=== PATIENT | female | born 1950 | race Caucasian/White ===

== ENCOUNTER → 2020-06-07 15:01 | Outpatient (BNVA) | payer MEDICARE, OTHER, SELFPAY | PROVIDERS: Visit Provider Obstetrics & Gynecology | DX: R10.32 Left lower quadrant pain (principal); R93.89 Abnormal findings on diagnostic imaging of other specified body structures | CPT/HCPCS: 99212 ==

== ENCOUNTER → 2020-08-16 11:04 | Outpatient (BNVA) | payer MEDICARE, OTHER, SELFPAY | PROVIDERS: PCP Internal Medicine; Visit Provider Internal Medicine Cardiovascular Disease | DX: I25.10 Atherosclerotic heart disease of native coronary artery without angina pectoris (principal); R00.2 Palpitations; I10 Essential (primary) hypertension | CPT/HCPCS: 99212 ==

== ENCOUNTER → 2020-09-13 08:28 | Outpatient (REF) | payer MEDICARE, OTHER, SELFPAY ==
--- NOTE | 2020-09-13 08:45 | CA_ITS ---
Transthoracic Echocardiogram Patient (Last, First, Middle): Milana Fonseca, Gender: Female Date of : 1950 Age: 70 Procedure Date: 09/13/2020 Procedure Type: Transthoracic Echocardiogram Location: OP Height: 157.48 cm Weight: 86.18 kg BSA: 1.87 m2 Heart Rate: bpm BP: 140 / 80 mmHg Industrial Editor: RAYRAY Referring MD: Daniel Che MD Symptoms: R00.2 - Palpitations Study Quality: Good ECG Rhythm: Sinus Conclusions: - The left ventricular systolic function is normal. The visually estimated ejection fraction is between 60-65%. - There is mild calcification of the aortic valve. - There is mild mitral annular calcification. - No obvious valvular pathology seen on this study. Findings Left Ventricle Normal left ventricular cavity size. There is normal left ventricular wall thickness. The left ventricular systolic function is normal. The visually estimated ejection fraction is between 60-65%. There is no evidence of regional wall motion abnormalities. Diastolic function is normal for age. Right Ventricle Normal right ventricular cavity size and systolic function. Atria The left atrium is normal in size. The right atrium is normal in size. Aortic Valve There is a normal trileaflet aortic valve. There is mild calcification of the aortic valve. There is no aortic valve stenosis. There is no aortic valve regurgitation. Mitral Valve There is mild mitral annular calcification. There is no mitral valve regurgitation. There is no mitral valve stenosis. Pulmonic Valve The pulmonic valve was not well visualized. Tricuspid Valve Normal tricuspid valve structure. There is no tricuspid valve regurgitation. Tricuspid regurgitation envelope is inadequate for calculation of right ventricular systolic pressure. Great Vessels The aortic annulus, sinuses of valsalva, asc aorta, and aortic arch are normal in size. Venous The inferior vena cava is normal in size and collapses greater than 50% with inspiration. Pericardium/Pleural There is no evidence of pericardial effusion. Prior Study Comparison No significant change compared to prior study dated: 06/03/2017. Recommendations, Care & Conclusions No obvious valvular pathology seen on this study. Measurements M-Mode Liner Measurements Normals - Women/Men AOV Cusps: 1.70 1.5-2.6 cm/m2 2D Linear Measurements IVSd: 0.74 0.6-0.9/0.6-1.0 cm LVIDd: 4.44 3.9-5.3/4.2-5.9 cm LVIDd Index: 2.37 2.4-3.2/2.2-3.1 cm/m2 LVIDs: 2.72 2.0-3.6 cm LVPWd: 0.84 0.7-1.1 cm Ao Root: 2.70 2.1-3.5 cm LA Diam: 3.60 2.7-3.8/3.0-4.0 cm LAIDs Index: 1.93 1.5-2.3 cm/m2 LV Mass: 136.32 67-162/88-224 g LV Mass Index: 72.90 43-95/49-115 g/m2 LVOT Diam: 1.80 3.0+(-)1.3 cm Mitral Valve MV Pk E: 0.61 MV PK A: 0.56 MV Decel Time: 303.00 E/A: 1.10 E'Lateral: 7.40 E'Medial: 5.44 E/E' Med: 11.10 E/E' Lat: 8.20 PHT: 89.00 MVA PHT: 2.47 Decel [place]: 2.00 Aortic Valve AoV Pk Mars: 1.28 AoV Pk Grad: 7.00 LVOT LVOT Pk Mars: 1.11 LVOT Mn Mars: 0.70 LVOT VTI: 0.25 LVOT Pk Grad: 5.00 LVOT Mn Grad: 2.00 LVOT Diam: 1.80 LVOT Area: 2.54 Diastolic Function MV Pk E: 0.61 MV Pk A: 0.56 E/A: 1.10 E'Medial: 5.44 E/E' Med: 11.10 E' Laterial: 7.40 E/E' Lat: 8.20 Tricuspid Valve RA Press: 3.00 Great Vessels Aorta Ao Root-2D: 2.70 2.0-3.7 cm Ao Asc: 3.20 2.1-3.4 cm Ao Arch: 2.70 Pulmonary Valve PV Pk Mars: 0.88 Peak PV Grad: 3.00 Updated in Other Vendor System with Status of Final Jay Kim MD electronically signed on 09/15/2020 2:13:17 PM with status of Final
== END ==
LOC: HO.CARD 08:28
PROVIDERS: Visit Provider Internal Medicine Cardiovascular Disease
DX: I25.119 Atherosclerotic heart disease of native coronary artery with unspecified angina pectoris (principal); R00.2 Palpitations
CPT/HCPCS: 93306

== ENCOUNTER → 2020-09-14 10:15 | Outpatient (REF) | payer MEDICARE, OTHER, SELFPAY ==
--- NOTE | 2020-09-14 | HM_ITS ---
TEST PERFORMED: Cardiac event monitoring. INDICATION: Palpitations. REQUESTING PHYSICIAN: Dr. Che. ENROLLMENT PERIOD: 09/14/2020 to 10/14/2020 - 30 days. FINDINGS: In the above monitoring period, the underlying rhythm was sinus. There were several episodes of atrial fibrillation with rapid rate and that were noted. During these times, the rates went up to as much as 185 beats per minute. There were no specific symptoms notified by patient at any point. CONCLUSION: Study positive for several episodes of atrial fibrillation with rapid rate. Jay Kim MD HS/JELANI / [id number] MTDD
== END ==
LOC: HO.CARD 10:15
PROVIDERS: Visit Provider Internal Medicine Cardiovascular Disease
DX: I25.10 Atherosclerotic heart disease of native coronary artery without angina pectoris (principal); R00.2 Palpitations
CPT/HCPCS: 93270; 93272

== ENCOUNTER → 2020-09-25 13:49 | Outpatient (BNVA) | payer MEDICARE, OTHER, SELFPAY | PROVIDERS: PCP Internal Medicine; Visit Provider Nurse Practitioner Family | DX: I48.0 Paroxysmal atrial fibrillation (principal); R00.2 Palpitations; I25.10 Atherosclerotic heart disease of native coronary artery without angina pectoris; I10 Essential (primary) hypertension; E66.9 Obesity, unspecified | CPT/HCPCS: 93005; 99212 ==

== ENCOUNTER 2020-10-05 09:33 | Outpatient (REF) | payer MEDICARE, OTHER, SELFPAY ==
[2020-10-05 09:55] LABS: MANUAL DIFF FLAG NO
[2020-10-05 10:03] LABS: Eosinophils Absolute Auto 0.4 X10*3/uL (0.0-0.4); Eosinophils Percent Auto 4.7 % (0-4); Hematocrit 43.5 % (37-47); Hemoglobin 14.2 g/dl (12.0-16.0); Imm Gran Abs Auto 0.02 X10*3/uL (0.00-0.03); Imm Gran Pct Auto 0.3 % (0.0-0.4); Lymphocytes Absolute Auto 1.7 X10*3/uL (1.2-4.9); Lymphocytes Percent Auto 22.4 % (20-40); Mean Corpuscular HGB Conc 32.6 g/dl (31.0-35.0); Mean Corpuscular Hemoglobin 27.5 pg (27.0-33.0); Mean Corpuscular Volume 84.3 fL (80-98); Mean Platelet Volume 10.4 fL (9.4-12.3); Monocytes Absolute Auto 0.7 X10*3/uL (0.1-1.2); Monocytes Percent Auto 8.8 % (2-11); Neutrophils Absolute Auto 4.7 X10*3/uL (2.0-8.3); Neutrophils Percent Auto 63.8 % (45-73); Platelet Count 193 X10*3/uL (160-400); Red Blood Count 5.16 X10*6/uL (4.20-5.50); Red Cell Distribution Width 12.9 % (11.0-16.0); White Blood Count 7.4 X10*3/uL (4.8-10.8)
[2020-10-05 10:15] LABS: Estimated Average Glucose 197 mg/dL; Hemoglobin A1c % 8.5 %
[2020-10-05 10:52] LABS: Anion Gap 12 (12-20); Blood Urea Nitrogen 20 mg/dL (9-16); Calcium 9.3 mg/dL (8.4-10.2); Carbon Dioxide 27 mmol/L (22-29); Chloride 106 mmol/L (96-108); Cholesterol 145 mg/dL; Estimated Glomerular Filt Rate > 60; Glucose Fasting 160 mg/dL (60-99); HDL Cholesterol 46 mg/dL; LDL Cholesterol Calculated 81 mg/dl; Magnesium 2.1 mg/dL (1.6-2.6); Potassium 4.3 mmol/L (3.3-5.1); Sodium 141 mmol/L (135-145); Triglycerides 92 mg/dL
== END 2020-10-05 09:34 | disposition home or self-care (01) ==
LOC: HO.LAB 09:33
PROVIDERS: Absent Provider Nurse Practitioner Family; PCP Internal Medicine; Visit Provider Nurse Practitioner Family
DX: E11.65 Type 2 diabetes mellitus with hyperglycemia (principal); E78.00 Pure hypercholesterolemia, unspecified; I48.0 Paroxysmal atrial fibrillation
CPT/HCPCS: 36415; 80048; 80061; 83036; 83735; 85025

== ENCOUNTER → 2020-10-15 10:20 | Outpatient (BNVA) | payer MEDICARE, OTHER, SELFPAY | PROVIDERS: PCP Internal Medicine; Visit Provider Nurse Practitioner Family | DX: I48.0 Paroxysmal atrial fibrillation (principal); R00.2 Palpitations; I25.10 Atherosclerotic heart disease of native coronary artery without angina pectoris; E66.9 Obesity, unspecified; Z68.34 Body mass index [BMI] 34.0-34.9, adult; Z87.891 Personal history of nicotine dependence; Z79.899 Other long term (current) drug therapy | CPT/HCPCS: 99212 ==

== ENCOUNTER → 2020-10-18 09:30 | Outpatient (BNVA) | payer MEDICARE, OTHER, SELFPAY | PROVIDERS: PCP Internal Medicine; Visit Provider Nurse Practitioner Family | DX: R00.1 Bradycardia, unspecified (principal) | CPT/HCPCS: 93005 ==

== ENCOUNTER → 2020-11-19 10:05 | Outpatient (BNVA) | payer MEDICARE, OTHER, SELFPAY | PROVIDERS: PCP Internal Medicine; Visit Provider Nurse Practitioner Family | DX: I48.0 Paroxysmal atrial fibrillation (principal); R00.2 Palpitations; I25.10 Atherosclerotic heart disease of native coronary artery without angina pectoris; I10 Essential (primary) hypertension; E66.9 Obesity, unspecified | CPT/HCPCS: 93005; 99212; Q3014 ==

== ENCOUNTER 2021-02-21 10:05 | Outpatient (REF) | payer MEDICARE, OTHER, SELFPAY ==
--- NOTE | ~2021-02-21 | XR_ITS ---
EXAMINATION: XR CHEST CLINICAL INFORMATION: Atrial fibrillation. COMPARISON: Most recent chest radiograph dated 08/26/2019 TECHNIQUE: Two views of the chest were obtained. FINDINGS: No airspace consolidation. No pleural effusion or pneumothorax. Stable cardiomediastinal silhouette. No acute osseous abnormality. Right upper quadrant surgical clips. XR/XR chest 2V IMPRESSION: No acute cardiopulmonary findings.
[2021-02-21 11:25] LABS: MANUAL DIFF FLAG NO
[2021-02-21 11:29] LABS: Eosinophils Absolute Auto 0.2 X10*3/uL (0.0-0.4); Eosinophils Percent Auto 3.5 % (0-4); Hematocrit 42.6 % (37-47); Hemoglobin 13.7 g/dl (12.0-16.0); Imm Gran Abs Auto 0.02 X10*3/uL (0.00-0.03); Imm Gran Pct Auto 0.3 % (0.0-0.4); Lymphocytes Absolute Auto 1.4 X10*3/uL (1.2-4.9); Lymphocytes Percent Auto 19.8 % (20-40); Mean Corpuscular HGB Conc 32.2 g/dl (31.0-35.0); Mean Corpuscular Volume 83.9 fL (80-98); Mean Platelet Volume 10.5 fL (9.4-12.3); Monocytes Absolute Auto 0.6 X10*3/uL (0.1-1.2); Neutrophils Absolute Auto 4.7 X10*3/uL (2.0-8.3); Neutrophils Percent Auto 67.4 % (45-73); Platelet Count 194 X10*3/uL (160-400); Red Blood Count 5.08 X10*6/uL (4.20-5.50); Red Cell Distribution Width 13.3 % (11.0-16.0); White Blood Count 6.9 X10*3/uL (4.8-10.8)
[2021-02-21 11:36] LABS: Estimated Average Glucose 180 mg/dL; Hemoglobin A1c % 7.9 %
[2021-02-21 12:18] LABS: Alanine Aminotransferase 38 U/L (0-31); Albumin Level 4.4 g/dL (3.5-5.0); Alkaline Phosphatase 76 U/L (39-117); Anion Gap 12 (12-20); Aspartate Amino Transferase 40 U/L (5-31); Bilirubin Direct 0.3 mg/dL (0.0-0.5); Bilirubin Total 0.9 mg/dL (0.0-1.0); Blood Urea Nitrogen 15 mg/dL (9-16); Calcium 9.5 mg/dL (8.4-10.2); Carbon Dioxide 29 mmol/L (22-29); Chloride 105 mmol/L (96-108); Cholesterol 137 mg/dL; Estimated Glomerular Filt Rate 48; Glucose Random 223 mg/dL (60-115); HDL Cholesterol 42 mg/dL; LDL Cholesterol Calculated 72 mg/dl; Potassium 3.8 mmol/L (3.3-5.1); Sodium 142 mmol/L (135-145); Total Protein 7.4 g/dL (6.5-8.0); Triglycerides 118 mg/dL
[2021-02-21 12:21] LABS: Free T4 (Free Thyroxine) 0.93 ng/dL (0.71-1.85); Thyroid Stimulating Hormone 0.68 uIU/mL (0.32-4.0)
== END 2021-02-21 10:06 | disposition home or self-care (01) ==
LOC: HO.LAB 10:05
PROVIDERS: PCP Internal Medicine; Referring Provider Internal Medicine; Visit Provider Internal Medicine Cardiovascular Disease
DX: I48.19 Other persistent atrial fibrillation (principal); I25.10 Atherosclerotic heart disease of native coronary artery without angina pectoris; I10 Essential (primary) hypertension; E11.65 Type 2 diabetes mellitus with hyperglycemia; E11.21 Type 2 diabetes mellitus with diabetic nephropathy; E78.00 Pure hypercholesterolemia, unspecified; E55.9 Vitamin D deficiency, unspecified; E66.9 Obesity, unspecified; Z68.34 Body mass index [BMI] 34.0-34.9, adult; Z91.010 Allergy to peanuts; Z88.8 Allergy status to other drugs, medicaments and biological substances; Z91.018 Allergy to other foods; Z79.4 Long term (current) use of insulin
CPT/HCPCS: 36415; 71046; 80053; 80061; 80076; 83036; 84439; 84443; 85025; 93005; 99212

== ENCOUNTER 2021-02-27 10:33 | Outpatient (REF) | payer MEDICARE, OTHER, SELFPAY ==
--- NOTE | ~2021-02-27 | MM_ITS ---
EXAMINATION: MM SCREENING DIGITAL BREAST TOMOSYNTHESIS, BILATERAL CLINICAL INFORMATION: Screening. Asymptomatic. The lifetime risk of breast cancer based on the Tyrer-Cuzick Model is 18%. COMPARISON: Mammography: 02/28/2019, 01/06/2018, 12/10/2016, 11/27/2016 TECHNIQUE: Digital breast tomosynthesis is performed in both the craniocaudal and mediolateral oblique views along with computer-aided detection (CAD). Synthesized 2D images are generated from the tomosynthesis. FINDINGS: The breasts are heterogeneously dense, which may obscure small masses (ACR BI-RADS breast composition Category c). Parenchymal pattern is similar to prior exams. No developing density or interval mass or architectural abnormality. There is biopsy clip marker again noted mid 9:00 left breast. There are grouped benign coarse calcifications anterior 1:00 left breast. Other scattered bilateral punctate round and vascular calcifications again seen. Intramammary node present right breast mid 9:30 o'clock position. The axilla and skin contours are unremarkable. MM/MM tomosynthesis screening BI IMPRESSION: No significant changes from prior exams. ASSESSMENT: BI-RADS 2: Benign RECOMMENDATION: Routine annual mammography screening. This patient's information was entered into a reminder system with a target due date for their next mammogram.
== END 2021-02-27 10:34 | disposition home or self-care (01) ==
LOC: HO.MAMMO 10:33
PROVIDERS: PCP Internal Medicine; Visit Provider Internal Medicine
DX: Z12.31 Encounter for screening mammogram for malignant neoplasm of breast (principal)
CPT/HCPCS: 77063; 77067

== ENCOUNTER → 2021-03-20 07:04 | Day surgery (SDC) | payer MEDICARE, OTHER, SELFPAY ==
--- NOTE | 2021-03-18 13:41 | HO.ANESPROP2 ---
HPI - Anesthesia Eval Consult details Narrative: 03/20/21 Pt in SR, cardioversion cx'd 71yo F for Cardioversion Xarelto for afib PMFSH Active Problems Active Problems: All Active Problems (Updated 03/06/21 @ 14:12 by KYLE Rdz) Adult general medical exam (Acute) Screening for colon cancer (Acute) Post-menopausal (Acute) Persistent atrial fibrillation (Acute) Hordeolum (Acute) Paroxysmal atrial fibrillation (Acute) Numbness of lip (Acute) Intermittent palpitations (Acute) CAD (coronary artery disease) (Acute) Hypertension (Acute) Type 2 diabetes mellitus with hyperglycemia (Acute) Hypercholesterolemia (Acute) Obesity (BMI 30-39.9) (Acute) Past Medical History Medical History (Updated 03/06/21 @ 14:12 by KYLE Rdz) CAD (coronary artery disease) Diabetic nephropathy Hypercholesterolemia Hypertension Numbness of lip Obesity (BMI 30-39.9) Osteoarthritis Post-menopausal Psoriasis Screening for colon cancer Thrombocytopenia Type 2 diabetes mellitus with hyperglycemia Urge incontinence Vitamin D deficiency Family History Family History Brother Liver cancer Surgical History Surgical History (Updated 03/06/21 @ 14:10 by KYLE Rdz) H/O breast biopsy History of colonoscopy History of oophorectomy Hx of cholecystectomy Hx of tonsillectomy Hx of total knee replacement Hx of tubal ligation Stented coronary artery Social History Social History (Updated 03/06/21 @ 11:46 by KYLE Rdz) Alcohol intake: never Patient Tobacco Use Status: Former Tobacco user Meds Allergies Allergy/AdvReac Type Severity Reaction Status Date / Time atorvastatin [From LIPITOR] Allergy Unknown AFFECTED Verified 03/06/21 11:44 LIVER ENZYMES liraglutide [Victoza] Allergy Unknown nausea Verified 03/06/21 11:44 lisinopril Allergy Unknown cough Verified 03/06/21 11:44 losartan [LOSARTAN] Allergy Unknown HIVES Verified 03/06/21 11:44 PEANUT BUTTER Allergy Unknown LIPS Uncoded 03/06/21 11:44 SWELLING MOST FRUITS AdvReac Unknown HIVES,ITCHI Uncoded 03/06/21 11:44 NG Home Medications Medication Instructions Recorded Confirmed Last Taken Type ezetimibe 10 mg tablet (Zetia) 10 mg PO DAILY 06/07/20 03/06/21 Unknown History metoprolol succinate 100 mg 50 mg PO DAILY tab 10/18/20 03/06/21 Unknown History tablet,extended release 24 hr Exam Exam Date and Time: March 18, 2021 1341 Pertinent Lab Results Pertinent Lab Results: Laboratory Tests 02/21/21 02/21/21 10:53 10:53 WBC 6.9 Hgb 13.7 Hct 42.6 Plt Count 194 Sodium 142 Potassium 3.8 Chloride 105 Carbon Dioxide 29 BUN 15 Creatinine 1.12 Narrative Narrative: EKG 02/2021 atrial fibrillation at 89 beats per minute with nonspecific ST changes Assessment and Plan Assessment Anesthesia Assessment: Chart Reviewed
[2021-03-20 07:13] VITALS: BP 144/66; PULSE 49; RESP 18; TEMP 37; O2SAT 98; BMI 34.9
[2021-03-20 07:21] LABS: Glucose, Whole Blood 142 mg/dL (60-115)
[2021-03-20] MEDS: Lactated Ringers 1,000 ML 100 ML IVCONT (07:49)
--- NOTE | 2021-03-20 07:59 | ECG_ITS ---
Test Reason : RHYTHM CHECK Blood Pressure : / mmHG Vent. Rate : 049 BPM Atrial Rate : 049 BPM P-R Int : 198 ms QRS Dur : 094 ms QT Int : 478 ms P-R-T Axes : 060 056 044 degrees QTc Int : 431 ms Sinus bradycardia Otherwise normal ECG When compared with ECG of 17-FEB-2018 15:51, No significant change was found Referred By: Daniel Che Electronically Signed By:DANIEL CHE MD
--- NOTE | 2021-03-20 08:02 | PC.NURSE ---
PT IS CURRENLTY IN A SB RHYTHM, HR [address] RANGEL NOTIFIED AND AN EKG ORDERED TO VERIFY THE RHYTHM.
--- NOTE | 2021-03-20 08:19 | PC.NURSE ---
DR. TOVAR STATES PATIENT CAN GO HOME A RESULT OF THE EKG AND THAT HE WILL SET UP THE FOLLOW UP.
== END ==
PROVIDERS: PCP Internal Medicine; Visit Provider Internal Medicine Cardiovascular Disease
DX: I48.19 Other persistent atrial fibrillation (principal); Z53.8 Procedure and treatment not carried out for other reasons; E11.21 Type 2 diabetes mellitus with diabetic nephropathy; Z79.899 Other long term (current) drug therapy
CPT/HCPCS: 82947; 93005

== ENCOUNTER 2021-03-25 08:20 | Outpatient (REF) | payer MEDICARE, OTHER, SELFPAY ==
[2021-03-25 09:22] LABS: Alanine Aminotransferase 42 U/L (0-31); Albumin Level 4.2 g/dL (3.5-5.0); Alkaline Phosphatase 78 U/L (39-117); Aspartate Amino Transferase 36 U/L (5-31); Bilirubin Direct 0.3 mg/dL (0.0-0.5); Bilirubin Total 0.5 mg/dL (0.0-1.0); Total Protein 6.9 g/dL (6.5-8.0)
== END 2021-03-25 08:21 | disposition home or self-care (01) ==
LOC: HO.LAB 08:20
PROVIDERS: PCP Internal Medicine; Visit Provider Internal Medicine Cardiovascular Disease
DX: I25.10 Atherosclerotic heart disease of native coronary artery without angina pectoris (principal)
CPT/HCPCS: 36415; 80076

== ENCOUNTER → 2021-04-08 11:03 | Outpatient (REF) | payer MEDICARE, OTHER, SELFPAY ==
--- NOTE | 2021-04-08 11:06 | HM_ITS ---
Baseline rhythm is normal sinus rhythm with average heart rate of 55 beats per minute. Frequent sinus bradycardia noted. There were no significant pauses No episodes of atrial fibrillation Rare isolated PACs noted. No patient reported events MTDD
== END ==
LOC: HO.CARD 11:03
PROVIDERS: PCP Internal Medicine; Visit Provider Internal Medicine Cardiovascular Disease
DX: I48.0 Paroxysmal atrial fibrillation (principal)
CPT/HCPCS: 93242

== ENCOUNTER 2021-04-09 09:23 | Outpatient (REF) | payer MEDICARE, OTHER, SELFPAY ==
--- NOTE | ~2021-04-09 | MM_ITS ---
EXAMINATION: BONE DENSITOMETRY CLINICAL INDICATION: Asymptomatic menopausal state. COMPARISON: Baseline BD dated 11/28/2015. TECHNIQUE: Using a [employer] DXA System (software version: 13.1) manufactured by [employer], dual-energy x-ray absorptiometry was performed of the lumbar spine and left hip. The images are of good technical quality. Summary results are attached. FINDINGS: AP SPINE L1-L4: Current: BMD 1.291 g/cm2, Z-score 1.9, T-score 0.9, normal, 0.2% increase from baseline (<5% change is not significant). Baseline: BMD 1.289 g/cm2. LEFT FEMUR, NECK: Current: BMD 0.994 g/cm2, Z-score 1.0, T-score -0.3, normal. Baseline: BMD 1.075 g/cm2. LEFT FEMUR, TOTAL: Current: BMD 1.111 g/cm2, Z-score 1.9, T-score 0.8, normal, 9.3% decrease from baseline (<5% change is not significant). Baseline: BMD 1.225 g/cm2. IDENTIFIED RISK FACTORS: Menopause, right oophorectomy. HISTORY OF FRACTURE: None listed. MEDICATIONS: Vitamin D. MM/XR DEXA axial skeleton IMPRESSION: 1. DIAGNOSIS: Normal bone density based on the lowest T-score value of -0.3 in the femoral neck applying World Health Organization criteria. 2. 10-YEAR FRACTURE RISK PREDICTION, FRAX: Major osteoporotic fracture (clinical spine, forearm, hip or shoulder) 4.0%. Hip fracture 0.3%. 3. Treatment Recommendations: NOF guidelines recommend consideration for treatment in postmenopausal women and men age 50 and older presenting with the following: -A hip or vertebral (clinical or morphometric) fracture. -T-score less than or equal to -2.5 at the femoral neck or spine after appropriate evaluation to exclude secondary causes. -Low bone mass at the hip or spine and a 10-year fracture probability by FRAX of greater than or equal to 3% for hip fracture or greater than or equal to 20% for major osteoporotic fracture based on the [place] adapted WHO algorithm. 4. Other Recommendations: All treatment decisions require clinical judgment and consideration of individual patient factors, including patient preferences, comorbidities, previous drug use, risk factors not captured in the FRAX model (e.g. frailty, falls, vitamin D deficiency, increased bone turnover, interval significant decline in bone density) and possible under or overestimation of fracture risk by FRAX. FUTURE SCAN RECOMMENDATION: People with diagnosed cases of osteoporosis or at high risk for fracture should have regular bone mineral density tests. For patients eligible for Medicare, routine testing is allowed once every 2 years. The testing frequency can be increased to one year for patients who have rapidly progressing disease, those who are receiving or discontinuing medical therapy to restore bone mass, or have additional risk factors.
== END 2021-04-09 09:24 | disposition home or self-care (01) ==
LOC: HO.MAMMO 09:23
PROVIDERS: PCP Internal Medicine; Visit Provider Nurse Practitioner Family
DX: Z13.820 Encounter for screening for osteoporosis (principal); Z78.0 Asymptomatic menopausal state; Z79.899 Other long term (current) drug therapy; Z90.722 Acquired absence of ovaries, bilateral
CPT/HCPCS: 77080

== ENCOUNTER → 2021-04-16 13:13 | Outpatient (BNVA) | payer MEDICARE, OTHER, SELFPAY | PROVIDERS: PCP Internal Medicine; Referring Provider Internal Medicine; Visit Provider Internal Medicine Cardiovascular Disease | DX: I48.0 Paroxysmal atrial fibrillation (principal); I25.10 Atherosclerotic heart disease of native coronary artery without angina pectoris | CPT/HCPCS: 93005; 99212 ==

== ENCOUNTER 2021-05-07 14:11 | Outpatient (REF) | payer MEDICARE, OTHER, SELFPAY ==
[2021-05-07 17:55] LABS: IDNOW Serial# 9DD0AD1C; Strep A Nucleic Acid Negative (Negative)
== END 2021-05-07 14:12 | disposition home or self-care (01) ==
LOC: HO.LNP 14:11
PROVIDERS: Visit Provider Internal Medicine
DX: J06.9 Acute upper respiratory infection, unspecified (principal); Z20.822 Contact with and (suspected) exposure to COVID-19
CPT/HCPCS: 87651; U0003; U0005

== ENCOUNTER 2021-07-30 09:21 | Outpatient (REF) | payer MEDICARE, OTHER, SELFPAY ==
[2021-07-30 09:41] LABS: MANUAL DIFF FLAG NO
[2021-07-30 09:48] LABS: Eosinophils Absolute Auto 0.3 X10*3/uL (0.0-0.4); Eosinophils Percent Auto 3.8 % (0-4); Hematocrit 43.5 % (37.0-47.0); Hemoglobin 13.8 g/dl (12.0-16.0); Imm Gran Abs Auto 0.03 X10*3/uL (0.00-0.03); Imm Gran Pct Auto 0.4 % (0.0-0.4); Lymphocytes Absolute Auto 1.4 X10*3/uL (1.2-4.9); Lymphocytes Percent Auto 20.6 % (20-40); Mean Corpuscular HGB Conc 31.7 g/dl (31.0-35.0); Mean Corpuscular Hemoglobin 27.3 pg (27.0-33.0); Mean Platelet Volume 9.8 fL (9.4-12.3); Monocytes Absolute Auto 0.6 X10*3/uL (0.1-1.2); Monocytes Percent Auto 8.4 % (2-11); Neutrophils Absolute Auto 4.5 x10*3/uL (2.0-8.3); Neutrophils Percent Auto 66.8 % (45-73); Platelet Count 189 X10*3/uL (160-400); Red Blood Count 5.06 X10*6/uL (4.20-5.50); Red Cell Distribution Width 14.3 % (11.0-16.0); White Blood Count 6.8 X10*3/uL (4.8-10.8)
[2021-07-30 10:11] LABS: INTERNATIONAL NORM RATIO 1.9 (0.9-1.1); Prothrombin Time 21.7 SEC (9.9-13.0)
[2021-07-30 10:18] LABS: B Type Natriuretic Peptide 77 pg/mL (<100)
[2021-07-30 10:23] LABS: Alanine Aminotransferase 38 U/L (0-31); Albumin Level 4.1 g/dL (3.5-5.0); Alkaline Phosphatase 82 U/L (39-117); Anion Gap 10 (12-20); Aspartate Amino Transferase 35 U/L (5-31); Bilirubin Total 0.7 mg/dL (0.0-1.0); Blood Urea Nitrogen 15 mg/dL (9-16); Calcium 9.1 mg/dL (8.4-10.2); Carbon Dioxide 28 mmol/L (22-29); Chloride 107 mmol/L (96-108); Cholesterol 164 mg/dL; Estimated Glomerular Filt Rate 54; Glucose Random 157 mg/dL (60-115); HDL Cholesterol 57 mg/dL; LDL Cholesterol Calculated 88 mg/dl; Potassium 4.3 mmol/L (3.3-5.1); Sodium 141 mmol/L (135-145); Total Protein 7.2 g/dL (6.5-8.0); Triglycerides 98 mg/dL
[2021-07-30 10:32] LABS: Anion Gap 11 (12-20); Blood Urea Nitrogen 15 mg/dL (9-16); Calcium 9.2 mg/dL (8.4-10.2); Carbon Dioxide 28 mmol/L (22-29); Chloride 107 mmol/L (96-108); Estimated Glomerular Filt Rate 55; Glucose Random 156 mg/dL (60-115); Potassium 4.4 mmol/L (3.3-5.1); Sodium 142 mmol/L (135-145)
[2021-07-30 10:45] LABS: Folate 12.6 ng/mL (> or = 4.0); Vitamin B12 536 pg/mL (200-900)
[2021-07-30 11:17] LABS: Free T4 (Free Thyroxine) 1.65 ng/dL (0.71-1.85)
[2021-07-30 11:51] LABS: Thyroid Stimulating Hormone 1.11 uIU/mL (0.32-4.0)
== END 2021-07-30 09:22 | disposition home or self-care (01) ==
LOC: HO.LAB 09:21
PROVIDERS: PCP Internal Medicine; Visit Provider Internal Medicine Cardiovascular Disease
DX: I48.0 Paroxysmal atrial fibrillation (principal); E78.00 Pure hypercholesterolemia, unspecified
CPT/HCPCS: 36415; 80048; 80053; 80061; 82607; 82746; 83880; 84439; 84443; 85025; 85610

== ENCOUNTER 2021-08-12 09:50 | Day surgery (SDC) | payer MEDICARE, OTHER, SELFPAY ==
--- NOTE | 2021-08-08 10:03 | HO.ANESPROP2 ---
Documented by User: Negin Schwarz NP 08/08/21 10:27 HPI - Anesthesia Eval Consult details Narrative: 71yo F for Upper Endoscopy with Balloon Dilitation, Colonoscopy Xarelto for afib PMFSH Active Problems Active Problems: All Active Problems (Updated 08/05/21 @ 13:51 by Karissa Gutierrez, RN) Intermittent palpitations (Acute) Paroxysmal atrial fibrillation (Acute) Hordeolum (Acute) Adult general medical exam (Acute) Upper respiratory tract infection (Acute) Screening for colon cancer (Acute) Post-menopausal (Acute) Numbness of lip (Acute) CAD (coronary artery disease) (Acute) Hypertension (Acute) Type 2 diabetes mellitus with hyperglycemia (Acute) Hypercholesterolemia (Acute) Obesity (BMI 30-39.9) (Acute) Past Medical History Medical History (Updated 08/05/21 @ 13:51 by Karissa Gutierrez, RN) CAD (coronary artery disease) Diabetic nephropathy Hypercholesterolemia Hypertension Numbness of lip Obesity (BMI 30-39.9) On anticoagulant therapy On beta ever at home Osteoarthritis Persistent atrial fibrillation Post-menopausal Psoriasis Screening for colon cancer Thrombocytopenia Type 2 diabetes mellitus with hyperglycemia Urge incontinence Vitamin D deficiency Family History Family History Brother Liver cancer Surgical History Surgical History H/O breast biopsy History of colonoscopy History of oophorectomy Hx of cholecystectomy Hx of tonsillectomy Hx of total knee replacement Hx of tubal ligation Stented coronary artery Social History Social History Housing: House Alcohol intake: never Patient Tobacco Use Status: Former Tobacco user Second Hand Smoke Exposure: Yes Use of substances other than those prescribed or required for medical reasons: No Have you been hit, kicked, punched, or otherwise hurt by someone within the past year? If so, by whom?: No Are you DNR?: No Advance Directives: No Advance Directives Information Provided: Yes Recently lost weight without trying: No Nutrition Risks: No Nutritional Risk Patient : No service: No Current occupational status: retired Meds Allergies Allergy/AdvReac Type Severity Reaction Status Date / Time atorvastatin [From LIPITOR] Allergy Unknown AFFECTED Verified 08/05/21 13:49 LIVER ENZYMES liraglutide [Victoza] Allergy Unknown nausea Verified 08/05/21 13:49 lisinopril Allergy Unknown cough Verified 08/05/21 13:49 losartan [LOSARTAN] Allergy Unknown HIVES Verified 08/05/21 13:49 PEANUT BUTTER Allergy Unknown LIPS Uncoded 08/05/21 13:49 SWELLING MOST FRUITS AdvReac Unknown HIVES,ITCHI Uncoded 08/05/21 13:49 NG Home Medications Medication Instructions Recorded Confirmed Last Taken Type dronedarone 400 mg tablet (Multaq) 400 mg PO Q12H 08/05/21 08/05/21 08/12/21 History metformin 500 mg tablet 1,000 mg PO BID 08/05/21 08/05/21 Unknown History omeprazole 20 mg capsule,delayed 1 cap PO DAILY 08/05/21 08/05/21 Unknown History release Exam Exam Date and Time: August 08, 2021 1003 Pertinent Lab Results Pertinent Lab Results: Laboratory Tests 07/30/21 07/30/21 09:40 09:40 WBC 6.8 Hgb 13.8 Hct 43.5 Plt Count 189 Sodium 142 Potassium 4.4 Chloride 107 Carbon Dioxide 28 BUN 15 Creatinine 1.00 Narrative Narrative: EKG 04/2021 sinus bradycardia at 52 beats per minute with normal EKG Echo 09/2020 EF 60-65%, No signif abn Holter 03/2021 avg HR 55, no pauses, no afib Assessment and Plan Assessment Anesthesia Assessment: Chart Reviewed Documented by User: Katalina Narayanan MD 08/12/21 10:43 [facility] Past Medical History Medical History (Updated 08/05/21 @ 13:51 by Karissa Gutierrez, LOAN) CAD (coronary artery disease) Diabetic nephropathy Hypercholesterolemia Hypertension Numbness of lip Obesity (BMI 30-39.9) On anticoagulant therapy On beta ever at home Osteoarthritis Persistent atrial fibrillation Post-menopausal Psoriasis Screening for colon cancer Thrombocytopenia Type 2 diabetes mellitus with hyperglycemia Urge incontinence Vitamin D deficiency Functional capacity: independent ambulation Patient : No Family History Family History Brother Liver cancer Family history of problems with anesthesia: No Surgical History Surgical History H/O breast biopsy History of colonoscopy History of oophorectomy Hx of cholecystectomy Hx of tonsillectomy Hx of total knee replacement Hx of tubal ligation Stented coronary artery History of Problems with Anesthesia: No Social History Social History Housing: House Alcohol intake: never Patient Tobacco Use Status: Former Tobacco user Second Hand Smoke Exposure: Yes Use of substances other than those prescribed or required for medical reasons: No Have you been hit, kicked, punched, or otherwise hurt by someone within the past year? If so, by whom?: No Are you DNR?: No Advance Directives: No Advance Directives Information Provided: Yes Recently lost weight without trying: No Nutrition Risks: No Nutritional Risk Patient : No service: No Current occupational status: retired [employer] Allergies Allergy/AdvReac Type Severity Reaction Status Date / Time atorvastatin [From LIPITOR] Allergy Unknown AFFECTED Verified 08/05/21 13:49 LIVER ENZYMES liraglutide [Victoza] Allergy Unknown nausea Verified 08/05/21 13:49 lisinopril Allergy Unknown cough Verified 08/05/21 13:49 losartan [LOSARTAN] Allergy Unknown HIVES Verified 08/05/21 13:49 PEANUT BUTTER Allergy Unknown LIPS Uncoded 08/05/21 13:49 SWELLING MOST FRUITS AdvReac Unknown HIVES,ITCHI Uncoded 08/05/21 13:49 NG Home Medications Medication Instructions Recorded Confirmed Last Taken Type dronedarone 400 mg tablet (Multaq) 400 mg PO Q12H 08/05/21 08/05/21 08/12/21 History metformin 500 mg tablet 1,000 mg PO BID 08/05/21 08/05/21 Unknown History omeprazole 20 mg capsule,delayed 1 cap PO DAILY 08/05/21 08/05/21 Unknown History release Exam Airway TM Dist: >3cm Neck ROM: Full Loose/Missing/Broken Teeth: Yes, Upper and Lower Heart: RRR Lungs: CTA Assessment and Plan Final Anesthetic Review Family History of Problems with Anesthesia: No History of Problems with Anesthesia: No NPO: Yes ASA Class: III Final Preanesthetic Review: No Changes in Pt Med Stat, Meds/Allgs Chart Reviewed, Consent Obtained/Reviewed and Anes Risks/Benef Reviewed Patient Risk: Low Procedure Risk: Low Anesthetic Plan Anesthetic Plan: MAC: Disposition: Standard PACU
[2021-08-12 08:59] VITALS: BMI 35.6
[2021-08-12 10:01] VITALS: BP 151/66; PULSE 54; RESP 17; TEMP 36.6; O2SAT 98
[2021-08-12 10:03] LABS: Glucose, Whole Blood 145 mg/dL (60-115)
[2021-08-12] MEDS: Lactated Ringers 1,000 ML 100 ML IVCONT (10:19)
[2021-08-12 11:54] VITALS: BP 101/63; PULSE 60; RESP 16; TEMP 36.1; O2SAT 94
--- NOTE | 2021-08-12 11:58 | PM.OP ---
Brief Operative Note Date of Service: 08/12/21 Pre-op diagnosis: Dysphagia, Rectal bleeding Post-op diagnosis: other (Hiatal hernia, Gastritis/Duodenitis, Colon polyp) Procedure: EGD with biopsies and Balloon dilation, Colonoscopy to the cecum with hot snare polypectomy and placement of 1 Resolution clip Surgeon: Marquise Osman Anesthesia: MAC Was an Botanical Technical Officer used for this Procedure?: No Estimated blood loss (mL): 2.0 Pathology: other (A. Gastric antrum B. EG Junction at 30cm C. Transverse colon polyp) Condition: stable Disposition: PACU
[2021-08-12 12:11] VITALS: BP 110/71; PULSE 54; RESP 16; TEMP 36.1; O2SAT 96
[2021-08-12 12:25] VITALS: BP 142/76; PULSE 51; RESP 16; TEMP 36.1; O2SAT 98
--- NOTE | 2021-08-12 12:28 | HO.POSTANES ---
Post Anesthesia Evaluation Post Anesthesia Evaluation Vital Signs: Vital Signs Temp Pulse Resp BP Pulse Ox 08/12/21 12:11 97 F 54 16 110/71 96 08/12/21 11:54 97 F 60 16 101/63 94 08/12/21 10:01 98 F 54 17 151/66 H 98 Anesthesia: Monitored Mental Status: Awake Pain Control: Satisfactory Nausea/Vomiting: None Hydration: Adequate Anesthesia-Related Issues: No Anes. Related Issues
--- NOTE | 2021-08-12 13:11 | OP_ITS ---
SURGEON: Marquise Osman MD INDICATIONS: The patient presents for evaluation of intermittent abdominal discomfort, dysphagia, and rectal bleeding. PREOPERATIVE DIAGNOSIS: POSTOPERATIVE DIAGNOSIS: PROCEDURE PERFORMED: Esophagogastroscopy with biopsies and balloon dilation of gastroesophageal junction, and colonoscopy to the cecum with hot snare polypectomy and placement of 1 resolution clip. Full consent obtained from her for both procedures, including risks of bleeding and perforation. ESTIMATED BLOOD LOSS: COMPLICATIONS: ANESTHESIA: Monitored anesthesia care. ASSISTANTS: SPECIMENS: PREOPERATIVE DIAGNOSES: Abdominal pain, dysphagia, and rectal bleeding. POSTOPERATIVE DIAGNOSES: Abdominal pain, dysphagia, and rectal bleeding, hiatal hernia, gastritis and duodenitis, colon polyp, diverticulosis, and internal hemorrhoids. DESCRIPTION OF PROCEDURE: The patient was placed in the left lateral decubitus position. The Olympus video gastroscope was passed in the posterior oropharynx and upper esophagus under direct vision. The scope was passed slowly into the distal esophagus. The gastroesophageal junction appeared at 30 cm. There was no evidence of any esophagitis, stricture, nor ring. There was some slight irregularity at the EG junction at 30 cm. The scope easily entered the stomach. There was a small to moderate-sized hiatal hernia. The scope was advanced to pylorus and the duodenum was cannulated to the descending portion. The duodenum including the bulb was carefully inspected. There was some moderate duodenitis in the duodenal bulb as well as what appeared to be perhaps a healing 6-8 mm area of ulceration in the duodenal bulb. There was no bleeding. The scope was withdrawn back to the stomach. The gastric antrum and body had areas of erythema, edema, and some mild friability. There were no erosions or ulceration. There was good peristalsis. The scope was retroflexed visualizing the proximal stomach carefully, which appeared normal, without any sign of mass or ulceration. Scope was straightened. Biopsies were obtained of the gastric antrum. Scope was withdrawn back to the esophagus. Given her symptomatology, I did use a [employer] incremental balloon to dilate the esophagogastric junction from an 18 mm to a 19 mm to a 20 mm balloon at the recommended pressure for between 30 and 60 seconds each. Post dilation, there was no appreciable heme nor change in the appearance of the gastroesophageal junction. I did obtain biopsies of the EG junction as well. The esophageal mucosa appeared normal. The scope was withdrawn from the patient. She was turned around for the colonoscopy. The digital rectal exam revealed no abnormalities. The Projjix video pediatric colonoscope was entered into the rectum and advanced easily to the cecum. Once in the cecum, I did identify normal-appearing cecal pouch with the ileocecal valve, a normal-appearing appendiceal orifice. There was transillumination of light deep in the right lower quadrant. The entire cecum appeared normal. The scope was slowly withdrawn assessing all mucosal surfaces carefully. Preparation was excellent. In the region of the transverse colon, there was an approximately 8 mm grossly adenomatous polyp, which was snared with the hot snare and removed. The piece was recovered by suction. The polypectomy site appeared clean, without any sign of residual polyp nor bleeding. A single clip was applied given that she has to go back on her Xarelto. I did not visualize any other polyps, colitis, or angiodysplasia. There was a mild amount of sigmoid diverticulosis. In the rectum, scope was retroflexed visualizing some small internal hemorrhoids, but no other pathology. The rectal mucosa appeared normal. The scope was straightened and withdrawn from the patient. She tolerated the procedure well and was returned to recovery area in stable condition. IMPRESSION: 1. Colon polyp, status post hot snare polypectomy with placement of one resolution clip. 2. Diverticulosis. 3. Internal hemorrhoids. 4. Hiatal hernia. 5. Gastritis and duodenitis. PLAN: The results of biopsies will be checked. If the colon polyp is a tubular adenoma, I would recommend a followup colonoscopy in 5 years. She was given a prescription to use omeprazole when I saw her at the end of June, but she has not yet started that. I did advise her to begin that given the upper endoscopy findings. She was advised to resume her Xarelto by tomorrow. At this point, I am advised that she is no longer using aspirin and I would have her hold that and avoid NSAIDs as well. She was advised to call me if her swallowing issues persist. MD LINDA Brooke/JELANI / [phone]
== END 2021-08-12 13:38 | disposition home or self-care (01) ==
PROVIDERS: PCP Internal Medicine; Visit Provider Internal Medicine
PROC: (CPT 45385; principal; 2021-08-12 10:20)
PROC: 0DJD8ZZ Inspection of Lower Intestinal Tract, Via Natural or Artificial Opening Endoscopic (ICD-10-PCS; CPT 45378; 2021-08-12 10:20)
DX: K62.5 Hemorrhage of anus and rectum (principal); D12.3 Benign neoplasm of transverse colon; K57.30 Diverticulosis of large intestine without perforation or abscess without bleeding; K64.8 Other hemorrhoids; K21.9 Gastro-esophageal reflux disease without esophagitis; R13.19 Other dysphagia; K29.50 Unspecified chronic gastritis without bleeding; B96.81 Helicobacter pylori [H. pylori] as the cause of diseases classified elsewhere; K29.80 Duodenitis without bleeding; K44.9 Diaphragmatic hernia without obstruction or gangrene; I48.19 Other persistent atrial fibrillation; I25.10 Atherosclerotic heart disease of native coronary artery without angina pectoris; Z98.61 Coronary angioplasty status; I10 Essential (primary) hypertension; J45.909 Unspecified asthma, uncomplicated; E11.9 Type 2 diabetes mellitus without complications; Z79.84 Long term (current) use of oral hypoglycemic drugs; Z79.01 Long term (current) use of anticoagulants; Z79.82 Long term (current) use of aspirin; Z79.899 Other long term (current) drug therapy; Z90.49 Acquired absence of other specified parts of digestive tract; Z87.891 Personal history of nicotine dependence
CPT/HCPCS: 45385; 43249; 43239; 82947; 88305; 88342; C1726

== ENCOUNTER 2021-10-24 12:57 | Outpatient (REF) | payer MEDICARE, OTHER, SELFPAY ==
[2021-10-24 13:14] LABS: MANUAL DIFF FLAG NO
[2021-10-24 13:41] LABS: Eosinophils Absolute Auto 0.5 X10*3/uL (0.0-0.4); Eosinophils Percent Auto 5.9 % (0-4); Hematocrit 43.9 % (37.0-47.0); Hemoglobin 14.2 g/dl (12.0-16.0); INTERNATIONAL NORM RATIO 1.2 (0.9-1.1); Imm Gran Abs Auto 0.02 X10*3/uL (0.00-0.03); Imm Gran Pct Auto 0.3 % (0.0-0.4); Lymphocytes Absolute Auto 1.7 X10*3/uL (1.2-4.9); Lymphocytes Percent Auto 20.8 % (20-40); Mean Corpuscular HGB Conc 32.3 g/dl (31.0-35.0); Mean Corpuscular Hemoglobin 27.6 pg (27.0-33.0); Mean Corpuscular Volume 85.4 fL (80.0-98.0); Mean Platelet Volume 10.4 fL (9.4-12.3); Monocytes Absolute Auto 0.6 X10*3/uL (0.1-1.2); Neutrophils Absolute Auto 5.2 x10*3/uL (2.0-8.3); Platelet Count 174 X10*3/uL (160-400); Prothrombin Time 13.9 SEC (9.9-13.0); Red Blood Count 5.14 X10*6/uL (4.20-5.50); Red Cell Distribution Width 13.2 % (11.0-16.0)
[2021-10-24 14:14] LABS: Anion Gap 13 (12-20); Blood Urea Nitrogen 17 mg/dL (9-16); Calcium 9.8 mg/dL (8.4-10.2); Carbon Dioxide 28 mmol/L (22-29); Chloride 104 mmol/L (96-108); Estimated Glomerular Filt Rate 55; Glucose Random 142 mg/dL (60-115); Potassium 4.7 mmol/L (3.3-5.1); Sodium 140 mmol/L (135-145)
== END 2021-10-24 12:58 | disposition home or self-care (01) ==
LOC: HO.LAB 12:57
PROVIDERS: PCP Internal Medicine; Visit Provider Internal Medicine Cardiovascular Disease
DX: I48.91 Unspecified atrial fibrillation (principal)
CPT/HCPCS: 36415; 80048; 85025; 85610

== ENCOUNTER → 2021-12-10 13:05 | Outpatient (BNVA) | payer MEDICARE, OTHER, SELFPAY | PROVIDERS: PCP Internal Medicine; Referring Provider Internal Medicine; Visit Provider Internal Medicine Cardiovascular Disease | DX: I48.0 Paroxysmal atrial fibrillation (principal); I25.10 Atherosclerotic heart disease of native coronary artery without angina pectoris; Z79.01 Long term (current) use of anticoagulants; Z79.899 Other long term (current) drug therapy | CPT/HCPCS: 93005; 99212 ==

== ENCOUNTER → 2022-03-25 10:13 | Outpatient (BNVA) | payer MEDICARE, OTHER, SELFPAY | PROVIDERS: PCP Internal Medicine; Referring Provider Internal Medicine; Visit Provider Internal Medicine Cardiovascular Disease | DX: Z79.899 Other long term (current) drug therapy (principal) | CPT/HCPCS: 93005 ==

== ENCOUNTER 2022-03-27 09:16 | Outpatient (REF) | payer MEDICARE, OTHER, SELFPAY ==
[2022-03-27 09:36] LABS: MANUAL DIFF FLAG NO
[2022-03-27 10:17] LABS: Eosinophils Absolute Auto 0.3 X10*3/uL (0.0-0.4); Eosinophils Percent Auto 3.6 % (0-4); Hemoglobin 13.6 g/dl (12.0-16.0); Imm Gran Abs Auto 0.02 X10*3/uL (0.00-0.03); Imm Gran Pct Auto 0.3 % (0.0-0.4); Lymphocytes Absolute Auto 1.3 X10*3/uL (1.2-4.9); Lymphocytes Percent Auto 18.2 % (20-40); Mean Corpuscular HGB Conc 32.4 g/dl (31.0-35.0); Mean Corpuscular Hemoglobin 27.3 pg (27.0-33.0); Mean Corpuscular Volume 84.2 fL (80.0-98.0); Mean Platelet Volume 10.5 fL (9.4-12.3); Monocytes Absolute Auto 0.6 X10*3/uL (0.1-1.2); Monocytes Percent Auto 8.7 % (2-11); Neutrophils Absolute Auto 4.8 x10*3/uL (2.0-8.3); Neutrophils Percent Auto 69.2 % (45-73); Platelet Count 194 X10*3/uL (160-400); Red Blood Count 4.99 X10*6/uL (4.20-5.50); Red Cell Distribution Width 13.3 % (11.0-16.0)
[2022-03-27 10:38] LABS: Alanine Aminotransferase 19 U/L (0-31); Albumin Level 4.4 g/dL (3.5-5.0); Alkaline Phosphatase 71 U/L (39-117); Anion Gap 14 (12-20); Aspartate Amino Transferase 26 U/L (5-31); Bilirubin Total 0.6 mg/dL (0.0-1.0); Blood Urea Nitrogen 17 mg/dL (9-16); Calcium 9.4 mg/dL (8.4-10.2); Carbon Dioxide 29 mmol/L (22-29); Chloride 104 mmol/L (96-108); Cholesterol 157 mg/dL; Estimated Glomerular Filt Rate 54; Glucose Random 131 mg/dL (60-115); HDL Cholesterol 53 mg/dL; LDL Cholesterol Calculated 90 mg/dl; Potassium 4.5 mmol/L (3.3-5.1); Sodium 142 mmol/L (135-145); Total Protein 7.3 g/dL (6.5-8.0); Triglycerides 72 mg/dL
[2022-03-27 11:03] LABS: Free T4 (Free Thyroxine) 0.99 ng/dL (0.71-1.85); Thyroid Stimulating Hormone 0.92 uIU/mL (0.32-4.0); Vitamin D 25-OH Total 32.8 ng/mL (>30)
[2022-03-27 11:35] LABS: Folate 8.7 ng/mL (> or = 4.0); Vitamin B12 379 pg/mL (200-900)
[2022-03-27 11:52] LABS: Creatinine Urine 123.87 mg/dL; Microalbum/Creatinine Ratio Ur 98.4 ug/mg cr
== END 2022-03-27 09:17 | disposition home or self-care (01) ==
LOC: HO.LAB 09:16
PROVIDERS: PCP Internal Medicine; Visit Provider Internal Medicine
DX: E11.65 Type 2 diabetes mellitus with hyperglycemia (principal); E78.00 Pure hypercholesterolemia, unspecified; Z79.4 Long term (current) use of insulin
CPT/HCPCS: 36415; 80053; 80061; 82043; 82306; 82607; 82746; 84439; 84443; 85025

== ENCOUNTER 2022-05-05 09:43 | Outpatient (REF) | payer MEDICARE, OTHER, SELFPAY ==
--- NOTE | ~2022-05-05 | MM_ITS ---
EXAMINATION: MM SCREENING DIGITAL BREAST TOMOSYNTHESIS, BILATERAL CLINICAL INFORMATION: Screening. Asymptomatic. The lifetime risk of breast cancer based on the Tyrer-Cuzick Model is 4%. COMPARISON: Mammography: 02/27/2021, 02/26/2019, 01/06/2018 TECHNIQUE: Digital breast tomosynthesis is performed in both the craniocaudal and mediolateral oblique views along with computer-aided detection (CAD). Synthesized 2D images are generated from the tomosynthesis. FINDINGS: The breasts are heterogeneously dense, which may obscure small masses (ACR BI-RADS breast composition Category c). There are no significant masses, abnormal calcifications, or other abnormalities. Parenchymal pattern is similar to prior studies. Again, there are coarse grouped calcifications 12:30 left breast suggesting a degenerating fibroadenoma. Scattered bilateral punctate round and vascular calcifications again noted. No developing density or architectural abnormality. Intramammary node again noted mid outer right breast. No significant changes. MM/MM tomosynthesis screening BI IMPRESSION: No mammographic evidence of malignancy. ASSESSMENT: BI-RADS 2: Benign RECOMMENDATION: Routine annual mammography screening. This patient's information was entered into a reminder system with a target due date for their next mammogram.
== END 2022-05-05 09:44 | disposition home or self-care (01) ==
LOC: HO.MAMMO 09:43
PROVIDERS: PCP Internal Medicine; Visit Provider Internal Medicine
DX: Z12.31 Encounter for screening mammogram for malignant neoplasm of breast (principal)
CPT/HCPCS: 77063; 77067

== ENCOUNTER → 2022-06-23 14:13 | Outpatient (BNVA) | payer MEDICARE, OTHER, SELFPAY | PROVIDERS: PCP Internal Medicine; Referring Provider Internal Medicine; Visit Provider Internal Medicine Cardiovascular Disease | DX: I48.0 Paroxysmal atrial fibrillation (principal); I25.10 Atherosclerotic heart disease of native coronary artery without angina pectoris | CPT/HCPCS: 93005; 99212 ==

== ENCOUNTER 2022-09-23 09:04 | Outpatient (REF) | payer MEDICARE, OTHER, SELFPAY ==
[2022-09-23 10:28] LABS: Cholesterol 119 mg/dL; HDL Cholesterol 39 mg/dL; LDL Cholesterol Calculated 67 mg/dl; Triglycerides 65 mg/dL
== END 2022-09-23 09:05 | disposition home or self-care (01) ==
LOC: HO.LAB 09:04
PROVIDERS: PCP Internal Medicine; Visit Provider Internal Medicine Cardiovascular Disease
DX: I25.10 Atherosclerotic heart disease of native coronary artery without angina pectoris (principal)
CPT/HCPCS: 36415; 80061

== ENCOUNTER → 2022-09-24 08:56 | Outpatient (BNVA) | payer MEDICARE, OTHER, SELFPAY | PROVIDERS: PCP Internal Medicine; Referring Provider Internal Medicine; Visit Provider Internal Medicine Cardiovascular Disease | DX: Z13.89 Encounter for screening for other disorder (principal) | CPT/HCPCS: 93005 ==

== ENCOUNTER → 2022-12-25 12:43 | Outpatient (BNVA) | payer MEDICARE, OTHER, SELFPAY | PROVIDERS: PCP Internal Medicine; Referring Provider Internal Medicine; Visit Provider Internal Medicine Cardiovascular Disease | DX: Z79.899 Other long term (current) drug therapy (principal); Z79.01 Long term (current) use of anticoagulants | CPT/HCPCS: 93005 ==

== ENCOUNTER 2023-01-27 09:54 | Outpatient (REF) | payer MEDICARE, OTHER, SELFPAY ==
[2023-01-27 10:57] LABS: Estimated Average Glucose 117 mg/dL; Hemoglobin A1c % 5.7 %
[2023-01-27 11:12] LABS: Alanine Aminotransferase 21 U/L (0-31); Albumin Level 4.2 g/dL (3.5-5.0); Alkaline Phosphatase 85 U/L (39-117); Anion Gap 10 (12-20); Aspartate Amino Transferase 36 U/L (5-31); Bilirubin Total 0.7 mg/dL (0.0-1.0); Blood Urea Nitrogen 23 mg/dL (9-16); Calcium 9.3 mg/dL (8.4-10.2); Carbon Dioxide 26 mmol/L (22-29); Chloride 109 mmol/L (96-108); Cholesterol 100 mg/dL; Estimated Glomerular Filt Rate 47; Glucose Random 101 mg/dL (60-115); HDL Cholesterol 35 mg/dL; LDL Cholesterol Calculated 56 mg/dl; Potassium 4.3 mmol/L (3.3-5.1); Sodium 141 mmol/L (135-145); Total Protein 7.6 g/dL (6.5-8.0); Triglycerides 49 mg/dL
[2023-01-27 15:25] LABS: Creatinine Urine 193.07 mg/dL
== END 2023-01-27 09:55 | disposition home or self-care (01) ==
LOC: HO.LAB 09:54
PROVIDERS: PCP Internal Medicine; Visit Provider Internal Medicine
DX: E11.65 Type 2 diabetes mellitus with hyperglycemia (principal); E78.00 Pure hypercholesterolemia, unspecified; Z79.4 Long term (current) use of insulin
CPT/HCPCS: 36415; 80053; 80061; 83036

== ENCOUNTER 2023-03-26 12:12 | Outpatient (AMB) | payer MEDICARE, OTHER, SELFPAY ==
[2023-03-26 12:29] VITALS: BP 114/70; PULSE 69; BMI 33.7
--- NOTE | 2023-03-26 12:29 | MHC.OFFVIS ---
Intake Vital Signs 03/26/23 12:29 Height 5 ft 1 in Weight 178 lb 9.191 oz BMI 33.7 BP 114/70 Blood Pressure Location Lt brachial Position Sitting Pulse 69 Pulse Source Pulse Oximeter Intake Visit Reasons: 6 MON FUP Intake Note: 6 month f/u Bingo Checker Required: No Allergies atorvastatin [From LIPITOR] Allergy (Unknown, Verified 03/26/23 12:34) AFFECTED LIVER ENZYMES liraglutide [Victoza] Allergy (Unknown, Verified 03/26/23 12:34) nausea lisinopril Allergy (Unknown, Verified 03/26/23 12:34) cough losartan [LOSARTAN] Allergy (Unknown, Verified 03/26/23 12:34) HIVES PEANUT BUTTER Allergy (Unknown, Uncoded 02/02/23 09:29) LIPS SWELLING MOST FRUITS Adverse Reaction (Unknown, Uncoded 02/02/23 09:29) HIVES,ITCHING Medication List - Last Reconciled 03/26/23 by Daniel Che MD albuterol sulfate 90 mcg/actuation (Ventolin HFA) 2 puffs inhalation Q4-6H PRN bempedoic acid 180 mg PO DAILY 30 days blood sugar diagnostic (Holisol logisticsuch Ultra Blue Test Strip) As directed check the BS QD blood-glucose meter (OneTouch Ultra2 Meter) As directed check BS QD clobetasol 0.05% 1 appl topical BID dronedarone (Multaq) 400 mg PO Q12H dulaglutide (Trulicity) 0.75 mg (0.5 mL) subcut QWEEK ezetimibe 10 mg PO DAILY metoprolol succinate ER 50 mg (1/2 x 100 mg) PO DAILY 90 days nystatin 1 appl topical BID PRN omeprazole 20 mg PO DAILY 14 days rivaroxaban (Xarelto) 20 mg PO QPM 90 days rosuvastatin 40 mg PO DAILY 90 days tizanidine 4 mg PO BID PRN tramadol 50 mg PO BID PRN trazodone 50 mg PO BEDTIME PRN HPI HPI Comments History of Present Illness Details Milana comes for follow-up. She has been doing very well. She says she usually feels palpitations when she forgets to take Multaq. Otherwise she has been doing well. She denies any significant prolonged irregular heartbeat or hospitalizations related to atrial fibrillation. No bleeding issues or neurologic events. No exertional chest pain. No shortness of breath, orthopnea, PND. Takes all her medications. Last LDL at 57 mg per dl. [facility] Medical History CAD (coronary artery disease) Diabetic nephropathy Hypercholesterolemia Hypertension Numbness of lip Obesity (BMI 30-39.9) On anticoagulant therapy On beta ever at home Osteoarthritis Persistent atrial fibrillation Post-menopausal Psoriasis Thrombocytopenia Type 2 diabetes mellitus with hyperglycemia Urge incontinence Vitamin D deficiency Surgical History H/O breast biopsy History of colonoscopy History of oophorectomy Hx of cholecystectomy Hx of tonsillectomy Hx of total knee replacement Hx of tubal ligation Stented coronary artery Family History Brother Liver cancer Social History Housing: House Alcohol intake: never Patient Tobacco Use Status: Former Tobacco user Tobacco use type: Cigarette e-Cigarette/Vaping Use: Never Used Second Hand Smoke Exposure: Yes service: No Current occupational status: retired Cognitive needs: No Hearing needs: Yes Vision needs: Yes Review of Systems ENT Reports dizziness Card Denies chest pain, Denies chest pain at rest, Denies chest pain with activity, Denies rapid heart rate, Denies pedal edema, Denies edema, Denies leg edema, Denies lightheadedness, Denies palpitations, Denies dyspnea, Denies dyspnea on exertion and Denies orthopnea Resp Denies cough, Denies dyspnea and Denies dyspnea on exertion GI Denies hematochezia and Denies change in stool character Musc Denies abnormal gait, Reports limited range of motion, Reports muscle cramps, Denies muscle weakness, Denies numbness, Denies radiating pain into limb, Denies stiffness and Denies tingling Neuro Denies abnormal gait, Reports dizziness, Denies numbness and Denies tingling Endo Denies palpitations Physical Exam Vital Signs: Last Vital Signs Pulse 69 03/26/23 12:29 BP 114/70 03/26/23 12:29 BMI result Body Mass Index 33.7 Const General: cooperative, comfortable, no acute distress, alert and awake Nutritional Appearance: obese Orientation/consciousness: patient oriented x3 Limitations: no limitations Neck Neck: Yes trachea midline, Yes supple and Yes no JVD Resp Effort & Inspection: normal respiratory effort Auscultation: clear to auscultation bilaterally Cardio Jugular venous distension: no JVD Palpation: normal PMI Rate: regular rate Rhythm: regular rhythm and abnormal rhythm Heart sounds: S1 normal heart sound present, S2 normal heart sound present, no click, no gallops, no murmurs and no rubs GI Auscultation: normal bowel sounds Skin General skin exam: no rashes or lesions noted Neuro General: patient oriented x3 and no focal motor deficits Extrem General: Yes no clubbing, cyanosis or edema Psych Appearance: grossly normal Office Procedures EKG Details: EKG shows normal sinus rhythm with normal EKG [id number], Complete Assessment & Plan Assessment & Plan (1) Paroxysmal atrial fibrillation: Comment: September 2020, ablation December 2021 Code(s): I48.0 - Paroxysmal atrial fibrillation Plan: Highly symptomatic paroxysmal atrial fibrillation which has remained suppressed on Multaq therapy. She has done well. Status post ablation in the past as well. Continue with rhythm control approach. Continue full oral anticoagulation, currently on Xarelto 20 mg daily. Semi annual renal function test should be pursued. Continue risk factor modification with good control blood pressure which is currently well optimized advised to monitor blood pressure at home maintain a log. Also participate in weight loss program. Avoidance of stimulants was discussed. (2) CAD (coronary artery disease): Comment: Angioplasty October 2009 with ERROL Code(s): I25.10 - Atherosclerotic heart disease of yuhaaviatam coronary artery without angina pectoris Qualifiers: Coronary Disease-Associated Artery/Lesion type: [place]am artery [place] vs. transplanted heart: yuhaaviatam heart Associated angina: without angina Qualified Code(s): I25.10 - Atherosclerotic heart disease of yuhaaviatam coronary artery without angina pectoris Plan: CAD stable without any symptoms of angina at this point time. Advised to call me with any new symptoms. Continue aggressive vascular risk factor modification. Currently on full oral anticoagulation Xarelto and with therefore avoid aspirin therapy. Continue aggressive risk factor modification. LDL is extremely well optimized on current therapy. Blood pressure is well optimized diabetes under your care with goal hemoglobin A1c less than 7%. Follow up in the clinic in 3 months for EKG in 6 months with me. Thank you for allowing me to partake in her care Orders: Referrals Vascular Surgery Referral I83.90 - Asymptomatic varicose veins of unspecified lower extremity Coding Level of Care Code Est Pt Level 4 (55016) Diagnoses Paroxysmal atrial fibrillation I48.0 CAD (coronary artery disease) I25.10 Coronary Disease-Associated Artery/Lesion type: [place]haav[place]am artery [place] vs. transplanted heart: yuhaaviatam heart Associated angina: without angina CPT Codes EKG - CPT: [id number], Complete ([id number])
== END 2023-03-26 12:47 | disposition home or self-care (01) ==
PROVIDERS: PCP Internal Medicine; Referring Provider Internal Medicine; Visit Provider Internal Medicine Cardiovascular Disease
DX: I48.0 Paroxysmal atrial fibrillation (principal); I25.10 Atherosclerotic heart disease of native coronary artery without angina pectoris
CPT/HCPCS: 93010; 99214

== ENCOUNTER → 2023-03-26 12:12 | Outpatient (BNVA) | payer MEDICARE, OTHER, SELFPAY | PROVIDERS: PCP Internal Medicine; Referring Provider Internal Medicine; Visit Provider Internal Medicine Cardiovascular Disease | DX: I48.0 Paroxysmal atrial fibrillation (principal); I25.10 Atherosclerotic heart disease of native coronary artery without angina pectoris | CPT/HCPCS: 93005; 99212 ==

== ENCOUNTER 2023-05-12 09:16 | Outpatient (REF) | payer MEDICARE, OTHER, SELFPAY ==
--- NOTE | ~2023-05-12 | MM_ITS ---
EXAMINATION: MM SCREENING DIGITAL BREAST TOMOSYNTHESIS, BILATERAL CLINICAL INFORMATION: Screening. Asymptomatic. COMPARISON: Mammography: This study is compared with prior exams dating back to 2016. TECHNIQUE: Digital breast tomosynthesis is performed in both the craniocaudal and mediolateral oblique views along with computer-aided detection (CAD). Synthesized 2D images are generated from the tomosynthesis. FINDINGS: There are scattered areas of fibroglandular density (ACR BI-RADS breast composition Category b). There are no significant masses, abnormal calcifications, or other abnormalities. There is a tissue marker in the medial aspect of the left breast from prior benign percutaneous biopsy. There are coarse calcifications in the upper outer quadrant of the left breast. These are benign. Few, benign, coarse calcifications are present in the right breast. MM/MM tomosynthesis screening BI IMPRESSION: No mammographic evidence of malignancy. ASSESSMENT: BI-RADS BI-RADS 2 - Benign Findings RECOMMENDATION: Routine annual mammography screening. 1 year F/U This examination should not preclude the clinical evaluation of a suspicious palpable abnormality. This patient's information was entered into a reminder system with a target due date for their next mammogram.
== END 2023-05-12 09:17 | disposition home or self-care (01) ==
LOC: HO.MAMMO 09:16
PROVIDERS: PCP Internal Medicine; Visit Provider Internal Medicine
DX: Z12.31 Encounter for screening mammogram for malignant neoplasm of breast (principal)
CPT/HCPCS: 77063; 77067

== ENCOUNTER → 2023-05-12 10:00 | Outpatient (BNV) | payer MEDICARE, OTHER, SELFPAY | PROVIDERS: PCP Internal Medicine; Visit Provider Radiology Diagnostic Radiology | DX: Z12.31 Encounter for screening mammogram for malignant neoplasm of breast (principal) | CPT/HCPCS: 77063; 77067 ==

== ENCOUNTER 2023-05-14 09:01 | Outpatient (AMB) | payer MEDICARE, OTHER, SELFPAY ==
--- NOTE | 2023-05-14 09:31 | MHC.OFFVIS ---
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 by cardio for varicose veins.Pt states that the VV are both legs but the ones on her left leg more concerning because they buldge out.She also states the she has bilateral le swelling itching and burning.She states VV started about a year ago left side worsening Allergies atorvastatin [From LIPITOR] Allergy (Unknown, Verified 05/14/23 09:39) AFFECTED LIVER ENZYMES liraglutide [Victoza] Allergy (Unknown, Verified 05/14/23 09:39) nausea lisinopril Allergy (Unknown, Verified 05/14/23 09:39) cough losartan [LOSARTAN] Allergy (Unknown, Verified 05/14/23:39) HIVES PEANUT BUTTER Allergy (Unknown, Uncoded 05/14/23 09:39) LIPS SWELLING MOST FRUITS Adverse Reaction (Unknown, Uncoded 05/14/23 09:39) HIVES,ITCHING HPI 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 Complaints include pain over varicosities, swelling of lower extremities, cramping, fatigue, and heaviness of the lower extremities. It has been affecting there daily activities including walking. It is noted more so in left leg. Patient denies any previous venous surgery or injections. Patient denies any history of DVT/ PE. Patient denies any history of phlebitis. Trial of compression includes - [id number] They now present for vascular evaluation regarding their varicose veins. [facility] Medical History On anticoagulant therapy On beta ever at home Post-menopausal Persistent atrial fibrillation Numbness of lip Urge incontinence Diabetic nephropathy Thrombocytopenia Vitamin D deficiency Type 2 diabetes mellitus with hyperglycemia Hypercholesterolemia Psoriasis Obesity (BMI 30-39.9) Osteoarthritis Hypertension CAD (coronary artery disease) Surgical History History of colonoscopy Stented coronary artery History of oophorectomy H/O breast biopsy Hx of tonsillectomy Hx of total knee replacement Hx of cholecystectomy Hx of tubal ligation Family History Brother Liver cancer Social History Housing: House Alcohol intake: never Patient Tobacco Use Status: Former Tobacco user Tobacco use type: Cigarette e-Cigarette/Vaping Use: Never Used Second Hand Smoke Exposure: Yes service: No Current occupational status: retired Cognitive needs: No Hearing needs: Yes Vision needs: Yes Review of Systems Const Reports as per HPI ENT Reports no additional complaints Card Denies chest pain, Denies chest pain at rest and Denies chest pain with activity Resp Denies chest congestion and Denies cough GI Reports no additional complaints Musc Details: pain over varicosities, aching of lower extremities, swelling, cramping, heaviness and tiredness, itching Denies abnormal gait Skin/Breast Reports pruritus and Denies wounds Neuro Reports no additional complaints and Denies abnormal gait Psych Denies no additional complaints Physical Exam Vital Signs: BMI result Body Mass Index 33.4 Const General: cooperative, healthy appearing and comfortable Orientation/consciousness: oriented to person, oriented to place and oriented to time Neck Carotids: no bruits Chest Chest palpation & inspection: normal inspection of the chest and normal palpation of entire chest wall Resp Effort & Inspection: normal respiratory effort and able to speak in complete sentences Cardio Rate: regular rate Heart sounds: S1 normal heart sound present and S2 normal heart sound present Peripheral pulses: Peripheral pulses 2+ throughout GI Inspection: Yes normal to inspection Skin Other: +2 edema, large rope-like varicosities greater than 4 mm left thigh and calf CEAP Classification C4 - skin color changes Ep - Etiology Primary As - superficial veins P - reflux General skin exam: dry skin Neuro General: oriented to person, oriented to place and oriented to time Extrem Right lower extremity: full ROM, normal capillary refill and edema Left lower extremity: full ROM, normal capillary refill and edema Psych Mental Status: mental status grossly normal Assessment & Plan Assessment & Plan (1) Varicose veins of left lower extremity with inflammation: Code(s): I83.12 - Varicose veins of left lower extremity with inflammation Plan: In short, the patient has evidence of venous insufficiency. I have discussed the pathophysiology with the patient. In addition I have provided informational material regarding venous disease to the patient. We have discussed conservative measures including compression, elevation, and exercise. I have also provided a handout regarding appropriate use of compression stockings and where to purchase good compression stockings as well. I have taken the liberty of ordering venous insufficiency testing with the patient. They will follow up with me after testing. The patient had an opportunity to ask questions regarding the treatment plan. All questions were answered. Imaging studies, laboratory studies and physical exam results were discussed and reviewed in detail. No major barriers to understanding were identified. The patient expressed understanding and agreement with the above treatment plan. The patient is aware they should contact our office by phone for worsening of the current condition or the appearance of new symptoms. Thank you for allowing me to participate in the vascular care of this patient. If you have any questions or concerns regarding the treatment for the above condition please do not hesitate to contact me. The office telephone contact is [phone]. This note is constructed using voice recognition software. While every effort has been made to ensure accuracy, sales floor manager errors may have been included. Thank you for allowing me to participate in the care of your patient. Yours sincerely, Alcon oMntoya MD, FACS, R.P.V.I. Orders: Orders US venous duplex LE BI 1 Week I83.12 - Varicose veins of left lower extremity with inflammation Coding Level of Care Code New Pt Level 4 (45518) Diagnoses Varicose veins of left lower extremity with inflammation I83.12
[2023-05-14 09:33] VITALS: BMI 33.4
== END 2023-05-14 09:55 | disposition home or self-care (01) ==
PROVIDERS: PCP Internal Medicine; Visit Provider Surgery Vascular Surgery
DX: I83.12 Varicose veins of left lower extremity with inflammation (principal)
CPT/HCPCS: 99203

== ENCOUNTER → 2023-05-14 09:01 | Outpatient (BNVA) | payer MEDICARE, OTHER, SELFPAY | PROVIDERS: PCP Internal Medicine; Visit Provider Surgery Vascular Surgery ==

== ENCOUNTER 2023-06-02 10:28 | Outpatient (REF) | payer MEDICARE, OTHER, SELFPAY ==
--- NOTE | ~2023-06-02 | US_ITS ---
EXAMINATION: US LOWER EXTREMITY VENOUS (REFLUX EXAM), BILATERAL CLINICAL INDICATION: Chronic venous insufficiency with lower extremity varicose veins with inflammation COMPARISON: None. TECHNIQUE: Color flow triplex imaging and compression Doppler was performed to evaluate both the deep and the superficial systems bilaterally. To evaluate the superficial system, the examination was performed in the upright position. Color-flow Doppler ultrasound and compression ultrasound were utilized. In addition, maneuvers were utilized to demonstrate reflux. FINDINGS: 1. DEEP VENOUS ULTRASOUND OF THE RIGHT LOWER EXTREMITY: Common Femoral Vein: Compressible, normal respiratory variation and augmented flow. Femoral Vein: Compressible, normal color flow and augmentation. Popliteal Vein: Compressible, normal augmentation. Deep Reflux: There is no evidence of reflux in the deep system in either the common femoral vein or the popliteal vein. There is no evidence of a Dawson's cyst. 2. SUPERFICIAL ULTRASOUND WITH DOPPLER OF RIGHT LOWER EXTREMITY: GREAT SAPHENOUS VEIN: Saphenofemoral Junction: 1.0 cm; Reflux: 0 ms Proximal Thigh: 0.5 cm; Reflux: 0 ms Mid Thigh: 0.3 cm; Reflux: 0 ms Above Knee: 0.3 cm; Reflux: 0 ms At Knee: 0.4 cm; Reflux: 0 ms Below Knee: 0.2 cm; Reflux: 2664 ms, Mid Calf: 0.2 cm; Reflux: 2384 ms Ankle: 0.2 cm; Reflux: 2880 ms, chronic wall calcifications DUPLICATED MEDIAL GREAT SAPHENOUS VEIN: Diameter: None imaged Reflux: NA DUPLICATED LATERAL GREAT SAPHENOUS VEIN: Diameter: 0.3 cm Reflux: None SMALL SAPHENOUS VEIN: Proximal: 0.3 cm; Reflux: 0 ms Distal: 0.1 cm; Reflux: 0 ms VEIN OF GIACOMINI: Size: NA Reflux: NA PERFORATORS: Location: None significant Size: NA Reflux: NA VARICOSITIES: Location: Proximal calf off the great saphenous vein Size: 0.3 cm Reflux: None 3. DEEP VENOUS ULTRASOUND OF THE LEFT LOWER EXTREMITY: Common Femoral Vein: Compressible, normal respiratory variation and augmented flow. Femoral Vein: Compressible, normal color flow and augmentation. Popliteal Vein: Compressible, normal augmentation. Deep Reflux: There is no evidence of reflux in the deep system in either the common femoral vein or the popliteal vein. There is no evidence of a Dawson's cyst. 4. SUPERFICIAL ULTRASOUND WITH DOPPLER OF LEFT LOWER EXTREMITY: GREAT SAPHENOUS VEIN: Saphenofemoral Junction: 0.6 cm; Reflux: 0 ms Proximal Thigh: 0.5 cm; Reflux: 0 ms Mid Thigh: 0.4 cm; Reflux: 0 ms Above Knee: 0.2 cm; Reflux: 0 ms At Knee: 0.3 cm; Reflux: 0 ms Below Knee: 0.2 cm; Reflux: 0 ms Mid Calf: 0.2 cm; Reflux: 0 ms Ankle: 0.2 cm; Reflux: 0 ms DUPLICATED MEDIAL GREAT SAPHENOUS VEIN: Diameter: None imaged Reflux: NA DUPLICATED LATERAL GREAT SAPHENOUS VEIN: Diameter: 0.4 cm Reflux: None SMALL SAPHENOUS VEIN: Proximal: 0.7 cm; Reflux: 0 ms, chronic wall calcifications Distal: Chronic calcifications with occlusion VEIN OF GIACOMINI: Size: NA Reflux: NA PERFORATORS: Location: None significant Size: NA Reflux: NA VARICOSITIES: Location: Distal thigh off the great saphenous vein Size: 0.3 cm Reflux: None US/US venous duplex LE BI IMPRESSION: Right: Severe reflux in the great saphenous vein within the calf. Chronic wall calcifications consistent with old thrombophlebitis with recanalization of the vein Left: Chronic wall calcifications within the left small saphenous vein consistent with old thrombophlebitis. There is recanalization in the proximal small saphenous vein with occlusive changes in the distal calf.
== END 2023-06-02 10:29 | disposition home or self-care (01) ==
LOC: HO.US 10:28
PROVIDERS: PCP Internal Medicine; Visit Provider Surgery Vascular Surgery
DX: I83.12 Varicose veins of left lower extremity with inflammation (principal)
CPT/HCPCS: 93970

== ENCOUNTER 2023-06-08 08:05 | Outpatient (AMB) | payer MEDICARE, OTHER, SELFPAY ==
--- NOTE | 2023-06-08 08:07 | A.OFFPC_ITS ---
Vital Signs 06/08/23 08:08 Height 5 ft 1 in Weight 184 lb BMI 34.8 BP 112/70 Blood Pressure Location Lt brachial Position Sitting Pulse 74 Pulse Source Pulse Oximeter Pulse Oximetry (%) 98 Oxygen Delivery Method Room Air Intake Visit Reasons: Dr. Soliman, Jun 15 Intake Note: Patient here for pre-op clearance Dr Lombardo 06/15/23 Rn Placement Required: No Accompanied by: Self / Same As Patient Allergies atorvastatin [From LIPITOR] Allergy (Unknown, Verified 06/08/23 08:13) AFFECTED LIVER ENZYMES liraglutide [Victoza] Allergy (Unknown, Verified 06/08/23 08:13) nausea lisinopril Allergy (Unknown, Verified 06/08/23 08:13) cough losartan [LOSARTAN] Allergy (Unknown, Verified 06/08/23 08:13) HIVES PEANUT BUTTER Allergy (Unknown, Uncoded 05/14/23 09:39) LIPS SWELLING MOST FRUITS Adverse Reaction (Unknown, Uncoded 05/14/23 09:39) HIVES,ITCHING Tobacco use date assessed: 10/27/22 Fall risk assessment: No Falls in past year Last assessed Fall Risk: 06/08/23 Dental Screening Dental Screen Date: 06/08/23 Did you have a dental visit in the last 12 months?: Yes Did you have a dental problem in the last 6 months where you did not have access to dental care?: No Was dental information given to patient?: Patient has dentist HPI HPI Comments History of Present Illness Details 73-year-old female past medical history significant for hypercholesteremia, hypertension, CAD, type 2 diabetes mellitus, paroxysmal AFib patient on anticoagulation with Xarelto. Patient presents today for preop appointment for ptosis surgery with Dr. Soliman on Jun.15 under local anethesia. Denies previous complications to being under anesthesia. Mor CP,sob, palpitations and snycope. EKG completed at commercial counsel's office on 03/26/2023 normal sinus rhythm, normal ECG. Preop labs ordered. [facility] Medical History On anticoagulant therapy On beta ever at home Post-menopausal Persistent atrial fibrillation Numbness of lip Urge incontinence Diabetic nephropathy Thrombocytopenia Vitamin D deficiency Type 2 diabetes mellitus with hyperglycemia Hypercholesterolemia Psoriasis Obesity (BMI 30-39.9) Osteoarthritis Hypertension CAD (coronary artery disease) Surgical History History of colonoscopy Stented coronary artery History of oophorectomy H/O breast biopsy Hx of tonsillectomy Hx of total knee replacement Hx of cholecystectomy Hx of tubal ligation Family History Brother Liver cancer Social History Housing: House Alcohol intake: never Patient Tobacco Use Status: Former Tobacco user Tobacco use type: Cigarette e-Cigarette/Vaping Use: Never Used Second Hand Smoke Exposure: Yes service: No Current occupational status: retired Cognitive needs: No Hearing needs: Yes Vision needs: Yes Questionnaire Thrive Questionnaire Date Thrive assessed: 10/27/22 SERGIO-7 AMB Questionnaire SERGIO-7 Date SERGIO - 7 assessed: 10/27/22 Source: Developed by Drs. Marquise Hines, Jolene Quinn, Issac Prince and colleagues, with an educational caden from [employer]. Review of Systems Const Denies chills, Denies fatigue, Denies fever(s) and Denies poor appetite Eyes Denies no additional complaints ENT Reports Normal hearing present Card Denies chest pain, Denies syncope, Denies rapid heart rate and Denies dyspnea Resp Denies cough and Denies dyspnea GI Denies change in stool character, Denies constipation, Denies diarrhea, Denies nausea and Denies vomiting Denies urinary frequency, Denies dysuria and Denies urinary urgency Neuro Reports Normal hearing present, Denies confusion and Denies syncope Psych Denies confusion Endo Denies fatigue Physical exam (Primary Care) Vital Signs: Last Vital Signs Pulse 74 06/08/23 08:08 BP 112/70 06/08/23 08:08 Pulse Ox 98 06/08/23 08:08 Oxygen Delivery Method Room Air 06/08/23 08:08 BMI result Body Mass Index 34.8 Tobacco/Smoking Status: Tobacco use Status Tobacco use date assessed 10/27/22 06/08/23 08:07 Patient Tobacco Use Status Former Tobacco user 06/08/23 08:07 Tobacco use type Cigarette 06/08/23 08:07 e-Cigarette/Vaping Use Never Used 06/08/23 08:07 Thrive Assessment: Date of Thrive Assessment Date Thrive assessed 10/27/22 06/08/23 08:07 Const General: No confusion Orientation/consciousness: No confusion HENMT Head: Yes normocephalic and Yes atraumatic Eyes Conjunctivae: conjunctivae normal Chest Chest palpation & inspection: normal inspection of the chest Resp Effort & Inspection: normal respiratory effort Auscultation: clear to auscultation bilaterally, no crackles, no rhonchi and no wheezes Cardio Rate: regular rate Rhythm: regular rhythm Heart sounds: S1 normal heart sound present and S2 normal heart sound present GI Inspection: Yes normal to inspection Neuro General: No confusion Cranial nerves: Yes Normal hearing present Extrem General: No edema Office Procedures Flu Questionnaire Does the patient have a severe egg allergy?: No Results AMB Hemoglobin A1c AMB Hemoglobin A1c 6.4 % Last Edit by JOEL Gray on 06/08/23 08:1 9 Immunizations flu vacc [id number] 6mos up(PF) 60 mcg(15 mcgx4)/0.5 mL IM syringe Performing Provider: KYLE Felder [facility] Documented (not given) by: JOEL Gray on 06/08/23 08:21 Reason Not Given: Patient Refused Results Reviewed Results Reviewed: Laboratory Last Values Hgb A1c (Clinic) 6.4 % (4.0-6.0) H 06/08/23 08:17 Assessment and Plan Assessment & Plan (1) Preop examination: Code(s): Z01.818 - Encounter for other preprocedural examination Plan: Preop labs ordered. EKG completed in March normal sinus rhythm. Patient advise to hold Xarelto day before and day of surgery unless otherwise specified by surgeon. Once preop labs reviewed addendum will be made to this note with patient able to proceed with scheduled surgery. (2) Paroxysmal atrial fibrillation: Comment: September 2020, ablation December 2021 Code(s): I48.0 - Paroxysmal atrial fibrillation Plan: Continue on Multaq and metoprolol. Continue on Xarelto for anticoagulation. (3) Hypertension: Code(s): I10 - Essential (primary) hypertension Qualifiers: Hypertension type: essential hypertension Qualified Code(s): I10 - Essential (primary) hypertension Plan: Continue on metoprolol 50 mg daily. Follow low-salt diet exercise. (4) Type 2 diabetes mellitus with hyperglycemia: Comment: Dr. Lombardo Code(s): E11.65 - Type 2 diabetes mellitus with hyperglycemia Qualifiers: Diabetes mellitus group home insulin use: with assistant front end manager use Qualified Code(s): E11.65 - Type 2 diabetes mellitus with hyperglycemia; Z79.4 - detention (current) use of insulin Plan: Continue on Trulicity. Hemoglobin A1c ordered. Follow low-carbohydrate diet. (5) Hypercholesterolemia: Code(s): E78.00 - Pure hypercholesterolemia, unspecified Plan: Continue on ezetimibe. Folloe low cholesterol diet. Orders: Orders Complete Blood Count Auto Diff Today Z01.812 - Encounter for preprocedural laboratory examination Influenza [id number] Immunization Today Z23 - Encounter for immunization Comprehensive Met. Panel Today Z01.812 - Encounter for preprocedural laboratory examination TSH reflex Free T4 Today Z01.812 - Encounter for preprocedural laboratory examination AMB Hemoglobin A1c Today E11.65 - Type 2 diabetes mellitus with hyperglycemia Hemoglobin A1c Today E11.65 - Type 2 diabetes mellitus with hyperglycemia Coding Level of Care Code Est Pt Level 3 (07974) Diagnoses Preop examination Z01.818 Paroxysmal atrial fibrillation I48.0 Essential hypertension I10 Hypertension type: essential hypertension Type 2 diabetes mellitus with hyperglycemia, with long-term current use of insulin E11.65; Z79.4 Diabetes mellitus group home insulin use: with assistant front end manager use Hypercholesterolemia E78.00
[2023-06-08 08:08] VITALS: BP 112/70; PULSE 74; O2SAT 98; BMI 34.8
== END 2023-06-08 09:11 | disposition home or self-care (01) ==
PROVIDERS: PCP Internal Medicine; Visit Provider Nurse Practitioner Family
DX: I48.0 Paroxysmal atrial fibrillation (principal); E11.65 Type 2 diabetes mellitus with hyperglycemia; Z79.4 Long term (current) use of insulin; Z01.818 Encounter for other preprocedural examination; Z23 Encounter for immunization; E78.00 Pure hypercholesterolemia, unspecified; I10 Essential (primary) hypertension
CPT/HCPCS: 83036; 99213

== ENCOUNTER 2023-06-08 08:44 | Outpatient (REF) | payer MEDICARE, OTHER, SELFPAY ==
[2023-06-08 08:57] LABS: MANUAL DIFF FLAG NO
[2023-06-08 09:25] LABS: Basophils Percent Auto 0.2 % (0-2); Eosinophils Absolute Auto 0.3 X10*3/uL (0.0-0.4); Hematocrit 39.8 % (37.0-47.0); Imm Gran Abs Auto 0.02 X10*3/uL (0.00-0.03); Imm Gran Pct Auto 0.2 % (0.0-0.4); Lymphocytes Absolute Auto 1.7 X10*3/uL (1.2-4.9); Lymphocytes Percent Auto 20.4 % (20-40); Mean Corpuscular HGB Conc 32.7 g/dl (31.0-35.0); Mean Corpuscular Hemoglobin 27.3 pg (27.0-33.0); Mean Corpuscular Volume 83.4 fL (80.0-98.0); Mean Platelet Volume 9.8 fL (9.4-12.3); Monocytes Absolute Auto 0.7 X10*3/uL (0.1-1.2); Monocytes Percent Auto 8.9 % (2-11); Neutrophils Absolute Auto 5.4 x10*3/uL (2.0-8.3); Neutrophils Percent Auto 66.3 % (45-73); Platelet Count 225 X10*3/uL (160-400); Red Blood Count 4.77 X10*6/uL (4.20-5.50); Red Cell Distribution Width 13.2 % (11.0-16.0); White Blood Count 8.2 X10*3/uL (4.8-10.8)
[2023-06-08 09:40] LABS: Estimated Average Glucose 126 mg/dL
[2023-06-08 10:08] LABS: Alanine Aminotransferase 20 U/L (0-31); Albumin Level 4.2 g/dL (3.5-5.0); Alkaline Phosphatase 83 U/L (39-117); Anion Gap 14 (12-20); Aspartate Amino Transferase 31 U/L (5-31); Bilirubin Total 0.5 mg/dL (0.0-1.0); Blood Urea Nitrogen 13 mg/dL (9-16); Calcium 9.6 mg/dL (8.4-10.2); Carbon Dioxide 25 mmol/L (22-29); Chloride 106 mmol/L (96-108); Estimated Glomerular Filt Rate 54; Glucose Random 110 mg/dL (60-115); Potassium 4.3 mmol/L (3.3-5.1); Sodium 141 mmol/L (135-145); Total Protein 7.6 g/dL (6.5-8.0)
[2023-06-08 10:15] LABS: TSH reflex Free T4 0.76 uIU/mL (0.32-4.0)
== END 2023-06-08 08:45 | disposition home or self-care (01) ==
LOC: HO.LAB 08:44
PROVIDERS: PCP Internal Medicine; Visit Provider Nurse Practitioner Family
DX: Z01.812 Encounter for preprocedural laboratory examination (principal); E11.65 Type 2 diabetes mellitus with hyperglycemia
CPT/HCPCS: 36415; 80053; 83036; 84443; 85025

== ENCOUNTER 2023-06-15 09:25 | Day surgery (SDC) | payer MEDICARE, OTHER, SELFPAY ==
[2023-06-11 15:41] VITALS: BMI 34.8
--- NOTE | 2023-06-12 07:57 | MHC.SHP ---
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 Allergies: Allergies Allergy/AdvReac Type Severity Reaction Status Date / Time atorvastatin [From LIPITOR] Allergy Unknown AFFECTED Verified 06/08/23 08:13 LIVER ENZYMES liraglutide [Victoza] Allergy Unknown nausea Verified 06/08/23 08:13 lisinopril Allergy Unknown cough Verified 06/08/23 08:13 losartan [LOSARTAN] Allergy Unknown HIVES Verified 06/08/23 08:13 PEANUT BUTTER Allergy Unknown LIPS Uncoded 05/14/23 09:39 SWELLING MOST FRUITS AdvReac Unknown HIVES,ITCHI Uncoded 05/14/23 09:39 NG Plan Diagnosis/Plan: Unchanged I have reviewed the history and physical and performed a pertinent physical examination on my patient. No changes have occurred unless specified. Time Spent With Patient Time: Total time managing care of this patient today ____ minutes.
--- NOTE | 2023-06-12 09:51 | P.CONAN_ITS ---
Documented by User: Negin Schwarz NP 06/12/23 09:52 HPI - Anesthesia Eval Consult details Narrative: 73yo F for Bilateral Blepharoplasty upper lids Medically optimized Xarelto for afib Anesthesia Pre-Procedure Meds Is the patient on any of the following meds?: Dulaglutide (Trulicity) PMFSH Active Problems Active Problems: All Active Problems (Updated 05/15/23 @ 10:31 by Alcon Montoya MD) Varicose veins of left lower extremity with inflammation (Acute) Psoriasis (Acute) Acute bronchitis (Acute) Insomnia (Acute) H. pylori infection (Acute) Paroxysmal atrial fibrillation (Acute) Hordeolum (Acute) Adult general medical exam (Acute) Upper respiratory tract infection (Acute) Post-menopausal (Acute) Numbness of lip (Acute) CAD (coronary artery disease) (Acute) Hypertension (Acute) Type 2 diabetes mellitus with hyperglycemia (Acute) Hypercholesterolemia (Acute) Obesity (BMI 30-39.9) (Acute) Past Medical History Medical History On anticoagulant therapy On beta ever at home Post-menopausal Persistent atrial fibrillation Numbness of lip Urge incontinence Diabetic nephropathy Thrombocytopenia Vitamin D deficiency Type 2 diabetes mellitus with hyperglycemia Hypercholesterolemia Psoriasis Obesity (BMI 30-39.9) Osteoarthritis Hypertension CAD (coronary artery disease) Family History Family History Brother Liver cancer Family history of problems with anesthesia: No Surgical History Surgical History H/O cardiac radiofrequency ablation History of colonoscopy Stented coronary artery History of oophorectomy H/O breast biopsy Hx of tonsillectomy Hx of total knee replacement Hx of cholecystectomy Hx of tubal ligation History of Problems with Anesthesia: No Social History Social History Household Members Other:: grand-daughter Housing: House Are you a primary child caregiver private home to a significant other at home: No Do you presently have visiting nurse or other home services: No Alcohol intake: never Patient Tobacco Use Status: Never used Tobacco e-Cigarette/Vaping Use: Never Used Second Hand Smoke Exposure: Yes Use of substances other than those prescribed or required for medical reasons: No Have you been hit, kicked, punched, or otherwise hurt by someone within the past year? If so, by whom?: No Are you DNR?: No Advance Directives: No Advance Directives Information Provided: Yes Advance Directives on File: No service: No Current occupational status: retired Cognitive needs: No Hearing needs: Yes Vision needs: Yes Meds Allergies Allergy/AdvReac Type Severity Reaction Status Date / Time atorvastatin [From LIPITOR] Allergy Unknown AFFECTED Verified 06/15/23 11:09 LIVER ENZYMES liraglutide [Victoza] Allergy Unknown nausea Verified 06/15/23 11:09 lisinopril Allergy Unknown cough Verified 06/15/23 11:09 losartan [LOSARTAN] Allergy Unknown HIVES Verified 06/15/23 11:09 PEANUT BUTTER Allergy Unknown LIPS Uncoded 05/14/23 09:39 SWELLING MOST FRUITS AdvReac Unknown HIVES,ITCHI Uncoded 05/14/23 09:39 NG Active Medications: Current Medications Povidone Iodine (Povidone Iodine 5 % Ophth Soln 30 Ml Bottle) 1 appl EYE-BOTH PREOP PRN PRN Reason: Pre-Op Surgical Implant Prophy Exam Exam Date and Time: June 12, 2023 0951 Height,Weight and Vital Signs: Height 5 ft 1 in Weight 83.461 kg Assessment and Plan Assessment Anesthesia Assessment: Chart Reviewed Final Anesthetic Review Family History of Problems with Anesthesia: No History of Problems with Anesthesia: No Documented by User: Kiera Tian MD 06/15/23 11:14 HPI - Anesthesia Eval Anesthesia Pre-Procedure Meds If Yes to any meds - educate patient: Pt education - increased risk of aspir ation and Pt education - possibility of cancelled proc at provider's discretion PMFSH Past Medical History Medical History On anticoagulant therapy On beta ever at home Post-menopausal Persistent atrial fibrillation Numbness of lip Urge incontinence Diabetic nephropathy Thrombocytopenia Vitamin D deficiency Type 2 diabetes mellitus with hyperglycemia Hypercholesterolemia Psoriasis Obesity (BMI 30-39.9) Osteoarthritis Hypertension CAD (coronary artery disease) Family History Family History Brother Liver cancer Surgical History Surgical History H/O cardiac radiofrequency ablation History of colonoscopy Stented coronary artery History of oophorectomy H/O breast biopsy Hx of tonsillectomy Hx of total knee replacement Hx of cholecystectomy Hx of tubal ligation Social History Social History Household Members Other:: grand-daughter Housing: House Are you a primary child caregiver private home to a significant other at home: No Do you presently have visiting nurse or other home services: No Alcohol intake: never Patient Tobacco Use Status: Never used Tobacco e-Cigarette/Vaping Use: Never Used Second Hand Smoke Exposure: Yes Use of substances other than those prescribed or required for medical reasons: No Have you been hit, kicked, punched, or otherwise hurt by someone within the past year? If so, by whom?: No Are you DNR?: No Advance Directives: No Advance Directives Information Provided: Yes Advance Directives on File: No service: No Current occupational status: retired Cognitive needs: No Hearing needs: Yes Vision needs: Yes Meds Allergies Allergy/AdvReac Type Severity Reaction Status Date / Time atorvastatin [From LIPITOR] Allergy Unknown AFFECTED Verified 06/15/23 11:09 LIVER ENZYMES liraglutide [Victoza] Allergy Unknown nausea Verified 06/15/23 11:09 lisinopril Allergy Unknown cough Verified 06/15/23 11:09 losartan [LOSARTAN] Allergy Unknown HIVES Verified 06/15/23 11:09 PEANUT BUTTER Allergy Unknown LIPS Uncoded 05/14/23 09:39 SWELLING MOST FRUITS AdvReac Unknown HIVES,ITCHI Uncoded 05/14/23 09:39 NG Exam Airway Mallampati Class: III TM Dist: >3cm Neck ROM: Full Partial: Upper and Lower Loose/Missing/Broken Teeth: Yes, Upper and Lower Heart: RRR Lungs: CTA Assessment and Plan Assessment Anesthesia Assessment: Anesthesia Plan Discussed Final Anesthetic Review NPO: Yes ASA Class: III Final Preanesthetic Review: Meds/Allgs Chart Reviewed, Consent Obtained/Reviewed and Anes Risks/Benef Reviewed Patient Risk: Intermediate Procedure Risk: Low Anesthetic Plan Anesthetic Plan: MAC: Disposition: Standard PACU
[2023-06-15 11:24] VITALS: BP 144/77; PULSE 68; RESP 16; TEMP 36.9; O2SAT 98
[2023-06-15 11:26] LABS: Glucose, Whole Blood 98 mg/dL (60-115)
[2023-06-15] MEDS: Lactated Ringers 500 ML 50 ML IV (11:28)
--- NOTE | 2023-06-15 12:04 | HO.PNOPHT ---
Ophthalmology Procedure Procedure Date of Service: 06/15/23 Ophthalmology Viscoelastic: Not Applicable Ophthalmology Lenses: Not Applicable Procedure Notes: PREOPERATIVE DIAGNOSIS: Decreased visual field secondary to dermatochalasia POSTOPERATIVE DIAGNOSIS: Same PROCEDURE: Bilateral Blepharoplasty, upper eyelids SURGEON: Rony Soliman M.D. ANESTHESIA: Local with sedation ESTIMATED BLOOD LOSS: None COMPLICATIONS: None After obtaining informed consent, the patient was brought to the operating room and placed in supine position. After adequate sedation per Anesthesia, the eyes were prepped and draped in the usual sterile fashion. Attention was directed to the right eye where a double pinch test was completed to assure excess tissue was not removed from the upper lid. The margin was marked at the proposed incision sites. The left eye was done in a similar fashion. 2% Lidocaine with epinephrine was then instilled subcutaneously along the margin of the pre-marked skin incisions. #15 scalpel blade was then utilized to create the incisions. Using a combination of sharp and blunt dissection with Cira scissors, the epidermis was removed. Hemostasis was achieved with cautery. 6-0 plain suture was then utilized to close the incision site. Attention was directed to the left upper lid where subcutaneous 2% with Epinephrine Lidocaine was instilled along the pre-marked areas. A #15 scalpel blade was then utilized to create the incisions followed by sharp and blunt dissection with Cira scissors to remove the overlying epidermis. Hemostasis was achieved with cautery, followed by closure with 6-0 plain suture. The patient tolerated the procedure well. The patient will be followed up in the a.m. Topical antibiotic ointment was instilled over the incision sites and ice as tolerated for 48 hours.
[2023-06-15 13:10] VITALS: BP 156/95; PULSE 85; RESP 16; TEMP 37; O2SAT 98
[2023-06-15 13:27] VITALS: BP 178/96; PULSE 83; RESP 14; O2SAT 100
[2023-06-15] MEDS: Acetaminophen 325 MG TABLET 650 MG PO (13:32)
[2023-06-15 13:42] VITALS: BP 168/86; PULSE 84; RESP 16; TEMP 37; O2SAT 97
== END 2023-06-15 15:02 | disposition home or self-care (01) ==
PROVIDERS: PCP Internal Medicine; Visit Provider Ophthalmology
PROC: (CPT 15823; principal; 2023-06-15 12:10)
DX: H02.831 Dermatochalasis of right upper eyelid (principal); H02.834 Dermatochalasis of left upper eyelid; H52.4 Presbyopia; H18.413 Arcus senilis, bilateral; H35.363 Drusen (degenerative) of macula, bilateral; I25.10 Atherosclerotic heart disease of native coronary artery without angina pectoris; Z95.5 Presence of coronary angioplasty implant and graft; I10 Essential (primary) hypertension; I48.0 Paroxysmal atrial fibrillation; E78.00 Pure hypercholesterolemia, unspecified; E11.65 Type 2 diabetes mellitus with hyperglycemia; Z79.4 Long term (current) use of insulin; Z79.01 Long term (current) use of anticoagulants; Z79.899 Other long term (current) drug therapy; Z88.8 Allergy status to other drugs, medicaments and biological substances; Z91.010 Allergy to peanuts
CPT/HCPCS: 15823; 82947; J2250; J2405; J3010

== ENCOUNTER 2023-06-25 10:29 | Outpatient (AMB) | payer MEDICARE, OTHER, SELFPAY ==
--- NOTE | 2023-06-25 10:56 | MHC.OFFVIS ---
Intake Intake Visit Reasons: EKG/Multaq/Chinedu Allergies atorvastatin [From LIPITOR] Allergy (Unknown, Verified 06/15/23 11:09) AFFECTED LIVER ENZYMES liraglutide [Victoza] Allergy (Unknown, Verified 06/15/23 11:09) nausea lisinopril Allergy (Unknown, Verified 06/15/23 11:09) cough losartan [LOSARTAN] Allergy (Unknown, Verified 06/15/23 11:09) HIVES PEANUT BUTTER Allergy (Unknown, Uncoded 05/14/23 09:39) LIPS SWELLING MOST FRUITS Adverse Reaction (Unknown, Uncoded 05/14/23 09:39) HIVES,ITCHING PFSH Medical History (Updated 06/15/23 @ 11:29 by Grace Stinson, LOAN) Asthma On anticoagulant therapy On beta ever at home Post-menopausal Persistent atrial fibrillation Numbness of lip Urge incontinence Diabetic nephropathy Thrombocytopenia Vitamin D deficiency Type 2 diabetes mellitus with hyperglycemia Hypercholesterolemia Psoriasis Obesity (BMI 30-39.9) Osteoarthritis Hypertension CAD (coronary artery disease) Surgical History H/O cardiac radiofrequency ablation History of colonoscopy Stented coronary artery History of oophorectomy H/O breast biopsy Hx of tonsillectomy Hx of total knee replacement Hx of cholecystectomy Hx of tubal ligation Family History Brother Liver cancer Social History Household Members Other:: grand-daughter Housing: House Are you a primary hospice patient care secretary to a significant other at home: No Do you presently have visiting nurse or other home services: No Alcohol intake: never Patient Tobacco Use Status: Never used Tobacco e-Cigarette/Vaping Use: Never Used Second Hand Smoke Exposure: Yes service: No Current occupational status: retired Cognitive needs: No Hearing needs: Yes Vision needs: Yes Coding
--- NOTE | 2023-06-25 11:03 | AM.OFFVISNUR ---
Intake Intake Visit Reasons: EKG/Multaq/Chiendu Accompanied by: Self / Same As Patient Allergies atorvastatin [From LIPITOR] Allergy (Unknown, Verified 06/25/23 11:03) AFFECTED LIVER ENZYMES liraglutide [Victoza] Allergy (Unknown, Verified 06/25/23 11:03) nausea lisinopril Allergy (Unknown, Verified 06/25/23 11:03) cough losartan [LOSARTAN] Allergy (Unknown, Verified 06/25/23 11:03) HIVES PEANUT BUTTER Allergy (Unknown, Uncoded 06/25/23 11:03) LIPS SWELLING MOST FRUITS Adverse Reaction (Unknown, Uncoded 06/25/23 11:03) HIVES,ITCHING Nursing Note EKG patient on Multaq 400 MG daily. EKG shows NSR w/ heart rate of 73 bpm. Patient reports feeling good. EKG left on Dr. Che desk for review Office Procedures EKG [id number], Complete Coding CPT Codes EKG - CPT: 86371-[id number], Complete ([id number])
== END 2023-06-25 11:08 | disposition home or self-care (01) ==
PROVIDERS: PCP Internal Medicine; Visit Provider Internal Medicine Cardiovascular Disease
DX: I48.0 Paroxysmal atrial fibrillation (principal)
CPT/HCPCS: 93010

== ENCOUNTER → 2023-06-25 10:29 | Outpatient (BNVA) | payer MEDICARE, OTHER, SELFPAY | PROVIDERS: PCP Internal Medicine; Visit Provider Internal Medicine Cardiovascular Disease | DX: Z79.899 Other long term (current) drug therapy (principal) | CPT/HCPCS: 93005 ==

== ENCOUNTER 2023-07-09 09:15 | Outpatient (AMB) | payer MEDICARE, OTHER, SELFPAY ==
--- NOTE | 2023-07-09 10:46 | MHC.OFFWIV ---
Intake Vital Signs 07/09/23 10:48 Height 5 ft 2 in Weight 180 lb BMI 32.9 BP 126/72 Blood Pressure Location Rt brachial Position Sitting Pulse 80 Pulse Source Pulse Oximeter Temp 96.6 F L Temp Source Temporal Artery Scan Pulse Oximetry (%) 98 Oxygen Delivery Method Room Air Intake Visit Reasons: EST/stiff neck for 3 days [id number] Intake Note: Pt is here c/o stiff neck for three days. Patient Tobacco Use Status: Never used Tobacco Allergies atorvastatin [From LIPITOR] Allergy (Unknown, Verified 07/09/23 10:47) AFFECTED LIVER ENZYMES liraglutide [Victoza] Allergy (Unknown, Verified 07/09/23 10:47) nausea lisinopril Allergy (Unknown, Verified 07/09/23 10:47) cough losartan [LOSARTAN] Allergy (Unknown, Verified 07/09/23 10:47) HIVES PEANUT BUTTER Allergy (Unknown, Uncoded 07/09/23 10:47) LIPS SWELLING MOST FRUITS Adverse Reaction (Unknown, Uncoded 07/09/23 10:47) HIVES,ITCHING Do you need a note to return to daycare/school/sports/work: No HPI HPI Comments History of Present Illness Details This is a 73-year-old female with a past medical history of asthma, coronary artery disease, hypertension, atrial fibrillation currently anticoagulated on Xarelto presenting for evaluation of neck pain that she has had for the past 4 days. Patient states she initially had similar symptoms 2 weeks ago, however she used warm compresses and the neck pain resolved. The patient denies having any injury or trauma to her head or neck and denies having any fevers or chills. She has not taken any [id number] medication for treatment of her discomfort. COUNTS INCLUDE 234 BEDS AT THE [facility] Medical History (Updated 07/09/23 @ 11:36 by Missy Colon PA-C) Asthma On anticoagulant therapy On beta ever at home Post-menopausal Persistent atrial fibrillation Numbness of lip Urge incontinence Diabetic nephropathy Thrombocytopenia Vitamin D deficiency Type 2 diabetes mellitus with hyperglycemia Hypercholesterolemia Psoriasis Obesity (BMI 30-39.9) Osteoarthritis Hypertension CAD (coronary artery disease) Surgical History H/O cardiac radiofrequency ablation History of colonoscopy Stented coronary artery History of oophorectomy H/O breast biopsy Hx of tonsillectomy Hx of total knee replacement Hx of cholecystectomy Hx of tubal ligation Family History Brother Liver cancer Social History Household Members Other:: grand-daughter Housing: House Are you a primary healthcare applications analyst to a significant other at home: No Do you presently have visiting nurse or other home services: No Alcohol intake: never Comment: aware of trip hazard Patient Tobacco Use Status: Never used Tobacco e-Cigarette/Vaping Use: Never Used Second Hand Smoke Exposure: Yes service: No Current occupational status: retired Cognitive needs: No Hearing needs: Yes Vision needs: Yes Review of Systems Const All systems reviewed & are unremarkable except as noted in HPI and below Reports as per HPI ENT Reports neck pain (right > left) Musc Reports neck pain (right > left) Skin/Breast Reports system reviewed and no additional complaints, except as documented Neuro Reports no additional complaints Physical Exam Vital Signs: Last Vital Signs Temp 96.6 F L 07/09/23 10:48 Pulse 80 07/09/23 10:48 BP 126/72 07/09/23 10:48 Pulse Ox 98 07/09/23 10:48 Oxygen Delivery Method Room Air 07/09/23 10:48 BMI result Body Mass Index 32.9 Const General: cooperative, healthy appearing, comfortable and no acute distress; No ill appearing Nutritional Appearance: average body habitus Orientation/consciousness: patient oriented x3 Limitations: no limitations Neck Neck: Yes normal visual inspection, No full ROM, No no meningeal signs, No anterior neck swelling, No midline deformity, Yes tender (cervical paraspinous musculature and right SCM tender to examination) and Yes other (no midline tenderness to examination of cervical spine) Skin General skin exam: no rashes or lesions noted Neuro General: patient oriented x3 and No no meningeal signs Psych Appearance: grossly normal Mental Status: mental status grossly normal Insight: Good insight present (Psych) Judgement: Good judgement present (Psych) Assessment & Plan Assessment & Plan (1) Cervical strain, acute: Code(s): S16.1XXA - Strain of muscle, fascia and tendon at neck level, initial encounter Plan: Prednisone and robaxin will be prescribed for initial management; patient will follow-up with her primary care provider in 5 days if her symptoms have not improved to obtain a referral for physical therapy evaluation. Medications: New methocarbamol 750 mg PO Q8H 15 tabs 0RF prednisone 40 mg (2 x 20 mg) PO DAILY 10 tabs 0RF Coding Level of Care Code Est Pt Level 3 (78973) Diagnoses Cervical strain, acute S16.1XXA Time Spent (min) 25
[2023-07-09 10:48] VITALS: BP 126/72; PULSE 80; TEMP 35.9; O2SAT 98; BMI 32.9
== END 2023-07-09 11:38 | disposition home or self-care (01) ==
PROVIDERS: PCP Internal Medicine; Visit Provider Physician Assistant
DX: S16.1XXA Strain of muscle, fascia and tendon at neck level, initial encounter (principal)
CPT/HCPCS: 99213

== ENCOUNTER 2023-08-05 09:46 | Outpatient (AMB) | payer MEDICARE, OTHER, SELFPAY ==
--- NOTE | 2023-08-05 09:48 | A.OFFVIS_ITS ---
Intake Vital Signs 08/05/23 09:49 Height 5 ft 2 in Weight 177 lb 4 oz BMI 32.4 BP 120/70 Blood Pressure Location Lt brachial Position Sitting Pulse 83 Pulse Source Pulse Oximeter Pulse Oximetry (%) 97 Oxygen Delivery Method Room Air Intake Visit Reasons: [facility] G0439 Ed Educational Aide Required: No Accompanied by: Self / Same As Patient Allergies atorvastatin [From LIPITOR] Allergy (Unknown, Verified 08/05/23 09:49) AFFECTED LIVER ENZYMES liraglutide [Victoza] Allergy (Unknown, Verified 08/05/23 09:49) nausea lisinopril Allergy (Unknown, Verified 08/05/23 09:49) cough losartan [LOSARTAN] Allergy (Unknown, Verified 08/05/23 09:49) HIVES PEANUT BUTTER Allergy (Unknown, Uncoded 07/09/23 10:47) LIPS SWELLING MOST FRUITS Adverse Reaction (Unknown, Uncoded 07/09/23 10:47) HIVES,ITCHING Medication List - Last Reconciled 08/05/23 by Aracely Darling Po, albuterol sulfate 90 mcg/actuation (Ventolin HFA) 2 puffs inhalation Q4-6H PRN bempedoic acid 180 mg PO DAILY blood sugar diagnostic (OneTouch Ultra Blue Test Strip) As directed check the BS QD blood-glucose meter (OneTouch Ultra2 Meter) As directed check BS QD clobetasol 0.05% 1 appl topical BID dronedarone (Multaq) 400 mg PO Q12H dulaglutide (Trulicity) 0.75 mg (0.5 mL) subcut QWEEK ezetimibe 10 mg PO DAILY metoprolol succinate ER 50 mg (1/2 x 100 mg) PO DAILY 90 days nystatin 1 appl topical BID PRN omeprazole 20 mg PO DAILY 14 days rivaroxaban (Xarelto) 20 mg PO QPM 90 days rosuvastatin 40 mg PO DAILY 90 days tizanidine 4 mg PO BID PRN trazodone 50 mg PO BEDTIME PRN HPI [facility] G0439 HPI Details 73-year-old obese female with atrial fib rillation diabetes mellitus hypertension hypercholesterolemia last seen for preoperative evaluation May 2023. Patient is here for a [place]. Colonoscopy is up-to-date mammograms up-to-date. Noted urgent care for cervical strain/stiffness. Patient did have and I surgery in June 2023 [facility] Medical History (Updated 12/27/23 @ 11:01 by Aracely Thompson MD) Asthma On anticoagulant therapy On beta ever at home Post-menopausal Persistent atrial fibrillation Numbness of lip Urge incontinence Diabetic nephropathy Thrombocytopenia Vitamin D deficiency Type 2 diabetes mellitus with hyperglycemia Hypercholesterolemia Psoriasis Obesity (BMI 30-39.9) Osteoarthritis Hypertension CAD (coronary artery disease) Surgical History H/O cardiac radiofrequency ablation History of colonoscopy Stented coronary artery History of oophorectomy H/O breast biopsy Hx of tonsillectomy Hx of total knee replacement Hx of cholecystectomy Hx of tubal ligation Family History Brother Liver cancer Social History Household Members Other:: grand-daughter Housing: House Are you a primary health and social care teacher to a significant other at home: No Do you presently have visiting nurse or other home services: No Alcohol intake: never Comment: aware of trip hazard Patient Tobacco Use Status: Never used Tobacco e-Cigarette/Vaping Use: Never Used Second Hand Smoke Exposure: Yes service: No Current occupational status: retired Cognitive needs: No Hearing needs: Yes Vision needs: Yes Questionnaire Medicare Wellness Checkup [age] What gender do you identify with?: female During the past 4 weeks, how much have you been bothered by emotional problems such as feeling anxious, depressed, irritable, sad or downhearted, and blue?: slightly During the past 4 weeks, has your physical & emotional health limited your social activities with family, friends, neighbors, or groups?: not at all During the past 4 weeks, how much bodily pain have you generally had?: mild pain During the past 4 weeks, was someone available to help you if you needed & wanted help?: no, not at all During the past 4 weeks, what was the hardest physical activity you could do for at least 2 minutes?: light Can you get to places out of walking distance without help? (For eg., can you travel alone on buses, taxis or drive your car?): Yes Can you go shopping for groceries or clothes without someone's help?: Yes Can you prepare your own meals?: Yes Can you do your housework without help?: Yes Because of any health problems, do you need the help of another person with your personal care needs such as eating, bathing, dressing or getting around the house?: No Can you handle your own money without help?: Yes During the past 4 weeks, how would you rate your health in general?: good During the past 4 weeks how have things been going for you?: good & bad parts about equal Are you having difficulties driving your car?: no Do you always fasten your seat belt when you are in a car?: yes, usually During past 4 weeks, have you been bothered by the following: never: Sexual problems?, Teeth or denture problems? and Problems using the telephone? and seldom: Falling or dizzy when standing up, Trouble eating well? and Tiredness or fatigue? Have you fallen 2 or more times in the past year?: No Are you afraid of falling?: No Are you a smoker?: no During the past 4 weeks, how many drinks of wine, beer, or other alcoholic beverages did you have?: no alcohol at all Do you exercise for about 20 minutes 3 or more times a week?: yes, some of the time Have you been given information to help with the following?: yes: Keeping track of your medications? and no: Hazards in your house that might hurt you? How often do you have trouble taking medicines the way you have been told to take them?: I always take medicine as prescribed How confident are you that you can control & manage most of your health problems?: very confident What is your race?: or origin or descent PHQ-9 Over the last 2 weeks, how often have you been bothered by any of the following problems? 1. Little interest or pleasure in doing things: not at all 2. Feeling down, depressed, or hopeless: several days 3. Trouble falling or staying asleep, or sleeping too much: not at all 4. Feeling tired or having little energy: several days 5. Poor appetite or overeating: several days 6. Feeling bad about yourself - or that you are a failure or have let yourself o r your family down: several days 7. Trouble concentrating on things, such as reading the newspaper or watching television: not at all 8. Moving or speaking so slowly that other people could have noticed. Or the opposite - being so fidgety or restless that you have been moving around a lot more than usual: not at all 9. Thoughts that you would be better off or of hurting yourself in some way: several days Total score: 5 86940 - PHQ-9 Billing: Yes Source: Developed by Drs. Marquise Hines, Jolene Quinn, Issac Prince and colleagues, with an educational caden from [employer]. Review of Systems Const Denies poor appetite and Denies weakness Eyes Denies no additional complaints ENT Reports Normal hearing present, Denies dizziness, Denies nasal congestion, Denies tinnitus and Denies sore throat Card Denies chest pain, Denies syncope, Denies rapid heart rate and Denies dyspnea Resp Denies cough and Denies dyspnea GI Denies change in stool character, Reports constipation, Denies diarrhea, Denies nausea and Denies vomiting Denies urinary frequency, Denies difficulty voiding and Denies dysuria Neuro Reports Normal hearing present, Denies confusion, Denies dizziness, Denies syncope and Denies weakness Psych Denies confusion Physical Exam Vital Signs: Last Vital Signs Pulse 83 08/05/23 09:49 BP 120/70 08/05/23 09:49 Pulse Ox 97 08/05/23 09:49 Oxygen Delivery Method Room Air 08/05/23 09:49 BMI result Body Mass Index 32.4 Const General: No confusion Orientation/consciousness: No confusion HEENT Head: Yes normocephalic Ears: external ears normal and TM's normal bilaterally Face and sinus: Yes normal facial exam Mouth: moist mucous membranes Throat: Yes tonsils normal Eyes Conjunctivae: conjunctivae normal Pupils: Equal, round and reactive pupils present and Pupil accommodation reflex normal Direct Ophthalmoscopy: normal light reflex Neck Neck: No lymphadenopathy Thyroid: Thyroid normal Chest Chest palpation & inspection: normal inspection of the chest Resp Effort & Inspection: normal respiratory effort and no audible wheezes Auscultation: clear to auscultation bilaterally, no crackles, no wheezes and lung sounds not diminished Cardio Rate: regular rate Rhythm: regular rhythm Peripheral pulses: radial pulses present and dorsalis pedis present GI Other: decline Palpation (GI): no masses Auscultation: normal bowel sounds and normoactive bowel sounds Rectal Exam - Female: deferred Skin General skin exam: no rashes or lesions noted Rashes: no rashes Neuro General: No confusion Cranial nerves: Yes Equal, round and reactive pupils present and Yes Normal hearing present Cognition (Neuro): normal cognition Gait exam (Neuro): Normal gait present Motor exam (neuro): 5/5 motor strength present throughout Deep tendon reflexes (DTR's): Right brachioradialis reflex intensity grade: 2+, Left brachioradialis reflex intensity grade: 2+, Right patellar reflex intensity grade: 2+ and Left patellar reflex intensity grade: 2+ Extrem Other: pedal pulses and pin prick good General: No edema Assessment & Plan Assessment & Plan (1) Medicare annual wellness visit, initial: Code(s): Z00.00 - Encounter for general adult medical examination without abnormal findings Plan: Continue with present medication, keep active, eat healthy and keep well hydrated (2) Type 2 diabetes mellitus with hyperglycemia: Comment: Dr. Lombardo Code(s): E11.65 - Type 2 diabetes mellitus with hyperglycemia Qualifiers: Diabetes mellitus senior living insulin use: with senior living use Qualified Code(s): E11.65 - Type 2 diabetes mellitus with hyperglycemia; Z79.4 - senior living (current) use of insulin Plan: Decrease the amount of carbohydrate intake, pasta, bread, rice and potatoes are all sugar and that is aside from all the sweet stuff, remember that fruits are good but they are Sweet also. Hemoglobin A1c goal of less than 7.0 patient takes Trulicity only (3) Obesity (BMI 30-39.9): Code(s): E66.9 - Obesity, unspecified Plan: Diet and exercise (4) Hypercholesterolemia: Code(s): E78.00 - Pure hypercholesterolemia, unspecified Plan: Avoid fried foods, chicken skin, eggs, butter margarine, pastries and meat. Be it pork or beef they have a lot of cholesterol LDL goal of less than 70 and triglyceride of less than 150 January 2023 last blood work patient on Zetia and rosuvastatin (5) CAD (coronary artery disease): Comment: Angioplasty October 2009 with ERROL Code(s): I25.10 - Atherosclerotic heart disease of [place] coronary artery without angina pectoris Qualifiers: Associated angina: without angina Coronary Disease-Associated Artery/Lesion type: [place] artery [place] vs. transplanted heart: [place] heart Qualified Code(s): I25.10 - Atherosclerotic heart disease of [place] coronary artery without angina pectoris Plan: Control the cholesterol, weight, blood pressure, diabetes continue with the anticoagulation (6) Paroxysmal atrial fibrillation: Comment: September 2020, ablation December 2021 Code(s): I48.0 - Paroxysmal atrial fibrillation Plan: Continue with anticoagulation (7) Psoriasis: Code(s): L40.9 - Psoriasis, unspecified Plan: Follow-up with Dermatology (8) Sore in nose: Code(s): J34.89 - Other specified disorders of nose and nasal sinuses Plan: Will refer to Ear Nose and Throat Orders: Referrals Ear/Nose/Throat Referral J34.89 - Other specified disorders of nose and nasal sinuses Quality Reporting (2019) Depression/Bipolar (159/160/161/177) PHQ-9: Total score: 5 Coding Level of Care Code Medicare Subsequent (G0439) Diagnoses Medicare annual wellness visit, initial Z00.00 Type 2 diabetes mellitus with hyperglycemia, with long-term current use of insulin E11.65; Z79.4 Diabetes mellitus long term care social worker insulin use: with senior living use Obesity (BMI 30-39.9) E66.9 Hypercholesterolemia E78.00 Coronary artery disease involving [place] coronary artery of [place] heart without angina pectoris I25.10 Associated angina: without angina Coronary Disease-Associated Artery/Lesion type: [place] artery [place] vs. transplanted heart: [place] heart Paroxysmal atrial fibrillation I48.0 Psoriasis L40.9 Sore in nose J34.89
[2023-08-05 09:49] VITALS: BP 120/70; PULSE 83; O2SAT 97; BMI 32.4
== END 2023-08-05 11:20 | disposition home or self-care (01) ==
PROVIDERS: PCP Internal Medicine; Visit Provider Internal Medicine
DX: Z00.00 Encounter for general adult medical examination without abnormal findings (principal); E11.65 Type 2 diabetes mellitus with hyperglycemia; Z79.4 Long term (current) use of insulin; I48.0 Paroxysmal atrial fibrillation; E66.9 Obesity, unspecified; E78.00 Pure hypercholesterolemia, unspecified; I25.10 Atherosclerotic heart disease of native coronary artery without angina pectoris; L40.9 Psoriasis, unspecified; J34.89 Other specified disorders of nose and nasal sinuses
CPT/HCPCS: G0439

== ENCOUNTER 2023-09-24 10:45 | Outpatient (AMB) | payer MEDICARE, OTHER, SELFPAY ==
--- NOTE | 2023-09-24 10:47 | A.OFFVIS_ITS ---
Intake Vital Signs 09/24/23 10:49 Height 5 ft 2 in Weight 171 lb 15.369 oz BMI 31.4 BP 120/70 Blood Pressure Location Lt brachial Position Sitting Pulse 67 Intake Visit Reasons: 6 month follow w/ EKG Intake Note: 6 month follow-up with ekg hearts doing ok Head Rigger Required: No Allergies atorvastatin [From LIPITOR] Allergy (Unknown, Verified 08/05/23 09:49) AFFECTED LIVER ENZYMES liraglutide [Victoza] Allergy (Unknown, Verified 08/05/23 09:49) nausea lisinopril Allergy (Unknown, Verified 08/05/23 09:49) cough losartan [LOSARTAN] Allergy (Unknown, Verified 08/05/23 09:49) HIVES PEANUT BUTTER Allergy (Unknown, Uncoded 07/09/23 10:47) LIPS SWELLING MOST FRUITS Adverse Reaction (Unknown, Uncoded 07/09/23 10:47) HIVES,ITCHING Medication List - Last Reconciled 09/24/23 by Daniel Che MD albuterol sulfate 90 mcg/actuation (Ventolin HFA) 2 puffs inhalation Q4-6H PRN bempedoic acid (Nexletol) 180 mg PO DAILY blood sugar diagnostic (NVEL[employer]ouch Ultra Blue Test Strip) As directed check the BS QD blood-glucose meter (OneTouch Ultra2 Meter) As directed check BS QD clobetasol 0.05% 1 appl topical BID dronedarone (Multaq) 400 mg PO Q12H dulaglutide (Trulicity) 0.75 mg (0.5 mL) subcut QWEEK ezetimibe 10 mg PO DAILY metoprolol succinate ER 50 mg (1/2 x 100 mg) PO DAILY 90 days nystatin 1 appl topical BID PRN omeprazole 20 mg PO DAILY 14 days rivaroxaban (Xarelto) 20 mg PO QPM 90 days rosuvastatin 40 mg PO DAILY 90 days tizanidine 4 mg PO BID PRN trazodone 50 mg PO BEDTIME PRN HPI HPI Comments History of Present Illness Details Milana comes for follow-up. She is grieving the passing away of her grandson last week. Because of that she is having some skipped heartbeats. No prolonged palpitation irregular heartbeat. She also had some skipped heartbeats when she had some viral illness. This has also improved. No prolonged irregular heartbeat. No anginal sounding chest discomfort. She does go to gym regularly. No bleeding issues or neurologic events. No heart failure symptoms. No lightheadedness, syncope. [facility] Medical History Asthma On anticoagulant therapy On beta ever at home Post-menopausal Persistent atrial fibrillation Numbness of lip Urge incontinence Diabetic nephropathy Thrombocytopenia Vitamin D deficiency Type 2 diabetes mellitus with hyperglycemia Hypercholesterolemia Psoriasis Obesity (BMI 30-39.9) Osteoarthritis Hypertension CAD (coronary artery disease) Surgical History H/O cardiac radiofrequency ablation History of colonoscopy Stented coronary artery History of oophorectomy H/O breast biopsy Hx of tonsillectomy Hx of total knee replacement Hx of cholecystectomy Hx of tubal ligation Family History Brother Liver cancer Social History Household Members Other:: grand-daughter Housing: House Are you a primary laboratory animal care veterinarian to a significant other at home: No Do you presently have visiting nurse or other home services: No Alcohol intake: never Comment: aware of trip hazard Patient Tobacco Use Status: Never used Tobacco e-Cigarette/Vaping Use: Never Used Second Hand Smoke Exposure: Yes service: No Current occupational status: retired Cognitive needs: No Hearing needs: Yes Vision needs: Yes Review of Systems Const Denies chills, Denies fatigue, Denies fever(s), Denies frequent falls, Denies weakness, Denies weight gain and Denies weight loss ENT Denies dizziness Card Denies chest pain, Denies leg edema, Denies lightheadedness, Denies palpitations, Denies dyspnea, Denies dyspnea on exertion, Denies orthopnea and Denies other (loss of consciousness) Resp Denies cough, Denies dyspnea and Denies dyspnea on exertion GI Denies hematochezia and Denies change in stool character Musc Denies abnormal gait, Denies muscle weakness, Denies numbness, Denies radiating pain into limb and Denies tingling Neuro Denies abnormal gait, Denies dizziness, Denies frequent falls, Denies numbness, Denies tingling and Denies weakness Endo Denies fatigue and Denies palpitations Physical Exam Vital Signs: Last Vital Signs Pulse 67 09/24/23 10:49 BP 120/70 09/24/23 10:49 BMI result Body Mass Index 31.4 Const General: cooperative, comfortable, no acute distress, alert and awake Nutritional Appearance: obese Orientation/consciousness: patient oriented x3 Limitations: no limitations Neck Neck: Yes trachea midline, Yes supple and Yes no JVD Resp Effort & Inspection: normal respiratory effort Auscultation: clear to auscultation bilaterally Cardio Jugular venous distension: no JVD Palpation: normal PMI Rate: regular rate Rhythm: regular rhythm and abnormal rhythm Heart sounds: S1 normal heart sound present, S2 normal heart sound present, no click, no gallops, no murmurs and no rubs GI Auscultation: normal bowel sounds Skin General skin exam: no rashes or lesions noted Neuro General: patient oriented x3 and no focal motor deficits Extrem General: Yes no clubbing, cyanosis or edema Psych Appearance: grossly normal Office Procedures EKG Details: EKG shows normal sinus rhythm with normal EKG [id number], Complete Assessment & Plan Assessment & Plan (1) Paroxysmal atrial fibrillation: Comment: September 2020, ablation December 2021 Code(s): I48.0 - Paroxysmal atrial fibrillation Plan: Paroxysmal atrial fibrillation which is highly symptomatic. She has intermittent episodes of skipped heartbeats most likely PACs under stressful situations. No recurrent episodes of atrial fibrillation at this point time. Continue Multaq therapy which has helped her significantly to reduce events and reduce hospitalization. Continue full oral anticoagulation, currently on Xarelto 20 mg daily. Semi annual renal function test should be pursued. Avoidance of stimulants was discussed. Continue risk factor modification with aggressive control blood pressure which is well optimized. Continue participate in regular physical activity and weight loss program. (2) CAD (coronary artery disease): Comment: Angioplasty October 2009 with ERROL Code(s): I25.10 - Atherosclerotic heart disease of [place] coronary artery without angina pectoris Qualifiers: Coronary Disease-Associated Artery/Lesion type: [place] artery [place] vs. transplanted heart: [place] heart Associated angina: without angina Qualified Code(s): I25.10 - Atherosclerotic heart disease of [place] coronary artery without angina pectoris Plan: CAD with prior intervention with no recurrent symptoms. Stable coronary artery disease, continue aggressive medical therapy. Currently on full oral anticoagulation Xarelto and will therefore avoid antiplatelet therapy. Blood pressure is well optimized. Target goal blood pressure less than 130/84. Aggressive diabetes management goal hemoglobin A1c less than 7%. Target goal LDL less than 70 mg/dL. Continue high-intensity statin therapy and ezetimibe therapy. Will follow up in the clinic in 3 months for EKG in 6 months with me. Thank you for allowing me to partake in her care Coding Level of Care Code Est Pt Level 4 (94315) Diagnoses Paroxysmal atrial fibrillation I48.0 Coronary artery disease involving [place] coronary artery of [place] heart without angina pectoris I25.10 Coronary Disease-Associated Artery/Lesion type: [place] artery [place] vs. transplanted heart: [place] heart Associated angina: without angina CPT Codes EKG - CPT: [id number], Complete ([id number])
[2023-09-24 10:49] VITALS: BP 120/70; PULSE 67; BMI 31.4
== END 2023-09-24 11:15 | disposition home or self-care (01) ==
PROVIDERS: PCP Internal Medicine; Visit Provider Internal Medicine Cardiovascular Disease
DX: I48.0 Paroxysmal atrial fibrillation (principal); I25.10 Atherosclerotic heart disease of native coronary artery without angina pectoris
CPT/HCPCS: 93010; 99214

== ENCOUNTER → 2023-09-24 10:45 | Outpatient (BNVA) | payer MEDICARE, OTHER, SELFPAY | PROVIDERS: PCP Internal Medicine; Visit Provider Internal Medicine Cardiovascular Disease | DX: I48.0 Paroxysmal atrial fibrillation (principal); I25.10 Atherosclerotic heart disease of native coronary artery without angina pectoris | CPT/HCPCS: 93005; 99212 ==

== ENCOUNTER 2023-10-06 15:06 | Outpatient (AMB) | payer MEDICARE, OTHER, SELFPAY ==
--- NOTE | 2023-10-06 15:08 | MHC.PC.OV ---
Intake Visit Reasons: Cough, Cold Symptoms for a month Allergies atorvastatin [From LIPITOR] Allergy (Unknown, Verified 10/06/23 15:08) AFFECTED LIVER ENZYMES liraglutide [Victoza] Allergy (Unknown, Verified 10/06/23 15:08) nausea lisinopril Allergy (Unknown, Verified 10/06/23 15:08) cough losartan [LOSARTAN] Allergy (Unknown, Verified 10/06/23 15:08) HIVES PEANUT BUTTER Allergy (Unknown, Uncoded 10/06/23 15:08) LIPS SWELLING MOST FRUITS Adverse Reaction (Unknown, Uncoded 10/06/23 15:08) HIVES,ITCHING Medication List - Last Reconciled 10/06/23 by Aracely Thompson MD albuterol sulfate 90 mcg/actuation (Ventolin HFA) 2 puffs inhalation Q4-6H PRN bempedoic acid (Nexletol) 180 mg PO DAILY blood sugar diagnostic ([employer]om[employer]uch Ultra Blue Test Strip) As directed check the BS QD blood-glucose meter ([employer] SolutionsTouch Ultra2 Meter) As directed check BS QD clobetasol 0.05% 1 appl topical BID dronedarone (Multaq) 400 mg PO Q12H dulaglutide (Trulicity) 0.75 mg (0.5 mL) subcut QWEEK ezetimibe 10 mg PO DAILY fexofenadine (Michelle Allergy) 180 mg PO DAILY metoprolol succinate ER 50 mg (1/2 x 100 mg) PO DAILY 90 days nystatin 1 appl topical BID PRN omeprazole 20 mg PO DAILY 14 days rivaroxaban (Xarelto) 20 mg PO QPM 90 days rosuvastatin 40 mg PO DAILY 90 days tizanidine 4 mg PO BID PRN trazodone 50 mg PO BEDTIME PRN Tobacco use date assessed: 10/06/23 Fall risk assessment: No Falls in past year Last assessed Fall Risk: 10/06/23 Dental Screening Dental Screen Date: 10/06/23 Did you have a dental visit in the last 12 months?: Yes Did you have a dental problem in the last 6 months where you did not have access to dental care?: No Was dental information given to patient?: Patient has dentist HPI Cough, Cold Symptoms for a month HPI Details 73-year-old obese female with diabetes mellitus hypercholesterolemia coronary artery disease atrial fibrillation psoriasis comes in for follow-up through Telehealth last seen in July 2023. 1 month sick cold, congested, coughing, tongue hurting, fever, but today patient feels better and does not feel congested . [facility] Medical History Asthma On anticoagulant therapy On beta ever at home Post-menopausal Persistent atrial fibrillation Numbness of lip Urge incontinence Diabetic nephropathy Thrombocytopenia Vitamin D deficiency Type 2 diabetes mellitus with hyperglycemia Hypercholesterolemia Psoriasis Obesity (BMI 30-39.9) Osteoarthritis Hypertension CAD (coronary artery disease) Surgical History H/O cardiac radiofrequency ablation History of colonoscopy Stented coronary artery History of oophorectomy H/O breast biopsy Hx of tonsillectomy Hx of total knee replacement Hx of cholecystectomy Hx of tubal ligation Family History Brother Liver cancer Social History Household Members Other:: grand-daughter Housing: House Are you a primary career based intervention coordinator to a significant other at home: No Do you presently have visiting nurse or other home services: No Alcohol intake: never Comment: aware of trip hazard Patient Tobacco Use Status: Former Tobacco user Tobacco use type: Cigarette e-Cigarette/Vaping Use: Never Used Second Hand Smoke Exposure: No service: No Current occupational status: retired Cognitive needs: No Hearing needs: Yes Vision needs: Yes Questionnaire PHQ-9 Over the last 2 weeks, how often have you been bothered by any of the following problems? 1. Little interest or pleasure in doing things: not at all 2. Feeling down, depressed, or hopeless: several days 3. Trouble falling or staying asleep, or sleeping too much: not at all 4. Feeling tired or having little energy: several days 5. Poor appetite or overeating: several days 6. Feeling bad about yourself - or that you are a failure or have let yourself or your family down: several days 7. Trouble concentrating on things, such as reading the newspaper or watching television: not at all 8. Moving or speaking so slowly that other people could have noticed. Or the opposite - being so fidgety or restless that you have been moving around a lot more than usual: not at all 9. Thoughts that you would be better off or of hurting yourself in some way: several days Total score: 5 Depression Screening Interpretation: Positive Depression Screening Done: Yes 55589 - PHQ-9 Billing: Yes Source: Developed by Drs. Marquise Hines, Jolene Quinn, Issac Prince and colleagues, with an educational caden from [employer]. Thrive Questionnaire Date Thrive assessed: 10/06/23 I am a: Patient What is your living situation today?: I have a steady place to live Within the past 12 months, did the food you bought not last and you didn't have the money to get more?: Never true Within the past 12 months, did you worry whether your food would run out before you got money to buy more?: Never true Do you have trouble paying for medicines?: No Do you have trouble getting transportation to medical appointments?: No Do you have trouble paying your heating and electricity bill?: No Do you have trouble taking care of your child, family member or friend?: No Do you have trouble with day-to-day activities such as bathing, preparing meals, shopping, managing finances, etc.?: No Are you currently unemployed and looking for a job?: No Are you interested in more education?: No Currently or been in a relationship where the following occur: no concerns reported THRIVE Score: 0 AUDIT C Alcohol Use Questionnaire (AUDIT-C) 1. How often do you have a drink containing alcohol?: Never 2. How many drinks containing alcohol do you have on a typical day when you are drinking?: 1 or 2 (0) 3. How often do you have six or more drinks on one occasion?: Never Total Score: 0 Score Reviewed/Action Taken: No SERGIO-7 AMB Questionnaire SERGIO-7 Date SREGIO - 7 assessed: 10/06/23 Feeling nervous, anxious, or on edge: 1 = Several days Not being able to stop or control worryin = Several days Worrying too much about different things: 1 = Several days Trouble relaxin = Not at all Being so restless that it is hard to sit still: 0 = Not at all Becoming easily annoyed or irritable: 0 = Not at all Feeling afraid as if something awful might happen: 0 = Not at all Total SERGIO-7 score (0-4 normal; 5-9 mild; 10-14 moderate; 15-21 severe): 3 Source: Developed by Drs. Marquise Hines, Jolene Quinn, Issac Prince and colleagues, with an educational caden from [employer]. Physical exam (Primary Care) Tobacco/Smoking Status: Tobacco use Status Tobacco use date assessed 10/06/23 10/06/23 15:09 Patient Tobacco Use Status Former Tobacco user 10/06/23 15:09 Tobacco use type Cigarette 10/06/23 15:09 e-Cigarette/Vaping Use Never Used 10/06/23 15:09 PHQ-9: PHQ-9 Score PHQ-9: Total score 5 10/06/23 15:09 Depression Screening Interpretation: Positive Thrive Assessment: Date of Thrive Assessment Date Thrive assessed 10/06/23 10/06/23 15:09 Currently or been in a relationship where the following occur: no concerns reported Telehealth Telehealth Location of provider rendering services: practice address Location of patient: address on file Patient Identification confirmed using: Name, : Yes Telehealth method: video (Android ) Patient verbally consented to treatment: Yes Patient verbally consented to billing insurance company: Yes Patient informed of any privacy concerns related to visit: Yes Minutes spent on Phone/Video with Pt.: 15 Assessment and Plan Assessment & Plan (1) Nasal congestion: Code(s): R09.81 - Nasal congestion Plan: Discussed with the patient that most likely this is more of an allergy problem and sent in for Michelle. Advised to take it every day once a day. Advised to call if not any better. Medications: New fexofenadine (Michelle Allergy) 180 mg PO DAILY 30 tabs 4RF Patient Instructions: Discussed with the patient that this may be more Coding Level of Care Code Tele Est Pt Level 3 (06585) Diagnoses Nasal congestion R09.81
== END 2023-10-06 18:06 | disposition home or self-care (01) ==
PROVIDERS: PCP Internal Medicine; Visit Provider Internal Medicine
DX: R09.81 Nasal congestion (principal)
CPT/HCPCS: 99213

== ENCOUNTER 2023-12-03 10:45 | Outpatient (REF) | payer MEDICARE, OTHER, SELFPAY ==
--- NOTE | ~2023-12-03 | MM_ITS ---
EXAMINATION: BONE DENSITOMETRY CLINICAL INDICATION: Menopause. Osteoporosis. COMPARISON: Previous BD dated 04/09/2021 and baseline BD dated 11/28/2015. TECHNIQUE: Using a esolidar DXA System (software version: 13.1) manufactured by [employer], dual-energy x-ray absorptiometry was performed of the lumbar spine and left hip. The images are of good technical quality. Summary results are attached. FINDINGS: LEFT FEMUR, NECK: Current: BMD 0.989 g/cm2, Z-score 1.2, T-score -0.3, normal. Prior: BMD 0.994 g/cm2. Baseline: BMD 1.075 g/cm2. LEFT FEMUR, TOTAL: Current: BMD 1.054 g/cm2, Z-score 1.7, T-score 0.4, normal, 5.1% decrease from previous, 14.0% decrease from baseline (<5% change is not significant). Prior: BMD 1.111 g/cm2. Baseline: BMD 1.225 g/cm2. AP SPINE L1-L4: Current: BMD 1.270 g/cm2, Z-score 2.0, T-score 0.8, normal, 1.6% decrease from previous, 1.5% decrease from baseline (<5% change is not significant). Prior: BMD 1.291 g/cm2. Baseline: BMD 1.289 g/cm2. IDENTIFIED RISK FACTORS: Menopause, osteoporosis, right oophorectomy. HISTORY OF FRACTURE: None listed. MEDICATIONS: Vitamin D. MM/XR DEXA axial skeleton IMPRESSION: 1. DIAGNOSIS: Normal bone density based on the lowest T-score value of -0.3 in the femoral neck applying World Health Organization criteria. 2. 10-YEAR FRACTURE RISK PREDICTION, FRAX: According to the guidelines, FRAX calculation should only be performed on patients in the osteopenia bone density category. Therefore, FRAX was not performed on this patient. 3. Treatment Recommendations: NOF guidelines recommend consideration for treatment in postmenopausal women and men age 50 and older presenting with the following: -A hip or vertebral (clinical or morphometric) fracture. -T-score less than or equal to -2.5 at the femoral neck or spine after appropriate evaluation to exclude secondary causes. -Low bone mass at the hip or spine and a 10-year fracture probability by FRAX of greater than or equal to 3% for hip fracture or greater than or equal to 20% for major osteoporotic fracture based on the [place] adapted WHO algorithm. 4. Other Recommendations: All treatment decisions require clinical judgment and consideration of individual patient factors, including patient preferences, comorbidities, previous drug use, risk factors not captured in the FRAX model (e.g. frailty, falls, vitamin D deficiency, increased bone turnover, interval significant decline in bone density) and possible under or overestimation of fracture risk by FRAX. FUTURE SCAN RECOMMENDATION: People with diagnosed cases of osteoporosis or at high risk for fracture should have regular bone mineral density tests. For patients eligible for Medicare, routine testing is allowed once every 2 years. The testing frequency can be increased to one year for patients who have rapidly progressing disease, those who are receiving or discontinuing medical therapy to restore bone mass, or have additional risk factors.
== END 2023-12-03 10:46 | disposition home or self-care (01) ==
LOC: HO.MAMMO 10:45
PROVIDERS: Visit Provider Obstetrics & Gynecology Gynecology
DX: Z13.820 Encounter for screening for osteoporosis (principal); Z78.0 Asymptomatic menopausal state
CPT/HCPCS: 77080

== ENCOUNTER 2023-12-17 09:51 | Outpatient (AMB) | payer MEDICARE, OTHER, SELFPAY ==
--- NOTE | 2023-12-17 10:26 | AM.OFFVISNUR ---
Intake Vital Signs 12/17/23 10:26 Weight 175 lb 0.752 oz Intake Visit Reasons: 3 mth ekg Allergies atorvastatin [From LIPITOR] Allergy (Unknown, Verified 10/06/23 15:08) AFFECTED LIVER ENZYMES liraglutide [Victoza] Allergy (Unknown, Verified 10/06/23 15:08) nausea lisinopril Allergy (Unknown, Verified 10/06/23 15:08) cough losartan [LOSARTAN] Allergy (Unknown, Verified 10/06/23 15:08) HIVES PEANUT BUTTER Allergy (Unknown, Uncoded 10/06/23 15:08) LIPS SWELLING MOST FRUITS Adverse Reaction (Unknown, Uncoded 10/06/23 15:08) HIVES,ITCHING Nursing Note PT is here for EKG PT is on Dronedarone (Multaq) 400 mg PO Q12H EKG will be reviewed by Provider Office Procedures EKG [id number], Complete Coding CPT Codes EKG - CPT: 00657-[id number], Complete ([id number])
== END 2023-12-17 10:52 | disposition home or self-care (01) ==
PROVIDERS: PCP Internal Medicine; Visit Provider Internal Medicine Cardiovascular Disease
DX: I48.0 Paroxysmal atrial fibrillation (principal)
CPT/HCPCS: 93010

== ENCOUNTER → 2023-12-17 09:51 | Outpatient (BNVA) | payer MEDICARE, OTHER, SELFPAY | PROVIDERS: PCP Internal Medicine; Visit Provider Internal Medicine Cardiovascular Disease | DX: Z79.899 Other long term (current) drug therapy (principal) | CPT/HCPCS: 93005 ==

== ENCOUNTER 2024-02-04 11:04 | Outpatient (AMB) | payer MEDICARE, OTHER, SELFPAY ==
--- NOTE | 2024-02-04 11:08 | MHC.PC.OV ---
Vital Signs 02/04/24 11:09 Height 5 ft 2 in Weight 178 lb BMI 32.6 BP 142/68 H Blood Pressure Location Lt brachial Position Sitting Pulse 66 Pulse Source Pulse Oximeter Pulse Oximetry (%) 98 Oxygen Delivery Method Room Air Intake Visit Reasons: DM Professor Of Social Work Required: No Allergies atorvastatin [From LIPITOR] Allergy (Unknown, Verified 02/04/24 11:09) AFFECTED LIVER ENZYMES liraglutide [Victoza] Allergy (Unknown, Verified 02/04/24 11:09) nausea lisinopril Allergy (Unknown, Verified 02/04/24 11:09) cough losartan [LOSARTAN] Allergy (Unknown, Verified 02/04/24 11:09) HIVES PEANUT BUTTER Allergy (Unknown, Uncoded 02/04/24 11:09) LIPS SWELLING MOST FRUITS Adverse Reaction (Unknown, Uncoded 02/04/24 11:09) HIVES,ITCHING Medication List - Last Reconciled 02/04/24 by Aracely Thompson MD albuterol sulfate 90 mcg/actuation (Ventolin HFA) 2 puffs inhalation Q4-6H PRN bempedoic acid (Nexletol) 180 mg PO DAILY blood sugar diagnostic ([employer] Ultra Blue Test Strip) As directed check the BS QD blood-glucose meter (OneTouch Ultra2 Meter) As directed check BS QD clobetasol 0.05% 1 appl topical BID dronedarone (Multaq) 400 mg PO Q12H dulaglutide 1.5 mg (0.5 mL) subcut QWEEK ezetimibe 10 mg PO DAILY fexofenadine (Michelle Allergy) 180 mg PO DAILY metoprolol succinate ER 50 mg (1/2 x 100 mg) PO DAILY 90 days nystatin 1 appl topical BID PRN omeprazole 20 mg PO DAILY 14 days rivaroxaban (Xarelto) 20 mg PO QPM rosuvastatin 40 mg PO DAILY 90 days tizanidine 4 mg PO BID PRN trazodone 50 mg PO BEDTIME PRN Tobacco use date assessed: 10/06/23 Fall risk assessment: No Falls in past year Last assessed Fall Risk: 02/04/24 Dental Screening Dental Screen Date: 10/06/23 HPI DM HPI Details 73-year-old obese female with multiple medical problems diabetes mellitus coronary artery disease hypertension hypercholesterolemia atrial fibrillation peripheral vascular disease last seen in 09/29/2023. Patient's colonoscopy is up-to-date had tubular adenoma 08/29/2021 bone density is up-to-date mammogram is up-to-date. [facility] Medical History Asthma On anticoagulant therapy On beta ever at home Post-menopausal Persistent atrial fibrillation Numbness of lip Urge incontinence Diabetic nephropathy Thrombocytopenia Vitamin D deficiency Type 2 diabetes mellitus with hyperglycemia Hypercholesterolemia Psoriasis Obesity (BMI 30-39.9) Osteoarthritis Hypertension CAD (coronary artery disease) Surgical History H/O cardiac radiofrequency ablation History of colonoscopy Stented coronary artery History of oophorectomy H/O breast biopsy Hx of tonsillectomy Hx of total knee replacement Hx of cholecystectomy Hx of tubal ligation Family History Brother Liver cancer Social History Household Members Other:: grand-daughter Housing: House Are you a primary medicare nurse to a significant other at home: No Do you presently have visiting nurse or other home services: No Alcohol intake: never Comment: aware of trip hazard Patient Tobacco Use Status: Former Tobacco user Tobacco use type: Cigarette e-Cigarette/Vaping Use: Never Used Second Hand Smoke Exposure: No service: No Current occupational status: retired Cognitive needs: No Hearing needs: Yes Vision needs: Yes Questionnaire Thrive Questionnaire Date Thrive assessed: 10/06/23 AUDIT C Alcohol Use Questionnaire (AUDIT-C) 1. How often do you have a drink containing alcohol?: Never 2. How many drinks containing alcohol do you have on a typical day when you are drinking?: 1 or 2 (0) 3. How often do you have six or more drinks on one occasion?: Never Total Score: 0 Score Reviewed/Action Taken: No SERGIO-7 AMB Questionnaire SERGIO-7 Date SERGIO - 7 assessed: 10/06/23 Source: Developed by Drs. Marquise Hines, Jolene Quinn, Issac Prince and colleagues, with an educational caden from [employer]. Physical exam (Primary Care) Vital Signs: Last Vital Signs Pulse 66 02/04/24 11:09 BP 142/68 H 02/04/24 11:09 Pulse Ox 98 02/04/24 11:09 Oxygen Delivery Method Room Air 02/04/24 11:09 BMI result Body Mass Index 32.6 Tobacco/Smoking Status: Tobacco use Status Tobacco use date assessed 10/06/23 02/04/24 11:09 Patient Tobacco Use Status Former Tobacco user 02/04/24 11:09 Tobacco use type Cigarette 02/04/24 11:09 e-Cigarette/Vaping Use Never Used 02/04/24 11:09 Thrive Assessment: Date of Thrive Assessment Date Thrive assessed 10/06/23 02/04/24 11:09 Const General: alert; No acute distress Eyes Conjunctivae: conjunctivae normal Resp Auscultation: clear to auscultation bilaterally Cardio Rate: regular rate Rhythm: regular rhythm GI Inspection: Yes normal to inspection Extrem General: Yes normal to inspection and No edema Results AMB Hemoglobin A1c AMB Hemoglobin A1c 5.9 % Last Edit by JOEL Eason on 02/04/24 11:44 Results Reviewed Results Reviewed: Laboratory Last Values Hgb A1c (Clinic) 5.9 % (4.0-6.0) 02/04/24 11:17 Assessment and Plan Assessment & Plan (1) Type 2 diabetes mellitus with hyperglycemia: Comment: Dr. Lombardo Code(s): E11.65 - Type 2 diabetes mellitus with hyperglycemia Qualifiers: Diabetes mellitus terminal gauger supervisor insulin use: with terminal gauger supervisor use Qualified Code(s): E11.65 - Type 2 diabetes mellitus with hyperglycemia; Z79.4 - custodial (current) use of insulin Plan: Decrease the amount of carbohydrate intake, pasta, bread, rice and potatoes are all sugar and that is aside from all the sweet stuff, remember that fruits are good but they are Sweet also. Hemoglobin A1c goal of less than 7.0. Patient is on Trulicity 0.75 mg once a week (2) Obesity (BMI 30-39.9): Code(s): E66.9 - Obesity, unspecified Plan: Diet and exercise (3) Hypercholesterolemia: Code(s): E78.00 - Pure hypercholesterolemia, unspecified Plan: Avoid fried foods, chicken skin, eggs, butter margarine, pastries and meat. Be it pork or beef they have a lot of cholesterol on rosuvastatin 40 mg once a day Nexletol and Zetia LDL goal of less than 70 and triglyceride of less than 150. Patient needs blood work (4) Hypertension: Code(s): I10 - Essential (primary) hypertension Qualifiers: Hypertension type: essential hypertension Qualified Code(s): I10 - Essential (primary) hypertension Plan: Continue with blood pressure medication. Decrease salt intake and exercise patient takes metoprolol 50 mg once a day. BP today is high, will continue to monitor for now (5) CAD (coronary artery disease): Comment: Angioplasty October 2009 with ERROL Code(s): I25.10 - Atherosclerotic heart disease of [place] coronary artery without angina pectoris Qualifiers: Coronary Disease-Associated Artery/Lesion type: [place] artery [place] vs. transplanted heart: [place] heart Associated angina: without angina Qualified Code(s): I25.10 - Atherosclerotic heart disease of [place] coronary artery without angina pectoris Plan: Control the cholesterol, weight, blood pressure, diabetes continue with anticoagulation Xarelto (6) Paroxysmal atrial fibrillation: Comment: September 2020, ablation December 2021 Code(s): I48.0 - Paroxysmal atrial fibrillation Plan: Continuing with anticoagulation and on Multaq Orders: Orders AMB Hemoglobin A1c Today E11.65 - Type 2 diabetes mellitus with hyperglycemia, Z79.4 - custodial (current) use of insulin Medications: Changed From dulaglutide (Trulicity) 0.75 mg (0.5 mL) subcut QWEEK 2 mL 3RF E11.65 - Type 2 diabetes mellitus with hyperglycemia, Z79.4 - custodial (current) use of insulin To dulaglutide 1.5 mg (0.5 mL) subcut QWEEK 2 mL 3RF E11.65 - Type 2 diabetes mellitus with hyperglycemia, Z79.4 - manager terminal (current) use of insulin Coding Level of Care Code Est Pt Level 4 (41735) Complex EM visit Add On G2211 Diagnoses Type 2 diabetes mellitus with hyperglycemia, with long-term current use of insulin E11.65; Z79.4 Diabetes mellitus group home insulin use: with terminal gauger supervisor use Obesity (BMI 30-39.9) E66.9 Hypercholesterolemia E78.00 Essential hypertension I10 Hypertension type: essential hypertension Coronary artery disease involving [place] coronary artery of [place] heart without angina pectoris I25.10 Coronary Disease-Associated Artery/Lesion type: [place] artery [place] vs. transplanted heart: [place] heart Associated angina: without angina Paroxysmal atrial fibrillation I48.0
[2024-02-04 11:09] VITALS: BP 142/68; PULSE 66; O2SAT 98; BMI 32.6
== END 2024-02-04 12:03 | disposition home or self-care (01) ==
PROVIDERS: PCP Internal Medicine; Visit Provider Internal Medicine
DX: E11.65 Type 2 diabetes mellitus with hyperglycemia (principal); Z79.4 Long term (current) use of insulin; E66.9 Obesity, unspecified; Z68.32 Body mass index [BMI] 32.0-32.9, adult; I48.0 Paroxysmal atrial fibrillation; I10 Essential (primary) hypertension; E78.00 Pure hypercholesterolemia, unspecified; I25.10 Atherosclerotic heart disease of native coronary artery without angina pectoris
CPT/HCPCS: 83036; 99214; G2211

== ENCOUNTER 2024-02-05 09:08 | Outpatient (REF) | payer MEDICARE, OTHER, SELFPAY ==
[2024-02-05 09:24] LABS: MANUAL DIFF FLAG NO
[2024-02-05 09:59] LABS: Basophils Percent Auto 0.6 % (0-2); Eosinophils Absolute Auto 0.2 X10*3/uL (0.0-0.4); Eosinophils Percent Auto 4.7 % (0-4); Hematocrit 40.4 % (37.0-47.0); Hemoglobin 13.1 g/dl (12.0-16.0); Imm Gran Abs Auto 0.01 X10*3/uL (0.00-0.03); Imm Gran Pct Auto 0.2 % (0.0-0.4); Lymphocytes Absolute Auto 1.2 X10*3/uL (1.2-4.9); Lymphocytes Percent Auto 23.6 % (20-40); Mean Corpuscular HGB Conc 32.4 g/dl (31.0-35.0); Mean Corpuscular Hemoglobin 27.9 pg (27.0-33.0); Mean Platelet Volume 9.9 fL (9.4-12.3); Monocytes Absolute Auto 0.5 X10*3/uL (0.1-1.2); Monocytes Percent Auto 9.3 % (2-11); Neutrophils Percent Auto 61.6 % (45-73); Platelet Count 233 X10*3/uL (160-400); Red Cell Distribution Width 13.5 % (11.0-16.0); White Blood Count 4.9 X10*3/uL (4.8-10.8)
[2024-02-05 10:12] LABS: Estimated Average Glucose 126 mg/dL
[2024-02-05 11:10] LABS: Alanine Aminotransferase 17 U/L (0-31); Albumin Level 4.4 g/dL (3.5-5.0); Alkaline Phosphatase 69 U/L (39-117); Anion Gap 11 (12-20); Aspartate Amino Transferase 28 U/L (5-31); Bilirubin Total 0.7 mg/dL (0.0-1.0); Blood Urea Nitrogen 27 mg/dL (9-16); Calcium 10.2 mg/dL (8.4-10.2); Carbon Dioxide 30 mmol/L (22-29); Chloride 107 mmol/L (96-108); Cholesterol 176 mg/dL (<200); Estimated Glomerular Filt Rate 53; Glucose Random 98 mg/dL (60-115); HDL Cholesterol 49 mg/dL (>40); LDL Cholesterol Calculated 111 mg/dL (<100); Sodium 144 mmol/L (135-145); Total Protein 7.8 g/dL (6.5-8.0); Triglycerides 83 mg/dL (<150)
[2024-02-05 11:12] LABS: Microalbum/Creatinine Ratio Ur 62.9 ug/mg cr (<30)
[2024-02-05 11:32] LABS: Free T4 (Free Thyroxine) 0.81 ng/dL (0.71-1.85); Thyroid Stimulating Hormone 0.67 uIU/mL (0.32-4.0); Vitamin D 25-OH Total 31.6 ng/mL (>30)
[2024-02-05 11:36] LABS: Folate 8.7 ng/mL (> or = 4.0); Vitamin B12 455 pg/mL (200-900)
== END 2024-02-05 09:09 | disposition home or self-care (01) ==
LOC: HO.LAB 09:08
PROVIDERS: PCP Internal Medicine; Visit Provider Internal Medicine
DX: E11.65 Type 2 diabetes mellitus with hyperglycemia (principal); Z79.4 Long term (current) use of insulin; E78.00 Pure hypercholesterolemia, unspecified
CPT/HCPCS: 36415; 80053; 80061; 82043; 82306; 82570; 82607; 82746; 83036; 84439; 84443; 85025

== ENCOUNTER 2024-03-29 11:10 | Outpatient (AMB) | payer MEDICARE, OTHER, SELFPAY ==
[2024-03-29 11:15] VITALS: BP 132/68; PULSE 80; BMI 32.7
--- NOTE | 2024-03-29 11:15 | MHC.OFFVIS ---
Vital Signs 03/29/24 11:15 Height 5 ft 2 in Weight 178 lb 9.191 oz BMI 32.7 BP 132/68 Blood Pressure Location Lt brachial Position Sitting Pulse 80 Pulse Source Monitor Intake Visit Reasons: 6 mth fu wi ekg Allergies atorvastatin [From LIPITOR] Allergy (Unknown, Verified 02/04/24 11:09) AFFECTED LIVER ENZYMES liraglutide [Victoza] Allergy (Unknown, Verified 02/04/24 11:09) nausea lisinopril Allergy (Unknown, Verified 02/04/24 11:09) cough losartan [LOSARTAN] Allergy (Unknown, Verified 02/04/24 11:09) HIVES PEANUT BUTTER Allergy (Unknown, Uncoded 02/04/24 11:09) LIPS SWELLING MOST FRUITS Adverse Reaction (Unknown, Uncoded 02/04/24 11:09) HIVES,ITCHING Medication List - Last Reconciled 03/29/24 by Daniel Che MD albuterol sulfate 90 mcg/actuation (Ventolin HFA) 2 puffs inhalation Q4-6H PRN bempedoic acid (Nexletol) 180 mg PO DAILY blood sugar diagnostic ([employer] SoftwareTouch Ultra Blue Test Strip) As directed check the BS QD blood-glucose meter ([employer] SoftwareTouch Ultra2 Meter) As directed check BS QD clobetasol 0.05% 1 appl topical BID dronedarone (Multaq) 400 mg PO Q12H dulaglutide 1.5 mg (0.5 mL) subcut QWEEK ezetimibe 10 mg PO DAILY fexofenadine (Michelle Allergy) 180 mg PO DAILY metoprolol succinate ER 50 mg (1/2 x 100 mg) PO DAILY 90 days nystatin 1 appl topical BID PRN omeprazole 20 mg PO DAILY 14 days rivaroxaban (Xarelto) 20 mg PO QPM rosuvastatin 40 mg PO DAILY 90 days tizanidine 4 mg PO BID PRN trazodone 50 mg PO BEDTIME PRN HPI Comments Details: Milana comes for follow-up. She has been doing well from cardiac perspective. Recent LDL was elevated about 110 for unclear reasons. She says she takes all her medications. She says she has been a little lax in her diet. She has been exercising regularly. Denies any exertional chest pain or shortness of breath. Denies any heart failure symptoms with no orthopnea, PND, leg edema, abdominal distension. Denies any lightheadedness, syncope. No bleeding issues or neurologic events. Denies any prolonged palpitations irregular heartbeats. [facility] Medical History Asthma On anticoagulant therapy On beta ever at home Post-menopausal Persistent atrial fibrillation Numbness of lip Urge incontinence Diabetic nephropathy Thrombocytopenia Vitamin D deficiency Type 2 diabetes mellitus with hyperglycemia Hypercholesterolemia Psoriasis Obesity (BMI 30-39.9) Osteoarthritis Hypertension CAD (coronary artery disease) Surgical History H/O cardiac radiofrequency ablation History of colonoscopy Stented coronary artery History of oophorectomy H/O breast biopsy Hx of tonsillectomy Hx of total knee replacement Hx of cholecystectomy Hx of tubal ligation Family History Brother Liver cancer Social History Household Members Other:: grand-daughter Housing: House Are you a primary career center director to a significant other at home: No Do you presently have visiting nurse or other home services: No Alcohol intake: never Comment: aware of trip hazard Patient Tobacco Use Status: Former Tobacco user Tobacco use type: Cigarette e-Cigarette/Vaping Use: Never Used Second Hand Smoke Exposure: No service: No Current occupational status: retired Cognitive needs: No Hearing needs: Yes Vision needs: Yes Review of Systems Const Denies weakness ENT Denies dizziness Card Denies chest pain, Denies chest pain with activity, Denies syncope, Denies rapid heart rate, Denies pedal edema, Denies edema, Denies leg edema, Denies lightheadedness, Denies palpitations, Denies dyspnea, Denies dyspnea on exertion and Denies orthopnea Resp Denies cough, Denies dyspnea and Denies dyspnea on exertion GI Denies hematochezia and Denies change in stool character Musc Denies abnormal gait, Denies muscle cramps, Denies muscle weakness, Denies numbness, Denies radiating pain into limb and Denies tingling Neuro Denies abnormal gait, Denies dizziness, Denies syncope, Denies numbness, Denies tingling and Denies weakness Endo Denies palpitations Physical Exam Vital Signs: Last Vital Signs Pulse 80 03/29/24 11:15 BP 132/68 03/29/24 11:15 BMI result Body Mass Index 32.7 Const General: cooperative, comfortable, no acute distress, alert and awake Nutritional Appearance: obese Orientation/consciousness: patient oriented x3 Limitations: no limitations Neck Neck: Yes trachea midline, Yes supple and Yes no JVD Resp Effort & Inspection: normal respiratory effort Auscultation: clear to auscultation bilaterally Cardio Jugular venous distension: no JVD Palpation: normal PMI Rate: regular rate Rhythm: regular rhythm and abnormal rhythm Heart sounds: S1 normal heart sound present, S2 normal heart sound present, no click, no gallops, no murmurs and no rubs GI Auscultation: normal bowel sounds Skin General skin exam: no rashes or lesions noted Neuro General: patient oriented x3 and no focal motor deficits Extrem General: Yes no clubbing, cyanosis or edema Psych Appearance: grossly normal Office Procedures EKG Details: EKG shows normal sinus rhythm normal EKG with normal QTC interval [id number], Complete Assessment & Plan Assessment & Plan (1) Paroxysmal atrial fibrillation: Comment: September 2020, ablation December 2021 Code(s): I48.0 - Paroxysmal atrial fibrillation Category: Medical Plan: Highly symptomatic paroxysmal atrial fibrillation which has remained suppressed on current therapy with Multaq. She has done very well with Multaq therapy. Continue the same. Avoidance of stimulants was discussed. Needs EKGs every 3 months. Continue full oral anticoagulation, currently on Xarelto 20 mg daily. Semi annual renal function test should be pursued. Annual CBC should be pursued. Advised to call me with any new symptoms. She says when she is delayed or forgets taking Multaq she does get palpitations. Importance of compliance with medication was discussed advised to continue risk factor modification good blood pressure control as well as advise weight loss. (2) CAD (coronary artery disease): Comment: Angioplasty October 2009 with ERROL Code(s): I25.10 - Atherosclerotic heart disease of [place] coronary artery without angina pectoris Category: Medical Qualifiers: Coronary Disease-Associated Artery/Lesion type: [place] artery [place] vs. transplanted heart: [place] heart Associated angina: without angina Qualified Code(s): I25.10 - Atherosclerotic heart disease of [place] coronary artery without angina pectoris Plan: CAD with prior PCI with no recurrent symptoms of angina current point time. Continue aggressive medical therapy. Currently on triple therapy for LDL lowering. Not sure if she is getting all medications. Advised her to check her prescriptions. Follow-up lipid panel in 3 months time while she is back on her therapy. Advised dietary modification. Advised to participate in weight loss program. Continue Xarelto and would avoid antiplatelet therapy to reduce bleeding risk. Continue aggressive management diabetes. Goal hemoglobin A1c less than 7%. Blood pressure is currently well optimized. Will follow up in the clinic in 3 months for EKG in 6 months with me. Thank you for allowing me to partake in his care Orders: Orders Lipid Panel 3 Months I25.10 - Atherosclerotic heart disease of [place] coronary artery without angina pectoris Coding Level of Care Code Est Pt Level 4 (78583) Diagnoses Paroxysmal atrial fibrillation I48.0 Coronary artery disease involving [place] coronary artery of [place] heart without angina pectoris I25.10 Coronary Disease-Associated Artery/Lesion type: [place] artery [place] vs. transplanted heart: [place] heart Associated angina: without angina CPT Codes EKG - CPT: 67409-[id number], Complete ([id number])
== END 2024-03-29 11:38 | disposition home or self-care (01) ==
PROVIDERS: PCP Internal Medicine; Visit Provider Internal Medicine Cardiovascular Disease
DX: I48.0 Paroxysmal atrial fibrillation (principal); I25.10 Atherosclerotic heart disease of native coronary artery without angina pectoris
CPT/HCPCS: 93010; 99214

== ENCOUNTER → 2024-03-29 11:10 | Outpatient (BNVA) | payer MEDICARE, OTHER, SELFPAY | PROVIDERS: PCP Internal Medicine; Visit Provider Internal Medicine Cardiovascular Disease | DX: I48.0 Paroxysmal atrial fibrillation (principal); I25.10 Atherosclerotic heart disease of native coronary artery without angina pectoris; I10 Essential (primary) hypertension; Z79.01 Long term (current) use of anticoagulants | CPT/HCPCS: 93005; 99212 ==

== ENCOUNTER 2024-05-17 09:38 | Outpatient (REF) | payer MEDICARE, OTHER, SELFPAY ==
--- NOTE | ~2024-05-17 | MM_ITS ---
EXAMINATION: MM SCREENING DIGITAL BREAST TOMOSYNTHESIS, BILATERAL CLINICAL INFORMATION: Screening. Asymptomatic. COMPARISON: Mammography: Comparison is made with available priors TECHNIQUE: Digital breast mammography with tomosynthesis is performed in both the craniocaudal and mediolateral oblique views along with computer-aided detection (CAD). FINDINGS: The breasts are heterogeneously dense, which may obscure small masses (ACR BI-RADS breast composition Category c). Left marker clip. Left: There are no significant masses, abnormal calcifications, or other abnormalities. Right: Asymmetry lateral breast middle depth on CC view question oval mass versus asymmetry. No suspicious calcifications or other abnormal findings. MM/MM tomosynthesis screening BI IMPRESSION: Additional imaging is recommended ASSESSMENT: BI-RADS BI-RADS 0 - Incomplete: Needs additional Imaging. RECOMMENDATION: 1. Additional views of the right breast 2. Targeted ultrasound if warranted after review of the additional views. 3. Radiology department staff will contact the patient for additional imaging. Additional Imaging required This examination should not preclude the clinical evaluation of a suspicious palpable abnormality. This patient's information was entered into a reminder system with a target due date for their next mammogram. Electronically signed by: Stefanie Cain DO 05/27/2024 04:53 PM EDT
== END 2024-05-17 09:39 | disposition home or self-care (01) ==
LOC: HO.MAMMO 09:38
PROVIDERS: Visit Provider Internal Medicine
DX: Z12.31 Encounter for screening mammogram for malignant neoplasm of breast (principal)
CPT/HCPCS: 77063; 77067

== ENCOUNTER → 2024-05-17 09:45 | Outpatient (BNV) | payer MEDICARE, OTHER, SELFPAY | PROVIDERS: Visit Provider Internal Medicine | DX: Z12.31 Encounter for screening mammogram for malignant neoplasm of breast (principal) | CPT/HCPCS: 77063; 77067 ==

== ENCOUNTER 2024-06-08 09:31 | Outpatient (REF) | payer MEDICARE, OTHER, SELFPAY ==
[2024-06-08 09:48] LABS: MANUAL DIFF FLAG NO
[2024-06-08 10:38] LABS: Basophils Percent Auto 0.4 % (0-2); Eosinophils Absolute Auto 0.3 X10*3/uL (0.0-0.4); Eosinophils Percent Auto 4.6 % (0-4); Hematocrit 39.9 % (37.0-47.0); Hemoglobin 12.9 g/dl (12.0-16.0); Imm Gran Abs Auto 0.02 X10*3/uL (0.00-0.03); Imm Gran Pct Auto 0.3 % (0.0-0.4); Lymphocytes Absolute Auto 1.3 X10*3/uL (1.2-4.9); Lymphocytes Percent Auto 17.5 % (20-40); Mean Corpuscular HGB Conc 32.3 g/dl (31.0-35.0); Mean Corpuscular Hemoglobin 27.4 pg (27.0-33.0); Mean Corpuscular Volume 84.9 fL (80.0-98.0); Monocytes Absolute Auto 0.7 X10*3/uL (0.1-1.2); Monocytes Percent Auto 9.7 % (2-11); Neutrophils Absolute Auto 4.9 x10*3/uL (2.0-8.3); Neutrophils Percent Auto 67.5 % (45-73); Platelet Count 233 X10*3/uL (160-400); Red Cell Distribution Width 13.2 % (11.0-16.0); White Blood Count 7.3 X10*3/uL (4.8-10.8)
[2024-06-08 10:45] LABS: Estimated Average Glucose 131 mg/dL; Hemoglobin A1C 143.9556 umol/L; Hemoglobin A1c % 6.2 % (<6.0); Total Hemoglobin (HGBA1C) 3291.2324 umol/L
[2024-06-08 11:28] LABS: Alanine Aminotransferase 23 U/L (0-31); Albumin Level 4.2 g/dL (3.5-5.0); Alkaline Phosphatase 70 U/L (39-117); Anion Gap 11 (12-20); Aspartate Amino Transferase 35 U/L (5-31); Bilirubin Total 0.5 mg/dL (0.0-1.0); Blood Urea Nitrogen 21 mg/dL (9-16); Calcium 9.7 mg/dL (8.4-10.2); Carbon Dioxide 29 mmol/L (22-29); Chloride 108 mmol/L (96-108); Cholesterol 130 mg/dL (<200); Estimated Glomerular Filt Rate 49; Glucose Random 117 mg/dL (60-115); HDL Cholesterol 52 mg/dL (>40); LDL Cholesterol Calculated 67 mg/dL (<100); Potassium 4.2 mmol/L (3.3-5.1); Sodium 144 mmol/L (135-145); Total Protein 7.3 g/dL (6.5-8.0); Triglycerides 59 mg/dL (<150)
== END 2024-06-08 09:32 | disposition home or self-care (01) ==
LOC: HO.LAB 09:31
PROVIDERS: PCP Internal Medicine; Visit Provider Internal Medicine
DX: E11.65 Type 2 diabetes mellitus with hyperglycemia (principal); E78.00 Pure hypercholesterolemia, unspecified; Z79.4 Long term (current) use of insulin
CPT/HCPCS: 36415; 80053; 80061; 83036; 85025

== ENCOUNTER 2024-06-13 10:23 | Outpatient (AMB) | payer MEDICARE, OTHER, SELFPAY ==
--- NOTE | 2024-06-13 10:24 | MHC.PC.OV ---
Intake Visit Reasons: 4 Month Follow Up POSITIVE FOR COVID Intake Note: pt states she tested positive for COVID 06/10/2024 Allergies atorvastatin [From LIPITOR] Allergy (Unknown, Verified 02/04/24 11:09) AFFECTED LIVER ENZYMES liraglutide [Victoza] Allergy (Unknown, Verified 02/04/24 11:09) nausea lisinopril Allergy (Unknown, Verified 02/04/24 11:09) cough losartan [LOSARTAN] Allergy (Unknown, Verified 02/04/24 11:09) HIVES PEANUT BUTTER Allergy (Unknown, Uncoded 02/04/24 11:09) LIPS SWELLING MOST FRUITS Adverse Reaction (Unknown, Uncoded 02/04/24 11:09) HIVES,ITCHING Tobacco use date assessed: 10/06/23 Fall risk assessment: No Falls in past year Last assessed Fall Risk: 06/13/24 Dental Screening Dental Screen Date: 10/06/23 HPI 4 Month Follow Up POSITIVE FOR COVID HPI Details 74-year-old obese female with diabetes mellitus hypercholesterolemia hypertension coronary artery disease and atrial fibrillation calling in for Telehealth. Patient has COVID-19 infection. but mild only positive 06/10/2024, and doing fine , cough only as the problem , due to multiple interactions with paxlovid, will hold off and symptomatic treatment wants to know blood work and bone density= (normal) [facility] Medical History Asthma On anticoagulant therapy On beta ever at home Post-menopausal Persistent atrial fibrillation Numbness of lip Urge incontinence Diabetic nephropathy Thrombocytopenia Vitamin D deficiency Type 2 diabetes mellitus with hyperglycemia Hypercholesterolemia Psoriasis Obesity (BMI 30-39.9) Osteoarthritis Hypertension CAD (coronary artery disease) Surgical History H/O cardiac radiofrequency ablation History of colonoscopy Stented coronary artery History of oophorectomy H/O breast biopsy Hx of tonsillectomy Hx of total knee replacement Hx of cholecystectomy Hx of tubal ligation Family History Brother Liver cancer Social History Household Members Other:: grand-daughter Housing: House Are you a primary career technical supervisor to a significant other at home: No Do you presently have visiting nurse or other home services: No Alcohol intake: never Comment: aware of trip hazard Patient Tobacco Use Status: Former Tobacco user Tobacco use type: Cigarette e-Cigarette/Vaping Use: Never Used Second Hand Smoke Exposure: No service: No Current occupational status: retired Cognitive needs: No Hearing needs: Yes Vision needs: Yes Questionnaire Thrive Questionnaire Date Thrive assessed: 10/06/23 AUDIT C Alcohol Use Questionnaire (AUDIT-C) 1. How often do you have a drink containing alcohol?: Never 2. How many drinks containing alcohol do you have on a typical day when you are drinking?: 1 or 2 (0) 3. How often do you have six or more drinks on one occasion?: Never Total Score: 0 Score Reviewed/Action Taken: No SERGIO-7 AMB Questionnaire SERGIO-7 Date SERGIO - 7 assessed: 10/06/23 Source: Developed by Drs. Marquise Hines, Jolene Quinn, Issac Prince and colleagues, with an educational caden from [employer]. Physical exam (Primary Care) Tobacco/Smoking Status: Tobacco use Status Tobacco use date assessed 10/06/23 06/13/24 10:26 Patient Tobacco Use Status Former Tobacco user 06/13/24 10:26 Tobacco use type Cigarette 06/13/24 10:26 e-Cigarette/Vaping Use Never Used 06/13/24 10:26 Thrive Assessment: Date of Thrive Assessment Date Thrive assessed 10/06/23 06/13/24 10:26 Telehealth Telehealth Telehealth Platform: Telephone Location of provider rendering services: practice address Location of patient: address on file Patient Identification confirmed using: Name, : Yes Telehealth method: voice only Patient verbally consented to treatment: Yes Patient verbally consented to billing insurance company: Yes Patient informed of any privacy concerns related to visit: Yes Minutes spent on Phone/Video with Pt.: 25 Coding Level of Care Code Tele Est Pt Level 4 (32571) Diagnoses COVID-19 virus infection U07.1 Coronary artery disease involving [place] coronary artery of [place] heart without angina pectoris I25.10 Coronary Disease-Associated Artery/Lesion type: [place] artery [place] vs. transplanted heart: [place] heart Associated angina: without angina Hypercholesterolemia E78.00 Type 2 diabetes mellitus with hyperglycemia, with long-term current use of insulin E11.65; Z79.4 Diabetes mellitus residential insulin use: with salvage determiner use Paroxysmal atrial fibrillation I48.0 Hand pain, left M79.642 Assessment & Plan Assessment & Plan (1) COVID-19 virus infection: Comment: June 10/2024 Code(s): U07.1 - COVID-19 Category: Medical Plan: due to the high CHADSVASC and the symptoms are mild. advised increase enough fluids too many iteractions- advised tylenol, cough med , mild presently (2) CAD (coronary artery disease): Comment: Angioplasty October 2009 with ERROL Code(s): I25.10 - Atherosclerotic heart disease of [place] coronary artery without angina pectoris Category: Medical Qualifiers: Coronary Disease-Associated Artery/Lesion type: [place] artery [place] vs. transplanted heart: [place] heart Associated angina: without angina Qualified Code(s): I25.10 - Atherosclerotic heart disease of [place] coronary artery without angina pectoris Plan: Control the cholesterol, weight, blood pressure, diabetes. Continue with anticoagulation (3) Hypercholesterolemia: Code(s): E78.00 - Pure hypercholesterolemia, unspecified Category: Medical Plan: Avoid fried foods, chicken skin, eggs, butter margarine, pastries and meat. Be it pork or beef they have a lot of cholesterol LDL goal of less than 70 and triglyceride of less than 150 patient on Zetia and rosuvastatin. 06/08/2024 blood work at goal (4) Type 2 diabetes mellitus with hyperglycemia: Comment: Dr. Lombardo Code(s): E11.65 - Type 2 diabetes mellitus with hyperglycemia Category: Medical Qualifiers: Diabetes mellitus salvage determiner insulin use: with salvage determiner use Qualified Code(s): E11.65 - Type 2 diabetes mellitus with hyperglycemia; Z79.4 - [facility] (current) use of insulin Plan: Decrease the amount of carbohydrate intake, pasta, bread, rice and potatoes are all sugar and that is aside from all the sweet stuff, remember that fruits are good but they are Sweet also. Hemoglobin A1c goal of less than 7.0 on Trulicity 1.5 mg once a week only (5) Paroxysmal atrial fibrillation: Comment: September 2020, ablation December 2021 Code(s): I48.0 - Paroxysmal atrial fibrillation Category: Medical Plan: Continue with Multaq and beta blockers (6) Hand pain, left: Code(s): M79.642 - Pain in left hand Category: Medical Plan: Will do request for an x-ray. Orders: Orders XR hand LT min 3V Today M79.642 - Pain in left hand
== END 2024-06-13 11:29 | disposition home or self-care (01) ==
LOC: HO.HMCH 10:23
PROVIDERS: PCP Internal Medicine; Visit Provider Internal Medicine
DX: U07.1 COVID-19 (principal); E11.65 Type 2 diabetes mellitus with hyperglycemia; Z79.4 Long term (current) use of insulin; I48.0 Paroxysmal atrial fibrillation; I25.10 Atherosclerotic heart disease of native coronary artery without angina pectoris; E78.00 Pure hypercholesterolemia, unspecified; M79.642 Pain in left hand

== ENCOUNTER → 2024-06-13 10:23 | Outpatient (BNVA) | payer MEDICARE, OTHER, SELFPAY | PROVIDERS: PCP Internal Medicine; Visit Provider Internal Medicine ==

== ENCOUNTER 2024-06-30 10:38 | Outpatient (AMB) | payer MEDICARE, OTHER, SELFPAY ==
--- NOTE | 2024-06-30 11:12 | AM.OFFVISNUR ---
Intake Visit Reasons: ekg Allergies atorvastatin [From LIPITOR] Allergy (Unknown, Verified 02/04/24 11:09) AFFECTED LIVER ENZYMES liraglutide [Victoza] Allergy (Unknown, Verified 02/04/24 11:09) nausea lisinopril Allergy (Unknown, Verified 02/04/24 11:09) cough losartan [LOSARTAN] Allergy (Unknown, Verified 02/04/24 11:09) HIVES PEANUT BUTTER Allergy (Unknown, Uncoded 02/04/24 11:09) LIPS SWELLING MOST FRUITS Adverse Reaction (Unknown, Uncoded 02/04/24 11:09) HIVES,ITCHING Nursing Note pt is for nurse visit with ekg pt is doing good, no sympthoms pt is on dronedarone 400 mg PO Q12H ekg left on providers desk for review Office Procedures EKG [id number], Complete
== END 2024-06-30 11:27 | disposition home or self-care (01) ==
PROVIDERS: PCP Internal Medicine; Visit Provider Internal Medicine Cardiovascular Disease
DX: I48.0 Paroxysmal atrial fibrillation (principal)
CPT/HCPCS: 93010

== ENCOUNTER → 2024-06-30 10:38 | Outpatient (BNVA) | payer MEDICARE, OTHER, SELFPAY | PROVIDERS: PCP Internal Medicine; Visit Provider Internal Medicine Cardiovascular Disease | DX: R94.31 Abnormal electrocardiogram [ECG] [EKG] (principal); I48.0 Paroxysmal atrial fibrillation | CPT/HCPCS: 93005 ==

== ENCOUNTER 2024-07-04 10:59 | Outpatient (REF) | payer MEDICARE, OTHER, SELFPAY ==
--- NOTE | ~2024-07-04 | MM_ITS ---
EXAMINATION: MM DIAGNOSTIC DIGITAL BREAST TOMOSYNTHESIS, RIGHT CLINICAL INFORMATION: Diagnostic exam; evaluate one view asymmetry seen mid lateral right breast CC view only. No correlate on MLO. COMPARISON: Mammography: 02/27/2021. TECHNIQUE: Digital breast tomosynthesis is performed in the following views: Full field 3-D right MLO view, as well as a 3-D spot compression right CC view. Computer-aided diagnosis was used for this study. FINDINGS: The breasts are heterogeneously dense, which may obscure small masses (ACR BI-RADS breast composition Category c). Diagnostic views demonstrate no persistence of the CC view asymmetry mid depth, lateral aspect right breast. Findings are consistent with superimposition artifact of overlapping fibroglandular tissues. There is no persistent suspicious mass, asymmetry, or areas of architectural distortion. Redemonstration of a few scattered benign calcifications and vascular calcifications. MM/MM tomosynthesis added views R IMPRESSION: 1. There are no persistent findings suspicious for malignancy right breast. 2. Recommend the patient resume routine annual screening mammography. ASSESSMENT: BI-RADS BI-RADS 1 - Negative RECOMMENDATION: 1 year F/U Results were provided to the patient at time of visit by the technologist. This patient's information was entered into a reminder system with a target due date for their next mammogram. Electronically signed by: José Miguel Loo MD 07/04/2024 12:20 PM [facility]
== END 2024-07-04 11:00 | disposition home or self-care (01) ==
LOC: HO.MAMMO 10:59
PROVIDERS: PCP Internal Medicine; Visit Provider Internal Medicine
DX: N64.89 Other specified disorders of breast (principal)
CPT/HCPCS: 77061; 77065

== ENCOUNTER → 2024-07-04 11:00 | Outpatient (BNV) | payer MEDICARE, OTHER, SELFPAY | PROVIDERS: PCP Internal Medicine; Visit Provider Radiology Diagnostic Radiology | DX: R92.1 Mammographic calcification found on diagnostic imaging of breast (principal); R92.331 Mammographic heterogeneous density, right breast | CPT/HCPCS: 77065; G0279 ==

== ENCOUNTER 2024-08-12 11:03 | Outpatient (AMB) | payer MEDICARE, OTHER, SELFPAY ==
--- NOTE | 2024-08-12 11:10 | A.OFFVIS_ITS ---
Intake Vital Signs 08/12/24 11:11 Height 5 ft 2 in Weight 179 lb 4 oz BMI 32.8 BP 112/70 Blood Pressure Location Lt brachial Position Sitting Pulse 78 Pulse Source Pulse Oximeter Pulse Oximetry (%) 97 Oxygen Delivery Method Room Air Intake Visit Reasons: V G0439 Allergies atorvastatin [From LIPITOR] Allergy (Unknown, Verified 08/12/24 11:14) AFFECTED LIVER ENZYMES liraglutide [Victoza] Allergy (Unknown, Verified 08/12/24 11:14) nausea lisinopril Allergy (Unknown, Verified 08/12/24 11:14) cough losartan [LOSARTAN] Allergy (Unknown, Verified 08/12/24 11:14) HIVES PEANUT BUTTER Allergy (Unknown, Uncoded 08/12/24 11:14) LIPS SWELLING MOST FRUITS Adverse Reaction (Unknown, Uncoded 08/12/24 11:14) HIVES,ITCHING Medication List - Last Reconciled 08/12/24 by Aracely Thompson, albuterol sulfate 90 mcg/actuation (Ventolin HFA) 2 puffs inhalation Q4-6H PRN apremilast (Otezla) 30 mg PO BID bempedoic acid (Nexletol) 180 mg PO DAILY blood sugar diagnostic (OneTouch Ultra Blue Test Strip) As directed check the BS QD blood-glucose meter (OneTouch Ultra2 Meter) As directed check BS QD clobetasol 0.05% 1 appl topical BID dronedarone (Multaq) 400 mg PO Q12H dulaglutide 1.5 mg (0.5 mL) subcut QWEEK ezetimibe 10 mg PO DAILY fexofenadine (Michelle Allergy) 180 mg PO DAILY metoprolol succinate ER 50 mg PO DAILY nystatin 1 appl topical BID PRN omeprazole 20 mg PO DAILY 14 days rivaroxaban (Xarelto) 20 mg PO QPM rosuvastatin 40 mg PO DAILY 90 days trazodone 50 mg PO BEDTIME PRN HPI SWV G0439 HPI Details hearing will see ENT 2024 The patient is a 74-year-old female presenting with a primary concern of arthritis pain. The pain is persistent and seems to have developed recently. She reports no specific interventions or medications used for pain management up to this point. She was advised in the past about using Voltaren Gel, a topical non-steroidal anti-inflammatory drug, to alleviate symptoms. Additional aspects of her medical history include her diagnosis with psoriasis, managed with Apremilast (Otezla), which she reports was beneficial for both psoriasis and arthritis. However, there are concerns regarding insurance coverage for Apremilast, necessitating discussions with her seasoning mixer. Past medical history includes allergic rhinitis, treated with Michelle (Fexofenadine), gastroesophageal reflux disease managed with Omeprazole, type 2 diabetes mellitus managed with Trulicity, and peripheral neuropathy secondary to diabetes impacting sensation in her lower extremities most notably causing difficulty determining pressure sensations. Her diabetes is further complicated by chronic kidney disease with proteinuria, hypertension, and hyperlipidemia. Her lipid management includes Nexletol, while hypertension is controlled through an undisclosed medication regimen. Gastroesophageal reflux was last treated with interventions by Dr. Osman in 2021. She denies recent surgeries or significant changes in her condition but expresses concerns about occasional dizziness, difficulty swallowing (managed with periodic dilation of her esophagus), and age-related hearing loss for which she has scheduled an audiology appointment. There is no reported tobacco use, and alcohol consumption was not mentioned. She denies new diagnoses since her last visit but acknowledges ongoing issues related to blood sugar control due to the inability to check levels at home after the device was damaged by grandchildren. - Annual wellness visit conducted - Blood pressure monitoring with observe d stability - Blood sugar control with A1c monitorin g; previous tests identified diabetes- related complications - Kidney function assessment reveals ghassan oing proteinuria secondary to diabetes - LDL management addressed with Nexletol for hyperlipidemia - Hearing to be evaluated with an appoin tment on August 24 - Colon cancer screening performed in with findings of adenomas, follow-up scheduled every five years - Regular eye exams; no emergent concern s reported - No tobacco use - Minimal alcohol consumption - Attends the gym and uses equipment; no t participating in regular walking or outdoor physical activities - Reports not drinking adequate water - Resides independently; family details not mentioned - Financial concerns regarding medicatio n coverage due to insurance issues - General: Denies fever, chills, or weig ht loss - Respiratory: Denies shortness of breat h or chronic cough - Cardiovascular: Denies chest pain; occ asionally experiences dizziness - Gastrointestinal: Reports episodic dys phagia - Musculoskeletal: Reports chronic arthr itis pain and intermittent foot pain - Neurological: Reports occasional dizzi ness; denies history of syncope or seizures - Dermatological: Reports psoriasis sonia ged with Apremilast - Allergic/Immunologic: Reports seasonal allergies managed with Michelle - EENT: Reports hearing loss; scheduled ENT follow-up for evaluation - Labs: Normal blood count; normal elect rolytes - Kidney function: Stable but noted prot einuria - A1c testing reviewed; diabetes managem ent confirmed [facility] Medical History Asthma On anticoagulant therapy On beta ever at home Post-menopausal Persistent atrial fibrillation Numbness of lip Urge incontinence Diabetic nephropathy Thrombocytopenia Vitamin D deficiency Type 2 diabetes mellitus with hyperglycemia Hypercholesterolemia Psoriasis Obesity (BMI 30-39.9) Osteoarthritis Hypertension CAD (coronary artery disease) Surgical History H/O cardiac radiofrequency ablation History of colonoscopy Stented coronary artery History of oophorectomy H/O breast biopsy Hx of tonsillectomy Hx of total knee replacement Hx of cholecystectomy Hx of tubal ligation Family History Brother Liver cancer Social History Household Members Other:: grand-daughter Housing: House Are you a primary healthcare financial analyst to a significant other at home: No Do you presently have visiting nurse or other home services: No Alcohol intake: never Comment: aware of trip hazard Patient Tobacco Use Status: Former Tobacco user Tobacco use type: Cigarette e-Cigarette/Vaping Use: Never Used Second Hand Smoke Exposure: No service: No Current occupational status: retired Cognitive needs: No Hearing needs: Yes Vision needs: Yes Questionnaire Medicare Wellness Checkup [age] What gender do you identify with?: female During the past 4 weeks, how much have you been bothered by emotional problems such as feeling anxious, depressed, irritable, sad or downhearted, and blue?: not at all During the past 4 weeks, has your physical & emotional health limited your social activities with family, friends, neighbors, or groups?: not at all During the past 4 weeks, how much bodily pain have you generally had?: no pain During the past 4 weeks, was someone available to help you if you needed & wanted help?: no, not at all During the past 4 weeks, what was the hardest physical activity you could do for at least 2 minutes?: very light Can you get to places out of walking distance without help? (For eg., can you travel alone on buses, taxis or drive your car?): Yes Can you go shopping for groceries or clothes without someone's help?: Yes Can you prepare your own meals?: Yes Can you do your housework without help?: Yes Because of any health problems, do you need the help of another person with your personal care needs such as eating, bathing, dressing or getting around the house?: No Can you handle your own money without help?: Yes During the past 4 weeks, how would you rate your health in general?: good During the past 4 weeks how have things been going for you?: pretty well Are you having difficulties driving your car?: no Do you always fasten your seat belt when you are in a car?: yes, sometimes During past 4 weeks, have you been bothered by the following: never: Falling or dizzy when standing up, Sexual problems?, Trouble eating well?, Teeth or denture problems?, Problems using the telephone? and Tiredness or fatigue? Have you fallen 2 or more times in the past year?: No Are you afraid of falling?: No Are you a smoker?: no During the past 4 weeks, how many drinks of wine, beer, or other alcoholic beverages did you have?: no alcohol at all Do you exercise for about 20 minutes 3 or more times a week?: yes, all the time Have you been given information to help with the following?: yes: Hazards in your house that might hurt you? and yes: Keeping track of your medications? How often do you have trouble taking medicines the way you have been told to take them?: I always take medicine as prescribed How confident are you that you can control & manage most of your health problems?: very confident What is your race?: or origin or descent PHQ-9 Over the last 2 weeks, how often have you been bothered by any of the following problems? 1. Little interest or pleasure in doing things: not at all 2. Feeling down, depressed, or hopeless: not at all 3. Trouble falling or staying asleep, or sleeping too much: not at all 4. Feeling tired or having little energy: not at all 5. Poor appetite or overeating: not at all 6. Feeling bad about yourself - or that you are a failure or have let yourself or your family down: nearly every day 7. Trouble concentrating on things, such as reading the newspaper or watching television: not at all 8. Moving or speaking so slowly that other people could have noticed. Or the opposite - being so fidgety or restless that you have been moving around a lot more than usual: not at all 9. Thoughts that you would be better off or of hurting yourself in some way: not at all Total score: 3 Depression Screening Interpretation: Negative Depression Screening Done: Yes 13711 - PHQ-9 Billing: Yes Source: Developed by Drs. Marquise Hines, Jolene Quinn, Issac Prince and colleagues, with an educational caden from [employer]. Review of Systems Const Denies poor appetite and Denies weakness Eyes Denies no additional complaints ENT Reports Normal hearing present, Denies dizziness, Denies nasal congestion, Denies tinnitus and Denies sore throat Card Denies chest pain, Denies syncope, Denies rapid heart rate and Denies dyspnea Resp Denies cough and Denies dyspnea GI Denies change in stool character, Reports constipation, Denies diarrhea, Denies nausea and Denies vomiting Denies urinary frequency, Denies difficulty voiding and Denies dysuria Neuro Reports Normal hearing present, Denies confusion, Denies dizziness, Denies syncope and Denies weakness Psych Denies confusion Physical Exam Vital Signs: Last Vital Signs Pulse 78 08/12/24 11:11 BP 112/70 08/12/24 11:11 Pulse Ox 97 08/12/24 11:11 Oxygen Delivery Method Room Air 08/12/24 11:11 BMI result Body Mass Index 32.8 Const General: No confusion Orientation/consciousness: No confusion HEENT Head: Yes normocephalic Ears: external ears normal and TM's normal bilaterally Face and sinus: Yes normal facial exam Mouth: moist mucous membranes Throat: Yes tonsils normal Eyes Conjunctivae: conjunctivae normal Pupils: Equal, round and reactive pupils present and Pupil accommodation reflex normal Direct Ophthalmoscopy: normal light reflex Neck Neck: No lymphadenopathy Thyroid: Thyroid normal Chest Chest palpation & inspection: normal inspection of the chest Resp Effort & Inspection: normal respiratory effort and no audible wheezes Auscultation: clear to auscultation bilaterally, no crackles, no wheezes and lung sounds not diminished Cardio Rate: regular rate Rhythm: regular rhythm Peripheral pulses: radial pulses present and dorsalis pedis present GI Palpation (GI): no masses Auscultation: normal bowel sounds and normoactive bowel sounds Rectal Exam - Female: deferred Skin General skin exam: no rashes or lesions noted Rashes: no rashes Neuro General: No confusion Cranial nerves: Yes Equal, round and reactive pupils present and Yes Normal hearing present Cognition (Neuro): normal cognition Gait exam (Neuro): Normal gait present Motor exam (neuro): 5/5 motor strength present throughout Deep tendon reflexes (DTR's): Right brachioradialis reflex intensity grade: 2+, Left brachioradialis reflex intensity grade: 2+, Right patellar reflex intensity grade: 2+ and Left patellar reflex intensity grade: 2+ Extrem General: No edema Assessment & Plan Assessment & Plan (1) Medicare annual wellness visit, subsequent: Code(s): Z00.00 - Encounter for general adult medical examination without abnormal findings (2) Type 2 diabetes mellitus with hyperglycemia: Comment: Dr. Lombardo Code(s): E11.65 - Type 2 diabetes mellitus with hyperglycemia Qualifiers: Diabetes mellitus [facility] insulin use: with adjunct faculty for medical terminology use Qualified Code(s): E11.65 - Type 2 diabetes mellitus with hyperglycemia; Z79.4 - nursing home (current) use of insulin (3) Obesity (BMI 30-39.9): Code(s): E66.9 - Obesity, unspecified (4) Hypercholesterolemia: Code(s): E78.00 - Pure hypercholesterolemia, unspecified (5) Hypertension: Code(s): I10 - Essential (primary) hypertension Qualifiers: Hypertension type: essential hypertension Qualified Code(s): I10 - Essential (primary) hypertension (6) CAD (coronary artery disease): Comment: Angioplasty October 2009 with ERROL Code(s): I25.10 - Atherosclerotic heart disease of koi coronary artery without angina pectoris Qualifiers: Associated angina: without angina Coronary Disease-Associated Artery/Lesion type: koi artery [place] vs. transplanted heart: koi heart Qualified Code(s): I25.10 - Atherosclerotic heart disease of koi coronary artery without angina pectoris (7) Paroxysmal atrial fibrillation: Comment: September 2020, ablation December 2021 Code(s): I48.0 - Paroxysmal atrial fibrillation (8) Psoriasis: Code(s): L40.9 - Psoriasis, unspecified Plan - Continue current diabetic regime with Trulicity - Prescribe topical Voltaren Gel for arthritis pain as needed - Recommend follow-up with dermatology to address psoriasis management and insurance coverage of Apremilast - Reassess kidney function periodically to track proteinuria and manage chronic kidney disease - Recommend lifestyle modifications including diet and increased water intake to assist with kidney health - Monitor blood pressure and adjust treatments as necessary - Comprehensive eye examination with Dr. Monzon annually - Referral to audiology for assessment and management of hearing loss - Advise annual review with gastroenterology due to past esophageal interventions - Address neuropathy with continued diabetes management and podiatry follow-up During today's visit, we focused on both preventative and ongoing care manage ment strategies. I discussed the importance of keeping blood glucose, cholesterol, and blood pressure under tight control to mitigate renal complications. We also reviewed her psoriasis treatment with Apremilast, noting upcoming discussions surrounding her insurance coverage. For arthritis pain, I recommended the use of Voltaren Gel to facilitate conservative, non-systemic management. Given her reported hearing loss, we arranged a near-term follow-up with audiology to address her symptoms properly. Additional lifestyle guidance was provided, advising increased water intake and more regular physical activity apart from gym-based exercises, to holistically support chronic disease management. I emphasized the pros and cons of recommended treatments and the need for follow-up care to manage potential drug-related side effects. Appointments with her automatic embroidery machine tender and gastrointestinal specialist were also endorsed for continuous monitoring of other existing diagnoses. - Use Voltaren Gel up to four times daily for arthritis pain relief - Speak to your seasoning mixer about insurance coverage for Apremilast - Follow through with scheduled follow-up appointments, including seeing the parking enforcer on August 24 - Maintain good diabetes management as advised, checking blood sugars regularly once a new meter is obtained - Stick to prescribed allergy medications as needed - Stay hydrated and attempt to engage in regular physical activity - Schedule follow-up appointments with your automatic embroidery machine tender and gastric specialist as previously arranged - Seek medical care if experience acute dizziness, swallowing difficulties, or significant changes in health Orders: Referrals Podiatry Referral E11.65 - Type 2 diabetes mellitus with hyperglycemia, Z79.4 - nursing home (current) use of insulin Medications: New lancets As directed check the blood sugar q.day 100 ea 3RF E11.65 - Type 2 diabetes mellitus with hyperglycemia, Z79.4 - nursing home (current) use of insulin Changed From blood sugar diagnostic (OneTouch Ultra Blue Test Strip) As directed check the BS QD 100 ea 3RF E11.65 - Type 2 diabetes mellitus with hyperglycemia To blood sugar diagnostic As directed check the BS QD 100 ea 3RF E11.65 - Type 2 diabetes mellitus with hyperglycemia Refilled blood-glucose meter (OneTouch Ultra2 Meter) As directed check BS QD 1 ea 0RF E11.65 - Type 2 diabetes mellitus with hyperglycemia Quality Reporting (2019) Depression/Bipolar (159/160/161/177) PHQ-9: Total score: 3 Coding Level of Care Code Medicare Subsequent (G0439) Diagnoses Medicare annual wellness visit, subsequent Z00.00 Type 2 diabetes mellitus with hyperglycemia, with long-term current use of insulin E11.65; Z79.4 Diabetes mellitus adjunct faculty for medical terminology insulin use: with [facility] use Obesity (BMI 30-39.9) E66.9 Hypercholesterolemia E78.00 Essential hypertension I10 Hypertension type: essential hypertension Coronary artery disease involving koi coronary artery of koi heart without angina pectoris I25.10 Associated angina: without angina Coronary Disease-Associated Artery/Lesion type: koi artery [place] vs. transplanted heart: koi heart Paroxysmal atrial fibrillation I48.0 Psoriasis L40.9 Additional Codes PHQ-9 - 65200 - PHQ-9 Billing: Yes ([id number])
[2024-08-12 11:11] VITALS: BP 112/70; PULSE 78; O2SAT 97; BMI 32.8
--- OUTSIDE RECORDS SUMMARY | 2024-08-12 12:54 | XMS_ITS | Patient Health Record ---
Author Organization [facility] Address [address] [facility] [place] [address] Care Team Providers Care Subassembler Name Role Phone Aracely Thompson Primary Care Provider Michelet Jackson Unavailable [phone] Allergies No Known Allergies Results Component Value Reference Range Notes HEMOGLOBIN A1C (GLYCOHEMOGLO BIN) Reviewed date:02/15/2024 10:42:30 AM Interpretation: Performing Lab: Notes/Report: HEMOGLOBIN A1C % (HH) 5.9 Reason For Referral No Information Medications Medication SIG (Take, Route, Frequency, Duration) Notes Start Date End Date Status Metoprolol Tartrate 50 MG 1 tablet with food Orally Twice a day for 30 day(s) Active Nexletol Active Multaq 4mg Active Xarelto Active Trulicity Active Otezla Active Aspirin 81 MG Orally Not-Ta gerri Zetia Active Ammonium Lactate 12 % 1 application to affected area Externally to feet Twice a day for 30 days Active Amiodarone HCl Activ e Metoprolol Tartrate 75 MG Orally Not-Taking metFORMIN HCl 500 MG 1 tablet with a lissette l Orally Once a day for 30 day(s) Active Crestor Active Immunizations Vaccine Route Administration Date Status Comme nts COVID-19 Pfizer BioNTech Vaccine Unknown 11/01/2020 Adm inistered COVID-19 Pfizer BioNTech Vaccine Unknown 11/22/2020 Adm inistered Influenza Unknown 09/21/2018 Administered Influenza Unknown 08/15/2019 Administered Social History Tobacco Use: Social History Observation Description Date Details (start date - stop date) Former Smoker NA - NA Tobacco Use/Smoking Question Answer Notes Are you a: former smoker Additional Findings: Tobacco Non-User Current no n-smoker Alcohol Screen Question Answer Notes Did you have a drink containing alcohol in the p ast year? No Points 0 Interpretation Negative Tobacco use other than smoking: Question Answer Notes Are you an other tobacco user? No Problems Problem Type SNOMED Code ICD Code Onset Dates Problem Status W/U Status Risk Notes Problem Acquired hammer toe of right foot (9337995687452 105) Other hammer toe(s) (acquired), right foot (M20.41) Active confirmed Response to treatment,I mprovement Problem Type 2 diabetes mellitus with peripheral angiopathy (293017843) Type 2 diabetes mellitus with diabetic peripheral angiopathy without gangrene (E11.51) Active confirmed Problem Acquired hammer toe of left foot (7721225756718 103) Other hammer toe(s) (acquired), left foot (M20.42) Active confirmed Response to treatment,I mprovement Vital Signs Height 5ft 2in in 02/15/2024 Weight 178 lbs 02/15/2024 BMI 32.55 kg/m2 02/15/2024 Procedures Procedure Date Ordered Date Performed Result Body Sit e 90456-NQZJIOL NAIL, 6 OR MORE 10/05/2023 N/A 50606-HXUR SKIN LESIONS, OVER 4 10/05/2023 N/A 60362-DPFFINO NAIL, 6 OR MORE 02/15/2024 N/A 85965-WAMK SKIN LESIONS, OVER 4 02/15/2024 N/A Encounters Encounter [facility] Date [facility] [address] [facility]23 Michelet Singletaryier Type 2 diabetes mellitus with diabetic peripheral angiopathy without gangrene E11.51 ; Tinea unguium B35.1 ; Pain in right toe(s) M79.674 and Pain in left toe(s) M79.675 [facility] [address] 02/15/2024 Michelet Isbellunier Type 2 diabetes mellitus with diabetic peripheral angiopathy without gangrene E11.51 ; Tinea unguium B35.1 ; Pain in right toe(s) M79.674 and Pain in left toe(s) M79.675 Assessments Encounter Date Diagnosis (ICD Code) Assessment Notes Treatment Notes Treatment Clinical Notes Section Notes 10/05/2023 Type 2 diabetes mellitus with diabetic peripheral angiopathy without gangrene (ICD-10 - E11.51) 10/05/2023 Tinea unguium (ICD-10 - B35.1) 02/15/2024 Type 2 diabetes mellitus with diabetic peripheral angiopathy without gangrene (ICD-10 - E11.51) 02/15/2024 Tinea unguium (ICD-10 - B35.1) 02/15/2024 Pain in right toe(s) (ICD-10 - M79.674) 10/05/2023 Pain in right toe(s) (ICD-10 - M79.674) 10/05/2023 Pain in left toe(s) (ICD-10 - M79.675) 02/15/2024 Pain in left toe(s) (ICD-10 - M79.675) Plan Of Treatment Pending Test Test Name Order Date X ray : Foot, left 3V 04/02/2023 49045-DDXRRDR NAIL, 6 OR MORE 06/29/2023 28475-KBAPYQJ NAIL, 6 OR MORE 04/02/2023 12616-PNZTZZQ NAIL, 6 OR MORE 10/05/2023 04691-MBTKNQF NAIL, 6 OR MORE 02/15/2024 95183-YSVFEMZ NAIL, 6 OR MORE 08/30/2020 07331-BRGZMFK NAIL, 6 OR MORE 11/29/2020 54715-AQFCDFY NAIL, 6 OR MORE 02/28/2021 43214-XSYBPKU NAIL, 6 OR MORE 05/30/2021 49847-TRHYGLG NAIL, 6 OR MORE 09/05/2021 80401-GUSQUXW NAIL, 6 OR MORE 12/05/2021 56948-HRZOPXW NAIL, 6 OR MORE 03/10/2022 86543-VLQGJCP NAIL, 6 OR MORE 06/09/2022 51929-BXEEUTD NAIL, 6 OR MORE 09/08/2022 22515-UYSSGNH NAIL, 6 OR MORE 12/15/2022 41510-STAKQAL NAIL, 1-5 08/15/2019 56214-EDSHUVD NAIL, 1-5 04/11/2020 97410-FYNVWNE NAIL, 1-5 01/24/2019 46455-ARLZROI NAIL, 1-5 05/09/2019 62463-Jkmudwjz Plate 01/24/2019 36801-Xzxvuaok Plate 03/10/2022 00098-Pnevwavm Plate 12/05/2021 27849-Woznxamm Plate 09/05/2021 52066-Ozvlligz Plate 04/02/2023 97545-Fhaorlhj Plate 09/08/2022 13627-Qkkxqxao Plate 12/15/2022 01571-Guuadfgb Plate 06/29/2023 66702-YWQT SKIN LESIONS, OVER 4 06/29/20 47004-MOQH SKIN LESIONS, OVER 4 04/02/20 66479-KBZW SKIN LESIONS, OVER 4 02/15/20 70794-LLWC SKIN LESIONS, OVER 4 10/05/19 25597-IXEB SKIN LESIONS, OVER 4 09/05/19 93844-EJUW SKIN LESIONS, OVER 4 12/06/19 65330-EFRG SKIN LESIONS, OVER 4 03/10/20 15535-BREA SKIN LESIONS, OVER 4 06/09/20 13792-NRJE SKIN LESIONS, OVER 4 12/16/19 23 26978-ZDQE SKIN LESIONS, OVER 4 09/08/19 23 90602-AASR SKIN LESIONS, 2 TO 4 05/30/20 21 20244-CIUU SKIN LESIONS, 2 TO 4 02/29/20 21 61369-TQLE SKIN LESIONS, 2 TO 4 05/09/20 19 08600-OZJW SKIN LESIONS, 2 TO 4 08/15/19 20 82689-XJOP SKIN LESIONS, 2 TO 4 01/25/20 19 48971-RRWX SKIN LESIONS, 2 TO 4 11/30/19 21 62804-KUYS SKIN LESIONS, 2 TO 4 04/11/20 20 09845-LXIX SKIN LESIONS, 2 TO 4 08/30/19 21 K1161-BDVJKEOJ DYSTROPHIC NAILS ANY # B6478-CBHHNQCP DYSTROPHIC NAILS ANY # E5421-NGLJIVPC DYSTROPHIC NAILS ANY # E3397-DODZYGEB DYSTROPHIC NAILS ANY # Insurance Providers Payer Name Payer Address Payer Phone Subscriber Number Group Number Insured Name Patient Relationship to Insured Coverage Start Date Coverage End Date Medicare National [employer] [address] [facility] [place] [address] [id number] Milana Fonseca Self - patient is the insured [facility] [address] Joycelynmarsha [place] [address] [phone] [id number] Milana Fonseca Self - patient is the insured Medical (General) History Medical History History ICD Code Arthritis Chicken pox Cholesterol Diabetic type ll Heart disease High blood pressure Surgical History Surgery Date(Month/Year) R ovarian removed 1995 gall bladder removed 1999 Hammer toe Left 3rd toe cardiac catheterization 11/13/21 eye surgery 06/15/23 Hospitalization History Reason Date(Month/Year) [facility] [place]- flu 03/2022
--- OUTSIDE RECORDS SUMMARY | 2024-08-12 12:54 | XMS_ITS | Patient Health Record ---
Author Organization [facility] Address [address] [place] [address] Care Team Providers Care Sewer Pipe Sorter Name Role Phone Aracely Thompson MD Primary Care Provider Marquise Chapin [phone] ALLERGIES No Known Allergies REASON FOR REFERRAL No Information MEDICATIONS Medication SIG (Take, Route, Frequency, Duration) Notes Start Date End Date Status Omeprazole 20 MG TAKE 1 TABLET BY ANTHONY TH EVERY MORNING for 90 Active Victoza 18 MG/3ML 0.2 ml Subcutaneous Once a day Not-Taking metFORMIN HCl 1000 MG 1 tablet with meal s Orally Twice a day Active Cozaar 100 MG 1 tablet Orally Once a day Active Rosuvastatin Calcium 40 MG Oral for 90 Active Xarelto 20 MG Oral for 90 Acti ve Multaq 400 MG Oral for 90 Acti ve Metoprolol Succinate ER 25 MG 1 tablet Orally Once a day Active Zetia 20 mg 1 tablet Orally Once a day Active Aspirin 81 MG 1 tablet Orally Once a day Active IMMUNIZATIONS Vaccine Route Administration Date Status Comme nts Influenza Unknown 04/10/2021 Administered SOCIAL HISTORY Sex Assigned At : Social History Observation Description Sex Assigned At Unknown PROBLEMS Problem Type ICD Code Onset Dates Problem Status W/U Status Risk SNOMED Code Notes Problem History of adenomatous polyp of colon (Z86.010) Active confirmed History o f adenomatous polyp of colon (512226225) Problem Dysphagia (R13.10) Active confirmed Dys phagia (06234362) Problem Duodenitis (K29.80) Active confirmed Du odenitis (81374154) Problem Hiatal hernia (K44.9) Active confirmed Hiatal hernia (67656095) Problem Rectal bleed (K62.5) Active confirmed Bleeding from a nus (9924207) Problem Gastritis (K29.70) Active confirmed Gas tritis (8952535) Problem Duodenal ulcer (K26.9) Active confirmed Duodenal ulcer (29614868) Problem Helicobacter pylori infection (A04.8) Active confirmed Helicobact er pylori infection (972052616) Problem Diverticulosis of colon (K57.30) Active confirmed Diverticulosi s of colon (872977863) Problem Gastroesophageal reflux disease, unspecified whether esophagitis present (K21.9) Active confirmed Gastroesophagea l reflux disease (935245891) Problem Esophageal dysphagia (R13.19) Active confirmed Difficult y swallowing (660341066) PLAN OF TREATMENT Future Test Test Name Order Date COLONOSCOPY 05/30/2014 UPPER GI ENDOSCOPY BALLOOON DILATION OF ESOPH 07/09/2021 COLONOSCOPY 07/09/2021 Insurance Providers Payer Name Payer Address Payer Phone Subscriber Number Group Number Insured Name Patient Relationship to Insured Coverage Start Date Coverage End Date MEDICARE OF [place] [address] [place] [address] [id number] CALVIN ALVES Self - patient is the insured [facility] [address] [place] [phone] [id number] CALVIN ALVES Self - patient is the insured MEDICAL (GENERAL) HISTORY Medical History History ICD Code Colonoscopy 05-31-2004--only a hyperplas tic polyp, sigmoid diverticulosis Hyperlipidemia Hypertension Denies renal disease NIDDM CAD--CT and 2 stents > 5 yrs ago-Dr. Diamante delacruz Fatty liver--neg. Hepatitis serologies, neg. Iron studies, neg. liver U/S--normal LFT's in 09/2013 Atrial fib - Dr. 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 Upper endoscopy in August revealed a moderate-sized hiatal hernia, duodenitis, small duodenal old ulcer, and gastritis with H. pylori. There was no esophagitis nor Gonzalez's esophagus, nor any sign of an esophageal stricture nor ring. I did use an 18-19-20mm balloon to dilate the gastroesophageal junction due to complaints of dysphagia, Surgical History Surgery Date(Month/Year) Cholecystectomy Removal of right ovary Tubal ligation Breast [id number]
--- OUTSIDE RECORDS SUMMARY | 2024-08-12 12:54 | XMS_ITS ---
Author Organization [facility] Address [address] [facility] [place] [address] Care Team Providers Care Manager Environmental Affairs Name Role Phone Aracely Thompson Primary Care Provider Michelet Jackson Unavailable [phone] Allergies No Known Allergies REASON FOR VISIT At Risk Footcare, Painful Nail(s) aggrevated by shoes and causing difficulty standing/walking Medications Medication SIG (Take, Route, Frequency, Duration) Notes Start Date End Date Status Metoprolol Tartrate 50 MG 1 tablet with food Orally Twice a day for 30 day(s) Active Nexletol Active Multaq 4mg Active metFORMIN HCl 500 MG 1 tablet with a lissette l Orally Once a day for 30 day(s) Active Crestor Active Otezla Active Aspirin 81 MG Orally Not-Ta gerri Ammonium Lactate 12 % 1 application to affected area Externally to feet Twice a day for 30 days Active Amiodarone HCl Activ e Metoprolol Tartrate 75 MG Orally Not-Taking Xarelto Active Trulicity Active Zetia Active Social History Tobacco Use: Social History Observation [...] Are you an other tobacco user? No Vital Signs Height 5ft 2in in 02/15/2024 Weight 178 lbs 02/15/2024 BMI 32.55 kg/m2 02/15/2024 Procedures Procedure Date Ordered Date Performed Result Body Sit e 41781-ZCBICSP NAIL, 6 OR MORE 02/15/2024 N/A 13763-XVEA SKIN LESIONS, OVER 4 02/15/2024 N/A Encounters Encounter Location Date Provider Diagnosis [facility] [address] [address] 02/15/2024 Michelet Mcclelland Type 2 diabetes mellitus with diabetic peripheral angiopathy without gangrene E11.51 ; Tinea unguium B35.1 ; Pain in right toe(s) M79.674 and Pain in left toe(s) M79.675 Assessments Encounter Date Diagnosis (ICD Code) Assessment Notes Treatment Notes Treatment Clinical Notes Section Notes 02/15/2024 Type 2 diabetes mellitus with diabetic peripheral angiopathy without gangrene (ICD-10 - E11.51) 02/15/2024 Tinea unguium (ICD-10 - B35.1) 02/15/2024 Pain in right toe(s) (ICD-10 - M79.674) 02/15/2024 Pain in left toe(s) (ICD-10 - M79.675) Plan Of Treatment Pending Test Test Name Order Date 00569-VZBNWWZ NAIL, 6 OR MORE 02/15/2024 77162-VQXI SKIN LESIONS, OVER 4 02/15/20 24 Next Appt Details Follow Up: prn, Reason: Procedure Notes * Category Sub-Category Detail Notes Debride Nail 6-10 Nail debridement Nail debridem ent performed extensively to reduce/remove overall nail length, girth, thickness, subungual debris, and necrotic tissue, by manual and electrical means through the use of a nail nipper and/or dremel, to more viable healthy nail plate or bed tissue 1-5. Silver nitrate used for any petechial bleeding as necessary. Patient chooses, no pharmaceutical tx (51019) Keratoma Treatment Parring or Cutting o f Benign Hyperkeratotic Lesion(s) 83323 ( >4 Lesions) - The Benign hyperkeratotic lesions, as described above were pared, and/or cut utilizing a sterile #15 blade, tissue nippers, and/or dremel, Q8 Progress Notes * Milana FONSECADOB: [birth year] (73 yo F)Acc No.[id number]:02/15/2024 Progress Note Patient:?Milana Fonseca Provider:?Michelet Mcclelland DPM :1950???Age:73 Y???Sex:Female D ate:02/15/2024 Address:[address] [place] Pcp:Aracely Thompson Subjective: * Chief Complaints: * ???At Risk FootcarePainful N ail(s) aggrevated by shoes and causing difficulty standing/walking * HPI: ???At Risk footcare:?Pt States Last PCP Visit:?Date?01/12/2024 * ROS:?General/Constitutional:?Nausea?denies.?Vomiting?denies.?Hunger Thirst?denies.?Loss appetite?denies.?Chills?denies.?Fatigue?denies.?Fever?denies.?Night Sweats?denies.?Unexplained weight loss?denies.?Unexplained weight gain?denies.?HEENTM:?Dentures?denies.?Dizziness?denies.?Glasses/contacts?admits.?Retinopathy?de nies.?Blurred/double vision?denies.?TMJ?denies.?Discharge/drainage?denies.?Implants?denies.?Sore throat?denies.?Dental implants?denies.?Hard of hearing ?admits.?Difficulty chewing/swallowing/speaking?denies.?Nose bleeds?denies.?Sore mouth?denies.?Respiratory:?On Oxygen?denies.?Pneumonia/pleurisy?denies.?Bronchitis?denies.?Emphysema?denies.?C oughing?denies.?Cough blood?denies.?Shortness of breath?denies.?Wheezing?denies.?Cardiovascular:?Pacemaker?denies.?MVP?denies.?WPW?denies.?CHF?denies.?Heart attack?denies.?Septal defect?denies.?Rapid beat?denies.?Chest pain ?denies.?Atrial Fib.?denies.?Murmur/Palpitations?denies.?Gastrointestinal:?Hemorrhoids?denies.?Stomach/Abdominal pain?denies.?Dark blood stool?denies.?Irritable bowel ?denies.?Constipation?denies.?Diarrhea?denies.?Hematology:?Swelling?admits.?Clots?denies.?Varicose Veins?denies.?Bruising?admits, on anticoagulants.?Bleeding problem?admits, on anticoagulants.?Genitourinary:?Blood urine?denies.?Frequent/Painfu/urination/bladder control?denies.?Kidney stones?denies.?Infection (UTI)?denies.?Nephropathy?denies.?sex trans dis (STD)?denies.?Prostate?denies.?Musculoskeletal:?Hammertoes?admits.?Bunions?denies.?Back Pain?denies.?Muscle Cramps/ Resting?denies.?Muscle cramps / walking?denies.?Generalized aches and pains?denies.?Weakness?denies.?Integ.:?Baker?denies.?Scars?denies.?Corns/calluses?admits.?Ingrown nails?admits.?Painful nails?admits.?Open Sores?denies.?Rashes?denies.?Neurologic:?Difficulty sleeping?denies.?Brain disorder?denies.?Numbness?denies.?Balance trouble?denies.?Confusion?denies.?Fainting/blackouts?denies.?Tingling?admits.?Tr emors?denies.? * Medical History:? * Surgical History:?R ovarian removed 1995gall bladder removed 2000Hammer toe Left 3rd toe cardiac catheterization 11/13/21eye surgery 06/15/23 * Hospitalization/Major Diagno stic Procedure:?[facility] [place] flu 03/2022 * Family History:?Mother: dece ased, kidney/liver disease, diagnosed with Family history of arthritis, Diabetic - NIDDM, Unspecified essential hypertension, Unspecified heart disease, Unspecified cerebral artery occlusion with cerebral infarction.?Father: .?Spouse: .?Siblings: diagnosed with Other malignant neoplasm of unspecified site.? * Social History:?Tobacco Use:?Tobacco Use/Smoking?Are you a:?former smoker ?Additional Findings: Tobacco Non-User?Current non-smoker ?Tobacco use other than smoking?Are you an other tobacco user??No ???Drugs/Alcohol:?Drugs?Have you used drugs other than those for medical reasons in the past 12 months??No ?Alcohol Screen?Did you have a drink containing alcohol in the past year??No ?Points?0 ?Interpretation?Negative ???Miscellaneous:?Caffeine: yes, 2-3 cups per day. ?Children: yes, 3. ?Exercise: yes, gym 2-3 times a week. ?Marital status: . ?Occupation: Retired. * Medications:?TakingOtezla Am iodarone HCl Ammonium Lactate 12 % Cream 1 application to affected area Externally to feet Twice a dayCrestor metFORMIN HCl 500 MG Tablet 1 tablet with a meal Orally Once a dayMetoprolol Tartrate 50 MG Tablet 1 tablet with food Orally Twice a dayMultaq , Notes: 4mgNexletol Trulicity Xarelto Zetia Taking Otezla Taking Amiodarone HCl Taking Ammonium Lactate 12 % Cream 1 application to affected area Externally to feet Twice a dayTaking Crestor Taking metFORMIN HCl 500 MG Tablet 1 tablet with a meal Orally Once a dayTaking Metoprolol Tartrate 50 MG Tablet 1 tablet with food Orally Twice a dayTaking Multaq , Notes: 4mgTaking Nexletol Taking Trulicity Taking Xarelto Taking Zetia Not-Taking/PRNAspirin 81 MG Tablet Delayed Release Orally Metoprolol Tartrate 75 MG Tablet Orally Medication List reviewed and reconciled with the patientNot-Taking/PRN Aspirin 81 MG Tablet Delayed Release Orally Not-Taking/PRN Metoprolol Tartrate 75 MG Tablet Orally Medication List reviewed and reconciled with the patient * Allergies:?N.K.D.A.yes[Aller gies Verified] Objective: * Vitals:?Ht: 5ft 2in, Wt:178, BMI:32.55, Shoe size: 9.5, BS: did not test, Ht-cm: 157.48 cm, Wt-k.74 kg. * Examination: ???Vascular: ?DP PULSES:? 0-1/4, B/L.?PT PULSES:? 0/4, B/L.?CAPILLARY FILL TIME:? delayed, all digits, B/L.?SKIN TEMPERTURE GRADIENT OF THE LOWER EXTERMITIES:? decreased, cool to cool, proximal to distal, B/L.?HAIR GROWTH/TEXTURE/ELASTICITY/TURGOR:? decreased, B/L.?PIGMENTATION:? mottled, B/L.?EDEMA:? 1/4, non-pitting, without aching pain, B/L, Ankle(s).?CLAUDICATION:?denies, B/L.?REST PAIN:?denies, B/L.?Nails: ?NAILS are:?Elongated, overgrown, dystrophic, lytic, greater than 3mm thick, discolored and friable with crumbly malodorous subungual debris, with pain on palpation, T1, T3, T4, 1-5 Right foot.?Dermatologic: ?SKIN FINDINGS:?Skin exam reveals Keratotic lesion(s) located at, Medial plantar, IPJ, TA, Medial plantar, IPJ, T5, SUB MTH (s), 1, B/L, SUB MTH (s), 2, B/L , Heel(s), B/L.? Assessment: * Assessment: 1.?Type 2 diabetes mellitus with diabetic peripheral angiopathy without gangrene - E11.51?2.?Tinea unguium - B35.1?3.?Pain in right toe(s) - M79.674?4.?Pain in left toe(s) - M79.675? Plan: * Treatment: 2.?Tinea unguium?Procedure: 25062-GOLSXMZ NAIL, 6 OR MORE * Procedures:?Debride Nail 6-10:?Nail debridement?Nail debridement performed extensively to reduce/remove overall nail length, girth, thickness, subungual debris, and necrotic tissue, by manual and electrical means through the use of a nail nipper and/or dremel, to more viable healthy nail plate or bed tissue 1-5. Silver nitrate used for any petechial bleeding as necessary. Patient chooses, no pharmaceutical tx (39968).?Keratoma Treatment:?Parring or Cutting of Benign Hyperkeratotic Lesion(s)?09198 ( >4 Lesions) - The Benign hyperkeratotic lesions, as described above were pared, and/or cut utilizing a sterile #15 blade, tissue nippers, and/or dremel, Q8.? * Procedure Codes:?88084 DEBRI DE NAIL, 6 OR MORE, Modifiers: XS 82171 TRIM SKIN LESIONS, OVER 4, Modifiers: XS , Q8 * Follow Up:?prn * Images: * Sign off status: Completed true * Provider:?Michelet Mcclelland DPM Date:?2023 Generated for Mari ventura/Zaire/Juana on:?08/12/2024 12:53 PM EST History and Physical Notes * HPI (History of Present Illness) Category Sub-Category Detail Notes Category Not es At Risk footcare Pt States Last PCP Visit: Date: 4 Examination Category Sub-Category Detail Notes Category Not es Dermatologic SKIN FINDINGS: Skin exam reveal s Keratotic lesion(s) located at, Medial plantar, IPJ, TA, Medial plantar, IPJ, T5, SUB MTH (s), 1, B/L, SUB MTH (s), 2, B/L , Heel(s), B/L Vascular DP PULSES (B): 0-1/4, B/L PT PULSES (B): 0/4, B/L CAPILLARY FILL TIME: delayed, all digits , B/L TEMPERTURE GRADIENT (C): decreased, cool to cool, proximal to distal, B/L TROPHIC CONDITION-TEXTURE/ELASTICITY/TURGOR/HAIR GROWTH (B): decreased, B/L EDEMA (C): 1/4, non-pitting, wi thout aching pain, B/L, Ankle(s) CLAUDICATION (C): denies, B/L REST PAIN: denies, B/L PIGMENTATION: mottled, B/L Nails NAILS are: Elongated, overg rown, dystrophic, lytic, greater than 3mm thick, discolored and friable with crumbly malodorous subungual debris, with pain on palpation, T1, T3, T4, 1-5 Right foot
--- OUTSIDE RECORDS SUMMARY | 2024-08-12 12:54 | XMS_ITS ---
Author Organization [facility] Address [address] [facility] [place] [address] Care Team Providers Care Certified Recreational Therapist Name Role Phone Aracely Thompson Primary Care Provider Michelet Jackson Unavailable [phone] Allergies No Known Allergies REASON FOR VISIT At Risk Footcare, Painful Nail(s) aggrevated by shoes and causing difficulty standing/walking Medications Medication SIG (Take, Route, Frequency, Duration) Notes Start Date End Date Status Xarelto Active Zetia Active Trulicity Active Aspirin 81 MG Orally Not-Ta gerri Metoprolol Tartrate 75 MG Orally Not-Taking Nexletol Active Metoprolol Tartrate 50 MG 1 tablet with food Orally Twice a day for 30 day(s) Active Multaq 4mg Active metFORMIN HCl 500 MG 1 tablet with a lissette l Orally Once a day for 30 day(s) Active Crestor Active Ammonium Lactate 12 % 1 application to affected area Externally to feet Twice a day for 30 days Active Otezla Active Amiodarone HCl Activ e Social History Tobacco Use: Social History Observation [...] No Vital Signs Height 5ft 2in in 10/05/2023 Weight 170 lbs 10/05/2023 BMI 31.09 kg/m2 10/05/2023 Procedures Procedure Date Ordered Date Performed Result Body Sit e 03966-OUFMDAX NAIL, 6 OR MORE 10/05/2023 N/A 74732-EHRF SKIN LESIONS, OVER 4 10/05/2023 N/A Encounters Encounter Location Date Provider Diagnosis [facility] [place] [address] [address] 10/05/2023 Michelet Mcclelland Type 2 diabetes mellitus with [...] E11.51) 10/05/2023 Tinea unguium (ICD-10 - B35.1) 10/05/2023 Pain in right toe(s) (ICD-10 - M79.674) 10/05/2023 Pain in left toe(s) (ICD-10 - M79.675) Plan Of Treatment Pending Test Test Name Order Date 72280-XQVSEYW NAIL, 6 OR MORE 10/05/2023 77103-BZLK SKIN LESIONS, OVER 4 10/05/19 24 Next Appt Details Follow Up: prn, [...] as necessary. Patient chooses, no pharmaceutical tx (95604) Keratoma Treatment Parring or Cutting o f Benign Hyperkeratotic Lesion(s) 03378 ( >4 Lesions) - The Benign hyperkeratotic lesions, as described above were pared, and/or cut utilizing a sterile #15 blade, tissue nippers, and/or dremel, Q8 Progress Notes * Milana FONSECADOB: [birth year] (73 yo F)Acc No.[id number]:10/05/2023 Progress Note Patient:?Milana Fonseca Provider:?Michelet Mcclelland DPM :1950???Age:73 Y???Sex:Female D ate:10/05/2023 Address[address] [id number] Pcp:Aracely Thompson Subjective: * Chief Complaints: * ???At Risk FootcarePainful N ail(s) aggrevated by shoes and causing difficulty standing/walking * HPI: ???At Risk footcare:?Pt States Last PCP Visit:?Date?08/12/2023 * ROS:?General/Constitutional:?Nausea?denies.?Vomiting?denies.?Hunger Thirst?denies.?Loss appetite?denies.?Chills?denies.?Fatigue?denies.?Fever?denies.?Night Sweats?denies.?Unexplained weight loss?denies.?Unexplained [...] 06/15/23 * Hospitalization/Major Diagno stic Procedure:?[facility] [place] flu 03/2022 * Family History:?Mother: dece ased, [...] gies Verified] Objective: * Vitals:?Ht: 5ft 2in, Wt:170, BMI:31.09, Shoe size: 9.5, BS: did not test, Ht-cm: 157.48 cm, Wt-k.11 kg. * Examination: ???Vascular: ?DP PULSES:? 0-1/4, [...] - M79.675? Plan: * Treatment: 2.?Tinea unguium?Procedure: 89180-ASZIXGU NAIL, 6 OR MORE * Procedures:?Debride Nail 6-10:?Nail debridement?Nail debridement performed extensively to reduce/remove overall nail length, girth, thickness, subungual debris, and necrotic tissue, by manual and electrical means through the use of a nail nipper and/or dremel, to more viable healthy nail plate or bed tissue 1-5. Silver nitrate used for any petechial bleeding as necessary. Patient chooses, no pharmaceutical tx (02777).?Keratoma Treatment:?Parring or Cutting of Benign Hyperkeratotic Lesion(s)?27274 ( >4 Lesions) - The Benign hyperkeratotic lesions, as described above were pared, and/or cut utilizing a sterile #15 blade, tissue nippers, and/or dremel, Q8.? * Procedure Codes:?53193 DEBRI DE NAIL, 6 OR MORE, Modifiers: XS 00040 TRIM SKIN LESIONS, OVER 4, Modifiers: XS [...]
--- OUTSIDE RECORDS SUMMARY | 2024-08-12 12:54 | XMS_ITS ---
Author Organization [facility] Address [address] [place] [address] Care Team Providers Care Dock Worker Name Role Phone Aracely Thompson Primary Care Provider Michelet Jackson Unavailable [phone] Allergies No Known Allergies REASON FOR VISIT At Risk Footcare, Painful Nail(s) aggrevated by shoes and causing difficulty standing/walking, Ingrown Nail, Toe Irritation Medications Medication SIG (Take, Route, Frequency, Duration) Notes Start Date End Date Status Metoprolol Tartrate 75 MG Orally Not-Taking Otezla Active Aspirin 81 MG Orally Not-Ta gerri Xarelto Active Zetia Active Nexletol Active Trulicity Active Metoprolol Tartrate 50 MG 1 tablet with food Orally Twice a day for 30 day(s) Active Multaq 4mg Active metFORMIN HCl 500 MG 1 tablet with a lissette l Orally Once a day for 30 day(s) Active Crestor Active Amiodarone HCl Activ e Ammonium Lactate 12 % 1 application to affected area Externally to feet Twice a day for 30 days Active Social History Tobacco Use: Social History [...] No Vital Signs Height 5ft 2in in 06/29/2023 Weight 180 lbs 06/29/2023 BMI 32.92 kg/m2 06/29/2023 Procedures Procedure Date Ordered Date Performed Result Body Sit e 29014-SSQSTWY NAIL, 6 OR MORE 06/29/2023 N/A 06803-Agovfput Plate 06/29/2023 N/A 89317-TQDV SKIN LESIONS, OVER 4 06/29/2023 N/A Encounters Encounter Location Date Provider Diagnosis [facility] [place] [address] [address] 06/29/2023 Michelet Mcclelland Type 2 diabetes mellitus with diabetic peripheral angiopathy without gangrene E11.51 ; Tinea unguium B35.1 ; Pain in right toe(s) M79.674 ; Pain in left toe(s) M79.675 ; Ingrown nail L60.0 ; Other hammer toe(s) (acquired), right foot M20.41 and Other hammer toe(s) (acquired), left foot M20.42 Assessments Encounter Date Diagnosis (ICD Code) Assessment Notes Treatment Notes Treatment Clinical Notes Section Notes 06/29/2023 Type 2 diabetes mellitus with diabetic peripheral angiopathy without gangrene (ICD-10 - E11.51) 06/29/2023 Tinea unguium (ICD-10 - B35.1) 06/29/2023 Pain in right toe(s) (ICD-10 - M79.674) 06/29/2023 Pain in left toe(s) (ICD-10 - M79.675) 06/29/2023 Ingrown nail (ICD-10 - L60.0) 06/29/2023 Other hammer toe(s) (acquired), right foot (ICD-10 - M20.41) Response to treatment,Impro vement 06/29/2023 Other hammer toe(s) (acquired), left foot (ICD-10 - M20.42) Response to treatment,Impro vement Plan Of Treatment Pending Test Test Name Order Date 97524-TXWOIZN NAIL, 6 OR MORE 06/29/2023 89254-Yjroaoig Plate 06/29/2023 62125-ZJIW SKIN LESIONS, OVER 4 06/29/20 23 Next Appt Details Follow Up: prn, Reason: Procedure Notes * Category Sub-Category Detail Notes Nail Avulsion Procedure A fine sterile e levator was placed between the eponychium, nail fold, and nail plate to separate the structures. A sterile nail splitter, and/or sterile #316 blade, was then used to longitudinally section the nail along its entire length through the eponychium to the area under the nail fold. The offending portion of nail was from the nail bed with a rolling action and then removed with a hemostat. No underlying bone was identified. There was minimal bleeding as hemostasis was achieved through the temporary use of either a digital tourniquet or the aforementioned local with epinephrine. A bacitracin sterile dressing was applied. Local wound aftercare instructions were discussed and dispensed. The patient was informed of both conservative and future surgical procedures to prevent recurrence. Tylenol or Motrin was recommended for pain or discomfort (74368) , DIABETES: Pt was advised as to the risk of delayed or nonhealing due to diabetes. Pt is to call the office with any questions, concerns, or complications Anesthesia 2cc of 1 percent Lid ocaine Plain local anesthesic utilizing aseptic technique Location Lateral nail border , TA Debride Nail 6-10 Nail debridement Nail debridem ent performed extensively to reduce/remove overall nail length and girth, subungual debris, and necrotic tissue, by manual and electrical means with use of a nail nipper and/or dremel, to more viable healthy nail plate or bed tissue 6-10. Silver nitrate used for any petechial bleeding as necessary. Patient STILL chooses, no pharmaceutical tx (49026) Keratoma Treatment Parring or Cutting o f Benign Hyperkeratotic Lesion(s) 63782 ( >4 Lesions) - The Benign hyperkeratotic lesions, as described above were pared, and/or cut utilizing a sterile #15 blade, tissue nippers, and/or dremel, Q8 Progress Notes * Milana FONSECADOB: [birth year] (73 yo F)Acc No.[id number]:06/29/2023 Progress Note Patient:?Raymundo Milana Provider:?Michelet Mcclelland DPM :1950???Age:73 Y???Sex:Female D ate:06/29/2023 Address:[address] [place], [place] [address] [facility] Pcp:Aracely Thompson Subjective: * Chief Complaints: * ???At Risk FootcarePainful N ail(s) aggrevated by shoes and causing difficulty standing/walkingIngrown NailToe Irritation * HPI: ???At Risk footcare:?Pt States Last PCP Visit:?Date?02/06/2023 ???Toe pain:?Treatments:?Rx shoes .? * ROS:?General/Constitutional:?Nausea?denies.?Vomiting?denies.?Hunger Thirst?denies.?Loss appetite?denies.?Chills?denies.?Fatigue?denies.?Fever?denies.?Night Sweats?denies.?Unexplained weight loss?denies.?Unexplained weight gain?denies.?HEENTM:?Dentures?denies.?Dizziness?denies.?Glasses/contacts?admits.?Retinopathy?de nies.?Blurred/double vision?denies.?TMJ?denies.?Discharge/drainage?denies.?Implants?denies.?Sore throat?denies.?Dental implants?denies.?Hard of hearing ?admits.?Difficulty chewing/swallowing/speaking?denies.?Nose bleeds?denies.?Sore mouth?denies.?Respiratory:?On Oxygen?denies.?Pneumonia/pleurisy?denies.?Bronchitis?denies.?Emphysema?denies.?C oughing?denies.?Cough blood?denies.?Shortness of breath?denies.?Wheezing?denies.?Cardiovascular:?Pacemaker?denies.?MVP?denies.?WPW?denies.?CHF?denies.?Heart attack?denies.?Septal defect?denies.?Rapid beat?denies.?Chest pain ?denies.?Atrial Fib.?denies.?Murmur/Palpitations?denies.?Gastrointestinal:?Hemorrhoids?denies.?Stomach/Abdominal pain?denies.?Dark blood stool?denies.?Irritable bowel ?denies.?Constipation?denies.?Diarrhea?denies.?Hematology:?Swelling?admits.?Clots?denies.?Varicose Veins?denies.?Bruising?denies.?Bleeding problem?denies.?Genitourinary:?Blood urine?denies.?Frequent/Painfu/urination/bladder control?denies.?Kidney stones?denies.?Infection (UTI)?denies.?Nephropathy?denies.?sex trans dis (STD)?denies.?Prostate?denies.?Musculoskeletal:?Hammertoes?admits.?Bunions?denies.?Back Pain?denies.?Muscle Cramps/ Resting?denies.?Muscle cramps / walking?denies.?Generalized aches and pains?denies.?Weakness?denies.?Integ.:?Baker?denies.?Scars?denies.?Corns/calluses?admits.?Ingrown nails?admits.?Painful nails?admits.?Open Sores?denies.?Rashes?denies.?Neurologic:?Difficulty sleeping?denies.?Brain disorder?denies.?Numbness?denies.?Balance trouble?denies.?Confusion?denies.?Fainting/blackouts?denies.?Tingling?admits.?Tr emors?denies.? * Medical History:? * Surgical History:?R ovarian removed 1995gall bladder removed 1999[place] toe Left 3rd toe cardiac catheterization 11/13/21eye surgery 06/15/23 * Hospitalization/Major Diagno stic Procedure:?[facility] [place]- flu 03/2022 * Family History:?Mother: dece ased, [...] gies Verified] Objective: * Vitals:?Ht: 5ft 2in, Wt:180, BMI:32.92, Shoe size: 9.5, BS: did not test, Ht-cm: 157.48 cm, Wt-k.65 kg. * ???Past Orders: ???Lab:HEMOGLOBIN A1C (GLYCO HEMOGLOBIN) (Order Date - 09/08/2022) (Collection Date - 09/08/2022) ? Value Reference Range ?HEMOGLOBIN A1C % (HH) 5.9 * Examination: ???Vascular: ?DP PULSES:? 0-1/4, B/L.?PT PULSES:? 0/4, B/L.?CAPILLARY FILL TIME:? delayed, all digits, B/L.?SKIN TEMPERTURE GRADIENT OF THE LOWER EXTERMITIES:? decreased, cool to cool, proximal to distal, B/L.?HAIR GROWTH/TEXTURE/ELASTICITY/TURGOR:? decreased, B/L.?PIGMENTATION:? mottled, B/L.?EDEMA:? 1/4, non-pitting, without aching pain, B/L, Ankle(s).?Nails: ?NAILS are:?Elongated, overgrown, dystrophic, lytic, greater than 3mm thick, discolored and friable with crumbly malodorous subungual debris, with pain on palpation, T1, T3, T4, 1-5 Right foot.?Ingrown Nail: ?INSPECTION:?Reveals nail incurvation, pain on palpation, groove hypertrophy , Lateral nail border , TA.?Dermatologic: ?SKIN FINDINGS:?Skin exam reveals Keratotic lesion(s) located at, Medial plantar, IPJ, TA, Medial plantar, IPJ, T5, SUB MTH (s), 1, B/L, SUB MTH (s), 2, B/L , Heel(s), B/L.?Orthopedic: ?DIGITAL DEFORMITIES:?Digital contracture, PIPJ, 2-5 B/L, incompl-reducible to push-up test, no over, nor underlapping.?FOOTWEAR:?good condition, exhibit proper fit and accommodation for pedal deformities. OT were inspected and noted to be worn, but in good condition giving proper support at the present time.? Assessment: * Assessment: 1.?Type 2 diabetes mellitus with diabetic peripheral angiopathy without gangrene - E11.51?2.?Tinea unguium - B35.1?3.?Pain in right toe(s) - M79.674?4.?Pain in left toe(s) - M79.675?5.?Ingrown nail - L60.0, Lateral nail border , TA?6.?Other hammer toe(s) (acquired), right foot - M20.41, Chronic problem, Stable (1=3,2=4), Response to treatment,Improvement?7.?Other hammer toe(s) (acquired), left foot - M20.42, Chronic problem, Stable (1=3,2=4), Response to treatment,Improvement? Plan: * Treatment: 2.?Tinea unguium?Procedure: 23422-DPQHUXM NAIL, 6 OR MORE 3.?Ingrown nail?Procedure: 88886-Wrzhvtxh Plate * Procedures:?Debride Nail 6-10:?Nail debridement?Nail debridement performed extensively to reduce/remove overall nail length and girth, subungual debris, and necrotic tissue, by manual and electrical means with use of a nail nipper and/or dremel, to more viable healthy nail plate or bed tissue 6-10. Silver nitrate used for any petechial bleeding as necessary. Patient STILL chooses, no pharmaceutical tx (19850).?Keratoma Treatment:?Parring or Cutting of Benign Hyperkeratotic Lesion(s)?41118 ( >4 Lesions) - The Benign hyperkeratotic lesions, as described above were pared, and/or cut utilizing a sterile #15 blade, tissue nippers, and/or marianmel, Q8.?Nail Avulsion:?Location?Lateral nail border , TA.?Anesthesia?2cc of 1 percent Lidocaine Plain local anesthesic utilizing aseptic technique.?Procedure?A fine sterile elevator was placed between the eponychium, nail fold, and nail plate to separate the structures. A sterile nail splitter, and/or sterile #316 blade, was then used to longitudinally section the nail along its entire length through the eponychium to the area under the nail fold. The offending portion of nail was from the nail bed with a rolling action and then removed with a hemostat. No underlying bone was identified. There was minimal bleeding as hemostasis was achieved through the temporary use of either a digital tourniquet or the aforementioned local with epinephrine. A bacitracin sterile dressing was applied. Local wound aftercare instructions were discussed and dispensed. The patient was informed of both conservative and future surgical procedures to prevent recurrence. Tylenol or Motrin was recommended for pain or discomfort (76220) , DIABETES: Pt was advised as to the risk of delayed or nonhealing due to diabetes. Pt is to call the office with any questions, concerns, or complications.? * Procedure Codes:?85108 DEBRI DE NAIL, 6 OR MORE, Modifiers: XS 55161 Avulsion Plate, Modifiers: XS , [id number] TRIM SKIN LESIONS, OVER 4, Modifiers: XS , Q8 * Preventive Medicine:? ??Counseling:?Discussion:?-13: Office or other outpatient visit for the evaluation and management of an established patient, which required a medically appropriate history and/or examination and LOW level of DECISION MAKING for: 1 STABLE ACUTE UNCOMPLICATED PROBLEM, 2 OR MORE MINOR PROBLEMS, OR 1 STABLE CHRONIC PROBLEM, THAT POSE(S) A LOW RISK FOR MORBIDITY/MORTALITY. The visit on the day of the encounter encompassed interpreting the data and educating the patient as to the nature of their condition, treatment options available according to their individual PMH, meds, allergies, and overall health/living conditions, as well as any potential risks or complications that may occur from a failure to adhere to, and participate in, the recommended course of therapy. The discussion included a complete verbal, and/or written explanation of the examination results, any x-rays taken, the proposed diagnosis, and outline of the treatment plan. A schedule for future care needs was also explained. The patient verbalized an understanding of the instructions at this time and agreed to be an active participant in their treatment. If the patient should think of any questions or concerns after the visit, I have encouraged the patient to call the office.?Shoe Gear Counseling:?A thorough inspection of the patients Rxed shoegear and inserts was performed and findings communicated. We reviewed the many important medical advantages for adhering to regularly wearing these shoe and insert accomidative devices daily as well as reviewed the fact that a failure in accepting these recommedations may be deleterious, unable to prevent, and disadvantagely result in, many pedal complications such as skin irritation, skin ulceration, infection, and even loss of toe/foot/leg/or even their life. Time was also spent reviewing the proper footcare techniques including daily skin moisturization, daily foot inspection for any interruption in skin integrity, open lesions, or sign of infection such as redness/malodor/drainage/swelling as well as daily shoe inspection for the presence of internal foreign bodies and shoe as well as insert wear. Patient questions re: shoes, inserts, and self foot inspections were answered to their satisfaction as the patient verbally confirmed a full understanding of the above information.? * Follow Up:?prn * Images: * Sign off status: Completed true * Provider:?Michelet Mcclelland DPM Date:?2022 Generated for Mari ventura/Zaire/Juana on:?08/12/2024 12:54 PM EST History and Physical Notes * HPI (History of Present Illness) Category Sub-Category Detail Notes Category Not es Toe pain Treatments: Rx shoes At Risk footcare Pt States Last PCP Visit: Date: 3 Examination Category Sub-Category Detail Notes Category Not es Ingrown Nail INSPECTION: Reveals nail inc urvation, pain on palpation, groove hypertrophy , Lateral nail border , TA Dermatologic SKIN FINDINGS: Skin exam reveal s Keratotic lesion(s) located at, Medial plantar, IPJ, TA, Medial plantar, IPJ, T5, SUB MTH (s), 1, B/L, SUB MTH (s), 2, B/L , Heel(s), B/L Orthopedic FOOTWEAR: good condition, exhibit proper fit and accommodation for pedal deformities. OT were inspected and noted to be worn, but in good condition giving proper support at the present time DIGITAL DEFORMITIES: Digital contracture , PIPJ, 2-5 B/L, incompl-reducible to push-up test, no over, nor underlapping Vascular DP PULSES (B): 0-1/4, B/L PT PULSES (B): 0/4, B/L CAPILLARY FILL TIME: delayed, all digits , B/L TEMPERTURE GRADIENT (C): decreased, cool to cool, proximal to distal, B/L TROPHIC CONDITION-TEXTURE/ELASTICITY/TURGOR/HAIR GROWTH (B): decreased, B/L EDEMA (C): 1/4, non-pitting, wi thout aching pain, B/L, Ankle(s) PIGMENTATION: mottled, B/L Nails NAILS are: Elongated, overg rown, dystrophic, lytic, greater than 3mm thick, discolored and friable with crumbly malodorous subungual debris, with pain on palpation, T1, T3, T4, 1-5 Right foot
== END 2024-08-12 11:47 | disposition home or self-care (01) ==
PROVIDERS: PCP Internal Medicine; Visit Provider Internal Medicine
DX: Z00.00 Encounter for general adult medical examination without abnormal findings (principal); E11.65 Type 2 diabetes mellitus with hyperglycemia; Z79.4 Long term (current) use of insulin; I48.0 Paroxysmal atrial fibrillation; E66.9 Obesity, unspecified; E78.00 Pure hypercholesterolemia, unspecified; I10 Essential (primary) hypertension; I25.10 Atherosclerotic heart disease of native coronary artery without angina pectoris; L40.9 Psoriasis, unspecified

== ENCOUNTER → 2024-08-12 11:03 | Outpatient (BNVA) | payer MEDICARE, OTHER, SELFPAY | PROVIDERS: PCP Internal Medicine; Visit Provider Internal Medicine | DX: Z00.00 Encounter for general adult medical examination without abnormal findings (principal); K21.9 Gastro-esophageal reflux disease without esophagitis; N18.9 Chronic kidney disease, unspecified; I12.9 Hypertensive chronic kidney disease with stage 1 through stage 4 chronic kidney disease, or unspecified chronic kidney disease; E11.22 Type 2 diabetes mellitus with diabetic chronic kidney disease; Z79.899 Other long term (current) drug therapy | CPT/HCPCS: 96127 ==

== ENCOUNTER 2024-09-29 12:28 | Outpatient (AMB) | payer MEDICARE, OTHER, SELFPAY ==
[2024-09-29 12:31] VITALS: BP 110/70; PULSE 77; BMI 32.7
--- NOTE | 2024-09-29 12:31 | MHC.OFFVIS ---
Vital Signs 09/29/24 12:31 Height 5 ft 2 in Weight 179 lb 0.246 oz BMI 32.7 BP 110/70 Blood Pressure Location Lt brachial Position Sitting Pulse 77 Pulse Source Monitor Intake Visit Reasons: 6 mth w/ ekg s/p echo/ lipids Intake Note: 6 mth echo/lipids Client Manager Required: No Accompanied by: Self / Same As Patient Allergies atorvastatin [From LIPITOR] Allergy (Unknown, Verified 08/12/24 11:14) AFFECTED LIVER ENZYMES liraglutide [Victoza] Allergy (Unknown, Verified 08/12/24 11:14) nausea lisinopril Allergy (Unknown, Verified 08/12/24 11:14) cough losartan [LOSARTAN] Allergy (Unknown, Verified 08/12/24 11:14) HIVES PEANUT BUTTER Allergy (Unknown, Uncoded 08/12/24 11:14) LIPS SWELLING MOST FRUITS Adverse Reaction (Unknown, Uncoded 08/12/24 11:14) HIVES,ITCHING Medication List - Last Reconciled 09/29/24 by Daniel Che MD albuterol sulfate 90 mcg/actuation (Ventolin HFA) 2 puffs inhalation Q4-6H PRN apremilast (Otezla) 30 mg PO BID bempedoic acid (Nexletol) 180 mg PO DAILY blood sugar diagnostic As directed check the BS QD blood-glucose meter (OneTouch Ultra2 Meter) As directed check BS QD clobetasol 0.05% 1 appl topical BID dronedarone (Multaq) 400 mg PO Q12H dulaglutide 1.5 mg (0.5 mL) subcut QWEEK ezetimibe 10 mg PO DAILY fexofenadine (Michelle Allergy) 180 mg PO DAILY lancets As directed check the blood sugar q.day metoprolol succinate ER 50 mg PO DAILY nystatin 1 appl topical BID PRN omeprazole 20 mg PO DAILY 14 days rivaroxaban (Xarelto) 20 mg PO QPM rosuvastatin 40 mg PO DAILY 90 days trazodone 50 mg PO BEDTIME PRN HPI Comments Details: Milana comes for follow-up. She has not had any new active cardiac symptoms. She says last month she developed some cold and then subsequently as phlegm productive of yellowish sputum. She did not seek any medical care. She said this is not resolving. She denies any fever or chills. No weakness. No exertional chest pain or shortness of breath. Denies any prolonged palpitation irregular heartbeat. No orthopnea, PND, leg edema. No lightheadedness, syncope. Taking all her medications. [facility] Medical History Asthma On anticoagulant therapy On beta ever at home Post-menopausal Persistent atrial fibrillation Numbness of lip Urge incontinence Diabetic nephropathy Thrombocytopenia Vitamin D deficiency Type 2 diabetes mellitus with hyperglycemia Hypercholesterolemia Psoriasis Obesity (BMI 30-39.9) Osteoarthritis Hypertension CAD (coronary artery disease) Surgical History H/O cardiac radiofrequency ablation History of colonoscopy Stented coronary artery History of oophorectomy H/O breast biopsy Hx of tonsillectomy Hx of total knee replacement Hx of cholecystectomy Hx of tubal ligation Family History Brother Liver cancer Social History Household Members Other:: grand-daughter Housing: House Are you a primary patient care coordinator to a significant other at home: No Do you presently have visiting nurse or other home services: No Alcohol intake: never Comment: aware of trip hazard Patient Tobacco Use Status: Former Tobacco user Tobacco use type: Cigarette e-Cigarette/Vaping Use: Never Used Second Hand Smoke Exposure: No service: No Current occupational status: retired Cognitive needs: No Hearing needs: Yes Vision needs: Yes Review of Systems Const Denies chills, Denies fatigue, Denies fever(s), Denies frequent falls, Denies weakness, Denies weight gain and Denies weight loss ENT Denies dizziness Card Denies chest pain, Denies leg edema, Denies lightheadedness, Denies palpitations, Denies dyspnea and Denies dyspnea on exertion Resp Denies cough, Denies dyspnea and Denies dyspnea on exertion GI Denies hematochezia Musc Denies abnormal gait, Denies muscle weakness, Denies numbness, Denies radiating pain into limb and Denies tingling Neuro Denies abnormal gait, Denies dizziness, Denies frequent falls, Denies numbness, Denies tingling and Denies weakness Endo Denies fatigue and Denies palpitations Physical Exam Vital Signs: Last Vital Signs Pulse 77 09/29/24 12:31 BP 110/70 09/29/24 12:31 BMI result Body Mass Index 32.7 Const General: cooperative, comfortable, no acute distress, alert and awake Nutritional Appearance: obese Orientation/consciousness: patient oriented x3 Limitations: no limitations Neck Neck: Yes trachea midline, Yes supple and Yes no JVD Resp Effort & Inspection: normal respiratory effort Auscultation: clear to auscultation bilaterally Cardio Jugular venous distension: no JVD Palpation: normal PMI Rate: regular rate Rhythm: regular rhythm and abnormal rhythm Heart sounds: S1 normal heart sound present, S2 normal heart sound present, no click, no gallops, no murmurs and no rubs GI Auscultation: normal bowel sounds Skin General skin exam: no rashes or lesions noted Neuro General: patient oriented x3 and no focal motor deficits Extrem General: Yes no clubbing, cyanosis or edema Psych Appearance: grossly normal Office Procedures EKG Details: EKG shows normal sinus rhythm with normal EKG [id number], Complete Assessment & Plan Assessment & Plan (1) CAD (coronary artery disease): Comment: Angioplasty October 2009 with ERROL Code(s): I25.10 - Atherosclerotic heart disease of [place] coronary artery without angina pectoris Category: Medical Qualifiers: Coronary Disease-Associated Artery/Lesion type: [place] artery [place] vs. transplanted heart: [place] heart Associated angina: without angina Qualified Code(s): I25.10 - Atherosclerotic heart disease of [place] coronary artery without angina pectoris Plan: Coronary artery disease status post stenting in the past. No recurrent symptoms suggestive of angina. Requires aggressive medical therapy. Currently on full oral anticoagulation with Xarelto would avoid aspirin therapy to reduce bleeding risk. Continue aggressive blood pressure control which is currently well optimized. Continue current lipid therapy with target goal LDL less than 55 mg/dL. Advise follow-up lipid panel in near future. Advised to maintain activity level as tolerated. Advised to call me with new symptoms. Continue aggressive management of diabetes goal hemoglobin A1c less than 7%. Blood pressure is currently well optimized. Continue current therapy. Target goal blood pressure less than 130/84. (2) Paroxysmal atrial fibrillation: Comment: September 2020, ablation December 2021 Code(s): I48.0 - Paroxysmal atrial fibrillation Category: Medical Plan: Paroxysmal atrial fibrillation without any obvious clinical recurrence on current Multaq therapy. Continue the same. Importance of avoidance of atrial fibrillation and rhythm control approach was discussed. Understands agrees. Continue full oral anticoagulation, currently on Xarelto 20 mg daily. Semi annual renal function test should be pursued. Follow-up echocardiogram near future. Will follow up in the clinic in 3 months for EKG in 6 months with me. Thank you for allowing me to partake in his care Orders: Orders Lipid Panel Today I25.10 - Atherosclerotic heart disease of [place] coronary artery without angina pectoris [place] echo transthoracic complete Today I48.0 - Paroxysmal atrial fibrillation Coding Level of Care Code Est Pt Level 4 (86605) Complex EM visit Add On G2211 Diagnoses Coronary artery disease involving [place] coronary artery of [place] heart without angina pectoris I25.10 Coronary Disease-Associated Artery/Lesion type: [place] artery [place] vs. transplanted heart: [place] heart Associated angina: without angina Paroxysmal atrial fibrillation I48.0 CPT Codes EKG - CPT: 09850-[id number], Complete ([id number])
--- OUTSIDE RECORDS SUMMARY | 2024-09-29 13:24 | XMS_ITS ---
Author Organization [facility] Address [address] [place] [address] Care Team Providers Care House Painter Helper Name Role Phone Lucrecia Munoz Unavailable [phone] Allergies No Known Allergies Results Component Value Reference Range Notes [id number] IGP No Culture 30 Plus Reviewed date:11/23/2023 04:32:47 PM Interpretation: Performing Lab:[facility], [address], [address], [place], Phone - [phone], Director - [facility] Notes/Report: Clinical Information:Vaginal/Cervical, LMP: Men o [id number] Dates / Results....Unknown New PT Today Other..............Post Menopausal No. of containers..01 ThinPrep Vial DIAGNOSIS: NEGATIVE FOR INTRAEPITHELIAL LESION OR MALIGNANCY. CELLULAR CHANGES ASSOCIATED WITH ATROPHY ARE PRESENT. Specimen adequacy: Satisfactory for evaluation. Endocervical component may not be distinguished in cases of atrophy. Clinician provided ICD10: Z0 1.419 Performed by: Tom Ahumada ytotechnologist ([facility]) . . Note: The Pap smear is a screening test designed to aid in the detection of premalignant and malignant conditions of the uterine cervix. It is not a diagnostic procedure and should not be used as the sole means of detecting cervical cancer. Both false-positive and false-negative reports do occur. . Test Methodology: This liquid based ThinPrep(R) pap test was screened with the use of an image guided system. HPV Aptima Negative Negative This nucleic acid amplification test detects fourteen high-risk HPV types (16,18,31,33,35,39,45,51,52,56,58 ,59,66,68) without differentiation. HPV Genotype Reflex Criteria not met, HPV Genotype not performed. PDF Report Reviewed date:11/23/2023 04:32:30 PM Interpretation: Performing Lab:[facility], [address], [address], [place], Phone - [phone], Director - [facility] Notes/Report: Clinical Information:Vaginal/Cervical, LMP: Men o [id number] Dates / Results....Unknown New PT Today Other..............Post Menopausal No. 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, Annual INTERIOR DESIGN ASSISTANT Physical 60-85+ Medications Medication SIG (Take, Route, Frequency, Duration) Notes Start Date End Date Status Nystatin 721688 UNIT/GM APPLY 1 APPLICAT ION TOPICALLY 2 TIMES A DAY NEEDED FOR RASH External for 30 Days Active Omeprazole 20 MG Oral for 90 Days Active Fexofenadine HCl 180 MG 180 MG ORALLY DA BRONWYN Oral for 30 Days Active Rosuvastatin Calcium 40 MG Oral for 90 Days Active Ezetimibe 10 MG Oral for 90 Days Active Trulicity 0.75 MG/0.5ML Subcutaneous for 28 Days Active traZODone HCl 50 MG TAKE 1 TABLET BY ANTHONY TH EVERY DAY AT BEDTIME NEEDED FOR SLEEP Oral for 90 Days Active Social History Tobacco Use: Social History Observation Description Date Details (start date - stop date) Never Smoker NA - NA Sexual History Question Answer Notes Had sex in the past 12 months (vaginal, oral, or anal)? No AUDIT-C (Standard) Question Answer Notes Did you have a drink containing alcohol in the p ast year? No Points 0 Interpretation Negative Tobacco Control (Standard) Question Answer Notes Tobacco use: Nonsmoker Problems Problem Type SNOMED Code ICD Code Onset Dates Problem Status W/U Status Risk Notes Problem Osteoarthritis (689767279) Unspecified osteoarthritis, unspecified site (M19.90) Active confirmed Problem Postmenopausal atrophic vaginitis (79674257) Postmenopausal atrophic vaginitis (N95.2) Active confirmed Vital Signs Temperature 97.5 degrees Fahrenheit 11/18/19 24 Blood pressure systolic 126 mm Hg 11/18/19 24 Blood pressure diastolic 76 mm Hg 024 Height 62 in 11/18/2023 Weight 175 lbs 11/18/2023 BMI 32 kg/m2 11/18/2023 Encounters Encounter Location Date Provider Diagnosis Total [address] [place] [address] 11/18/2023 Lucrecia Munoz Encounter for gynecological examination (general) (routine) without abnormal findings Z01.419 ; Encounter for screening mammogram for malignant neoplasm of breast Z12.31 ; Encounter for screening for osteoporosis Z13.820 and Postmenopausal atrophic vaginitis N95.2 Assessments Encounter Date Diagnosis (ICD Code) Assessment Notes Treatment Notes Treatment Clinical Notes Section Notes 11/18/2023 Encounter for gynecological examination (general) (routine) without abnormal findings (ICD-10 - Z01.419) PAP TEST WITH HPV TYPING WAS OBTAINED (LAST). 11/18/2023 Encounter for screening mammogram for malignant neoplasm of breast (ICD-10 - Z12.31) REGULAR MAMMOGRAMS AND SBE'S WERE RECOMMENDED. 11/18/2023 Encounter for screening for osteoporosis (ICD-10 - Z13.820) DISCUSSED BMD'S AND NEED TO MONITOR BONE HEALTH. BONE DENSITY WAS ORDERED. ADEQUATE CALCIUM AND VIT D. WEIGHT BEARING EXERCISES. 11/18/2023 Postmenopausal atrophic vaginitis (ICD-10 - N95.2) DISCUSSED FINDINGS, DX AND TX OPTIONS. PAT IS ASYMPTOMATIC. Plan Of Treatment Treatment Notes Assessment Notes Encounter for gynecological examination (general) (routine) without abnormal findings PAP TEST WITH HPV TYPING WAS OBTAINED (LAST). Encounter for screening mamm ogram for malignant neoplasm of breast REGULAR MAMMOGRAMS AND SBE'S WERE RECOMMENDED. Encounter for screening for osteoporosis DISCUSSED BMD'S AND NEED TO MONITOR BONE HEALTH. BONE DENSITY WAS ORDERED. ADEQUATE CALCIUM AND VIT D. WEIGHT BEARING EXERCISES. Postmenopausal atrophic vaginitis DISCUSSED FINDINGS, DX AND TX OPTIONS. PAT IS ASYMPTOMATIC. Pending Test Test Name Order Date MAMMOGRAM, SCREENING 11/18/2023 BONE DENSITY 11/18/2023 MM Digital Mammo Screening 11/18/2023 Next Appt Details Follow Up: LOW RISK YEAR 2 Y EAR., Reason: Progress Notes * CALVIN ALVESDOB: [birth year] (73 yo F)Acc No.[id number]:11/18/2023 Progress Note Patient:?CALVIN ALVES Appointment Provider:?Lucrecia hall M.D. :1950???Age:73 Y???Sex:Female D ate:11/18/2023 Address:[address] [id number] Subjective: * Chief Complaints: * ???Annual INTERIOR DESIGN ASSISTANT PhysicalAnnual INTERIOR DESIGN ASSISTANT Physical 60-85+ * HPI: ???New/Follow-up Patient Consult:? PAT IS NEW TO OUR OFFICE.? SHE FORGOT TO WEAR HER HEARING AID AND WE HAD DIFFICULTY COMMUNICATING.? SHE WILL BRING HER HEARING AID OR COME WITH A FRIEND NEXT TIME SHE COMES IN.? SHE ENTERED MENOPAUSE AT AGE 53.? SHE IS NOT SEXUALLY ACTIVE.?? SHE SAYS THAT RIGHT OVARY WAS REMOVED ABOUT 20 YEARS AGO FOR A BENIGN OVARIAN CYST.? SHE HAD A BREAST BIOPSY DONE ABOUT 10 YEARS AGO WITH BENIGN FINDINGS.? S/P LEFT KNEE REPLACEMENT YEARS AGO.? SHE DENIES ANY ABNORMAL PAP TESTS.?? SHE HAD A COLONOSCOPY IN 2022.? SHE DOES NOT REMEMBER WHEN HER LAST BMD WAS DONE.? SHE HAS NO HX OF FRACTURES. ???Annual:? Patient presents for annual exam, ages 60-85, postmenopausal. ?General Health Maintenance:?Current breast complaints:?no breast pain, mass, discharge, or skin changes ?Urinary problems:?patient reports no urinary health problems or bowel health problems ?Calcium intake:?takes adequate calcium via diet and supplementation ?Significant INTERIOR DESIGN ASSISTANT problems:?no significant transportation planning technician symptoms or problems * ROS:?general:?no?chest pain.?no?palpitations.?no?headache.?no?cough.?no?shortness of breath.?no?fever.?no?unexplained weight loss.?no?nausea/vomiting.?no?change in bowel movements.?no blood in stool.?no?genitourinary complaints.?no?skin complaints.? * Medical History:? * Nursing Clinical Director History:?/ Para?5/3.?Sexual activity?not currently sexually active.?Last Pap Smear:?5 Years.?Mammogram:?2022 [place].?LMP and menses?[place].?Colonoscopy?2022.?Bone Density:?unusre.? * OB History:?Total pregnancies?5.?Total living children?2 and 1 .?Miscarriage(s)?1.?(s)?1.? * Surgical History:?Left Knee Replacement * Hospitalization/Major Diagno stic Procedure:?3 Vaginal Deliveries Colonoscopy * Family History:?Mother: dece ased.?Father: .? * Social History:?Tobacco Use:?Tobacco Control (Standard)?Tobacco use:?Nonsmoker ???Sexual History:?Sexual History?Had sex in the past 12 months (vaginal, oral, or anal)??No ?Details of Sexual History?Are you sexually active??No ???Drugs/Alcohol:?Drugs?Have you used drugs other than those for medical reasons in the past 12 months??No ???Miscellaneous:?Children: yes, 2. ?Exercise: yes, Gym. ?Home smoke detector use: yes. ?Marital status: . ?Natural support system: yes. ?Occupation: Retired. ?Sexually active: no. ???Drug/Alcohol:?AUDIT-C (Standard)?Did you have a drink containing alcohol in the past year??No ?Points?0 ?Interpretation?Negative * Medications:?TakingEzetimibe 10 MG Tablet Oral Rosuvastatin Calcium 40 MG Tablet Oral Fexofenadine HCl 180 MG Tablet 180 MG ORALLY DAILY Oral Omeprazole 20 MG Capsule Delayed Release Oral traZODone HCl 50 MG Tablet TAKE 1 TABLET BY MOUTH EVERY DAY AT BEDTIME NEEDED FOR SLEEP Oral Trulicity 0.75 MG/0.5ML Solution Pen-injector Subcutaneous Nystatin 043587 UNIT/GM Cream APPLY 1 APPLICATION TOPICALLY 2 TIMES A DAY NEEDED FOR RASH External Taking Ezetimibe 10 MG Tablet Oral Taking Rosuvastatin Calcium 40 MG Tablet Oral Taking Fexofenadine HCl 180 MG Tablet 180 MG ORALLY DAILY Oral Taking Omeprazole 20 MG Capsule Delayed Release Oral Taking traZODone HCl 50 MG Tablet TAKE 1 TABLET BY MOUTH EVERY DAY AT BEDTIME NEEDED FOR SLEEP Oral Taking Trulicity 0.75 MG/0.5ML Solution Pen-injector Subcutaneous Taking Nystatin 640180 UNIT/GM Cream APPLY 1 APPLICATION TOPICALLY 2 TIMES A DAY NEEDED FOR RASH External * Allergies:?N.K.D.A.no[Allerg ies Verified] Objective: * Vitals:?Ht: 62 in, Wt: 175 l bs, BMI:32Index, BP: 126/76 mm Hg, Temp: 97.5 F. * Examination: ???General Exam: ?CONSTITUTIONAL:?NECK/THYROID:?RESPIRATORY:?Auscultation: clear to auscultation bilaterally, Respiratory Effort: normal.?CARDIOVASCULAR:?Auscultation: regular rate and rhythm.?BREAST, Right:?BREAST, Left:?GASTROINTESTINAL:?MUSCULOSKELETAL:?SKIN:?NEURO/PSYCH:?Genitourinary: ?EXTERNAL GENITALIA:?VAGINA:?BLADDER:?URETHRA:?CERVIX:?UTERUS:?ADNEXA:?ANUS AND PERINEUM:? Assessment: * Assessment: 1.?Encounter for gynecologic al examination (general) (routine) without abnormal findings - Z01.419 (Primary)?2.?Encounter for screening mammogram for malignant neoplasm of breast - Z12.31?3.?Encounter for screening for osteoporosis - Z13.820?4.?Postmenopausal atrophic vaginitis - N95.2? Plan: * Treatment: 2.?Encounter for screening m ammogram for malignant neoplasm of breast?Imaging: MM Digital Mammo Screening Notes: REGULAR MAMMOGRAMS AND SBE'S WERE RECOMMENDED.?? 3.?Encounter for screening f or osteoporosis?Imaging: BONE DENSITY Notes: DISCUSSED BMD'S AND NEED TO MONITOR BONE HEALTH. BONE DENSITY WAS ORDERED. ADEQUATE CALCIUM AND VIT D. WEIGHT BEARING EXERCISES.??4.?Postmenopausal atrophic vaginitis? Notes: DISCUSSED FINDINGS, DX AND TX OPTIONS. PAT IS ASYMPTOMATIC.?? * Imaging:? * ?Imaging: MAMMOGRAM, SCR EENING * Procedure Codes:? * Preventive Medicine:? ??YOUR PREVENTIVE WELLNESS PLAN:?Osteoporosis prevention?Calcium, D, strength training.?Breast Cancer Screening (Mammogram):?annually.?Cervical Cancer Screening (Pap Smear):?q 3 years with HPV screen.?Colorectal Cancer Screening:?q 10 years.? * Follow Up:?LOW RISK YEAR 2 Y EAR. * Images: Billing Information: * Visit Code:? 98083 Preventive Care Est Pt. Age 65 and over. * Procedure Codes:? * Sign off status: Completed true * Appointment Provider:?Lucrecia Munoz M.D. Date:?11/18/2023 Generated for Mari ventura/Zaire/Liaitting on:?09/29/2024 01:24 PM EST History and Physical Notes * HPI (History of Present Illness) Category Sub-Category Detail Notes Category Not es New/Follow-up Patient Consult PAT IS NEW TO OUR OFFICE. SHE FORGOT TO WEAR HER HEARING AID AND WE HAD DIFFICULTY COMMUNICATING. SHE WILL BRING HER HEARING AID OR COME WITH A FRIEND NEXT TIME SHE COMES IN. SHE ENTERED MENOPAUSE AT AGE 53. SHE IS NOT SEXUALLY ACTIVE. SHE SAYS THAT RIGHT OVARY WAS REMOVED ABOUT 20 YEARS AGO FOR A BENIGN OVARIAN CYST. SHE HAD A BREAST BIOPSY DONE ABOUT 10 YEARS AGO WITH BENIGN FINDINGS. S/P LEFT KNEE REPLACEMENT YEARS AGO. SHE DENIES ANY ABNORMAL PAP TESTS. SHE HAD A COLONOSCOPY IN 2022. SHE DOES NOT REMEMBER WHEN HER LAST BMD WAS DONE. SHE HAS NO HX OF FRACTURES. Annual General Health Maintenance: Current breast complaints:: no breast pain, mass, discharge, or skin changes Urinary problems:: patient r eports no urinary health problems or bowel health problems Calcium intake:: takes adequ ate calcium via diet and supplementation Significant INTERIOR DESIGN ASSISTANT problems:: n o significant transportation planning technician symptoms or problems Examination Category Sub-Category Detail Notes Category Not es General Exam CONSTITUTIONAL: General Appearan ce:: alert, in no acute distress, normal, well nourished NECK/THYROID: Thyroid:: normal size and shape Inspection/Palpation:: normal RESPIRATORY: Auscultation: clear to auscultation bilaterally, Respiratory Effort: normal CARDIOVASCULAR: Auscultation: regula r rate and rhythm GASTROINTESTINAL: Hernias:: no hernias present, no inguinal adenopathy Liver and Spleen:: normal Abdomen:: no masses, nontender, nondiste nded MUSCULOSKELETAL: Inspection/Palpation:: no clubb ing, cyanosis, or edema SKIN: Skin:: normal NEURO/PSYCH: Mood/Affect:: normal Orientation:: time , place, person BREAST, Right: Inspection/Palpation :: no discharge, no masses present, no nipple retraction, no skin changes, no skin dimpling, no tenderness, no lymphadenopathy, no axillary mass, no axillary tenderness BREAST, Left: Inspection/Palpation :: no discharge, no masses present, no nipple retraction, no skin changes, no skin dimpling, no tenderness, no lymphadenopathy, no axillary mass, no axillary tenderness Genitourinary EXTERNAL GENITALIA: External Genitalia:: nor mal, no lesions VAGINA: Vagina:: atrophic vaginal tissue , minimal moisture BLADDER: Bladder:: no mass, nontender URETHRA: Urethra:: no erythema or lesions present CERVIX: Cervix:: no lesions, nontender UTERUS: Uterus:: nontender, normal conto ur, normal mobility, normal size ADNEXA: Adnexa:: no masses, no tendernes s ANUS AND PERINEUM: Anus/Perineum:: visually norm al
--- OUTSIDE RECORDS SUMMARY | 2024-09-29 13:24 | XMS_ITS ---
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 Name Role Phone Aracely Thompson Primary Care Provider Michelet Jackson Unavailable [phone] Allergies No Known Allergies REASON FOR VISIT At Risk Footcare, Ingrown Nail, Toe Irritation, Painful Toe/Nail(s) Medications Medication SIG (Take, Route, Frequency, Duration) Notes Start Date End Date Status Otezla Active Amiodarone HCl Activ e Ammonium Lactate 12 % 1 application to affected area Externally to feet Twice a day for 30 days Active Crestor Active metFORMIN HCl 500 MG 1 tablet with a lissette l Orally Once a day for 30 day(s) Active Xarelto Active Zetia Active Aspirin 81 MG Orally Not-Ta gerri Metoprolol Tartrate 75 MG Orally Not-Taking Extra Depth Orthopedic Shoes (1 Pair) with Customized Heat Molded Multidensity Innersoles (3 Pair) as directed Dx: NIDDM/Polyneuropathy (E11.42), Hammertoe Foot Deformity (M20.41,M20.42), Preulcerative Skin Lesion(s) (L85.1 08/15/2024 Active Multaq 4mg Active Nexletol Active Trulicity Active Metoprolol Tartrate 50 MG 1 tablet with food Orally Twice a day for 30 day(s) Active Social History Tobacco Use: Social History Observation Description Date Details (start date - stop date) Never Smoker NA - NA Tobacco use other than smoking: Question Answer Notes Are you an other tobacco user? No Tobacco Control (Standard) Question Answer Notes Tobacco use: Nonsmoker AUDIT-C (Standard) Question Answer Notes Did you have a drink containing alcohol in the p ast year? No Points 0 Interpretation Negative Problems Problem Type SNOMED Code ICD Code Onset Dates Problem Status W/U Status Risk Notes Problem Polyneuropathy due to type 2 diabetes mellitus (150690755) Type 2 diabetes mellitus with diabetic polyneuropathy (E11.42) Active confirmed Problem Acquired hammer toe of right foot (4371657857598895 ) Other hammer toe(s) (acquired), right foot (M20.41) Active confirmed Problem Acquired hammer toe of left foot (0712925993266184 ) Other hammer toe(s) (acquired), left foot (M20.42) Active confirmed Vital Signs Blood pressure systolic 128 mm Hg 08/15/19 25 Blood pressure diastolic 63 mm Hg 025 Height 5ft 2in in 08/15/2024 Weight 179 lbs 08/15/2024 BMI 32.74 kg/m2 08/15/2024 Procedures Procedure Date Ordered Date Performed Result Body Sit e 32754-VYRLHYU NAIL, 6 OR MORE 08/15/2024 N/A 93119-Dyvysqjz Plate 08/15/2024 N/A 08969-DURS SKIN LESIONS, OVER 4 08/15/2024 N/A 69525-Jyqs. Subungual Hematoma 08/15/2024 N/A Encounters Encounter Location Date Provider Diagnosis [facility] [address] [address] 08/15/2024 Micheletwillis IsbellKrystin Type 2 diabetes mellitus with diabetic polyneuropathy E11.42 ; Tinea unguium B35.1 ; Ingrown nail L60.0 ; Other hammer toe(s) (acquired), right foot M20.41 ; Other hammer toe(s) (acquired), left foot M20.42 and Subungual hematoma of right foot, initial encounter S90.221A Assessments Encounter Date Diagnosis (ICD Code) Assessment Notes Treatment Notes Treatment Clinical Notes Section Notes 08/15/2024 Type 2 diabetes mellitus with diabetic polyneuropathy (ICD-10 - E11.42) 08/15/2024 Tinea unguium (ICD-10 - B35.1) 08/15/2024 Ingrown nail (ICD-10 - L60.0) 08/15/2024 Other hammer toe(s) (acquired), right foot (ICD-10 - M20.41) Patient Educated with: DIABETIC FOOT CARE INSTRUCTIONS. pdf (DIABETIC FOOT CARE INSTRUCTIONS. pdf) 08/15/2024 Other hammer toe(s) (acquired), left foot (ICD-10 - M20.42) 08/15/2024 Subungual hematoma of right foot, initial encounter (ICD-10 - S90.221A) Plan Of Treatment Medication Medication Name Sig Start Date Stop Date Notes Extra Depth Orthopedic Shoes (1 Pair) with Customized Heat Molded Multidensity Innersoles (3 Pair) as directed Dx: NIDDM/Polyneuropathy (E11.42), Hammertoe Foot Deformity (M20.41,M20.42), Preulcerative Skin Lesion(s) (L85.1 08/15/2024 Treatment Notes Assessment Notes Other hammer toe(s) (acquired), right fo ot Patient Educated with: DIABETIC FOOT CARE INSTRUCTIONS.pdf (DIABETIC FOOT CARE INSTRUCTIONS.pdf) Pending Test Test Name Order Date 10439-TXSMVGS NAIL, 6 OR MORE 08/15/2024 42443-Ocktcmwx Plate 08/15/2024 84228-HIKH SKIN LESIONS, OVER 4 08/15/19 88855-Uhpl. Subungual Hematoma Next Appt Details Follow Up: prn, Reason: Provider Name:Michelet Mcclelland , 11/14/2024 02:00:00 PM, [address], [address], [place], [address], Procedure Notes * Category Sub-Category Detail Notes Nail Avulsion Procedure A fine sterile e levator was placed between the eponychium, nail fold, and nail plate to separate the structures. A sterile nail splitter, and/or sterile 316 blade, was then used to longitudinally section [...] Motrin was recommended for pain or discomfort (65418), DIABETES: Pt was advised as to the risk of delayed or nonhealing due to diabetes. Pt is to call the office with any questions, concerns, or complications Anesthesia was deferred - NEURO JUDY: patient has medically documented neuropathic condition affecting sensation Location Lateral nail border, TA Debride Nail 6-10 Nail debridement Due to the cl inical pathology outlined in the exam findings, performance of this nail treatment is medically necessary as its management by an unskilled/untrained nonprofessional would put this patients foot and overall health at risk. Therefore, debridement to affected nail(s), as described in exam ( T1, T3, T4, T5, T6, T7, T8, T9), was performed exclusively by the physician of record to reduce/remove overall nail length, girth, thickness, subungual debris, and necrotic tissue, by manual and/or electrical means through the use of a nail nipper and/or dremel-type spice grinder, to a more viable healthy nail plate or bed tissue 6-10 nails in total. Silver nitrate was used for any petechial bleeding as necessary. Definitive antifungal treatment options, both pharmaceutical and surgical, have been reviewed and discussed with the patient. The patient solely prefers the use of intermittent/as needed professional debridement services for their nail condition and understands the need for additional periodic treatments to maintain effectiveness in symptomatic relief - 10907 I&D subungual hematoma: Location T5, As p er exam Procedure: Performed incision a nd drainage of subungual hematoma with use of sterile power luma and/or nail nipper. Approximately ( 0.1 ) cc of hemorrhagic fluid material was drained. No underlying bone was visualized. An application of sterile Bacitracin dressing was performed. Local wound care instructions were discussed and dispensed , Pt was advised of the possibilty for nail auto-avulsion (43142), DIABETES: Pt was advised as to the risk of delayed or nonhealing due to diabetes. Pt is to call the office with any questions, concerns, or complications Anesthesia was deferred - NEURO JUDY: patient has medically documented neuropathic condition affecting sensation Keratoma Treatment Parring or Cutting o f Benign Hyperkeratotic Lesion(s) (-57) More than 4 Lesions - Due to the a t risk nature of the patients medical condition as documented in the exam findings, performance of this keratoderma treatment is medically necessary as its management by an unskilled/untrained nonprofessional would put this patients foot and overall health at risk. Therefore, the benign hyperkeratotic lesions, ( 8) in total, locations as stated and described in the exam ( Medial plantar, IPJ, TA, Medial plantar, IPJ, T5, SUB MTH (s), 1, B/L, SUB MTH (s), 2, B/L , Plantar, Heel(s), B/L), were pared, and/or cut utilizing a sterile 15 blade, tissue nippers, and/or power dremel instrumentation by the physician of record - 05926 Progress Notes * Milana FONSECADOB: [birth year] (74 yo F)Acc No.[id number]:08/15/2024 Progress Note Patient:?Milana FONSECA Provider:?Michelet Mcclelland DPM :1950???Age:74 Y???Sex:Female D ate:08/15/2024 [address] [facility] [place] Pcp:Aracely Thompson Subjective: * Chief Complaints: * ???At Risk FootcareIngrown N ailToe IrritationPainful Toe/Nail(s) * HPI: ???At Risk footcare:?Pt States Last PCP Visit:?Date?08/12/2024 ???Toe pain:?Location:?B/L feet.?Duration:?several years.?Course:?worse.?Aggravated by:?shoes, any pressure.?Treatments:?change in shoes.?Painful Nails:?Duration:?States Possible Date Of Injury - 08/09/24.? * ROS:?General/Constitutional:?Nausea?denies.?Vomiting?denies.?Hunger Thirst?denies.?Loss appetite?denies.?Chills?denies.?Fatigue?denies.?Fever?denies.?Night Sweats?denies.?Unexplained weight loss?denies.?Unexplained weight gain?denies.?HEENTM:?Dentures?denies.?Dizziness?denies.?Glasses/contacts?admits.?Retinopathy?den ies.?Blurred/double vision?denies.?TMJ?denies.?Discharge/drainage?denies.?Implants?denies.?Sore throat?denies.?Dental implants?denies.?Hard of hearing ?admits.?Difficulty chewing/swallowing/speaking?denies.?Nose bleeds?denies.?Sore mouth?denies.?Respiratory:?On O xygen?denies.?Pneumonia/pleurisy?denies.?Bronchitis?denies.?Emphysema?denies.?Co ughing?denies.?Cough blood?denies.?Shortness of breath?denies.?Wheezing?denies.?Cardiovascular:?Pacemaker?denies.?MVP?denies.?WPW?denies.?CHF?denies.?Heart attack?denies.?Septal defect?denies.?Rapid beat?denies.?Chest pain ?denies.?Atrial Fib.?denies.?Murmur/Palpitations?denies.?Gastrointestinal:?Hemorrhoids?denies.?Stomach/Abdominal pain?denies.?Dark blood stool?denies.?Irritable bowel ?denies.?Constipation?denies.?Diarrhea?denies.?Hematology:?Swelling?admits.?Clots?denies.?Varicose Veins?denies.?Bruising?admits, on anticoagulants.?Bleeding problem?admits, on anticoagulants.?Genitourinary:?Blood urine?denies.?Frequent/Painfu/urination/bladder control?denies.?Kidney stones?denies.?Infection (UTI)?denies.?Nephropathy?denies.?sex trans dis (STD)?denies.?Prostate?denies.?Musculoskeletal:?Hammertoes?admits.?Bunions?denies.?Back Pain?denies.?Muscle Cramps/ Resting?denies.?Muscle cramps / walking?denies.?Generalized aches and pains?denies.?Weakness?denies.?Integ.:?Baker?denies.?Scars?denies.?Corns/calluses?admits.?Ingrown nails?admits.?Painful nails?denies.?Open Sores?denies.?Rashes?denies.?Neurologic:?Difficulty sleeping?denies.?Brain disorder?denies.?Numbness?denies.?Balance t rouble?denies.?Confusion?denies.?Fainting/blackouts?denies.?Tingling?admits.?Jonel mors?denies.? * Medical History:? * Surgical History:?R ovarian removed 1995gall bladder removed 2000Hammer toe Left 3rd toe cardiac catheterization 11/13/21eye surgery 06/15/23 * Hospitalization/Major Diagno stic Procedure:?[facility]- flu 03/2022 * Family History:?Mother: dece ased, kidney/liver disease, diagnosed with Diabetic - NIDDM, Unspecified essential hypertension, Unspecified heart disease, Unspecified cerebral artery occlusion with cerebral infarction, Family history of arthritis.?Father: .?Spouse: .?Siblings: diagnosed with Other malignant neoplasm of unspecified site.? * Social History:?Tobacco Use:?Tobacco use other than smoking?Are you an other tobacco user??No ?Tobacco Control (Standard)?Tobacco use:?Nonsmoker ???Drugs/Alcohol:?Drugs?Have you used drugs other than those for medical reasons in the past 12 months??No ???Miscellaneous:?Caffeine: yes, 2-3 cups per day. ?Children: yes, 3. ?Exercise: yes, gym 2-3 times a week. ?Marital status: . ?Occupation: Retired. ???Drug/Alcohol:?AUDIT-C (Standard)?Did you have a drink containing alcohol in the past year??No ?Points?0 ?Interpretation?Negative * Medications:?TakingOtezla Am iodarone HCl Ammonium Lactate 12 % Cream 1 application to affected area Externally to feet Twice a day Crestor metFORMIN HCl 500 MG Tablet 1 tablet with a meal Orally Once a day Metoprolol Tartrate 50 MG Tablet 1 tablet with food Orally Twice a day Multaq , Notes to Pharmacist: 4mgNexletol Trulicity Xarelto Zetia Taking Otezla Taking Amiodarone HCl Taking Ammonium Lactate 12 % Cream 1 application to affected area Externally to feet Twice a day Taking Crestor Taking metFORMIN HCl 500 MG Tablet 1 tablet with a meal Orally Once a day Taking Metoprolol Tartrate 50 MG Tablet 1 tablet with food Orally Twice a day Taking Multaq , Notes to Pharmacist: 4mgTaking Nexletol Taking Trulicity Taking Xarelto Taking Zetia Not-Taking/PRNAspirin 81 MG Tablet Delayed Release Orally Metoprolol Tartrate 75 MG Tablet Orally Medication List reviewed and reconciled with the patientNot- Taking/PRN Aspirin 81 MG Tablet Delayed Release Orally Not-Taking/PRN Metoprolol Tartrate 75 MG Tablet Orally Medication List reviewed and reconciled with the patient * Allergies:?N.K.D.A.yes[Aller gies Verified] Objective: * Vitals:?Ht: 5ft 2in, Wt:179, BMI:32.74, Shoe size: 9.5, BP:128/63mm Hg, BS: did not test, Ht-cm: 157.48 cm, Wt-k.19 kg. * ???Past Orders: ???Lab:HEMOGLOBIN A1C (GLYCO HEMOGLOBIN) (Order Date - 02/15/2024) (Collection Date & Time - 02/15/2024 10:42 AM) ? Value Reference Range ?HEMOGLOBIN A1C % (HH) 5.9 * Examination: ???Ophthalmology Referral: ?DIABETES EYE EXAM?Neurological: ?SENSORY:? Neurological exam demonstrates, reduced light touch sensation, reduced sharp/dull pin prick discrimination , B/L, 5.07 monofilament test performed at plantar aspects of 5 varied sites per foot shows sensation, reduced , B/L.?Nails: ?NAILS are:?Elongated, overgrown, dystrophic, lytic, greater than 3mm thick, discolored and friable with crumbly malodorous subungual debris, with pain on palpation, T1, T3, T4, T5, T6, T7, T8, T9, all other nails not described with characteristics as possessing mycosis are elongated, overgrown, and dystrophic , There is evidence of dull pain on palpation due to neuropathy, and an area of SUBUNGUAL HEMORRHAGIC fluid with a pre-operative size measuring approximately ( 1-2 ) mm square, T5.?Ingrown Nail: ?INSPECTION:?Reveals nail incurvation, dull pain on palpation due to neuropathy, groove hypertrophy, Lateral nail border, TA.?Dermatologic: ?SKIN FINDINGS:?Skin exam reveals Keratotic lesion(s) located at, Medial plantar, IPJ, TA, Medial plantar, IPJ, T5, SUB MTH (s), 1, B/L, SUB MTH (s), 2, B/L , Plantar, Heel(s), B/L.?Vascular: ?DP PULSES (B):? 0-1/4, B/L.?PT PULSES (B):? 0/4, B/L.?CAPILLARY FILL TIME:? delayed, all digits, B/L.?TROPHIC CONDITION-TEXTURE/ELASTICITY/TURGOR/HAIR GROWTH (B):? decreased, B/L.?TEMPERTURE GRADIENT (C):? decreased, cool to cool, proximal to distal, B/L.?PIGMENTATION:? mottled, B/L.?EDEMA (C):? 1/, non-pitting, without aching pain, B/L, Ankle(s).?CLAUDICATION (C):?denies, B/L.?REST PAIN:?denies, B/L.?Orthopedic: ?MUSCLE STRENGTH:?5/5 all groups in a symmetrical fashion, B/L.?FOOT MORPHOLOGY:?(-) Charcot collapse/destruction noted at MTJ.?DIGITAL DEFORMITIES:?Digital contracture, PIPJ, 2-5 B/L, incompl-reducible to push-up test, no over, nor underlapping,?there is?evidence of shoe producing skin irritation.?FOOTWEAR:?worn, non-supportive, shoe gear properties exacerbate patient's foot/toe deformity.?General Examination: ?GENERAL APPEARANCE:?Reveals a pleasant, alert, well nourished, well- developed, well hydrated individual, who demonstrates proper attention to hygiene/body habitus, and is in no acute distress, Pt serves as own historian for office visit today.?ORIENTED:?person, place, and time.?FOOT EXAM:?Footwear Evaluation? Assessment: * Assessment: 1.?Type 2 diabetes mellitus with diabetic polyneuropathy - E11.42 (Primary)???2.?Tinea unguium - B35.1???3.?Ingrown nail - L60.0???Specify :Lateral nail border,?TA???4.?Other hammer toe(s) (acquired), right foot - M20.41???Specify :Chronic problem, Worse (4),Rx Management (4)???5.?Other hammer toe(s) (acquired), left foot - M20.42???Specify :Chronic problem, Worse (4),Rx Management (4)???6.?Subungual hematoma of right foot, initial encounter - S90.221A???Specify :Acute problem, Uncomplicated (3)??? Plan: * Treatment: 2.?Ingrown nail?Procedure: 04258-Rbfiofuf Plate 3.?Other hammer toe(s) (acqu ired), right foot? Start Extra Depth Orthopedic Shoes (1 Pair) with Customized Heat Molded Multidensity Innersoles (3 Pair), as directed, Dx: NIDDM/Polyneuropathy (E11.42), Hammertoe Foot Deformity (M20.41,M20.42), Preulcerative Skin Lesion(s) (L85.1, 1, Refills 0.?? Notes: Patient Educated with: DIABETIC FOOT CARE INSTRUCTIONS.pdf (DIABETIC FOOT CARE INSTRUCTIONS.pdf)?? 4.?Subungual hematoma of rig ht foot, initial encounter?Procedure: 95398-Phoo. Subungual Hematoma * Procedures:?Debride Nail 6-10:?Nail debridement?Due to the clinical pathology outlined in the exam findings, performance of this nail treatment is medically necessary as its management by an unskilled/untrained nonprofessional would put this patients foot and overall health at risk. Therefore, debridement to affected nail(s), as described in exam (?T1,?T3,?T4,?T5, T6, T7, T8, T9), was performed exclusively by the physician of record to reduce/remove overall nail length, girth, thickness, subungual debris, and necrotic tissue, by manual and/or electrical means through the use of a nail nipper and/or dremel-type spice grinder, to a more viable healthy nail plate or bed tissue 6- 10 nails in total. Silver nitrate was used for any petechial bleeding as necessary. Definitive antifungal treatment options, both pharmaceutical and surgical, have been reviewed and discussed with the patient. The patient solely prefers the use of intermittent/as needed professional debridement services for their nail condition and understands the need for additional periodic treatments to maintain effectiveness in symptomatic relief - 19467.?I&D subungual hematoma::?Location?T5, As per exam.?Anesthesia?was deferred - NEUROPATHY: patient has medically documented neuropathic condition affecting sensation.?Procedure:?Performed incision and drainage of subungual hematoma with use of sterile power luma and/or nail nipper. Approximately ( 0.1 ) cc of hemorrhagic fluid material was drained. No underlying bone was visualized. An application of sterile Bacitracin dressing was performed. Local wound care instructions were discussed and dispensed , Pt was advised of the possibilty for nail auto-avulsion (19200), DIABETES: Pt was advised as to the risk of delayed or nonhealing due to diabetes. Pt is to call the office with any questions, concerns, or complications.?Keratoma Treatment:?Parring or Cutting of Benign Hyperkeratotic Lesion(s)?(-57) More than 4 Lesions - Due to the at risk nature of the patients medical condition as documented in the exam findings, performance of this keratoderma treatment is medically necessary as its management by an unskilled/untrained nonprofessional would put this patients foot and overall health at risk. Therefore, the benign hyperkeratotic lesions, ( 8) in total, locations as stated and described in the exam (?Medial plantar,?IPJ,?TA,?Medial plantar,?IPJ,?T5,?SUB MTH (s),?1,?B/L,?SUB MTH (s),?2,?B/L?,?Plantar,?Heel(s),?B/L), were pared, and/or cut utilizing a sterile 15 blade, tissue nippers, and/or power dremel instrumentation by the physician of record - 34802.?Nail Avulsion:?Location?Lateral nail border,?TA.?Anesthesia?was deferred - NEUROPATHY: patient has medically documented neuropathic condition affecting sensation.?Procedure?A fine sterile elevator was placed between the eponychium, nail fold, and nail plate to separate the structures. A sterile nail splitter, and/or sterile 316 blade, was then used to longitudinally section [...] Motrin was recommended for pain or discomfort (13369), DIABETES: Pt was advised as to the risk of delayed or nonhealing due to diabetes. Pt is to call the office with any questions, concerns, or complications.? * Procedure Codes:?41379 DEBRI DE NAIL, 6 OR MORE, Modifiers: XS 51169 Avulsion Plate, Modifiers: XS , [id number] DRAIN BLOOD FROM UNDER NAIL, Modifiers: XS , [id number] TRIM SKIN LESIONS, OVER 4, Modifiers: XS 1036F TOBACCO NON-USER * Preventive Medicine:? ??Counseling:?Discussion:?-14: Office or other outpatient visit for the evaluation and management of an established patient, which required a medically appropriate history and/or examination and MODERATE level of DECISION MAKING for: 1 OR MORE CHRONIC PROBLEM(S) THATS WORSENING, 2 STABLE CHRONIC PROBLEMS, A NEWLY DIAGNOSED PROBLEM WITH UNCERTAIN PROGNOSIS, AN ACUTE COMPLICATED INJURY WITH MULTIPLE TREATMENT OPTIONS, OR AN ACUTE PROBLEM WITH ACCOMPANYING SYSTEMIC SYMPTOMS, THAT POSE(S) A MODERATE RISK OF MORBIDITY. THIS CONDITION MAY ALSO INCLUDE RX DRUG MANAGEMENT, OR A DECISON FOR MINOR SURGERY. The visit on the day of the [...] have encouraged the patient to call the office.?Digital Surgery:?Digital surgery was discussed with the patient, We elected to try conservative treatment at the present time, due to the patients medical history and increased asssociated post-operative risks.?Digital Treatment:?HT- I explained to the patient the possible etiologies of Hammertoes, including genetics/foot type/shoegear/activity level/exercise routine and the risks/benefits of all the different treatment options for their pain including: No treatment at all, Rest, Ice, New/supportive/wider/deeper Shoegear, Digital Padding/Strapping/Taping/Bracing/Gel protective sleeves, Foot/Ankle AFO Bracing, Stretching exercises, Deep Tissue Massage, Arch support/shoe inserts with splay metatarsal padding, and Custom orthoses. I insisted that any digital devices be removed daily and not worn overnight for safety. The patient is to carefully examine the toes daily for any skin irritation while using any splinting or padding device. The advantages and disadvantages of each option were discussed and the patients questions re: shoegear, padding, custom vs prefabricated inserts, activity level, and consistency in home treatment regimens for optimal success were answered to their verbally confirmed satisfaction.?Shoe Gear Counseling:?SHOE Rx - The patient was counseled in great detail on their muscoloskeletal foot and toe deformities which coincided with the dermatological presentations visualized on exam. We discussed how their deformities put the integrity of their feet at risk for potential pedal complications which makes the accomidative diabetic shoes and cutomizable inserts medically necessary. We discussed the different shoe and insert treatment types and options, as well as the important advantages for adhering to regularly wearing these accomidative devices daily. The patient was made aware of the fact that a failure to abide by these recommedations may be deleterious to their foot health as they are able to prevent many pedal complications such as skin irritation, skin ulceration, infection, and even loss of toe/foot/leg/or life. Time was also spent with the patient dispensing and discussing proper diabetic footcare techniques including daily skin moisturization, daily foot inspection for any interruption in skin integrity including open lesions, or sign of infection such as redness/malodor/drainage/swelling. Also discussed and recommended were procedures regarding daily shoe inspection for the presence of internal foreign bodies as well as any visualized irregular shoe or insert wear. Patient questions re: shoes, inserts, and self foot inspections were answered to their satisfaction as the patient verbally confirmed a full understanding of the above information. A Rx for Extra Depth Orthopedic Shoes with 3 pair of custom heat-molded inserts was dispensed.? ??Screening/Special Tests:?Fall Risk?Screening:?No falls in the past year ?FALLS: Screening for Future Fall Risk?Have you had any falls with injury in the past year??No * Follow Up:?prn * Images: * Sign off status: Completed true * Provider:?Michelet Mcclelland DPM Date:?2024 Generated for Mari ventura/Zaire/Juana on:?09/29/2024 01:24 PM EST History and Physical Notes * HPI (History of Present Illness) Category Sub-Category Detail Notes Category Not es Toe pain Location: B/L feet Duration: several years Course: worse Aggravated by: shoes, any pressure Treatments: change in shoes Painful Nails Duration: States Possible Date Of Injury - 08/09/24 At Risk footcare Pt States Last PCP Visit: Date: 5 Examination Category Sub-Category Detail Notes Category Not es Ingrown Nail INSPECTION: Reveals nail inc urvation, dull pain on palpation due to neuropathy, groove hypertrophy, Lateral nail border, TA Neurological SENSORY: Neurological exa m demonstrates, reduced light touch sensation, reduced sharp/dull pin prick discrimination , B/L, 5.07 monofilament test performed at plantar aspects of 5 varied sites per foot shows sensation, reduced , B/L Dermatologic SKIN FINDINGS: Skin exam reveal s Keratotic lesion(s) located at, Medial plantar, IPJ, TA, Medial plantar, IPJ, T5, SUB MTH (s), 1, B/L, SUB MTH (s), 2, B/L , Plantar, Heel(s), B/L Orthopedic FOOT MORPHOLOGY: (-) Charcot col lapse/destruction noted at MTJ FOOTWEAR: worn, non-supportive , shoe gear properties exacerbate patient's foot/toe deformity DIGITAL DEFORMITIES: Digital contracture , PIPJ, 2-5 B/L, incompl-reducible to push-up test, no over, nor underlapping, there is evidence of shoe producing skin irritation MUSCLE STRENGTH: 5/5 all groups in a symmetrical fashion, B/L General Examination GENERAL APPEARANCE: Reveals a pleasant, alert, well nourished, well-developed, well hydrated individual, who demonstrates proper attention to hygiene/body habitus, and is in no acute distress, Pt serves as own historian for office visit today FOOT EXAM: Lower Extremity Neurological Exa m performed:: Yes Date Visual exam of foot performed:: Yes Date: 08/15/2024 ORIENTED: person, place, and t brittny Footwear Evaluation Footwear Evaluation performe d:: Yes Ophthalmology Referral DIABETES EYE EXAM Procedure Perform ed:: Yes ?Date of Exam Performed: 09/30/2023 Findings of Diabetic Eye Exam:: no retin opathy Vascular DP PULSES (B): 0-1/4, B/L PT [...] with pain on palpation, T1, T3, T4, T5, T6, T7, T8, T9, all other nails not described with characteristics as possessing mycosis are elongated, overgrown, and dystrophic , There is evidence of dull pain on palpation due to neuropathy, and an area of SUBUNGUAL HEMORRHAGIC fluid with a pre-operative size measuring approximately ( 1-2 ) mm square, T5
--- OUTSIDE RECORDS SUMMARY | 2024-09-29 13:24 | XMS_ITS ---
Author Organization [facility] Address [address] [facility] [place] [address] Care Team Providers Care Integration Consultant Name Role Phone Aracely Thompson Primary Care Provider Michelet Jackson Unavailable [phone] Allergies No Known Allergies REASON FOR VISIT [...] Ordered Date Performed Result Body Sit e 07050-RMMSJMV NAIL, 6 OR MORE 02/15/2024 N/A 86319-CWDS SKIN LESIONS, OVER 4 02/15/2024 N/A Encounters Encounter Location Date Provider Diagnosis [facility] [place] [address] [place] [address] 02/15/2024 Michelet Mcclelland Type 2 diabetes mellitus [...] Treatment Pending Test Test Name Order Date 83080-MFARQJF NAIL, 6 OR MORE 02/15/2024 46456-YDXB SKIN LESIONS, OVER 4 02/15/20 24 Next Appt Details Follow Up: prn, Reason: Provider Name:Michelet Mcclelland , 11/14/2024 02:00:00 PM, [address] [facility], [place] [address], [place], [address], Procedure Notes * Category Sub-Category Detail Notes [...] as necessary. Patient chooses, no pharmaceutical tx (63563) Keratoma Treatment Parring or Cutting o f Benign Hyperkeratotic Lesion(s) 32913 ( >4 Lesions) - The Benign hyperkeratotic lesions, as described above were pared, and/or cut utilizing a sterile #15 blade, tissue nippers, and/or dremel, Q8 Progress Notes * Milana FONSECADOB: [birth year] (73 yo F)Acc No.[id number]:02/15/2024 Progress Note Patient:?Milana Fonseca Provider:?Michelet Mcclelland DPM :1950???Age:73 Y???Sex:Female D ate:02/15/2024 Address:[address], [facility] Pcp:Aracely Tohmpson Subjective: * Chief Complaints: * ???At Risk [...] Medical History:? * Surgical History:?R ovarian removed 1996gall bladder removed 1999Hammer toe Left 3rd toe cardiac catheterization 11/13/21eye surgery 06/15/23 * Hospitalization/Major Diagno stic Procedure:?[facility] [place]- flu 03/2022 * Family History:?Mother: dece ased, [...] tablet with food Orally Twice a dayTaking Edwintaq , Notes: 4mgTaking Nexletol Taking Trulicity Taking [...] Wt-k.74 kg. * Examination: ???Vascular: ?DP PULSES:? 0-4, B/L.?PT PULSES:? 0/4, B/L.?CAPILLARY FILL TIME:? delayed, all digits, B/L.?SKIN TEMPERTURE GRADIENT OF THE LOWER EXTERMITIES:? decreased, cool to cool, proximal to distal, B/L.?HAIR GROWTH/TEXTURE/ELASTICITY/TURGOR:? decreased, B/L.?PIGMENTATION:? mottled, B/L.?EDEMA:? 1/, non-pitting, without aching pain, B/L, Ankle(s).?CLAUDICATION:?denies, B/L.?REST [...] - M79.675? Plan: * Treatment: 2.?Tinea unguium?Procedure: 85974-WWQWNQQ NAIL, 6 OR MORE * Procedures:?Debride Nail 6-10:?Nail debridement?Nail debridement performed extensively to reduce/remove overall nail length, girth, thickness, subungual debris, and necrotic tissue, by manual and electrical means through the use of a nail nipper and/or dremel, to more viable healthy nail plate or bed tissue 1-5. Silver nitrate used for any petechial bleeding as necessary. Patient chooses, no pharmaceutical tx (87170).?Keratoma Treatment:?Parring or Cutting of Benign Hyperkeratotic Lesion(s)?70258 ( >4 Lesions) - The Benign hyperkeratotic lesions, as described above were pared, and/or cut utilizing a sterile #15 blade, tissue nippers, and/or dremel, Q8.? * Procedure Codes:?56362 DEBRI DE NAIL, 6 OR MORE, Modifiers: XS 91126 TRIM SKIN LESIONS, OVER 4, Modifiers: XS , Q8 * Follow Up:?prn * Images: * Sign off status: Completed Addendum: * ? true * Provider:?Michelet Mcclelland DPM Date:?2023 Generated for Mari ventura/Zaire/Juana on:?09/29/2024 01:24 PM [...]
--- OUTSIDE RECORDS SUMMARY | 2024-09-29 13:24 | XMS_ITS ---
Author Organization [facility] Address [address] [place] [address] Care Team Providers Care Trousseau Consultant Name Role Phone Alexander Lucrecia Unavailable [phone] REASON FOR VISIT Annual MANAGER RESOURCE Physical Encounters Encounter Location Date Provider Diagnosis [facility] [place] [facility] [address] [facility] [address] [place] [address] 07/15/2023 Lucrecia Munoz Plan Of Treatment No Information Progress Notes * CALVIN ALVESDOB: [birth year] (74 yo F)Acc No.[id number]:07/15/2023 Progress Note Patient:?LONG CALVIN Appointment Provider:?Lucrecia hall M.D. :1950???Age:73 Y???Sex:Female D ate:07/15/2023 Address:[address] [facility] Subjective: * Chief Complaints: * ???1. Annual MANAGER RESOURCE Physical. * Medical History:? Objective: * Vitals:? Assessment: Plan: * Treatment: * Images: Billing Information: * Visit Code:? * Procedure Codes:? * Electronic signature of Radha Munoz MD on 09/29/2024 at 01:24 PM EST Sign off status: Pending * Appointment Provider:?Lucrecia Munoz M.D. Date:?07/15/2023 Generated for Mari ventura/Zaire/eTransmitting on:?09/29/2024 01:24 PM EST
--- OUTSIDE RECORDS SUMMARY | 2024-09-29 13:25 | XMS_ITS | Patient Health Record ---
Author Organization [facility] Address [address] [place] [address] Care Team Providers Care Activities Counselor Name Role Phone Aracely Thompson MD Primary Care Provider Marquise Chapin [phone] ALLERGIES No Known Allergies REASON FOR REFERRAL [...] History o f adenomatous polyp of colon (325362001) Problem Dysphagia (R13.10) Active confirmed Dys phagia (86928175) Problem Duodenitis (K29.80) Active confirmed Du odenitis (48411010) Problem Hiatal hernia (K44.9) Active confirmed Hiatal hernia (47677278) Problem Rectal bleed (K62.5) Active confirmed Bleeding from a nus (1943200) Problem Gastritis (K29.70) Active confirmed Gas tritis (8981888) Problem Duodenal ulcer (K26.9) Active confirmed Duodenal ulcer (16841301) Problem Helicobacter pylori infection (A04.8) Active confirmed Helicobact er pylori infection (432651394) Problem Diverticulosis of colon (K57.30) Active confirmed Diverticulosi s of colon (044861555) Problem Gastroesophageal reflux disease, unspecified whether esophagitis present (K21.9) Active confirmed Gastroesophagea l reflux disease (368270440) Problem Esophageal dysphagia (R13.19) Active confirmed Difficult y swallowing (799386741) PLAN OF TREATMENT Future Test Test Name Order Date COLONOSCOPY 05/30/2014 UPPER GI ENDOSCOPY BALLOOON DILATION OF ESOPH 07/09/2021 COLONOSCOPY 07/09/2021 Insurance Providers Payer Name Payer Address Payer Phone Subscriber Number Group Number Insured Name Patient Relationship to Insured Coverage Start Date Coverage End Date MEDICARE OF [place] [address] [place] [address] [phone] [id number] CALVIN ALVES Self - patient is the insured [address] [place] [address] [id number] CALVIN ALVES Self - patient is the insured MEDICAL (GENERAL) HISTORY Medical History History ICD Code Colonoscopy 05-31-2004--only a hyperplas tic polyp, sigmoid diverticulosis Hyperlipidemia Hypertension Denies renal disease NIDDM CAD--[place] and 2 stents > 5 yrs ago-Dr. Diamante delacruz Fatty liver--neg. Hepatitis serologies, neg. Iron studies, neg. liver U/S--normal LFT's in 09/2013 Atrial fib - Dr. 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
--- OUTSIDE RECORDS SUMMARY | 2024-09-29 13:25 | XMS_ITS | Patient Health Record ---
Author Organization [facility] Address [address] [place] [address] Care Team Providers Care Baling Machine Tender Name Role Phone Lucrecia Munoz Unavailable [phone] Allergies No Known Allergies Results Component Value Reference Range Notes [id number] IGP No Culture 30 Plus Reviewed date:11/23/2023 04:32:47 PM Interpretation: Performing Lab:[facility] [place], [address], [address], [place], Phone - [phone], Director - [facility] Notes/Report: Clinical Information:Vaginal/Cervical, LMP: Men o [id number] Dates / Results....Unknown New PT Today Other..............Post Menopausal No. of containers..01 ThinPrep Vial DIAGNOSIS: NEGATIVE FOR INTRAEPITHELIAL LESION OR MALIGNANCY. CELLULAR CHANGES ASSOCIATED WITH ATROPHY ARE PRESENT. Specimen adequacy: Satisfactory for evaluation. Endocervical component may not be distinguished in cases of atrophy. Clinician provided ICD10: Z0 1.419 Performed by: Tom Ahumada ytotechnologist ([facility]) . . Note: The Pap smear is [...] Report Reviewed date:11/23/2023 04:32:30 PM Interpretation: Performing Lab:[facility] [place], [address], [address], [place], Phone - [phone], Director - [facility] Notes/Report: Clinical Information:Vaginal/Cervical, LMP: Men o [id number] Dates / Results....Unknown New PT Today Other..............Post Menopausal No. of containers..01 ThinPrep Vial Reason For Referral No Information Medications Medication SIG (Take, Route, Frequency, Duration) Notes Start Date End Date Status Nystatin 721409 UNIT/GM APPLY 1 APPLICAT ION TOPICALLY 2 TIMES A DAY NEEDED FOR RASH External for 30 Days Active Trulicity 0.75 MG/0.5ML Subcutaneous for 28 Days Active traZODone HCl 50 MG TAKE 1 TABLET BY ANTHONY TH EVERY DAY AT BEDTIME NEEDED FOR SLEEP Oral for 90 Days Active Omeprazole 20 MG Oral for 90 Days Active Fexofenadine HCl 180 MG 180 MG ORALLY DA BRONWYN Oral for 30 Days Active Rosuvastatin Calcium 40 MG Oral for 90 Days Active Ezetimibe 10 MG Oral for 90 Days Active Social History [...] Problem Status W/U Status Risk Notes Problem Postmenopausal atrophic vaginitis (73955478) Postmenopausal atrophic vaginitis (N95.2) Active confirmed Problem Osteoarthritis (726617782) Unspecified osteoarthritis, unspecified site (M19.90) Active confirmed Vital Signs Temperature 97.5 degrees Fahrenheit 11/18/2023 Blood pressure diastolic 76 mm Hg 11/18/2023 Height 62 in 11/18/2023 Blood pressure systolic 126 mm Hg 11/18/2023 Weight 175 lbs 11/18/2023 BMI 32 kg/m2 11/18/2023 Encounters Encounter Location Date Provider Diagnosis Total [address] [place] [address] 11/18/2023 Lucrecia Munoz Encounter for gynecological examination [...] OPTIONS. PAT IS ASYMPTOMATIC. Plan Of Treatment Pending Test Test Name Order Date MAMMOGRAM, SCREENING 11/18/2023 BONE DENSITY 11/18/2023 MM Digital Mammo Screening 11/18/2023 Insurance Providers Payer Name Payer Address Payer Phone Subscriber Number Group Number Insured Name Patient Relationship to Insured Coverage Start Date Coverage End Date MEDICARE [address] [place], [place] [id number] CALVIN ALVES Self - patient is the insured [address] [place] [address] [address] [place] [address] [id number] CALVIN ALVES Self - patient is the insured 2 Medical (General) History Medical History History ICD Code Unspecified atrial fibrillation I48.91 Type 2 diabetes mellitus without complic ations E11.9 Other asthma J45.998 Cardiac murmur, unspecified R01.1 Unspecified osteoarthritis, unspecified site M19.90 Surgical History Surgery Date(Month/Year) Left Knee Replacement Hospitalization History Reason Date(Month/Year) Colonoscopy 3 Vaginal Deliveries
--- OUTSIDE RECORDS SUMMARY | 2024-09-29 13:25 | XMS_ITS | Patient Health Record ---
Author Organization [facility] Address [address] [place] [address] Care Team Providers Care Photographer Apprentice Name Role Phone Aracely Thompson Primary Care Provider Michelet Jackson Unavailable [phone] Allergies No Known Allergies Results Component Value Reference Range Notes HEMOGLOBIN A1C (GLYCOHEMOGLO BIN) Reviewed date:02/15/2024 10:42:30 AM Interpretation: Performing Lab: Notes/Report: HEMOGLOBIN A1C % (HH) 5.9 Reason For Referral No Information Medications Medication SIG (Take, Route, Frequency, Duration) Notes Start Date End Date Status Multaq 4mg Active Nexletol Active Trulicity Active Xarelto Active Zetia Active Otezla Active Aspirin 81 MG Orally Not-Ta gerri Amiodarone HCl Activ e Metoprolol Tartrate 75 MG Orally Not-Taking Ammonium Lactate 12 % 1 application to affected area Externally to feet Twice a day for 30 days Active Crestor Active metFORMIN HCl 500 MG 1 tablet with a lissette l Orally Once a day for 30 day(s) Active Metoprolol Tartrate 50 MG 1 tablet with food Orally Twice a day for 30 day(s) Active Extra Depth Orthopedic Shoes (1 Pair) with Customized Heat Molded Multidensity Innersoles (3 Pair) as directed Dx: NIDDM/Polyneuropathy (E11.42), Hammertoe Foot Deformity (M20.41,M20.42), Preulcerative Skin Lesion(s) (L85.1 08/15/2024 Active Immunizations Vaccine Route Administration Date Status [...] Problem Acquired hammer toe of right foot (6215848114039421 ) Other hammer toe(s) (acquired), right foot (M20.41) Active confirmed Problem Acquired hammer toe of left foot (0428664457750726 ) Other hammer toe(s) (acquired), left foot (M20.42) Active confirmed Problem Polyneuropathy due to type 2 diabetes mellitus (508689376) Type 2 diabetes mellitus with diabetic polyneuropathy (E11.42) Active confirmed Vital Signs Blood pressure diastolic 63 mm Hg 08/15/2024 Height 5ft 2in in 08/15/2024 Blood pressure systolic 128 mm Hg 08/15/2024 Weight 179 lbs 08/15/2024 BMI 32.74 kg/m2 08/15/2024 Procedures Procedure Date Ordered Date Performed Result Body Sit e 64063-HZRYPNZ NAIL, 6 OR MORE 10/05/2023 N/A 18464-ODLW SKIN LESIONS, OVER 4 10/05/2023 N/A 14182-PUTHNKN NAIL, 6 OR MORE 02/15/2024 N/A 10157-MUWS SKIN LESIONS, OVER 4 02/15/2024 N/A 65936-QLSSMXB NAIL, 6 OR MORE 08/15/2024 N/A 97157-Trkbqual Plate 08/15/2024 N/A 00220-CQYI SKIN LESIONS, OVER 4 08/15/2024 N/A 95572-Dnhf. Subungual Hematoma 08/15/2024 N/A Encounters Encounter Location Date Provider Diagnosis [facility] [address] [address] 10/05/2023 Michelet Mcclelland Type 2 diabetes mellitus with diabetic peripheral angiopathy without gangrene E11.51 ; Tinea unguium B35.1 ; Pain in right toe(s) M79.674 and Pain in left toe(s) M79.[address] [facility] [address] 02/15/2024 Michelet Isbellunier Type 2 diabetes mellitus with diabetic peripheral angiopathy without gangrene E11.51 ; Tinea unguium B35.1 ; Pain in right toe(s) M79.674 and Pain in left toe(s) M79.[address] [facility] [address] 08/15/2024 Michelet Singletaryier Type 2 diabetes mellitus with diabetic polyneuropathy E11.42 ; Tinea unguium B35.1 ; Ingrown nail L60.0 ; Other hammer toe(s) (acquired), right foot M20.41 ; Other hammer toe(s) (acquired), left foot M20.42 and Subungual hematoma of right foot, initial encounter S90.221A [facility] [address] 08/12/2024 Michelet Mcclelland Assessments Encounter Date Diagnosis (ICD Code) Assessment Notes Treatment Notes Treatment Clinical Notes Section Notes 10/05/2023 Type 2 diabetes mellitus with diabetic peripheral angiopathy without gangrene (ICD-10 - E11.51) 10/05/2023 Tinea unguium (ICD-10 - B35.1) 02/15/2024 Type 2 diabetes mellitus with diabetic peripheral angiopathy without gangrene (ICD-10 - E11.51) 02/15/2024 Tinea unguium (ICD-10 - B35.1) 08/15/2024 Type 2 diabetes mellitus with diabetic polyneuropathy (ICD-10 - E11.42) 08/15/2024 Tinea unguium (ICD-10 - B35.1) 08/15/2024 Ingrown nail (ICD-10 - L60.0) 02/15/2024 Pain in right toe(s) (ICD-10 - M79.674) 10/05/2023 Pain in right toe(s) (ICD-10 - M79.674) 10/05/2023 Pain in left toe(s) (ICD-10 - M79.675) 08/15/2024 Other hammer toe(s) (acquired), right foot (ICD-10 - M20.41) Patient Educated with: DIABETIC FOOT CARE INSTRUCTIONS. pdf (DIABETIC FOOT CARE INSTRUCTIONS. pdf) 02/15/2024 Pain in left toe(s) (ICD-10 - M79.675) 08/15/2024 Other hammer toe(s) (acquired), left foot (ICD-10 - M20.42) 08/15/2024 Subungual hematoma of right foot, initial encounter (ICD-10 - S90.221A) Plan Of Treatment Pending Test Test Name Order Date X ray : Foot, left 3V 04/02/2023 38856-TUTRNPK NAIL, 6 OR MORE 06/29/2023 33130-UNXYVGJ NAIL, 6 OR MORE 04/02/2023 66474-TBOSDGM NAIL, 6 OR MORE 10/05/2023 58944-HXJBALX NAIL, 6 OR MORE 02/15/2024 92762-JXJUPDO NAIL, 6 OR MORE 08/15/2024 49238-BHIKEAS NAIL, 6 OR MORE 08/30/2020 70450-FNTLWRD NAIL, 6 OR MORE 11/29/2020 58762-EMWEJDV NAIL, 6 OR MORE 02/28/2021 04220-AMNBTXY NAIL, 6 OR MORE 05/30/2021 17529-SFHMJFY NAIL, 6 OR MORE 09/05/2021 40697-DMRHOFH NAIL, 6 OR MORE 12/05/2021 99834-ZXAFXWE NAIL, 6 OR MORE 03/10/2022 43287-WBPSCRJ NAIL, 6 OR MORE 06/09/2022 00984-BLXZFBY NAIL, 6 OR MORE 09/08/2022 14399-GYCKIFT NAIL, 6 OR MORE 12/15/2022 50132-HWJDQEV NAIL, 1-5 08/15/2019 98191-ABIPACB NAIL, -5 04/11/2020 98564-XUFAFXD NAIL, -5 01/24/2019 97671-OTSERVP NAIL, 1-5 05/09/2019 74441-Cfrbipld Plate 01/24/2019 70922-Jnldvzus Plate 03/10/2022 40310-Fysteequ Plate 12/05/2021 91931-Iyutzbhw Plate 09/05/2021 46148-Hukzdhwl Plate 08/15/2024 56946-Mifvzdto Plate 04/02/2023 93922-Qxpniqhc Plate 09/08/2022 61097-Yxeoeegf Plate 12/15/2022 72008-Qmcrgyqj Plate 06/29/2023 35103-VCWU SKIN LESIONS, OVER 4 06/29/20 59145-YSYV SKIN LESIONS, OVER 4 04/02/20 13361-HVAM SKIN LESIONS, OVER 4 08/15/19 62510-FEFZ SKIN LESIONS, OVER 4 02/15/20 28464-YXCU SKIN LESIONS, OVER 4 10/05/19 47750-ILLY SKIN LESIONS, OVER 4 09/05/19 80593-SAFA SKIN LESIONS, OVER 4 12/06/19 38642-VCCL SKIN LESIONS, OVER 4 03/10/20 34393-EMAL SKIN LESIONS, OVER 4 06/09/20 48405-THSU SKIN LESIONS, OVER 4 12/16/19 06076-VEAE SKIN LESIONS, OVER 4 09/08/19 47714-DLVY SKIN LESIONS, 2 TO 4 05/30/20 02945-YDRG SKIN LESIONS, 2 TO 4 02/29/20 38413-PWMC SKIN LESIONS, 2 TO 4 05/09/20 19 32440-OZHK SKIN LESIONS, 2 TO 4 08/15/19 22038-OKGU SKIN LESIONS, 2 TO 4 01/25/20 19 02140-FXKE SKIN LESIONS, 2 TO 4 11/30/19 29860-SZZP SKIN LESIONS, 2 TO 4 04/11/20 77195-DEAZ SKIN LESIONS, 2 TO 4 08/30/19 98525-Sqcu. Subungual Hematoma 5 F3030-MODLBQXU DYSTROPHIC NAILS ANY # I3135-ERRZCSRS DYSTROPHIC NAILS ANY # P3008-NZJVLCKB DYSTROPHIC NAILS ANY # K6170-QUNHLEAH DYSTROPHIC NAILS ANY # Next Appt Details Provider Name:Michelet Mcclelland , 11/14/2024 02:00:00 PM, [address] [facility], [facility] [address], [place], [address], Insurance Providers Payer Name Payer Address Payer Phone Subscriber Number Group Number Insured Name Patient Relationship to Insured Coverage Start Date Coverage End Date Medicare [employer] [address] [place] [address] [id number] Milana Fonseca Self - patient is the insured [address] [place] [address] [address] [place] [address] [phone] [id number] Milana Fonseca Self - patient is the insured Medical (General) History Medical History History ICD Code Arthritis Chicken pox Cholesterol Diabetic type ll Heart disease High blood pressure Surgical History Surgery Date(Month/Year) R ovarian removed 1995 gall bladder removed 1999 Hammer toe Left 3rd toe cardiac catheterization 11/13/21 eye surgery 06/15/23 Hospitalization History Reason Date(Month/Year) [facility] [place]- flu 03/2022
--- OUTSIDE RECORDS SUMMARY | 2024-09-29 13:25 | XMS_ITS ---
Author [facility] Address [address] [place] [address] Care Team Providers Care Sorting Supervisor Name Role Phone Aracely Thompson Primary Care Provider Michelet Jackson Unavailable [phone] REASON FOR VISIT black toe/ingrown Encounters Encounter Location Date Provider Diagnosis [address] [place] [address] 08/12/2024 Michelet Mcclelland Plan Of Treatment Next Appt Details Provider Name:Michelet Mcclelland , 11/14/2024 02:00:00 PM, [address] [facility], [address], [place], [address], Progress Notes * Milana ALVESDOB: [birth year] (74 yo F)Acc No.[id number]:08/12/2024 Patient:?Milana ALVES :1950???Age:74 Y???Sex:Female [address] [place] [address] * true * Date:? Generated for Printi ng/Faxing/eTransmitting on:?09/29/2024 01:24 PM EST
== END 2024-09-29 12:48 | disposition home or self-care (01) ==
PROVIDERS: PCP Internal Medicine; Visit Provider Internal Medicine Cardiovascular Disease
DX: I25.10 Atherosclerotic heart disease of native coronary artery without angina pectoris (principal); I48.0 Paroxysmal atrial fibrillation
CPT/HCPCS: 93010; 99214; G2211

== ENCOUNTER → 2024-09-29 12:28 | Outpatient (BNVA) | payer MEDICARE, OTHER, SELFPAY | PROVIDERS: PCP Internal Medicine; Visit Provider Internal Medicine Cardiovascular Disease | DX: I25.10 Atherosclerotic heart disease of native coronary artery without angina pectoris (principal); I48.0 Paroxysmal atrial fibrillation | CPT/HCPCS: 93005; 99212 ==

== ENCOUNTER 2024-09-30 09:33 | Outpatient (REF) | payer MEDICARE, OTHER, SELFPAY ==
--- OUTSIDE RECORDS SUMMARY | 2024-09-30 10:04 | XMS_ITS ---
Author Organization [employer] [facility] Address [address] [place] [address] Care Team Providers Care Actuary Name Role Phone Lucrecia Munoz Unavailable [phone] Allergies No Known Allergies Results Component Value Reference Range Notes [id number] IGP No Culture 30 Plus Reviewed date:11/23/2023 04:32:47 PM Interpretation: Performing Lab:[facility], Mariela Escamilla [address], [address], [place], Phone - [phone], Director - [facility] Notes/Report: Clinical Information:Vaginal/Cervical, LMP: Men o [id number] Dates / Results....Unknown New PT Today Other..............Post Menopausal No. of containers..01 ThinPrep Vial DIAGNOSIS: NEGATIVE FOR INTRAEPITHELIAL LESION OR MALIGNANCY. CELLULAR CHANGES ASSOCIATED WITH ATROPHY ARE PRESENT. Specimen adequacy: Satisfactory for evaluation. Endocervical component may not be distinguished in cases of atrophy. Clinician provided ICD10: Z0 1.419 Performed by: Tom Ahumada ytotechnologist ([facility]) . . Note: The Pap smear [...] Francine Pedro, [address], [place], Phone - [phone], Director - [facility] Notes/Report: Clinical Information:Vaginal/Cervical, LMP: Men o [id number] Dates / Results....Unknown New PT Today Other..............Post Menopausal No. 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, Annual SLOT TECHNICIAN Physical 60-85+ Medications Medication SIG (Take, Route, Frequency, Duration) Notes Start Date End Date Status Nystatin 373998 UNIT/GM APPLY 1 APPLICAT ION TOPICALLY 2 [...] Status W/U Status Risk Notes Problem Osteoarthritis (556506973) Unspecified osteoarthritis, unspecified site (M19.90) Active confirmed Problem Postmenopausal atrophic vaginitis (88629331) Postmenopausal atrophic vaginitis (N95.2) Active confirmed Vital Signs Temperature 97.5 degrees Fahrenheit 11/18/19 24 Blood pressure systolic 126 mm Hg 11/18/19 24 Blood pressure diastolic 76 mm Hg 024 Height 62 in 11/18/2023 Weight 175 lbs 11/18/2023 BMI 32 kg/m2 11/18/2023 Encounters Encounter Location Date Provider Diagnosis Total [address] [place] [address] 11/18/2023 Lucrecia Munoz Encounter for gynecological examination [...] * CALVIN ALVESDOB: [birth year] (73 yo F)Acc No.[id number]:11/18/2023 Progress Note Patient:?CALVIN ALVES Appointment Provider:?Lucrecia hall M.D. :1950???Age:73 Y???Sex:Female D ate:11/18/2023 Address:[address] [place] Subjective: * Chief Complaints: * ???Annual SLOT TECHNICIAN PhysicalAnnual SLOT TECHNICIAN Physical 60-85+ * HPI: ???New/Follow-up Patient Consult:? [...] adequate calcium via diet and supplementation ?Significant SLOT TECHNICIAN problems:?no significant configuration management advisor symptoms or problems * ROS:?general:?no?chest pain.?no?palpitations.?no?headache.?no?cough.?no?shortness of breath.?no?fever.?no?unexplained weight loss.?no?nausea/vomiting.?no?change in bowel movements.?no blood in stool.?no?genitourinary complaints.?no?skin complaints.? * Medical History:? * Quality Assurance Project Manager History:?/ Para?5/3.?Sexual activity?not currently sexually active.?Last Pap Smear:?5 Years.?Mammogram:?2022 [place].?LMP and menses?[place].?Colonoscopy?2022.?Bone Density:?unusre.? * OB History:?Total pregnancies?5.?Total living children?2 [...] Trulicity 0.75 MG/0.5ML Solution Pen-injector Subcutaneous Nystatin 013403 UNIT/GM Cream APPLY 1 APPLICATION TOPICALLY 2 [...] 0.75 MG/0.5ML Solution Pen-injector Subcutaneous Taking Nystatin 528606 UNIT/GM Cream APPLY 1 APPLICATION TOPICALLY 2 [...] * Images: Billing Information: * Visit Code:? 57091 Preventive Care Est Pt. Age 65 and over. * Procedure Codes:? * Sign off status: Completed true * Appointment Provider:?Lucrecia Munoz M.D. Date:?11/18/2023 Generated for Mari ventura/Zaire/eTkemalsmitting on:?09/30/2024 10:04 AM EST History and Physical Notes * HPI [...] ate calcium via diet and supplementation Significant SLOT TECHNICIAN problems:: n o significant configuration management advisor symptoms or problems Examination Category Sub-Category Detail [...]
--- OUTSIDE RECORDS SUMMARY | 2024-09-30 10:05 | XMS_ITS ---
Author Organization [facility] Address [address] [place] [address] Care Team Providers Care Leak Operator Paraffin Plant Name Role Phone Aracely Thompson Primary Care Provider Michelet Jackson Unavailable [phone] Allergies No Known Allergies REASON FOR VISIT [...] Ordered Date Performed Result Body Sit e 99520-LHVDQEC NAIL, 6 OR MORE 02/15/2024 N/A 00390-EVXV SKIN LESIONS, OVER 4 02/15/2024 N/A Encounters Encounter Location Date Provider Diagnosis [facility] [place] [address] [address] 02/15/2024 Michelet Mcclelland Type 2 diabetes mellitus [...] Treatment Pending Test Test Name Order Date 11309-RMIYSEM NAIL, 6 OR MORE 02/15/2024 49964-VUAR SKIN LESIONS, OVER 4 02/15/20 24 Next Appt Details Follow Up: prn, Reason: Provider Name:Michelet Mcclelland , 11/14/2024 02:00:00 PM, [address] [facility], [place] [address], [place], [address], Procedure Notes * Category Sub-Category Detail Notes [...] as necessary. Patient chooses, no pharmaceutical tx (84794) Keratoma Treatment Parring or Cutting o f Benign Hyperkeratotic Lesion(s) 42567 ( >4 Lesions) - The Benign hyperkeratotic lesions, as described above were pared, and/or cut utilizing a sterile #15 blade, tissue nippers, and/or dremel, Q8 Progress Notes * Milana FONSECADOB: 9 (73 yo F)Acc No.[id number]:02/15/2024 Progress Note Patient:?Milana Fonseca Provider:?Michelet Mcclelland DPM :1950???Age:73 Y???Sex:Female D ate:02/15/2024 Address:[address] [place], [facility] Pcp:Aracely Thompson Subjective: * Chief Complaints: * [...] 06/15/23 * Hospitalization/Major Diagno stic Procedure:?[facility] [place]- flu 03/2022 * Family History:?Mother: dece ased, [...] - M79.675? Plan: * Treatment: 2.?Tinea unguium?Procedure: 88282-WJVHNEL NAIL, 6 OR MORE * Procedures:?Debride Nail 6-10:?Nail debridement?Nail debridement performed extensively to reduce/remove overall nail length, girth, thickness, subungual debris, and necrotic tissue, by manual and electrical means through the use of a nail nipper and/or dremel, to more viable healthy nail plate or bed tissue 1-5. Silver nitrate used for any petechial bleeding as necessary. Patient chooses, no pharmaceutical tx (07046).?Keratoma Treatment:?Parring or Cutting of Benign Hyperkeratotic Lesion(s)?73874 ( >4 Lesions) - The Benign hyperkeratotic lesions, as described above were pared, and/or cut utilizing a sterile #15 blade, tissue nippers, and/or dremel, Q8.? * Procedure Codes:?77007 DEBRI DE NAIL, 6 OR MORE, Modifiers: XS 04218 TRIM SKIN LESIONS, OVER 4, Modifiers: XS , Q8 * Follow Up:?prn * Images: * Sign off status: Completed Addendum: * ? true * Provider:?Michelet Mcclelland DPM Date:?2023 Generated for Mari ventura/Zaire/Juana on:?09/30/2024 10:05 AM EST History and Physical Notes * [...]
--- OUTSIDE RECORDS SUMMARY | 2024-09-30 10:05 | XMS_ITS | Patient Health Record ---
Author Organization [facility] Address [address] [place] [address] Care Team Providers Care Senior Web Designer Name Role Phone Lucrceia Munoz Unavailable [phone] Allergies No Known Allergies Results Component Value Reference Range Notes [id number]-Uyk IGP No Culture 30 Plus Reviewed date:11/23/2023 04:32:47 PM Interpretation: Performing Lab:[facility] [place], Mariela Francine Pedro, [address], [place], Phone - [phone], Director - [facility] Notes/Report: Clinical Information:Vaginal/Cervical, LMP: Men o [id number] Dates / Results....Unknown New PT Today Other..............Post Menopausal No. of containers..01 ThinPrep Vial DIAGNOSIS: NEGATIVE FOR INTRAEPITHELIAL LESION OR MALIGNANCY. CELLULAR CHANGES ASSOCIATED WITH ATROPHY ARE PRESENT. Specimen adequacy: Satisfactory for evaluation. Endocervical component may not be distinguished in cases of atrophy. Clinician provided ICD10: Z0 1.419 Performed by: Tom Ahumada ytotechnologist ([facility]) . . Note: The Pap smear is [...] Francine Pedro, [address], [place], Phone - [phone], Director - [facility] Notes/Report: Clinical Information:Vaginal/Cervical, LMP: Men o [id number] Dates / Results....Unknown New PT Today Other..............Post Menopausal No. of containers..01 ThinPrep Vial Reason For Referral No Information Medications Medication SIG (Take, Route, Frequency, Duration) Notes Start Date End Date Status Nystatin 882661 UNIT/GM APPLY 1 APPLICAT ION TOPICALLY 2 [...] Status Risk Notes Problem Postmenopausal atrophic vaginitis (85997231) Postmenopausal atrophic vaginitis (N95.2) Active confirmed Problem Osteoarthritis (031226012) Unspecified osteoarthritis, unspecified site (M19.90) Active confirmed Vital Signs Temperature 97.5 degrees Fahrenheit 11/18/2023 Blood pressure diastolic 76 mm Hg 11/18/2023 Height 62 in 11/18/2023 Blood pressure systolic 126 mm Hg 11/18/2023 Weight 175 lbs 11/18/2023 BMI 32 kg/m2 11/18/2023 Encounters Encounter Location Date Provider Diagnosis Total [address] [place] [address] 11/18/2023 Lucrecia Munoz Encounter for gynecological examination [...] Coverage End Date MEDICARE [address] [place], [place] [id number] CALVIN ALVES Self - patient is the insured [address] [place] [address] [address] [place] [address] [id number] CALVIN ALVES Self - patient is [...]
--- OUTSIDE RECORDS SUMMARY | 2024-09-30 10:05 | XMS_ITS ---
Author Organization [facility] Address [address] [place] [address] Care Team Providers Care Tissue Packer Name Role Phone Aracely Thompson Primary Care Provider Michelet Jackson Unavailable [phone] REASON FOR VISIT black toe/ingrown Encounters Encounter Location Date Provider Diagnosis [address] [place] [address] 08/12/2024 Michelet Mcclelland Plan Of Treatment Next Appt Details Provider Name:Michelet Mcclelland , 11/14/2024 02:00:00 PM, [address] [facility], [address], [place], [address], Progress Notes * Milana ALVESDOB: [birth year] (74 yo F)Acc No.[id number]:08/12/2024 Patient:?Milana ALVES :1950???Age:74 Y???Sex:Female Address:[address] [place] [address] * true * Date:? Generated for Printi ng/Faxing/eTransmitting on:?09/30/2024 10:05 AM EST
--- OUTSIDE RECORDS SUMMARY | 2024-09-30 10:05 | XMS_ITS ---
Author Organization [facility] Address [address] [place] [address] Care Team Providers Care Log Roper Name Role Phone Aracely Thompson Primary Care Provider Michelet Jackson Unavailable [phone] Allergies No Known Allergies REASON FOR VISIT [...] Polyneuropathy due to type 2 diabetes mellitus (458518731) Type 2 diabetes mellitus with diabetic polyneuropathy (E11.42) Active confirmed Problem Acquired hammer toe of right foot (5342097375693734 ) Other hammer toe(s) (acquired), right foot (M20.41) Active confirmed Problem Acquired hammer toe of left foot (3164637474890482 ) Other hammer toe(s) (acquired), left foot (M20.42) Active confirmed Vital Signs Blood pressure systolic 128 mm Hg 08/15/19 25 Blood pressure diastolic 63 mm Hg 025 Height 5ft 2in in 08/15/2024 Weight 179 lbs 08/15/2024 BMI 32.74 kg/m2 08/15/2024 Procedures Procedure Date Ordered Date Performed Result Body Sit e 80555-YPNDWNU NAIL, 6 OR MORE 08/15/2024 N/A 45540-Dadelxtd Plate 08/15/2024 N/A 17614-ZMWI SKIN LESIONS, OVER 4 08/15/2024 N/A 08508-Nzao. Subungual Hematoma 08/15/2024 N/A Encounters Encounter Location Date Provider Diagnosis [facility] [address] [address] 08/15/2024 Micheletwillis IsbellKrystin Type 2 diabetes mellitus [...] INSTRUCTIONS.pdf) Pending Test Test Name Order Date 71476-YUTOOWV NAIL, 6 OR MORE 08/15/2024 42688-Hxxosjmw Plate 08/15/2024 47680-AOMO SKIN LESIONS, OVER 4 08/15/19 33446-Yqrz. Subungual Hematoma Next Appt Details Follow Up: prn, Reason: Provider Name:Michelet Mcclelland , 11/14/2024 02:00:00 PM, [address] [facility], [address], [place], [address], Procedure Notes * Category Sub-Category Detail Notes [...] Motrin was recommended for pain or discomfort (89376), DIABETES: Pt was advised as to the [...] use of a nail nipper and/or dremel-type cutter grinder operator, to a more viable healthy nail plate [...] to maintain effectiveness in symptomatic relief - 20660 I&D subungual hematoma: Location T5, As p [...] advised of the possibilty for nail auto-avulsion (40882), DIABETES: Pt was advised as to the [...] instrumentation by the physician of record - 71200 Progress Notes * Milana FONSECADOB: [birth year] (74 yo F)Acc No.[id number]:08/15/2024 Progress Note Patient:?Milana FONSECA Provider:?Michelet Mcclelland DPM :1950???Age:74 Y???Sex:Female D ate:08/15/2024 Address[address] [facility], [place] Pcp:Aracely Thompson Subjective: * Chief Complaints: * [...] 06/15/23 * Hospitalization/Major Diagno stic Procedure:?[facility] [place]- flu 03/2022 * Family History:?Mother: dece ased, [...] Uncomplicated (3)??? Plan: * Treatment: 2.?Ingrown nail?Procedure: 36674-Nrxwqlzd Plate 3.?Other hammer toe(s) (acqu ired), right foot? Start Extra Depth Orthopedic Shoes (1 Pair) with Customized Heat Molded Multidensity Innersoles (3 Pair), as directed, Dx: NIDDM/Polyneuropathy (E11.42), Hammertoe Foot Deformity (M20.41,M20.42), Preulcerative Skin Lesion(s) (L85.1, 1, Refills 0.?? Notes: Patient Educated with: DIABETIC FOOT CARE INSTRUCTIONS.pdf (DIABETIC FOOT CARE INSTRUCTIONS.pdf)?? 4.?Subungual hematoma of rig ht foot, initial encounter?Procedure: 16012-Lael. Subungual Hematoma * Procedures:?Debride Nail 6-10:?Nail debridement?Due [...] use of a nail nipper and/or dremel-type cutter grinder operator, to a more viable healthy nail plate [...] to maintain effectiveness in symptomatic relief - 04444.?I&D subungual hematoma::?Location?T5, As per exam.?Anesthesia?was deferred - [...] advised of the possibilty for nail auto-avulsion (01105), DIABETES: Pt was advised as to the [...] instrumentation by the physician of record - 85275.?Nail Avulsion:?Location?Lateral nail border,?TA.?Anesthesia?was deferred - NEUROPATHY: patient [...] Motrin was recommended for pain or discomfort (25913), DIABETES: Pt was advised as to the risk of delayed or nonhealing due to diabetes. Pt is to call the office with any questions, concerns, or complications.? * Procedure Codes:?28238 DEBRI DE NAIL, 6 OR MORE, Modifiers: XS 80954 Avulsion Plate, Modifiers: XS , VB12231 DRAIN BLOOD FROM UNDER NAIL, Modifiers: XS , [id number] TRIM SKIN LESIONS, OVER 4, Modifiers: XS [...] Mcclelland DPM Date:?2024 Generated for Mari ventura/Zaire/Juana on:?09/30/2024 10:04 AM EST History and Physical [...]
--- OUTSIDE RECORDS SUMMARY | 2024-09-30 10:05 | XMS_ITS ---
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 :1950???Age:73 Y???Sex:Female D ate:07/15/2023 Address:[address] [facility] Subjective: * Chief Complaints: * ???1. Annual ELECTRICAL HELPER Physical. * Medical History:? Objective: * Vitals:? Assessment: Plan: * Treatment: * Images: Billing Information: * Visit Code:? * Procedure Codes:? * Electronic signature of Radha Munoz MD on 09/30/2024 at 10:04 AM EST Sign off status: Pending * Appointment Provider:?Lucrecia Munoz M.D. Date:?07/15/2023 Generated for Mari ventura/Zaire/eTransmitting on:?09/30/2024 10:04 AM EST
--- OUTSIDE RECORDS SUMMARY | 2024-09-30 10:06 | XMS_ITS | Patient Health Record ---
Author Organization [facility] Address [address] [place] [address] Care Team Providers Care Second Steward Name Role Phone Aracely Thompson Primary Care Provider Michelet Jackson Unavailable [phone] Allergies No Known Allergies Results Component Value [...] Problem Acquired hammer toe of right foot (6369025620043749 ) Other hammer toe(s) (acquired), right foot (M20.41) Active confirmed Problem Acquired hammer toe of left foot (0592312781019970 ) Other hammer toe(s) (acquired), left foot (M20.42) Active confirmed Problem Polyneuropathy due to type 2 diabetes mellitus (686020737) Type 2 diabetes mellitus with diabetic polyneuropathy (E11.42) Active confirmed Vital Signs Blood pressure diastolic 63 mm Hg 08/15/2024 Height 5ft 2in in 08/15/2024 Blood pressure systolic 128 mm Hg 08/15/2024 Weight 179 lbs 08/15/2024 BMI 32.74 kg/m2 08/15/2024 Procedures Procedure Date Ordered Date Performed Result Body Sit e 59498-MDZENDX NAIL, 6 OR MORE 10/05/2023 N/A 62149-RUMR SKIN LESIONS, OVER 4 10/05/2023 N/A 31627-SLCGIGH NAIL, 6 OR MORE 02/15/2024 N/A 02618-PNYM SKIN LESIONS, OVER 4 02/15/2024 N/A 37080-VROXCRX NAIL, 6 OR MORE 08/15/2024 N/A 86874-Qgpgpxtb Plate 08/15/2024 N/A 61751-LHXM SKIN LESIONS, OVER 4 08/15/2024 N/A 51005-Bwuz. Subungual Hematoma 08/15/2024 N/A Encounters Encounter Location Date Provider Diagnosis [facility] [address] [address] 10/05/2023 Michelet Mcclelland Type 2 diabetes mellitus with diabetic peripheral angiopathy without gangrene E11.51 ; Tinea unguium B35.1 ; Pain in right toe(s) M79.674 and Pain in left toe(s) M79.675 [facility] [address] 02/15/2024 Michelet Isbellunier Type 2 diabetes mellitus with diabetic peripheral angiopathy without gangrene E11.51 ; Tinea unguium B35.1 ; Pain in right toe(s) M79.674 and Pain in left toe(s) M79.675 [facility] [address] 08/15/2024 Michelet Singletaryier Type 2 diabetes mellitus with diabetic polyneuropathy E11.42 ; Tinea unguium B35.1 ; Ingrown nail L60.0 ; Other hammer toe(s) (acquired), right foot M20.41 ; Other hammer toe(s) (acquired), left foot M20.42 and Subungual hematoma of right foot, initial encounter S90.221A [facility] [address] 08/12/2024 Michelet Mcclelland Assessments Encounter Date Diagnosis [...] X ray : Foot, left 3V 04/02/2023 14265-NPNIPPY NAIL, 6 OR MORE 06/29/2023 40080-HMPJPBB NAIL, 6 OR MORE 04/02/2023 64506-VQYXNVI NAIL, 6 OR MORE 10/05/2023 40115-EVIVYDC NAIL, 6 OR MORE 02/15/2024 17976-IWSPOAP NAIL, 6 OR MORE 08/15/2024 96178-SNTGTAB NAIL, 6 OR MORE 08/30/2020 87090-CFUZVZH NAIL, 6 OR MORE 11/29/2020 53536-KWZITJO NAIL, 6 OR MORE 02/28/2021 08158-ONZTPBZ NAIL, 6 OR MORE 05/30/2021 73421-TJCXHSI NAIL, 6 OR MORE 09/05/2021 44768-NYSZWUE NAIL, 6 OR MORE 12/05/2021 21943-TKJGVBH NAIL, 6 OR MORE 03/10/2022 78780-GMCQVHX NAIL, 6 OR MORE 06/09/2022 36402-VOIIMTQ NAIL, 6 OR MORE 09/08/2022 33689-BJHFFDI NAIL, 6 OR MORE 12/15/2022 70119-UIKLOJG NAIL, 1-5 08/15/2019 54579-QHDRZZV NAIL, -5 04/11/2020 14722-SYURBFS NAIL, -5 01/24/2019 91714-YQXIBKT NAIL, 1-5 05/09/2019 30199-Ebxxovog Plate 01/24/2019 85891-Oeyhxrjh Plate 03/10/2022 55883-Wqhutctz Plate 12/05/2021 93846-Qfsraqdu Plate 09/05/2021 56381-Qpojlpep Plate 08/15/2024 79447-Zchtvbzj Plate 04/02/2023 08541-Cwasfeni Plate 09/08/2022 91644-Zntpfgmx Plate 12/15/2022 26383-Ypxawnkx Plate 06/29/2023 73486-PKLD SKIN LESIONS, OVER 4 06/29/20 04462-EZQR SKIN LESIONS, OVER 4 04/02/20 26020-ANQE SKIN LESIONS, OVER 4 08/15/19 59327-SXTK SKIN LESIONS, OVER 4 02/15/20 08323-HEIV SKIN LESIONS, OVER 4 10/05/19 36809-MPHK SKIN LESIONS, OVER 4 09/05/19 64605-GGQG SKIN LESIONS, OVER 4 12/06/19 32528-DYZW SKIN LESIONS, OVER 4 03/10/20 56767-YNEB SKIN LESIONS, OVER 4 06/09/20 61730-KXSC SKIN LESIONS, OVER 4 12/16/19 43274-PRYC SKIN LESIONS, OVER 4 09/08/19 34387-ZVEM SKIN LESIONS, 2 TO 4 05/30/20 04582-LVKQ SKIN LESIONS, 2 TO 4 02/29/20 44668-IEZD SKIN LESIONS, 2 TO 4 05/09/20 19 26901-WRVD SKIN LESIONS, 2 TO 4 08/15/19 17579-LTYM SKIN LESIONS, 2 TO 4 01/25/20 19 86748-DRKC SKIN LESIONS, 2 TO 4 11/30/19 88893-XQIZ SKIN LESIONS, 2 TO 4 04/11/20 41699-ZFRN SKIN LESIONS, 2 TO 4 08/30/19 20752-Ukpm. Subungual Hematoma 5 X0361-NNDMWRGF DYSTROPHIC NAILS ANY # N5340-KOBKEKMP DYSTROPHIC NAILS ANY # H9010-THEHPAGF DYSTROPHIC NAILS ANY # O5353-NPQGQIXY DYSTROPHIC NAILS ANY # Next Appt Details Provider Name:Michelet Mcclelland , 11/14/2024 02:00:00 PM, [address] [facility], [facility] [address], [place], [address], Insurance Providers Payer Name Payer Address Payer Phone Subscriber Number Group Number Insured Name Patient Relationship to Insured Coverage Start Date Coverage End Date Medicare [employer] [address] [place] [address] [id number] Milana Fonseca Self - patient is the insured [address] [place] [address] [address] [place] [address] [id number] Milana Fonseca Self - patient is the insured Medical (General) History Medical History History ICD Code Arthritis Chicken pox Cholesterol Diabetic type ll Heart disease High blood pressure Surgical History Surgery Date(Month/Year) R ovarian removed 1995 gall bladder removed 1999 Hammer toe Left 3rd toe cardiac catheterization 11/13/21 eye surgery 06/15/23 Hospitalization History Reason Date(Month/Year) Urgent Care [place]- flu 03/2022
--- OUTSIDE RECORDS SUMMARY | 2024-09-30 10:06 | XMS_ITS | Patient Health Record ---
Author Organization [facility] Address [address] [place] [address] Care Team Providers Care Cold Saw Operator Name Role Phone Aracely Thompson MD Primary Care Provider Marquise Chapin [phone] ALLERGIES No Known Allergies REASON FOR REFERRAL [...] History o f adenomatous polyp of colon (295417616) Problem Dysphagia (R13.10) Active confirmed Dys phagia (19094137) Problem Duodenitis (K29.80) Active confirmed Du odenitis (11086849) Problem Hiatal hernia (K44.9) Active confirmed Hiatal hernia (05862096) Problem Rectal bleed (K62.5) Active confirmed Bleeding from a nus (3787466) Problem Gastritis (K29.70) Active confirmed Gas tritis (0663461) Problem Duodenal ulcer (K26.9) Active confirmed Duodenal ulcer (54776381) Problem Helicobacter pylori infection (A04.8) Active confirmed Helicobact er pylori infection (002338041) Problem Diverticulosis of colon (K57.30) Active confirmed Diverticulosi s of colon (449527303) Problem Gastroesophageal reflux disease, unspecified whether esophagitis present (K21.9) Active confirmed Gastroesophagea l reflux disease (305964160) Problem Esophageal dysphagia (R13.19) Active confirmed Difficult y swallowing (991152262) PLAN OF TREATMENT Future Test Test Name Order Date COLONOSCOPY 05/30/2014 UPPER GI ENDOSCOPY BALLOOON DILATION OF ESOPH 07/09/2021 COLONOSCOPY 07/09/2021 Insurance Providers Payer Name Payer Address Payer Phone Subscriber Number Group Number Insured Name Patient Relationship to Insured Coverage Start Date Coverage End Date MEDICARE OF [place] [address] [place] [address] [phone] [id number] CALVIN ALVES Self - patient is the insured [facility] [address] [place] [address] [id number] CALVIN ALVES Self - patient is the insured MEDICAL (GENERAL) HISTORY Medical History History ICD Code Colonoscopy 05-31-2004--only a hyperplas tic polyp, sigmoid diverticulosis Hyperlipidemia Hypertension Denies renal disease NIDDM CAD--PA and 2 stents > 5 yrs ago-Dr. Diamante delacruz Fatty liver--neg. Hepatitis serologies, neg. Iron studies, neg. liver U/S--normal LFT's in 09/2013 Atrial fib - Dr. Che and a yolanda tabber in [place]--may be having EP studies as of the [...] Removal of right ovary Tubal ligation Breast [id number]
[2024-09-30 11:10] LABS: Cholesterol 152 mg/dL (<200); HDL Cholesterol 50 mg/dL (>40); LDL Cholesterol Calculated 85 mg/dL (<100); Triglycerides 87 mg/dL (<150)
== END 2024-09-30 09:34 | disposition home or self-care (01) ==
LOC: HO.LAB 09:33
PROVIDERS: PCP Internal Medicine; Visit Provider Internal Medicine Cardiovascular Disease
DX: I25.10 Atherosclerotic heart disease of native coronary artery without angina pectoris (principal)
CPT/HCPCS: 36415; 80061

== ENCOUNTER → 2024-10-13 14:57 | Outpatient (REF) | payer MEDICARE, OTHER, SELFPAY ==
--- NOTE | 2024-10-13 15:04 | CA_ITS ---
Transthoracic Echocardiogram Patient (Last, First, Middle): Milana Fonseca, Gender: Female Date of : 1950 Age: 74 Procedure Date: 10/13/2024 Procedure Type: Transthoracic Echocardiogram Location: OP Height: 157.48 cm Weight: 81.19 kg BSA: 1.82 m2 Heart Rate: bpm BP: 110 / 70 mmHg District Service Manager: SB Referring MD: Daniel Che MD Recovery Specialist: Daniel Che MD Symptoms: I48.0 - Paroxysmal atrial fibrillation Study Quality: Adequate ECG Rhythm: Sinus Conclusions: - 1. Normal LV ejection fraction 55-60% with pseudonormal filling pattern 2. Calcific aortic and mitral valve changes with normal cardiac valvular Dopplers 3. No gross pericardial effusion Findings Left Ventricle Normal left ventricular size, thickness, and systolic function. The visually estimated ejection fraction is between 55-60%. Spectral Doppler is indicative of a pseudonormal filling pattern. E/E prime ratio is between 8 and 15 consistent with indeterminate filling pressures. Right Ventricle Normal right ventricular cavity size and systolic function. Atria The left atrium is normal in size. There is no evidence of interatrial shunt. The right atrium is normal in size. Aortic Valve There is mild thickening of the aortic valve. There is no aortic valve stenosis. There is no aortic valve regurgitation. Mitral Valve There is mild anterior and moderate posterior mitral leaflet thickening. There is moderate mitral annular calcification. There is trace mitral valve regurgitation. There is no mitral valve stenosis. Pulmonic Valve The pulmonic valve was not well visualized. Tricuspid Valve Likely normal tricuspid valve structure and function. Tricuspid regurgitation envelope is inadequate for calculation of right ventricular systolic pressure. Normal right atrial pressure. Great Vessels All visible segments of the aorta are normal in size. The pulmonary artery was not well visualized. There is no dilatation of the ascending aorta measuring 3.30 cm. Venous The hepatic vein is normal in size and collapses greater than 50% with inspiration. Pericardium/Pleural There is no evidence of pericardial effusion. Measurements 2D Linear Measurements IVSd: 1.06 0.6-0.9/0.6-1.0 cm LVIDd: 4.20 3.9-5.3/4.2-5.9 cm LVIDd Index: 2.31 2.4-3.2/2.2-3.1 cm/m2 LVIDs: 3.02 2.0-3.6 cm LVPWd: 0.81 0.7-1.1 cm LA Diam: 3.80 2.7-3.8/3.0-4.0 cm LAIDs Index: 2.09 1.5-2.3 cm/m2 LV Mass: 155.43 67-162/88-224 g LV Mass Index: 85.40 43-95/49-115 g/m2 LVOT Diam: 1.90 3.0+(-)1.3 cm 2D Systolic Function EF 4C: 54.70 >55% EF 2C: 51.10 >55% EF BiP: 56.00 >55% Mitral Valve MV Pk E: 0.75 MV PK A: 0.60 MV Decel Time: 229.00 E/A: 1.30 E'Lateral: 7.18 E'Medial: 5.22 E/E' Med: 14.30 E/E' Lat: 10.40 PHT: 67.00 MVA PHT: 3.28 Decel Lyman: 3.25 Aortic Valve AoV Pk Mars: 1.32 AoV Pk Grad: 7.00 MONIQUE: 2.17 LVOT LVOT Pk Mars: 0.99 LVOT Mn Mars: 0.68 LVOT VTI: 0.21 LVOT Pk Grad: 4.00 LVOT Mn Grad: 2.00 LVOT Diam: 1.90 LVOT Area: 2.84 Diastolic Function MV Pk E: 0.75 MV Pk A: 0.60 E/A: 1.30 E'Medial: 5.22 E/E' Med: 14.30 E' Laterial: 7.18 E/E' Lat: 10.40 Right Ventricle TAPSE (mm): 19.10 TVS' Mars: 9.79 Tricuspid Valve RA Press: 3.00 Great Vessels Aorta Sinus of Valsalva: 2.80 2.0-3.5 cm Ao Asc: 3.30 2.1-3.4 cm Pulmonary Veins Pulm Vein S/D 0.70 Pulmonary Valve PV Pk Mars: 0.78 Peak PV Grad: 2.00 Updated in Other Vendor System with Status of Final Daniel Che MD electronically signed on 10/14/2024 3:12:11 PM with status of Final
--- OUTSIDE RECORDS SUMMARY | 2024-10-13 18:30 | XMS_ITS ---
Author Organization [facility] Address [address] [facility] [place] [address] Care Team Providers Care Financial Foundations Associate Name Role Phone Aracely Thompson Primary Care Provider Michelet Jackson Unavailable [phone] Allergies No Known Allergies REASON FOR VISIT [...] Polyneuropathy due to type 2 diabetes mellitus (923093100) Type 2 diabetes mellitus with diabetic polyneuropathy (E11.42) Active confirmed Problem Acquired hammer toe of right foot (6117280102146841 ) Other hammer toe(s) (acquired), right foot (M20.41) Active confirmed Problem Acquired hammer toe of left foot (6343797124531766 ) Other hammer toe(s) (acquired), left foot (M20.42) Active confirmed Vital Signs Height 5ft 2in in 08/15/2024 Weight 179 lbs 08/15/2024 BMI 32.74 kg/m2 08/15/2024 Blood pressure systolic 128 mm Hg 08/15/19 25 Blood pressure diastolic 63 mm Hg 025 Procedures Procedure Date Ordered Date Performed Result Body Sit e 06354-NTWPTTY NAIL, 6 OR MORE 08/15/2024 N/A 45143-Asjurnjp Plate 08/15/2024 N/A 55225-CGIQ SKIN LESIONS, OVER 4 08/15/2024 N/A 85044-Ojkl. Subungual Hematoma 08/15/2024 N/A Encounters Encounter Location Date Provider Diagnosis [facility] [address] [address] 08/15/2024 Micheletwillis IsbellKrystin Type 2 diabetes mellitus [...] INSTRUCTIONS.pdf) Pending Test Test Name Order Date 78552-QNSYBHS NAIL, 6 OR MORE 08/15/2024 47462-Cbrkzrji Plate 08/15/2024 83493-IEJN SKIN LESIONS, OVER 4 08/15/19 49836-Vdwt. Subungual Hematoma Next Appt Details Follow Up: prn, Reason: Provider Name:Michelet Mcclelland , 11/14/2024 02:00:00 PM, [address] [facility], [address], [place], [address], Procedure Notes * Category Sub-Category Detail Notes [...] Motrin was recommended for pain or discomfort (08803), DIABETES: Pt was advised as to the [...] use of a nail nipper and/or dremel-type fusion juncture grinder, to a more viable healthy nail [...] to maintain effectiveness in symptomatic relief - 91464 I&D subungual hematoma: Location T5, As p [...] advised of the possibilty for nail auto-avulsion (44123), DIABETES: Pt was advised as to the [...] instrumentation by the physician of record - 02895 Progress Notes * Milana FONSECADOB: [birth year] (74 yo F)Acc No.[id number]:08/15/2024 Progress Note Patient:?Milana FONSECA Provider:?Michelet Mcclelland DPM :1950???Age:74 Y???Sex:Female D ate:08/15/2024 [address] [facility] [facility] [place] Pcp:Aracely Thompson Subjective: * Chief Complaints: * [...] 06/15/23 * Hospitalization/Major Diagno stic Procedure:?[facility]- flu 03/2022 * Family History:?Mother: dece ased, [...] 5.9 * Examination: ???Ophthalmology Referral: ?DIABETES EYE EXAM?Procedure Performed:?Yes ?Date of Exam Performed?09/30/2023 ?Findings of Diabetic Eye Exam:?no retinopathy?Neurological: ?SENSORY:? Neurological exam demonstrates, reduced light touch [...] proximal to distal, B/L.?PIGMENTATION:? mottled, B/L.?EDEMA (C):? 1/4, non-pitting, without aching pain, B/L, Ankle(s).?CLAUDICATION (C):?denies, [...] for office visit today.?ORIENTED:?person, place, and time.?FOOT EXAM:?Lower Extremity Neurological Exam performed:?Yes Date ?Visual exam of foot performed:?Yes ?Date?08/15/2024 ?Footwear Evaluation?Footwear Evaluation performed:?Yes??? Assessment: * Assessment: 1.?Type 2 diabetes mellitus [...] Uncomplicated (3)??? Plan: * Treatment: 2.?Ingrown nail?Procedure: 87921-Tichrscm Plate 3.?Other hammer toe(s) (acqu ired), right foot? Start Extra Depth Orthopedic Shoes (1 Pair) with Customized Heat Molded Multidensity Innersoles (3 Pair), as directed, Dx: NIDDM/Polyneuropathy (E11.42), Hammertoe Foot Deformity (M20.41,M20.42), Preulcerative Skin Lesion(s) (L85.1, 1, Refills 0.?? Notes: Patient Educated with: DIABETIC FOOT CARE INSTRUCTIONS.pdf (DIABETIC FOOT CARE INSTRUCTIONS.pdf)?? 4.?Subungual hematoma of rig ht foot, initial encounter?Procedure: 27996-Oimw. Subungual Hematoma * Procedures:?Debride Nail 6-10:?Nail debridement?Due [...] use of a nail nipper and/or dremel-type fusion juncture grinder, to a more viable healthy nail [...] to maintain effectiveness in symptomatic relief - 40240.?I&D subungual hematoma::?Location?T5, As per exam.?Anesthesia?was deferred - [...] advised of the possibilty for nail auto-avulsion (31993), DIABETES: Pt was advised as to the [...] instrumentation by the physician of record - 76376.?Nail Avulsion:?Location?Lateral nail border,?TA.?Anesthesia?was deferred - NEUROPATHY: patient [...] Motrin was recommended for pain or discomfort (61923), DIABETES: Pt was advised as to the risk of delayed or nonhealing due to diabetes. Pt is to call the office with any questions, concerns, or complications.? * Procedure Codes:?54582 DEBRI DE NAIL, 6 OR MORE, Modifiers: XS 22924 Avulsion Plate, Modifiers: XS , [id number] DRAIN BLOOD FROM UNDER NAIL, Modifiers: XS , [id number] TRIM SKIN LESIONS, OVER 4, Modifiers: XS [...] Mcclelland DPM Date:?2024 Generated for Mari ventura/Zaire/Juana on:?10/13/2024 06:30 PM EST History and Physical Notes * HPI (History of Present Illness) Category Sub-Category Detail Notes Category Not es Toe pain Location: B/L feet Duration: several years Course: worse Aggravated by: shoes, any pressure Treatments: change in shoes Painful Nails Duration: States Possible Date Of Injury - 08/09/24 At Risk footcare Pt States Last PCP Visit: Date: Examination Category Sub-Category Detail Notes Category Not [...]
--- OUTSIDE RECORDS SUMMARY | 2024-10-13 18:30 | XMS_ITS ---
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 :1950???Age:73 Y???Sex:Female D ate:07/15/2023 Address:[address] [facility] Subjective: * Chief Complaints: * ???1. 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 * Medical History:? Objective: * Vitals:? Assessment: Plan: * Treatment: * Images: Billing Information: * Visit Code:? * Procedure Codes:? * Electronic signature of Radha Munoz MD on 10/13/2024 at 06:30 PM EST Sign off status: Pending * Appointment Provider:?Lucrecia Munoz M.D. Date:?07/15/2023 Generated for Mari ventura/Zaire/eTransmitting on:?10/13/2024 06:30 PM EST
--- OUTSIDE RECORDS SUMMARY | 2024-10-13 18:30 | XMS_ITS ---
Author Organization [facility] Address [address] [place] [address] Care Team Providers Care Shade Classifier Name Role Phone Lucrecia Munoz Unavailable [phone] Allergies No Known Allergies Results Component Value Reference Range Notes [id number]-Oiw IGP No Culture 30 Plus Reviewed date:11/23/2023 04:32:47 PM Interpretation: Performing Lab:[facility], Mariela Escamilla [address], [address], [place], Phone - [phone], Director - [facility] Notes/Report: Clinical Information:Vaginal/Cervical, LMP: Men o [id number] Dates / Results....Unknown New PT Today Other..............Post Menopausal No. of containers..01 ThinPrep Vial DIAGNOSIS: NEGATIVE FOR INTRAEPITHELIAL LESION OR MALIGNANCY. CELLULAR CHANGES ASSOCIATED WITH ATROPHY ARE PRESENT. Specimen adequacy: Satisfactory for evaluation. Endocervical component may not be distinguished in cases of atrophy. Clinician provided ICD10: Z0 1.419 Performed by: Tom Ahumada ytotechnologist ([facility]) . . Note: The Pap smear is [...] Francine Pedro, [address], [place], Phone - [phone], Director - [facility] Notes/Report: Clinical Information:Vaginal/Cervical, LMP: Men o [id number] Dates / Results....Unknown New PT Today Other..............Post Menopausal No. 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 WATER POLLUTION CONTROL Physical 60-85+ Medications Medication SIG (Take, Route, Frequency, Duration) Notes Start Date End Date Status Nystatin 163856 UNIT/GM APPLY 1 APPLICAT ION TOPICALLY 2 [...] Status W/U Status Risk Notes Problem Osteoarthritis (688894872) Unspecified osteoarthritis, unspecified site (M19.90) Active confirmed Problem Postmenopausal atrophic vaginitis (18786697) Postmenopausal atrophic vaginitis (N95.2) Active confirmed Vital Signs Temperature 97.5 degrees Fahrenheit 11/18/19 24 Blood pressure systolic 126 mm Hg 11/18/19 24 Blood pressure diastolic 76 mm Hg 024 Height 62 in 11/18/2023 Weight 175 lbs 11/18/2023 BMI 32 kg/m2 11/18/2023 Encounters Encounter Location Date Provider Diagnosis Total [address] [place] [address] 11/18/2023 Lucrecia Munoz Encounter for gynecological examination [...] * CALVIN ALVESDOB: [birth year] (73 yo F)Acc No.[id number]:11/18/2023 Progress Note Patient:?CALVIN ALVES Appointment Provider:?Lucrecia hall M.D. :1950???Age:73 Y???Sex:Female D ate:11/18/2023 Address:[address] [place] Subjective: * Chief Complaints: * ???Annual INSPECTOR WATER POLLUTION CONTROL PhysicalAnnual INSPECTOR WATER POLLUTION CONTROL Physical 60-85+ * HPI: ???New/Follow-up Patient Consult:? [...] adequate calcium via diet and supplementation ?Significant INSPECTOR WATER POLLUTION CONTROL problems:?no significant track laying supervisor symptoms or problems * ROS:?general:?no?chest pain.?no?palpitations.?no?headache.?no?cough.?no?shortness of breath.?no?fever.?no?unexplained weight loss.?no?nausea/vomiting.?no?change in bowel movements.?no blood in stool.?no?genitourinary complaints.?no?skin complaints.? * Medical History:? * Dairy Scientist History:?/ Para?5/3.?Sexual activity?not currently sexually active.?Last Pap Smear:?5 Years.?Mammogram:?2022 [place].?LMP and menses?Crystal.?Colonoscopy?2022.?Bone Density:?unusre.? * OB History:?Total pregnancies?5.?Total living children?2 [...] Trulicity 0.75 MG/0.5ML Solution Pen-injector Subcutaneous Nystatin 883892 UNIT/GM Cream APPLY 1 APPLICATION TOPICALLY 2 [...] 0.75 MG/0.5ML Solution Pen-injector Subcutaneous Taking Nystatin 652767 UNIT/GM Cream APPLY 1 APPLICATION TOPICALLY 2 TIMES A DAY NEEDED FOR RASH External * Allergies:?N.K.D.A.no[Allerg ies Verified] Objective: * Vitals:?Ht: 62 in, Wt: 175 l bs, BMI:32Index, BP: 126/76 mm Hg, Temp: 97.5 F. * Examination: ???General Exam: ?CONSTITUTIONAL:?General Appearance:?alert, in no acute distress, normal, well nourished ?NECK/THYROID:?Inspection/Palpation:?normal ?Thyroid:?normal size and shape ?RESPIRATORY:?Auscultation: clear to auscultation bilaterally, Respiratory Effort: normal.?CARDIOVASCULAR:?Auscultation: regular rate and rhythm.?BREAST, Right:?Inspection/Palpation:?no discharge, no masses present, no nipple retraction, no skin changes, no skin dimpling, no tenderness, no lymphadenopathy, no axillary mass, no axillary tenderness ?BREAST, Left:?Inspection/Palpation:?no discharge, no masses present, no nipple retraction, no skin changes, no skin dimpling, no tenderness, no lymphadenopathy, no axillary mass, no axillary tenderness ?GASTROINTESTINAL:?Abdomen:?no masses, nontender, nondistended ?Liver and Spleen:?normal ?Hernias:?no hernias present, no inguinal adenopathy ?MUSCULOSKELETAL:?Inspection/Palpation:?no clubbing, cyanosis, or edema ?SKIN:?Skin:?normal ?NEURO/PSYCH:?Orientation:?time , place, person ?Mood/Affect:?normal?Genitourinary: ?EXTERNAL GENITALIA:?External Genitalia:?normal, no lesions ?VAGINA:?Vagina:?atrophic vaginal tissue, minimal moisture ?BLADDER:?Bladder:?no mass, nontender ?URETHRA:?Urethra:?no erythema or lesions present ?CERVIX:?Cervix:?no lesions, nontender ?UTERUS:?Uterus:?nontender, normal contour, normal mobility, normal size ?ADNEXA:?Adnexa:?no masses, no tenderness ?ANUS AND PERINEUM:?Anus/Perineum:?visually normal??? Assessment: * Assessment: 1.?Encounter for gynecologic al [...] * Images: Billing Information: * Visit Code:? 56494 Preventive Care Est Pt. Age 65 and over. * Procedure Codes:? * Sign off status: Completed true * Appointment Provider:?Lucrecia Munoz M.D. Date:?11/18/2023 Generated for Mari ventura/Zaire/Liaitting on:?10/13/2024 06:30 PM EST History and Physical [...] ate calcium via diet and supplementation Significant INSPECTOR WATER POLLUTION CONTROL problems:: n o significant track laying supervisor symptoms or problems Examination Category Sub-Category Detail [...]
--- OUTSIDE RECORDS SUMMARY | 2024-10-13 18:31 | XMS_ITS | Patient Health Record ---
Author Organization [email or web address] Address [address] [place] [address] Care Team Providers Care Wafer Cleaner Name Role Phone Lucrecia Munoz Unavailable [phone] Allergies No Known Allergies Results Component Value Reference Range Notes [id number] IGP No Culture 30 Plus Reviewed date:11/23/2023 04:32:47 PM Interpretation: Performing Lab:[facility] [place], Mariela Francine Pedro, [address], [place], Phone - [phone], Director - [facility] Notes/Report: Clinical Information:Vaginal/Cervical, LMP: Men o [id number] Dates / Results....Unknown New PT Today Other..............Post Menopausal No. of containers..01 ThinPrep Vial DIAGNOSIS: NEGATIVE FOR INTRAEPITHELIAL LESION OR MALIGNANCY. CELLULAR CHANGES ASSOCIATED WITH ATROPHY ARE PRESENT. Specimen adequacy: Satisfactory for evaluation. Endocervical component may not be distinguished in cases of atrophy. Clinician provided ICD10: Z0 1.419 Performed by: Tom Ahumada ytotechnologist ([facility]) . . Note: The Pap smear [...] Francine Pedro, [address], [place], Phone - [phone], Director - [facility] Notes/Report: Clinical Information:Vaginal/Cervical, LMP: Men o [id number] Dates / Results....Unknown New PT Today Other..............Post Menopausal No. of containers..01 ThinPrep Vial Reason For Referral No Information Medications Medication SIG (Take, Route, Frequency, Duration) Notes Start Date End Date Status Nystatin 818821 UNIT/GM APPLY 1 APPLICAT ION TOPICALLY 2 [...] Status Risk Notes Problem Postmenopausal atrophic vaginitis (01507740) Postmenopausal atrophic vaginitis (N95.2) Active confirmed Problem Osteoarthritis (099417598) Unspecified osteoarthritis, unspecified site (M19.90) Active confirmed Vital Signs Temperature 97.5 degrees Fahrenheit 11/18/2023 Blood pressure diastolic 76 mm Hg 11/18/2023 Height 62 in 11/18/2023 Blood pressure systolic 126 mm Hg 11/18/2023 Weight 175 lbs 11/18/2023 BMI 32 kg/m2 11/18/2023 Encounters Encounter Location Date Provider Diagnosis Total [address] [place] [address] 11/18/2023 Lucrecia Munoz Encounter for gynecological examination [...] Coverage End Date MEDICARE [address] [place], [place] [id number] CALVIN ALVES Self - patient is the insured [address] [place] [address] [address] [place] [address] [id number] CALVIN ALVES Self - patient is [...]
--- OUTSIDE RECORDS SUMMARY | 2024-10-13 18:31 | XMS_ITS ---
Author [facility] Address [address] [place] [address] Care Team Providers Care Relationship Associate Name Role Phone Aracely Thompson Primary Care Provider Michelet Jackson Unavailable [phone] REASON FOR VISIT black toe/ingrown Encounters Encounter Location Date Provider Diagnosis [address] [place] [address] 08/12/2024 Michelet Mcclelland Plan Of Treatment Next Appt Details Provider Name:Michelet Mcclelland , 11/14/2024 02:00:00 PM, [address] [facility], [address], [place], [address], Progress Notes * Milana ALVESDOB: [birth year] (74 yo F)Acc No.[id number]:08/12/2024 Patient:?Milana ALVES :1950???Age:74 Y???Sex:Female Address:[address] [place] [place] [address] * true * Date:? Generated for Printi ng/Faxing/eTransmitting on:?10/13/2024 06:30 PM EST
--- OUTSIDE RECORDS SUMMARY | 2024-10-13 18:31 | XMS_ITS | Patient Health Record ---
Author Organization [facility] Address [address] [place] [address] Care Team Providers Care Forming Operator Name Role Phone Aracely Thompson MD Primary Care Provider Marquise Chapin [phone] Allergies No Known Allergies Reason For Referral No Information Medications Medication [...] 1 tablet Orally Once a day Active Immunizations Vaccine Route Administration Date Status Comme nts Influenza Unknown 04/10/2021 Administered Problems Problem Type SNOMED Code ICD Code Onset Dates Problem Status W/U Status Risk Notes Problem History of adenomatous polyp of colon (641765179) History of adenomatous polyp of colon (Z86.010) Active confirmed Problem Dysphagia (90658807) Dysphagia (R13.10) Active confirmed Problem Duodenitis (49221297) Duodenitis (K29.80) Active confirmed Problem Hiatal hernia (06957202) Hiatal hernia (K44.9) Active confirmed Problem Bleeding from anus (2089531) Rectal bleed (K62.5) Active confirmed Problem Gastritis (2845097) Gastritis (K29.70) Active c onfirmed Problem Duodenal ulcer (88594599) Duodenal ulcer (K26.9) Active confirmed Problem Helicobacter pylori infection (686799395) Helicobacter pylori infection (A04.8) Active confirmed Problem Diverticulosis of colon (134596113) Diverticulosis of colon (K57.30) Active confirmed Problem Gastroesophageal reflux disease (242842020) Gastroesophageal reflux disease, unspecified whether esophagitis present (K21.9) Active confirmed Problem Difficulty swallowing (854244474) Esophageal dysphagia (R13.19) Active confirmed Plan Of Treatment Future Test Test Name Order Date COLONOSCOPY 05/30/2014 UPPER GI ENDOSCOPY BALLOOON DILATION OF ESOPH 07/09/2021 COLONOSCOPY 07/09/2021 Insurance Providers Payer Name Payer Address Payer Phone Subscriber Number Group Number Insured Name Patient Relationship to Insured Coverage Start Date Coverage End Date MEDICARE OF [place] [address] [place] [address] [phone] [id number] CALVIN ALVES Self - patient is the insured [facility] [address] [place] [phone] [id number] CALVIN ALVES Self - patient is the insured Medical (General) History Medical History History ICD Code Colonoscopy 05-31-2004--only a hyperplas tic polyp, sigmoid diverticulosis Hyperlipidemia Hypertension Denies renal disease NIDDM CAD--SD and 2 stents > 5 yrs ago-Dr. Diamante delacruz Fatty liver--neg. Hepatitis serologies, neg. Iron studies, neg. liver U/S--normal LFT's in 09/2013 Atrial fib - Dr. 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
--- OUTSIDE RECORDS SUMMARY | 2024-10-13 18:31 | XMS_ITS | Patient Health Record ---
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 Name Role Phone Aracely Thompson Primary Care Provider Michelet Jackson Unavailable [phone] Allergies No Known Allergies Results Component Value [...] Problem Acquired hammer toe of right foot (5604427845628262 ) Other hammer toe(s) (acquired), right foot (M20.41) Active confirmed Problem Acquired hammer toe of left foot (8965617546134087 ) Other hammer toe(s) (acquired), left foot (M20.42) Active confirmed Problem Polyneuropathy due to type 2 diabetes mellitus (065844766) Type 2 diabetes mellitus with diabetic polyneuropathy (E11.42) Active confirmed Vital Signs Blood pressure diastolic 63 mm Hg 08/15/2024 Height 5ft 2in in 08/15/2024 Blood pressure systolic 128 mm Hg 08/15/2024 Weight 179 lbs 08/15/2024 BMI 32.74 kg/m2 08/15/2024 Procedures Procedure Date Ordered Date Performed Result Body Sit e 42009-VZUXSWB NAIL, 6 OR MORE 02/15/2024 N/A 05653-HORP SKIN LESIONS, OVER 4 02/15/2024 N/A 84261-TRNUUNW NAIL, OR MORE 08/15/2024 N/A 82001-Jwtqgxqm Plate 08/15/2024 N/A 91955-LMKU SKIN LESIONS, OVER 4 08/15/2024 N/A 74873-Gdsk. Subungual Hematoma 08/15/2024 N/A Encounters Encounter Location Date Provider Diagnosis [facility] [address] 02/15/2024 Michelet Mcclelland Type 2 diabetes mellitus with diabetic peripheral angiopathy without gangrene E11.51 ; Tinea unguium B35.1 ; Pain in right toe(s) M79.674 and Pain in left toe(s) M79.[address] [facility] [place] [address] 08/15/2024 Michelet Mcclelland Type 2 diabetes mellitus with diabetic polyneuropathy E11.42 ; Tinea unguium B35.1 ; Ingrown nail L60.0 ; Other hammer toe(s) (acquired), right foot M20.41 ; Other hammer toe(s) (acquired), left foot M20.42 and Subungual hematoma of right foot, initial encounter S90.221A [facility] [address] [address] 08/12/2024 Michelet Mcclelland Assessments Encounter Date Diagnosis [...] Pain in right toe(s) (ICD-10 - M79.674) 08/15/2024 Other hammer toe(s) (acquired), right foot [...] X ray : Foot, left 3V 04/02/2023 21854-ZIZFQCL NAIL, 6 OR MORE 06/29/2023 43324-YNURFFC NAIL, 6 OR MORE 04/02/2023 52479-NZXUXEQ NAIL, 6 OR MORE 10/05/2023 00075-KMLIUDL NAIL, 6 OR MORE 02/15/2024 71761-WWGYFUD NAIL, 6 OR MORE 08/15/2024 22567-YFBLVBA NAIL, 6 OR MORE 08/30/2020 75610-PWSKRYX NAIL, 6 OR MORE 11/29/2020 26236-OTWCYNV NAIL, 6 OR MORE 02/28/2021 04619-YKVJMSU NAIL, 6 OR MORE 05/30/2021 85760-EIAFEVL NAIL, 6 OR MORE 09/05/2021 68987-JCMKIMR NAIL, 6 OR MORE 12/05/2021 25383-LBTQYIX NAIL, 6 OR MORE 03/10/2022 08792-IILSTTR NAIL, 6 OR MORE 06/09/2022 58858-OAHHBKL NAIL, 6 OR MORE 09/08/2022 27531-ALIFBZC NAIL, 6 OR MORE 12/15/2022 68735-AVOSJZS NAIL, 1-5 08/15/2019 34622-PXQSJTM NAIL, 1-5 04/11/2020 44894-BIVVNOY NAIL, 1-5 01/24/2019 92410-FXLBJNH NAIL, 1-5 05/09/2019 58688-Yjmlxwdn Plate 01/24/2019 15872-Grmxgaym Plate 03/10/2022 42480-Qvqvhnit Plate 12/05/2021 53259-Tsriyxmg Plate 09/05/2021 72406-Tguawadt Plate 08/15/2024 04124-Ksidhkzz Plate 04/02/2023 71032-Nuakflfl Plate 09/08/2022 88069-Uszclfep Plate 12/15/2022 88931-Hzavbdww Plate 06/29/2023 43858-OYMX SKIN LESIONS, OVER 4 06/29/20 23 77919-VRGZ SKIN LESIONS, OVER 4 04/02/20 23 12628-IMNL SKIN LESIONS, OVER 4 08/15/19 25 50035-ECCC SKIN LESIONS, OVER 4 02/15/20 24 81700-QQXH SKIN LESIONS, OVER 4 10/05/19 24 08716-PHGH SKIN LESIONS, OVER 4 09/05/19 22 41681-RUXS SKIN LESIONS, OVER 4 12/06/19 22 78137-VKWI SKIN LESIONS, OVER 4 03/10/20 22 96885-FKRL SKIN LESIONS, OVER 4 06/09/20 22 33773-AKAY SKIN LESIONS, OVER 4 12/16/19 23 43895-BSNM SKIN LESIONS, OVER 4 09/08/19 23 53653-DUDD SKIN LESIONS, 2 TO 4 05/30/20 43366-YIJX SKIN LESIONS, 2 TO 4 02/29/20 21 15558-OJUP SKIN LESIONS, 2 TO 4 05/09/20 19 21207-IUUR SKIN LESIONS, 2 TO 4 08/15/19 20 64577-EMZS SKIN LESIONS, 2 TO 4 01/25/20 19 92306-TGIQ SKIN LESIONS, 2 TO 4 11/30/19 21 98946-IUZB SKIN LESIONS, 2 TO 4 04/11/20 20 22363-JRQQ SKIN LESIONS, 2 TO 4 08/30/19 21 88743-Barn. Subungual Hematoma 5 C3377-MOZSHBGQ DYSTROPHIC NAILS ANY # B7593-SGZXLROC DYSTROPHIC NAILS ANY # F4761-OBAVPKAH DYSTROPHIC NAILS ANY # G7755-QZBZIBUI DYSTROPHIC NAILS ANY # Next Appt Details Provider Name:Michelet Mcclelland , 11/14/2024 02:00:00 PM, [address], [address], [place], [address], Insurance Providers Payer Name Payer Address Payer Phone Subscriber Number Group Number Insured Name Patient Relationship to Insured Coverage Start Date Coverage End Date Medicare National [employer]t [employer] [address] [facility] [place] [address] [id number] Milana Fonseac Self - patient is the insured [address] [place] [address] [address] [place] [id number] Milana Fonseca Self - patient is the insured Medical (General) History Medical History History ICD Code Arthritis Chicken pox Cholesterol Diabetic type ll Heart disease High blood pressure Surgical History Surgery Date(Month/Year) R ovarian removed 1995 gall bladder removed 1999 Hammer toe Left 3rd toe cardiac catheterization 11/13/21 eye surgery 06/15/23 Hospitalization History Reason Date(Month/Year) [facility]- flu 03/2022
--- OUTSIDE RECORDS SUMMARY | 2024-10-13 18:31 | XMS_ITS ---
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 Name Role Phone Aracely Thompson Primary Care Provider Michelet Jackson Unavailable [phone] Allergies No Known Allergies REASON FOR VISIT [...] Ordered Date Performed Result Body Sit e 33303-YIJIPZA NAIL, 6 OR MORE 02/15/2024 N/A 16469-ARAI SKIN LESIONS, OVER 4 02/15/2024 N/A Encounters Encounter Location Date Provider Diagnosis [facility] [place] [address] [place] [address] 02/15/2024 Michelet Mcclelland Type 2 diabetes mellitus [...] Treatment Pending Test Test Name Order Date 93374-LXFNLZQ NAIL, 6 OR MORE 02/15/2024 90616-YQQA SKIN LESIONS, OVER 4 02/15/20 24 Next Appt Details Follow Up: prn, Reason: Provider Name:Michelet Mcclelland , 11/14/2024 02:00:00 PM, [address] [facility], [place] [address], [place], [address], Procedure Notes * Category Sub-Category Detail Notes [...] as necessary. Patient chooses, no pharmaceutical tx (39816) Keratoma Treatment Parring or Cutting o f Benign Hyperkeratotic Lesion(s) 31702 ( >4 Lesions) - The Benign hyperkeratotic lesions, as described above were pared, and/or cut utilizing a sterile #15 blade, tissue nippers, and/or dremel, Q8 Progress Notes * Milana FONSECADOB: [birth year] (73 yo F)Acc No.[id number]:02/15/2024 Progress Note Patient:?Milana Fonseca Provider:?Michelet Mcclelland DPM :1950???Age:73 Y???Sex:Female D ate:02/15/2024 Address:[address], [facility] Pcp:Aracely Thompson Subjective: * Chief Complaints: * [...] 06/15/23 * Hospitalization/Major Diagno stic Procedure:?[facility] flu 03/2022 * Family History:?Mother: dece ased, [...] - M79.675? Plan: * Treatment: 2.?Tinea unguium?Procedure: 02029-EGAQRAW NAIL, 6 OR MORE * Procedures:?Debride Nail 6-10:?Nail debridement?Nail debridement performed extensively to reduce/remove overall nail length, girth, thickness, subungual debris, and necrotic tissue, by manual and electrical means through the use of a nail nipper and/or dremel, to more viable healthy nail plate or bed tissue 1-5. Silver nitrate used for any petechial bleeding as necessary. Patient chooses, no pharmaceutical tx (95272).?Keratoma Treatment:?Parring or Cutting of Benign Hyperkeratotic Lesion(s)?13507 ( >4 Lesions) - The Benign hyperkeratotic lesions, as described above were pared, and/or cut utilizing a sterile #15 blade, tissue nippers, and/or dremel, Q8.? * Procedure Codes:?69441 DEBRI DE NAIL, 6 OR MORE, Modifiers: XS 52395 TRIM SKIN LESIONS, OVER 4, Modifiers: XS , Q8 * Follow Up:?prn * Images: * Sign off status: Completed Addendum: * ? true * Provider:?Michelet Mcclelland DPM Date:?2023 Generated for Mari ventura/Zaire/Juana on:?10/13/2024 06:30 PM [...]
== END ==
LOC: HO.CARD 14:57
PROVIDERS: PCP Internal Medicine; Visit Provider Internal Medicine Cardiovascular Disease
DX: I48.0 Paroxysmal atrial fibrillation (principal)
CPT/HCPCS: 93306

== ENCOUNTER → 2024-10-13 15:04 | Outpatient (BNV) | payer MEDICARE, OTHER, SELFPAY | PROVIDERS: PCP Internal Medicine; Visit Provider Internal Medicine Cardiovascular Disease | DX: I34.81 Nonrheumatic mitral (valve) annulus calcification (principal); I48.0 Paroxysmal atrial fibrillation | CPT/HCPCS: 93306 ==

== ENCOUNTER 2024-11-11 11:17 | Outpatient (AMB) | payer MEDICARE, OTHER, SELFPAY ==
[2024-11-11 11:36] VITALS: BP 126/72; PULSE 78; TEMP 36.2; O2SAT 98; BMI 32.6
--- NOTE | 2024-11-11 11:36 | MHC.PC.OV ---
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: No Accompanied by: Self / Same As Patient Allergies atorvastatin [From LIPITOR] Allergy (Unknown, Verified 11/11/24 11:41) AFFECTED LIVER ENZYMES liraglutide [Victoza] Allergy (Unknown, Verified 11/11/24 11:41) nausea lisinopril Allergy (Unknown, Verified 11/11/24 11:41) cough losartan [LOSARTAN] Allergy (Unknown, Verified 11/11/24 11:41) HIVES PEANUT BUTTER Allergy (Unknown, Uncoded 11/11/24 11:41) LIPS SWELLING MOST FRUITS Adverse Reaction (Unknown, Uncoded 11/11/24 11:41) HIVES,ITCHING Medication List - Last Reconciled 11/11/24 by Aracely Thompson MD albuterol sulfate 90 mcg/actuation (Ventolin HFA) 2 puffs inhalation Q4-6H PRN apremilast (Otezla) 30 mg PO BID bempedoic acid (Nexletol) 180 mg PO DAILY blood sugar diagnostic As directed check the BS QD blood-glucose meter (OneTouch Ultra2 Meter) As directed check BS QD clobetasol 0.05% 1 appl topical BID dronedarone (Multaq) 400 mg PO Q12H dulaglutide 3 mg (0.5 mL) subcut QWEEK 30 days ezetimibe 10 mg PO DAILY fexofenadine (Michelle Allergy) 180 mg PO DAILY ketoconazole 2% topical lancets As directed check the blood sugar q.day metoprolol succinate ER 50 mg PO DAILY nystatin 1 appl topical BID PRN omeprazole 20 mg PO DAILY 14 days rivaroxaban (Xarelto) 20 mg PO QPM rosuvastatin 40 mg PO DAILY 90 days trazodone 50 mg PO BEDTIME PRN Tobacco use date assessed: 11/11/24 Fall risk assessment: No Falls in past year Last assessed Fall Risk: 11/11/24 Dental Screening Dental Screen Date: 11/11/24 Did you have a dental visit in the last 12 months?: Yes Did you have a dental problem in the last 6 months where you did not have access to dental care?: No Was dental information given to patient?: Patient has dentist [facility] Medical History Asthma On anticoagulant therapy On beta ever at home Post-menopausal Persistent atrial fibrillation Numbness of lip Urge incontinence Diabetic nephropathy Thrombocytopenia Vitamin D deficiency Type 2 diabetes mellitus with hyperglycemia Hypercholesterolemia Psoriasis Obesity (BMI 30-39.9) Osteoarthritis Hypertension CAD (coronary artery disease) Surgical History H/O cardiac radiofrequency ablation History of colonoscopy Stented coronary artery History of oophorectomy H/O breast biopsy Hx of tonsillectomy Hx of total knee replacement Hx of cholecystectomy Hx of tubal ligation Family History Brother Liver cancer Social History Household Members Other:: grand-daughter Housing: House Are you a primary urgent care physician assistant to a significant other at home: No Do you presently have visiting nurse or other home services: No Alcohol intake: never Comment: aware of trip hazard Patient Tobacco Use Status: Former Tobacco user Tobacco use type: Cigarette e-Cigarette/Vaping Use: Never Used Second Hand Smoke Exposure: No service: No Current occupational status: retired Cognitive needs: No Hearing needs: Yes Vision needs: Yes Questionnaire Thrive Questionnaire Date Thrive assessed: 10/06/23 SERGIO-7 AMB Questionnaire SERGIO-7 Date SERGIO - 7 assessed: 10/06/23 Source: Developed by Drs. Marquise Hines, Jolene Quinn, Issac Prince and colleagues, with an educational caden from [employer]. Physical exam (Primary Care) Vital Signs: Last Vital Signs Temp 97.1 F 11/11/24 11:36 Pulse 78 11/11/24 11:36 BP 126/72 11/11/24 11:36 Pulse Ox 98 11/11/24 11:36 Oxygen Delivery Method Room Air 11/11/24 11:36 BMI result Body Mass Index 32.6 Tobacco/Smoking Status: Tobacco use Status Tobacco use date assessed 11/11/24 11/11/24 11:42 Patient Tobacco Use Status Former Tobacco user 11/11/24 11:37 Tobacco use type Cigarette 11/11/24 11:37 e-Cigarette/Vaping Use Never Used 11/11/24 11:37 Thrive Assessment: Date of Thrive Assessment Date Thrive assessed 10/06/23 11/11/24 11:37 Const General: alert; No acute distress Eyes Conjunctivae: conjunctivae normal Resp Auscultation: clear to auscultation bilaterally Cardio Rate: regular rate Rhythm: regular rhythm GI Inspection: Yes normal to inspection Extrem General: Yes normal to inspection and No edema Coding Level of Care Code Est Pt Level 4 (08898) Complex EM visit Add On G2211 Diagnoses Paroxysmal atrial fibrillation I48.0 Coronary artery disease involving [place] coronary artery of [place] heart without angina pectoris I25.10 Coronary Disease-Associated Artery/Lesion type: [place] artery [place] vs. transplanted heart: [place] heart Associated angina: without angina Type 2 diabetes mellitus with hyperglycemia, with long-term current use of insulin E11.65; Z79.4 Diabetes mellitus rn long term care insulin use: with rn long term care use Essential hypertension I10 Hypertension type: essential hypertension Hypercholesterolemia E78.00 Obesity (BMI 30-39.9) E66.9 Major depression F32.9 Assessment & Plan Assessment & Plan (1) Paroxysmal atrial fibrillation: Comment: September 2020, ablation December 2021 Code(s): I48.0 - Paroxysmal atrial fibrillation Category: Medical Plan: Knee with anticoagulation and will need renal function testing twice a day year patient also on Multaq (2) CAD (coronary artery disease): Comment: Angioplasty October 2009 with ERROL Code(s): I25.10 - Atherosclerotic heart disease of [place] coronary artery without angina pectoris Category: Medical Qualifiers: Coronary Disease-Associated Artery/Lesion type: [place] artery [place] vs. transplanted heart: [place] heart Associated angina: without angina Qualified Code(s): I25.10 - Atherosclerotic heart disease of [place] coronary artery without angina pectoris Plan: Control the cholesterol, weight, blood pressure, diabetes patient on anticoagulation. LDL goal 55 (3) Type 2 diabetes mellitus with hyperglycemia: Comment: Dr. Lombardo Code(s): E11.65 - Type 2 diabetes mellitus with hyperglycemia Category: Medical Qualifiers: Diabetes mellitus penitentiary insulin use: with penitentiary use Qualified Code(s): E11.65 - Type 2 diabetes mellitus with hyperglycemia; Z79.4 - FDC (current) use of insulin Plan: Decrease the amount of carbohydrate intake, pasta, bread, rice and potatoes are all sugar and that is aside from all the sweet stuff, remember that fruits are good but they are Sweet also. Hemoglobin A1c goal of less than 7.0 patient is on Trulicity only (4) Hypertension: Code(s): I10 - Essential (primary) hypertension Category: Medical Qualifiers: Hypertension type: essential hypertension Qualified Code(s): I10 - Essential (primary) hypertension Plan: Continue with blood pressure medication. Decrease salt intake and exercise patient on metoprolol 50 mg once a day (5) Hypercholesterolemia: Code(s): E78.00 - Pure hypercholesterolemia, unspecified Category: Medical Plan: Avoid fried foods, chicken skin, eggs, butter margarine, pastries and meat. Be it pork or beef they have a lot of cholesterol on rosuvastatin 40 mg once a day, Zetia and neck little (6) Obesity (BMI 30-39.9): Code(s): E66.9 - Obesity, unspecified Category: Medical Plan: Diet and exercise (7) Major depression: Comment: of grandson Code(s): F32.9 - Major depressive disorder, single episode, unspecified Category: Medical Plan History of Present Illness The patient is a 74-year-old female presenting for a follow-up on her various chronic health conditions including diabetes mellitus, essential hypertension, hypercholesterolemia, coronary artery disease, atrial fibrillation, and nephropathy. She manages her diabetes with Trulicity and recent blood glucose levels have been well-controlled, despite occasional elevations. Her last hemoglobin A1c was 6.2 in May, and she will increase her Trulicity dosage to improve glycemic and weight management outcomes. Her hypercholesterolemia is treated with Rosuvastatin, Zetia, and Nexletol, yet her LDL has increased recently, with a current goal of under 55 due to her coronary artery disease. She continues to manage her cardiac conditions, receiving full oral anticoagulation with Xarelto, supported by previous cardiology reviews and an echocardiogram revealing a preserved EF and normal valve function. Her renal function needs continued evaluation due to nephropathy, with stable creatinine levels but proteinuria. Additionally, the patient reports depressive symptoms following a personal loss, impacting her daily functionality, and has expressed interest in pharmacologic support alongside existing counseling. Health Maintenance - Colonoscopy last performed in 2021. - Bone density scan normal as of November 2023. - Mammogram up-to-date as of May 2024. - Hemoglobin A1c as of May: 6.2. - LDL cholesterol: 67 (May 2024), increased to 85 (September 2024). - Renal function (creatinine of 1.08) stable but requires bi-annual testing. - Vaccinations: Shingles, pneumonia, and tetanus up-to-date. Social History - Exercise and dietary discussions for weight management, particularly incorporating vegetables like broccoli. - Emotional impact and bereavement noted due to the loss of a grandson, affecting mental health. - Expresses a need for improved energy levels to maintain daily activity. Review of Systems - Cardiovascular: Reports controlled atrial fibrillation. - Musculoskeletal/ Dermatologic: History of psoriasis. - Endocrine: Reports controlled diabetes with some episodic high blood sugar levels. - Psychiatric: Reports depression related to bereavement. Physical Exam - Respiratory- Auscultation was performed with findings not explicitly stated. Results - Echocardiogram (October): Normal EF of 55-60%, pseudonormal filling pattern, no pericardial effusion, normal mitral and aortic valve functionality with Doppler. - Labs: Hemoglobin A1c 6.2 (May), LDL 85 (September 2024), renal function stable with creatinine at 1.08. Plan I will adjust the Trulicity dose to 3 mg weekly for improved glucose control and weight management in diabetes. I will reassess hypercholesterolemia management with rosuvastatin and support the goal of LDL less than 55, with ongoing use of Zetia and Nexletol. Renal monitoring due to nephropathy will proceed with twice-yearly checks. Xarelto is continued for anticoagulation in coronary artery disease and atrial fibrillation management. For the patient's depressive symptoms, a mild, non-addictive medication is introduced. Regular health screenings remain integral to her management strategy. Patient was informed and verbally consented to the use of an ambient scribe for clinic note documentation during this visit. Discussion Notes I discussed with the patient the importance of managing her diabetes through increasing the dose of Trulicity to 3 mg for weight and sugar control. For her lipid management, we reviewed maintaining LDL target below 55 and continued rosuvastatin therapy. We addressed the need to monitor renal function bi-annually due to nephropathy, especially with existing proteinuria. I also explained the benefits of a mild antidepressant for her depressive symptoms, minimizing potential side effects, and ensuring mental health follow-up. The conversation also reinforced adherence to her anticoagulation regimen with Xarelto for cardiac conditions. I advised her to have regular screenings and agreed upon specific follow-up and monitoring intervals for these health conditions. Patient Instructions Orders: Orders Comprehensive Met. Panel Today I48.0 - Paroxysmal atrial fibrillation Free T4 (Free Thyroxine) Today I48.0 - Paroxysmal atrial fibrillation Thyroid Stimulating Hormone Today I48.0 - Paroxysmal atrial fibrillation Complete Blood Count Auto Diff Today I48.0 - Paroxysmal atrial fibrillation Vitamin B12 and Folate Today I48.0 - Paroxysmal atrial fibrillation Lipid Panel Today E78.00 - Pure hypercholesterolemia, unspecified, I48.0 - Paroxysmal atrial fibrillation Medications: New sertraline 25 mg PO DAILY 30 tabs 3RF F32.9 - Major depressive disorder, single episode, unspecified Changed From dulaglutide 1.5 mg (0.5 mL) subcut QWEEK 2 mL 3RF E11.65 - Type 2 diabetes mellitus with hyperglycemia, 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
--- OUTSIDE RECORDS SUMMARY | 2024-11-11 13:13 | XMS_ITS ---
Author Organization [facility] Address [address] [place] [address] Care Team Providers Care Broomcorn Press Feeder Name Role Phone Lucrecia Munoz Unavailable [phone] Allergies No Known Allergies Results Component Value Reference Range Notes [id number]-Aiy IGP No Culture 30 Plus Reviewed date:11/23/2023 04:32:47 PM Interpretation: Performing Lab:[facility], Mariela Escamilla [address], [address], [place], Phone - [phone], Director - [facility] Notes/Report: Clinical Information:Vaginal/Cervical, LMP: Men o [id number] Dates / Results....Unknown New PT Today Other..............Post Menopausal No. of containers..01 ThinPrep Vial DIAGNOSIS: NEGATIVE FOR INTRAEPITHELIAL LESION OR MALIGNANCY. CELLULAR CHANGES ASSOCIATED WITH ATROPHY ARE PRESENT. Specimen adequacy: Satisfactory for evaluation. Endocervical component may not be distinguished in cases of atrophy. Clinician provided ICD10: Z0 1.419 Performed by: Tom Ahumada ytotechnologist ([facility]) . . Note: The Pap smear [...] Francine Pedro, [address], [place], Phone - [phone], Director - [facility] Notes/Report: Clinical Information:Vaginal/Cervical, LMP: Men o [id number] Dates / Results....Unknown New PT Today Other..............Post Menopausal No. of containers..01 ThinPrep Vial REASON FOR VISIT Annual LINE MAINTAINER SECTION Physical, Annual LINE MAINTAINER SECTION Physical 60-85+ Medications Medication SIG (Take, Route, Frequency, Duration) Notes Start Date End Date Status Nystatin 188319 UNIT/GM APPLY 1 APPLICAT ION TOPICALLY 2 [...] Status W/U Status Risk Notes Problem Osteoarthritis (542429988) Unspecified osteoarthritis, unspecified site (M19.90) Active confirmed Problem Postmenopausal atrophic vaginitis (89017593) Postmenopausal atrophic vaginitis (N95.2) Active confirmed Vital Signs Height 62 in 11/18/2023 Weight 175 lbs 11/18/2023 BMI 32 kg/m2 11/18/2023 Blood pressure systolic 126 mm Hg 11/18/19 24 Blood pressure diastolic 76 mm Hg 024 Temperature 97.5 degrees Fahrenheit 11/18/19 24 Encounters Encounter Location Date Provider Diagnosis Total [address] [place] [address] 11/18/2023 Lucrecia Munoz Encounter for gynecological examination [...] * CALVIN ALVESDOB: 9 (73 yo F)Acc No.[id number]:11/18/2023 Progress Note Patient:?CALVIN ALVES Appointment Provider:?Lucrecia hall M.D. :1950???Age:73 Y???Sex:Female D ate:11/18/2023 Address:[address] [place] Subjective: * Chief Complaints: * ???Annual LINE MAINTAINER SECTION PhysicalAnnual LINE MAINTAINER SECTION Physical 60-85+ * HPI: ???New/Follow-up Patient Consult:? [...] adequate calcium via diet and supplementation ?Significant LINE MAINTAINER SECTION problems:?no significant self pay representative symptoms or problems * ROS:?general:?no?chest pain.?no?palpitations.?no?headache.?no?cough.?no?shortness of breath.?no?fever.?no?unexplained weight loss.?no?nausea/vomiting.?no?change in bowel movements.?no blood in stool.?no?genitourinary complaints.?no?skin complaints.? * Medical History:? 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 * OB History:?Total pregnancies?5.?Total [...] Trulicity 0.75 MG/0.5ML Solution Pen-injector Subcutaneous Nystatin 335871 UNIT/GM Cream APPLY 1 APPLICATION TOPICALLY 2 [...] 0.75 MG/0.5ML Solution Pen-injector Subcutaneous Taking Nystatin 784880 UNIT/GM Cream APPLY 1 APPLICATION TOPICALLY 2 [...] * Images: Billing Information: * Visit Code:? 84475 Preventive Care Est Pt. Age 65 and over. * Procedure Codes:? * Sign off status: Completed true * Appointment Provider:?Lucrecia Munoz M.D. Date:?11/18/2023 Generated for Mari ventura/Zaire/Liaitting on:?11/11/2024 01:12 PM EDT History and Physical Notes * HPI (History [...] ate calcium via diet and supplementation Significant LINE MAINTAINER SECTION problems:: n o significant self pay representative symptoms or problems Examination Category Sub-Category Detail Notes Category Not es General Exam CONSTITUTIONAL: General Appearan ce:: alert, in no acute distress, normal, well nourished NECK/THYROID: Inspection/Palpation:: normal Thyroid:: normal size and shape RESPIRATORY: Auscultation: clear to auscultation bilaterally, Respiratory Effort: normal CARDIOVASCULAR: Auscultation: regula r rate and rhythm GASTROINTESTINAL: Abdomen:: no masses, nontender , nondistended Liver and Spleen:: normal Hernias:: no hernias present, no inguina l adenopathy MUSCULOSKELETAL: Inspection/Palpation:: no clubb ing, cyanosis, or edema SKIN: Skin:: normal NEURO/PSYCH: Orientation:: time , place, pers on Mood/Affect:: normal BREAST, Right: Inspection/Palpation :: no discharge, no [...]
--- OUTSIDE RECORDS SUMMARY | 2024-11-11 13:13 | XMS_ITS ---
Author Organization [facility] Address [address] [place] [address] Care Team Providers Care Morning Babysitter Name Role Phone Aracely Thompson Primary Care Provider Michelet Jackson Unavailable [phone] REASON FOR VISIT black toe/ingrown Encounters Encounter Location Date Provider Diagnosis [address] [place] [address] 08/12/2024 Michelet Mcclelland Plan Of Treatment Next Appt Details Provider Name:Michelet Mcclelland , 11/14/2024 02:00:00 PM, [address] [facility], [address], [place], [address], Progress Notes * RAYMUNDO MilanaDOB: [birth year] (74 yo F)Acc No.[id number]:08/12/2024 Patient:?Milana ALVES :1950???Age:74 Y???Sex:Female [address] [facility] [place] [address] * true * Date:? Generated for Printi ng/Faxing/eTransmitting on:?11/11/2024 01:13 PM EDT
--- OUTSIDE RECORDS SUMMARY | 2024-11-11 13:13 | XMS_ITS ---
Author Organization [facility] Address [address] [place] [address] Care Team Providers Care Child Support Agent Name Role Phone Alexander Lucrecia Unavailable [phone] REASON FOR VISIT Annual SYSTEM ADMINISTRATOR Physical Encounters Encounter Location Date Provider Diagnosis [facility] [employer] [address] [place] [address] 07/15/2023 Lucrecia Munoz Plan Of Treatment No Information Progress Notes * CALVIN ALVESDOB: [birth year] (74 yo F)Acc No.[id number]:07/15/2023 Progress Note Patient:?LONG CALVIN Appointment Provider:?Lucrecia hall M.D. :1950???Age:73 Y???Sex:Female D ate:07/15/2023 Address:[address] [facility] [facility] Subjective: * Chief Complaints: * ???1. Annual SYSTEM ADMINISTRATOR Physical. * Medical History:? Objective: * Vitals:? Assessment: Plan: * Treatment: * Images: Billing Information: * Visit Code:? * Procedure Codes:? * Electronic signature of Radha Munoz MD on 11/11/2024 at 01:13 PM EDT Sign off status: Pending * Appointment Provider:?Lucrecia Munoz M.D. Date:?07/15/2023 Generated for Mari ventura/Zaire/eTransmitting on:?11/11/2024 01:13 PM EDT
--- OUTSIDE RECORDS SUMMARY | 2024-11-11 13:13 | XMS_ITS ---
Author Organization [facility] Address [address] [place] [address] Care Team Providers Care Label Rewinder Name Role Phone Aracely Thompson Primary Care Provider Michelet Jackson Unavailable [phone] Allergies No Known Allergies REASON FOR VISIT [...] Ordered Date Performed Result Body Sit e 23615-KSVYXNB NAIL, 6 OR MORE 02/15/2024 N/A 81829-OOHM SKIN LESIONS, OVER 4 02/15/2024 N/A Encounters Encounter Location Date Provider Diagnosis [facility] [place] [address] [place] [address] 02/15/2024 Michelet Mcclelland Type 2 diabetes mellitus [...] Treatment Pending Test Test Name Order Date 56158-GDUKCMC NAIL, 6 OR MORE 02/15/2024 76069-NRTR SKIN LESIONS, OVER 4 02/15/20 24 Next Appt Details Follow Up: prn, Reason: Provider Name:Michelet Mcclelland , 11/14/2024 02:00:00 PM, [address] [facility], [place] [address], [place], [address], Procedure Notes * Category Sub-Category Detail Notes [...] as necessary. Patient chooses, no pharmaceutical tx (63806) Keratoma Treatment Parring or Cutting o f Benign Hyperkeratotic Lesion(s) 78243 ( >4 Lesions) - The Benign hyperkeratotic lesions, as described above were pared, and/or cut utilizing a sterile #15 blade, tissue nippers, and/or dremel, Q8 Progress Notes * Milana FONSECADOB: [birth year] (73 yo F)Acc No.[id number]:02/15/2024 Progress Note Patient:?Milana Fonseca Provider:?Michelet Mcclelland DPM :1950???Age:73 Y???Sex:Female D ate:02/15/2024 Address:[address] [place], [facility] Pcp:Aracely Thompson Subjective: * Chief Complaints: * [...] 06/15/23 * Hospitalization/Major Diagno stic Procedure:?[facility] [place]- flu 03/2022 * Family History:?Mother: dece ased, [...] - M79.675? Plan: * Treatment: 2.?Tinea unguium?Procedure: 34198-XKQAACU NAIL, 6 OR MORE * Procedures:?Debride Nail 6-10:?Nail debridement?Nail debridement performed extensively to reduce/remove overall nail length, girth, thickness, subungual debris, and necrotic tissue, by manual and electrical means through the use of a nail nipper and/or dremel, to more viable healthy nail plate or bed tissue 1-5. Silver nitrate used for any petechial bleeding as necessary. Patient chooses, no pharmaceutical tx (91673).?Keratoma Treatment:?Parring or Cutting of Benign Hyperkeratotic Lesion(s)?75973 ( >4 Lesions) - The Benign hyperkeratotic lesions, as described above were pared, and/or cut utilizing a sterile #15 blade, tissue nippers, and/or dremel, Q8.? * Procedure Codes:?92035 DEBRI DE NAIL, 6 OR MORE, Modifiers: XS 06449 TRIM SKIN LESIONS, OVER 4, Modifiers: XS , Q8 * Follow Up:?prn * Images: * Sign off status: Completed Addendum: * ? true * Provider:?Michelet Mcclelland DPM Date:?2023 Generated for Mari ventura/Zaire/Juana on:?11/11/2024 01:13 PM EDT History and Physical Notes * [...]
--- OUTSIDE RECORDS SUMMARY | 2024-11-11 13:13 | XMS_ITS ---
Author Organization [facility] Address [address] [place] [address] Care Team Providers Care Supply Chain Analyst Name Role Phone Aracely Thompson Primary Care Provider Michelet Jackson Unavailable [phone] Allergies No Known Allergies REASON FOR VISIT [...] Polyneuropathy due to type 2 diabetes mellitus (930772442) Type 2 diabetes mellitus with diabetic polyneuropathy (E11.42) Active confirmed Problem Acquired hammer toe of right foot (3283796450170647 ) Other hammer toe(s) (acquired), right foot (M20.41) Active confirmed Problem Acquired hammer toe of left foot (0451050554586509 ) Other hammer toe(s) (acquired), left foot (M20.42) Active confirmed Vital Signs Height 5ft 2in in 08/15/2024 Weight 179 lbs 08/15/2024 BMI 32.74 kg/m2 08/15/2024 Blood pressure systolic 128 mm Hg 08/15/19 25 Blood pressure diastolic 63 mm Hg 025 Procedures Procedure Date Ordered Date Performed Result Body Sit e 28565-JRXUCJL NAIL, 6 OR MORE 08/15/2024 N/A 52571-Omjafsdw Plate 08/15/2024 N/A 03126-CGVX SKIN LESIONS, OVER 4 08/15/2024 N/A 61215-Hdab. Subungual Hematoma 08/15/2024 N/A Encounters Encounter Location Date Provider Diagnosis [facility] [address] [address] 08/15/2024 Micheletwillis IsbellKrystin Type 2 diabetes mellitus [...] INSTRUCTIONS.pdf) Pending Test Test Name Order Date 82756-EYPSUSF NAIL, 6 OR MORE 08/15/2024 43532-Tqsodcqc Plate 08/15/2024 86813-BTFC SKIN LESIONS, OVER 4 08/15/19 97669-Zqrz. Subungual Hematoma Next Appt Details Follow Up: prn, Reason: Provider Name:Michelet Mcclelland , 11/14/2024 02:00:00 PM, [address] [facility], [address], [place], [address], Procedure Notes * Category Sub-Category Detail Notes [...] Motrin was recommended for pain or discomfort (73752), DIABETES: Pt was advised as to the [...] use of a nail nipper and/or dremel-type grinder hardboard, to a more viable healthy nail plate [...] to maintain effectiveness in symptomatic relief - 56712 I&D subungual hematoma: Location T5, As p [...] advised of the possibilty for nail auto-avulsion (69495), DIABETES: Pt was advised as to the [...] instrumentation by the physician of record - 09884 Progress Notes * Milana FONSECADOB: [birth year] (74 yo F)Acc No.[id number]:08/15/2024 Progress Note Patient:?Milana FONSECA Provider:?Michelet Mcclelland DPM :1950???Age:74 Y???Sex:Female D ate:08/15/2024 [address] [facility] Pcp:Aracely Thompson Subjective: * Chief Complaints: * [...] 06/15/23 * Hospitalization/Major Diagno stic Procedure:?[facility] [place]- flu 03/2022 * Family History:?Mother: dece ased, [...] Uncomplicated (3)??? Plan: * Treatment: 2.?Ingrown nail?Procedure: 79474-Exqoadiz Plate 3.?Other hammer toe(s) (acqu ired), right foot? Start Extra Depth Orthopedic Shoes (1 Pair) with Customized Heat Molded Multidensity Innersoles (3 Pair), as directed, Dx: NIDDM/Polyneuropathy (E11.42), Hammertoe Foot Deformity (M20.41,M20.42), Preulcerative Skin Lesion(s) (L85.1, 1, Refills 0.?? Notes: Patient Educated with: DIABETIC FOOT CARE INSTRUCTIONS.pdf (DIABETIC FOOT CARE INSTRUCTIONS.pdf)?? 4.?Subungual hematoma of rig ht foot, initial encounter?Procedure: 93335-Hxpr. Subungual Hematoma * Procedures:?Debride Nail 6-10:?Nail debridement?Due [...] use of a nail nipper and/or dremel-type grinder hardboard, to a more viable healthy nail plate [...] to maintain effectiveness in symptomatic relief - 02789.?I&D subungual hematoma::?Location?T5, As per exam.?Anesthesia?was deferred - [...] advised of the possibilty for nail auto-avulsion (50208), DIABETES: Pt was advised as to the [...] instrumentation by the physician of record - 30391.?Nail Avulsion:?Location?Lateral nail border,?TA.?Anesthesia?was deferred - NEUROPATHY: patient [...] Motrin was recommended for pain or discomfort (32423), DIABETES: Pt was advised as to the risk of delayed or nonhealing due to diabetes. Pt is to call the office with any questions, concerns, or complications.? * Procedure Codes:?32363 DEBRI DE NAIL, 6 OR MORE, Modifiers: XS 74088 Avulsion Plate, Modifiers: XS , [id number] DRAIN BLOOD FROM UNDER NAIL, Modifiers: XS , [id number] TRIM SKIN LESIONS, OVER 4, Modifiers: XS [...] Provider:?Michelet Mcclelland DPM Date:?2024 Generated for Mari ventura/Zaire/Liaitting on:?11/11/2024 01:12 PM [...] (-) Charcot col lapse/destruction noted at [facility] FOOTWEAR EVALUATION: worn, non-supportiv e, shoe gear properties exacerbate patient's foot/toe deformity [...]
--- OUTSIDE RECORDS SUMMARY | 2024-11-11 13:14 | XMS_ITS | Patient Health Record ---
Author Organization [facility] Address [address] [place] [address] Care Team Providers Care Wrecker Operator Name Role Phone Aracely Thompson MD Primary Care Provider Marquise Chapin [phone] Allergies No Known Allergies Reason For Referral [...] Problem History of adenomatous polyp of colon (788453750) History of adenomatous polyp of colon (Z86.010) Active confirmed Problem Dysphagia (18849863) Dysphagia (R13.10) Active confirmed Problem Duodenitis (59464324) Duodenitis (K29.80) Active confirmed Problem Hiatal hernia (78667816) Hiatal hernia (K44.9) Active confirmed Problem Bleeding from anus (8524587) Rectal bleed (K62.5) Active confirmed Problem Gastritis (0941977) Gastritis (K29.70) Active c onfirmed Problem Duodenal ulcer (28822426) Duodenal ulcer (K26.9) Active confirmed Problem Helicobacter pylori infection (644240053) Helicobacter pylori infection (A04.8) Active confirmed Problem Diverticulosis of colon (859350595) Diverticulosis of colon (K57.30) Active confirmed Problem Gastroesophageal reflux disease (789216534) Gastroesophageal reflux disease, unspecified whether esophagitis present (K21.9) Active confirmed Problem Difficulty swallowing (634338256) Esophageal dysphagia (R13.19) Active confirmed Plan Of Treatment Future Test Test Name Order Date COLONOSCOPY 05/30/2014 UPPER GI ENDOSCOPY BALL[place]ON DILATION OF ESOPH 07/09/2021 COLONOSCOPY 07/09/2021 Insurance Providers Payer Name Payer Address Payer Phone Subscriber Number Group Number Insured Name Patient Relationship to Insured Coverage Start Date Coverage End Date MEDICARE OF [place] [address] [place] [address] [id number] CALVIN ALVES Self - patient is the insured [facility] [address] [place] [address] [phone] [id number] CALVIN ALVES Self - patient is the insured Medical (General) History Medical History History ICD Code Colonoscopy 05-31-2004--only a hyperplas tic polyp, sigmoid diverticulosis Hyperlipidemia Hypertension Denies renal disease NIDDM CAD--[place] and 2 stents > 5 yrs ago-Dr. Diamante delacruz Fatty liver--neg. Hepatitis serologies, neg. Iron studies, neg. liver U/S--normal LFT's in 09/2013 Atrial fib - Dr. 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
--- OUTSIDE RECORDS SUMMARY | 2024-11-11 13:14 | XMS_ITS | Patient Health Record ---
Author Organization [facility] Address [address] [place] [address] Care Team Providers Care Hand Spring Repairer Helper Name Role Phone Aracely Thompson Primary Care Provider Michelet Jackson Unavailable [phone] Allergies No Known Allergies Results Component Value [...] Problem Acquired hammer toe of right foot (6340251304650236 ) Other hammer toe(s) (acquired), right foot (M20.41) Active confirmed Problem Acquired hammer toe of left foot (7675820741980373 ) Other hammer toe(s) (acquired), left foot (M20.42) Active confirmed Problem Polyneuropathy due to type 2 diabetes mellitus (231742562) Type 2 diabetes mellitus with diabetic polyneuropathy (E11.42) Active confirmed Vital Signs Blood pressure diastolic 63 mm Hg 08/15/2024 Height 5ft 2in in 08/15/2024 Blood pressure systolic 128 mm Hg 08/15/2024 Weight 179 lbs 08/15/2024 BMI 32.74 kg/m2 08/15/2024 Procedures Procedure Date Ordered Date Performed Result Body Sit e 20286-BEMECSO NAIL, 6 OR MORE 02/15/2024 N/A 29197-GKQQ SKIN LESIONS, OVER 4 02/15/2024 N/A 03744-IOCONBW NAIL, OR MORE 08/15/2024 N/A 38613-Cuzmufum Plate 08/15/2024 N/A 95523-TECJ SKIN LESIONS, OVER 4 08/15/2024 N/A 19000-Lrzm. Subungual Hematoma 08/15/2024 N/A Encounters Encounter [facility] Date [facility] [address] 02/15/[facility]24 Michelet Mcclelland Type 2 diabetes mellitus with diabetic peripheral angiopathy without gangrene E11.51 ; Tinea unguium B35.1 ; Pain in right toe(s) M79.674 and Pain in left toe(s) M79.[address] [facility] [place] [address] 08/15/2024 Michelet Mcclelland Type 2 diabetes mellitus with diabetic polyneuropathy E11.42 ; Tinea unguium B35.1 ; Ingrown nail L60.0 ; Other hammer toe(s) (acquired), right foot M20.41 ; Other hammer toe(s) (acquired), left foot M20.42 and Subungual hematoma of right foot, initial encounter S90.221A [facility] [address] [address] 08/12/2024 Michelet Mcclelland Assessments Encounter Date Diagnosis [...] X ray : Foot, left 3V 04/02/2023 80234-SKPXVKK NAIL, 6 OR MORE 06/29/2023 27489-ETWUSWD NAIL, 6 OR MORE 04/02/2023 66453-QIGBAXX NAIL, 6 OR MORE 10/05/2023 12228-YPYCINI NAIL, 6 OR MORE 02/15/2024 79980-XAOTEQG NAIL, 6 OR MORE 08/15/2024 07826-SNFLIBF NAIL, 6 OR MORE 08/30/2020 96545-SFQMKYL NAIL, 6 OR MORE 11/29/2020 07832-DLDDMAV NAIL, 6 OR MORE 02/28/2021 81557-CTUYCTB NAIL, 6 OR MORE 05/30/2021 30742-MXTLDYQ NAIL, 6 OR MORE 09/05/2021 98010-WAZBESQ NAIL, 6 OR MORE 12/05/2021 91699-EPNJRQK NAIL, 6 OR MORE 03/10/2022 78959-NVJMZKM NAIL, 6 OR MORE 06/09/2022 41924-OGPMSNV NAIL, 6 OR MORE 09/08/2022 48024-EXFLBXY NAIL, 6 OR MORE 12/15/2022 36330-SLRJZYS NAIL, 1-5 08/15/2019 21739-RTTVIXA NAIL, 1-5 04/11/2020 16402-QDNVRMX NAIL, 1-5 01/24/2019 42955-ECEUEWQ NAIL, 1-5 05/09/2019 04069-Kgwhylzx Plate 01/24/2019 78530-Rythicbs Plate 03/10/2022 10036-Oocjlqpi Plate 12/05/2021 30330-Atxyumrv Plate 09/05/2021 44689-Gbwwqrkn Plate 08/15/2024 87637-Qrouksyj Plate 04/02/2023 15523-Snzffanr Plate 09/08/2022 44417-Hyiusjok Plate 12/15/2022 18600-Ujiyzdsl Plate 06/29/2023 16965-KLYP SKIN LESIONS, OVER 4 06/29/20 23 68364-TFSU SKIN LESIONS, OVER 4 04/02/20 23 47774-DHOT SKIN LESIONS, OVER 4 08/15/19 25 66411-EXJN SKIN LESIONS, OVER 4 02/15/20 24 45285-TCVC SKIN LESIONS, OVER 4 10/05/19 24 19952-FJDF SKIN LESIONS, OVER 4 09/05/19 22 34081-FJUS SKIN LESIONS, OVER 4 12/06/19 22 19437-CHXY SKIN LESIONS, OVER 4 03/10/20 22 10342-YZLQ SKIN LESIONS, OVER 4 06/09/20 22 46223-IUTL SKIN LESIONS, OVER 4 12/16/19 23 73333-GWJC SKIN LESIONS, OVER 4 09/08/19 23 80244-YYAR SKIN LESIONS, 2 TO 4 05/30/20 20881-FTKI SKIN LESIONS, 2 TO 4 02/29/20 21 47714-KAWX SKIN LESIONS, 2 TO 4 05/09/20 19 02494-IMEN SKIN LESIONS, 2 TO 4 08/15/19 20 94692-JBUD SKIN LESIONS, 2 TO 4 01/25/20 19 48335-BHUF SKIN LESIONS, 2 TO 4 11/30/19 21 80401-IHGO SKIN LESIONS, 2 TO 4 04/11/20 20 73127-TEEL SKIN LESIONS, 2 TO 4 08/30/19 21 73287-Mkof. Subungual Hematoma 5 H7121-ZXCCRCIK DYSTROPHIC NAILS ANY # K6709-PFABNXJT DYSTROPHIC NAILS ANY # T2235-GWRIHSOP DYSTROPHIC NAILS ANY # T2499-JDKLLXYI DYSTROPHIC NAILS ANY # Next Appt Details Provider Name:Michelet Mcclelland , 11/14/2024 02:00:00 PM, [address] [facility], [address], [place], [address], Insurance Providers Payer Name Payer Address Payer Phone Subscriber Number Group Number Insured Name Patient Relationship to Insured Coverage Start Date Coverage End Date Medicare [employer] [address] [place] [address] [id number] Milana Fonseca Self - patient is the insured [address] [place] [address] [address] [place] [address] [phone] [id number] Milana Fonseca Self - patient is the insured Medical (General) History Medical History History ICD Code Arthritis Chicken pox Cholesterol Diabetic type ll Heart disease High blood pressure Surgical History Surgery Date(Month/Year) R ovarian removed 1995 gall bladder removed 1999 Hammer toe Left 3rd toe cardiac catheterization 11/13/21 eye surgery 06/15/23 Hospitalization History Reason Date(Month/Year) [facility] [place]- flu 03/2022
--- OUTSIDE RECORDS SUMMARY | 2024-11-11 13:14 | XMS_ITS | Patient Health Record ---
Author Organization [email or web address] [facility] Address [address] [place] [address] Care Team Providers Care Jewel Diameter Gauger Name Role Phone Lucrecia Munoz Unavailable [phone] Allergies No Known Allergies Results Component Value Reference Range Notes [id number] IGP No Culture 30 Plus Reviewed date:11/23/2023 04:32:47 PM Interpretation: Performing Lab:[facility] [place], Mariela Francine Pedro, [address], [place], Phone - [phone], Director - [facility] Notes/Report: Clinical Information:Vaginal/Cervical, LMP: Men o [id number] Dates / Results....Unknown New PT Today Other..............Post Menopausal No. of containers..01 ThinPrep Vial DIAGNOSIS: NEGATIVE FOR INTRAEPITHELIAL LESION OR MALIGNANCY. CELLULAR CHANGES ASSOCIATED WITH ATROPHY ARE PRESENT. Specimen adequacy: Satisfactory for evaluation. Endocervical component may not be distinguished in cases of atrophy. Clinician provided ICD10: Z0 1.419 Performed by: Tom Ahumada ytotechnologist ([facility]) . . Note: The Pap smear is [...] Francine Pedro, [address], [place], Phone - [phone], Director - [facility] Notes/Report: Clinical Information:Vaginal/Cervical, LMP: Men o [id number] Dates / Results....Unknown New PT Today Other..............Post Menopausal No. of containers..01 ThinPrep Vial Reason For Referral No Information Medications Medication SIG (Take, Route, Frequency, Duration) Notes Start Date End Date Status Nystatin 112326 UNIT/GM APPLY 1 APPLICAT ION TOPICALLY 2 [...] Status Risk Notes Problem Postmenopausal atrophic vaginitis (86194252) Postmenopausal atrophic vaginitis (N95.2) Active confirmed Problem Osteoarthritis (722613242) Unspecified osteoarthritis, unspecified site (M19.90) Active confirmed Vital Signs Temperature 97.5 degrees Fahrenheit 11/18/2023 Blood pressure diastolic 76 mm Hg 11/18/2023 Height 62 in 11/18/2023 Blood pressure systolic 126 mm Hg 11/18/2023 Weight 175 lbs 11/18/2023 BMI 32 kg/m2 11/18/2023 Encounters Encounter Location Date Provider Diagnosis Total [address] [place] [address] 11/18/2023 Lucrecia Munoz Encounter for gynecological examination [...] Coverage End Date MEDICARE [address] [place], [place] [id number] CALVIN ALVES Self - patient is the insured [address] [place] [address] [address] [place] [address] [id number] CALVIN ALVES Self - patient is [...]
== END 2024-11-11 12:21 | disposition home or self-care (01) ==
LOC: HO.HMCH 11:18
PROVIDERS: PCP Internal Medicine; Visit Provider Internal Medicine
DX: I48.0 Paroxysmal atrial fibrillation (principal); E11.65 Type 2 diabetes mellitus with hyperglycemia; Z79.4 Long term (current) use of insulin; I25.10 Atherosclerotic heart disease of native coronary artery without angina pectoris; I10 Essential (primary) hypertension; E78.00 Pure hypercholesterolemia, unspecified; E66.9 Obesity, unspecified; F32.9 Major depressive disorder, single episode, unspecified

== ENCOUNTER → 2024-11-11 11:17 | Outpatient (BNVA) | payer MEDICARE, OTHER, SELFPAY | PROVIDERS: PCP Internal Medicine; Visit Provider Internal Medicine | DX: I48.0 Paroxysmal atrial fibrillation (principal); I25.10 Atherosclerotic heart disease of native coronary artery without angina pectoris; E11.65 Type 2 diabetes mellitus with hyperglycemia; I10 Essential (primary) hypertension; E78.00 Pure hypercholesterolemia, unspecified; E66.9 Obesity, unspecified; F32.9 Major depressive disorder, single episode, unspecified; Z79.4 Long term (current) use of insulin | CPT/HCPCS: 83036; 99212 ==

== ENCOUNTER 2024-11-17 10:21 | Outpatient (REF) | payer MEDICARE, OTHER, SELFPAY ==
[2024-11-17 10:33] LABS: MANUAL DIFF FLAG NO
[2024-11-17 11:12] LABS: Basophils Percent Auto 0.3 % (0-2); Eosinophils Absolute Auto 0.2 X10*3/uL (0.0-0.4); Eosinophils Percent Auto 3.2 % (0-4); Hematocrit 41.7 % (37.0-47.0); Hemoglobin 13.6 g/dl (12.0-16.0); Imm Gran Abs Auto 0.01 X10*3/uL (0.00-0.03); Imm Gran Pct Auto 0.2 % (0.0-0.4); Lymphocytes Absolute Auto 1.3 X10*3/uL (1.2-4.9); Lymphocytes Percent Auto 21.4 % (20-40); Mean Corpuscular HGB Conc 32.6 g/dl (31.0-35.0); Mean Corpuscular Hemoglobin 27.4 pg (27.0-33.0); Mean Corpuscular Volume 83.9 fL (80.0-98.0); Mean Platelet Volume 9.9 fL (9.4-12.3); Monocytes Absolute Auto 0.6 X10*3/uL (0.1-1.2); Monocytes Percent Auto 9.3 % (2-11); Neutrophils Absolute Auto 4.1 x10*3/uL (2.0-8.3); Neutrophils Percent Auto 65.6 % (45-73); Platelet Count 235 X10*3/uL (160-400); Red Blood Count 4.97 X10*6/uL (4.20-5.50); Red Cell Distribution Width 13.2 % (11.0-16.0); White Blood Count 6.2 X10*3/uL (4.8-10.8)
[2024-11-17 12:01] LABS: Alanine Aminotransferase 17 U/L (0-31); Albumin Level 4.5 g/dL (3.5-5.0); Alkaline Phosphatase 59 U/L (39-117); Anion Gap 14 (12-20); Aspartate Amino Transferase 38 U/L (5-31); Bilirubin Total 0.7 mg/dL (0.0-1.0); Blood Urea Nitrogen 21 mg/dL (9-16); Calcium 9.7 mg/dL (8.4-10.2); Carbon Dioxide 28 mmol/L (22-29); Chloride 106 mmol/L (96-108); Cholesterol 150 mg/dL (<200); Estimated Glomerular Filt Rate > 60; Glucose Random 96 mg/dL (60-115); HDL Cholesterol 49 mg/dL (>40); LDL Cholesterol Calculated 89 mg/dL (<100); Potassium 3.7 mmol/L (3.3-5.1); Sodium 144 mmol/L (135-145); Total Protein 7.7 g/dL (6.5-8.0); Triglycerides 62 mg/dL (<150)
--- OUTSIDE RECORDS SUMMARY | 2024-11-17 12:14 | XMS_ITS ---
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 :1950???Age:73 Y???Sex:Female D ate:07/15/2023 Address:[address] Subjective: * Chief Complaints: * ???1. 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 * Medical History:? Objective: * Vitals:? Assessment: Plan: * Treatment: * Images: Billing Information: * Visit Code:? * Procedure Codes:? * Electronic signature of Radha Munoz MD on 11/17/2024 at 12:14 PM EDT Sign off status: Pending * Appointment Provider:?Lucrecia Munoz M.D. Date:?07/15/2023 Generated for Mari ventura/Zaire/eTransmitting on:?11/17/2024 12:14 PM EDT
--- OUTSIDE RECORDS SUMMARY | 2024-11-17 12:14 | XMS_ITS | Patient Health Record ---
Author Organization [employer] [facility] Address [address] [place] [address] Care Team Providers Care Shot Polisher And Inspector Name Role Phone Lucrecia Munoz Unavailable [phone] Allergies No Known Allergies Results Component Value Reference Range Notes [id number] IGP No Culture 30 Plus Reviewed date:11/23/2023 04:32:47 PM Interpretation: Performing Lab:[facility] [place], Mariela Francine Pedro, [address], [place], Phone - [phone], Director - [facility] Notes/Report: Clinical Information:Vaginal/Cervical, LMP: Men o [id number] Dates / Results....Unknown New PT Today Other..............Post Menopausal No. of containers..01 ThinPrep Vial DIAGNOSIS: NEGATIVE FOR INTRAEPITHELIAL LESION OR MALIGNANCY. CELLULAR CHANGES ASSOCIATED WITH ATROPHY ARE PRESENT. Specimen adequacy: Satisfactory for evaluation. Endocervical component may not be distinguished in cases of atrophy. Clinician provided ICD10: Z0 1.419 Performed by: Tom Ahumada ytotechnologist ([facility]) . . Note: The [...] Francine Pedro, [address], [place], Phone - [phone], Director - [facility] Notes/Report: Clinical Information:Vaginal/Cervical, LMP: Men o [id number] Dates / Results....Unknown New PT Today Other..............Post Menopausal No. of containers..01 ThinPrep Vial Reason For Referral No Information Medications Medication SIG (Take, Route, Frequency, Duration) Notes Start Date End Date Status Nystatin 607162 UNIT/GM APPLY 1 APPLICAT ION TOPICALLY 2 [...] Status Risk Notes Problem Postmenopausal atrophic vaginitis (22840211) Postmenopausal atrophic vaginitis (N95.2) Active confirmed Problem Osteoarthritis (656954202) Unspecified osteoarthritis, unspecified site (M19.90) Active confirmed Vital Signs Temperature 97.5 degrees Fahrenheit 11/18/2023 Blood pressure diastolic 76 mm Hg 11/18/2023 Height 62 in 11/18/2023 Blood pressure systolic 126 mm Hg 11/18/2023 Weight 175 lbs 11/18/2023 BMI 32 kg/m2 11/18/2023 Encounters Encounter Location Date Provider Diagnosis Total [address] [place] [address] 11/18/2023 Lucrecia Munoz Encounter for gynecological examination [...] Coverage End Date MEDICARE [address] [place], [place] [id number] CALVIN ALVES Self - patient is the insured [address] [place] [address] [address] [place] [address] [id number] CALVIN ALVES Self - patient is [...]
--- OUTSIDE RECORDS SUMMARY | 2024-11-17 12:14 | XMS_ITS ---
Author Organization [employer] [facility] Address [address] [place] [address] Care Team Providers Care Behavioral Health Case Manager Name Role Phone Lucrecia Munoz Unavailable [phone] Allergies No Known Allergies Results Component Value Reference Range Notes [id number] IGP No Culture 30 Plus Reviewed date:11/23/2023 04:32:47 PM Interpretation: Performing Lab:[facility], Mariela Escamilla [address]wendy, [address], [place], Phone - [phone], Director - [facility] Notes/Report: Clinical Information:Vaginal/Cervical, LMP: Men o [id number] Dates / Results....Unknown New PT Today Other..............Post Menopausal No. of containers..01 ThinPrep Vial DIAGNOSIS: NEGATIVE FOR INTRAEPITHELIAL LESION OR MALIGNANCY. CELLULAR CHANGES ASSOCIATED WITH ATROPHY ARE PRESENT. Specimen adequacy: Satisfactory for evaluation. Endocervical component may not be distinguished in cases of atrophy. Clinician provided ICD10: Z0 1.419 Performed by: Tom Ahumada ytotechnologist ([facility]) . . Note: The Pap smear is [...] Francine Pedro, [address], [place], Phone - [phone], Director - [facility] Notes/Report: Clinical Information:Vaginal/Cervical, LMP: Men o [id number] Dates / Results....Unknown New PT Today Other..............Post Menopausal No. 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 60-85+ Medications Medication SIG (Take, Route, Frequency, Duration) Notes Start Date End Date Status Nystatin 491027 UNIT/GM APPLY 1 APPLICAT ION TOPICALLY 2 [...] Status W/U Status Risk Notes Problem Osteoarthritis (364359144) Unspecified osteoarthritis, unspecified site (M19.90) Active confirmed Problem Postmenopausal atrophic vaginitis (19958479) Postmenopausal atrophic vaginitis (N95.2) Active confirmed Vital Signs Temperature 97.5 degrees Fahrenheit 11/18/19 24 Blood pressure systolic 126 mm Hg 11/18/19 24 Blood pressure diastolic 76 mm Hg 024 Height 62 in 11/18/2023 Weight 175 lbs 11/18/2023 BMI 32 kg/m2 11/18/2023 Encounters Encounter Location Date Provider Diagnosis Total [address] [place] [address] 11/18/2023 Lucrecia Munoz Encounter for gynecological examination [...] * CALVIN ALVESDOB: [birth year] (73 yo F)Acc No.[id number]:11/18/2023 Progress Note Patient:?CALVIN ALVES Appointment Provider:?Lucrecia hall M.D. :1950???Age:73 Y???Sex:Female D ate:11/18/2023 Address:[address] [place] Subjective: * Chief Complaints: * ???Annual DRY BOX TENDER PhysicalAnnual DRY BOX TENDER Physical 60-85+ * HPI: ???New/Follow-up Patient Consult:? [...] adequate calcium via diet and supplementation ?Significant DRY BOX TENDER problems:?no significant position classification specialist symptoms or problems * ROS:?general:?no?chest pain.?no?palpitations.?no?headache.?no?cough.?no?shortness of breath.?no?fever.?no?unexplained weight loss.?no?nausea/vomiting.?no?change in bowel movements.?no blood in stool.?no?genitourinary complaints.?no?skin complaints.? * Medical History:? 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 * OB History:?Total pregnancies?5.?Total living children?2 [...] Trulicity 0.75 MG/0.5ML Solution Pen-injector Subcutaneous Nystatin 887792 UNIT/GM Cream APPLY 1 APPLICATION TOPICALLY 2 [...] 0.75 MG/0.5ML Solution Pen-injector Subcutaneous Taking Nystatin 899464 UNIT/GM Cream APPLY 1 APPLICATION TOPICALLY 2 [...] * Images: Billing Information: * Visit Code:? 64034 Preventive Care Est Pt. Age 65 and over. * Procedure Codes:? * Sign off status: Completed true * Appointment Provider:?Lucrecia Munoz M.D. Date:?11/18/2023 Generated for Mari ventura/Zaire/Liaitting on:?11/17/2024 12:14 PM EDT History and Physical Notes * [...] ate calcium via diet and supplementation Significant DRY BOX TENDER problems:: n o significant position classification specialist symptoms or problems Examination Category Sub-Category Detail [...]
--- OUTSIDE RECORDS SUMMARY | 2024-11-17 12:14 | XMS_ITS ---
Author Organization [facility] Address [address] [place] [address] Care Team Providers Care Senior Business Consultant Name Role Phone Aracely Thompson Primary Care Provider Michelet Jackson Unavailable [phone] Allergies No Known Allergies REASON FOR VISIT [...] Polyneuropathy due to type 2 diabetes mellitus (101294492) Type 2 diabetes mellitus with diabetic polyneuropathy (E11.42) Active confirmed Problem Acquired hammer toe of right foot (8223473326717706 ) Other hammer toe(s) (acquired), right foot (M20.41) Active confirmed Problem Acquired hammer toe of left foot (5070680348841762 ) Other hammer toe(s) (acquired), left foot (M20.42) Active confirmed Vital Signs Height 5ft 2in in 08/15/2024 Weight 179 lbs 08/15/2024 BMI 32.74 kg/m2 08/15/2024 Blood pressure systolic 128 mm Hg 08/15/19 25 Blood pressure diastolic 63 mm Hg 025 Procedures Procedure Date Ordered Date Performed Result Body Sit e 84023-WCMLFWP NAIL, 6 OR MORE 08/15/2024 N/A 37349-Olynxhnu Plate 08/15/2024 N/A 34895-MFNP SKIN LESIONS, OVER 4 08/15/2024 N/A 56133-Bote. Subungual Hematoma 08/15/2024 N/A Encounters Encounter Location Date Provider Diagnosis [facility] [address] [address] 08/15/2024 Micheletwillis IsbellKrystin Type 2 diabetes mellitus [...] INSTRUCTIONS.pdf) Pending Test Test Name Order Date 18555-HVKDQDN NAIL, 6 OR MORE 08/15/2024 72274-Czefobpz Plate 08/15/2024 64839-CHSW SKIN LESIONS, OVER 4 08/15/19 54429-Evxn. Subungual Hematoma Next Appt Details Follow Up: prn, Reason: Provider Name:Michelet Mcclelland , 02/15/2025 10:00:00 AM, [address], [address], [place], [address], Procedure Notes * Category Sub-Category Detail Notes [...] Motrin was recommended for pain or discomfort (54178), DIABETES: Pt was advised as to the [...] of a nail nipper and/or dremel-type grinder set up operator external, to a more viable healthy nail plate [...] to maintain effectiveness in symptomatic relief - 21637 I&D subungual hematoma: Location T5, As p [...] advised of the possibilty for nail auto-avulsion (38159), DIABETES: Pt was advised as to the [...] instrumentation by the physician of record - 38078 Progress Notes * Milana FONSECADOB: [birth year] (74 yo F)Acc No.[id number]:08/15/2024 Progress Note Patient:?Milana FONSECA Provider:?Michelet Mcclelland DPM :1950???Age:74 Y???Sex:Female D ate:08/15/2024 [address] [facility] [place] Pcp:Aracely Thompson Subjective: * Chief Complaints: * [...] 06/15/23 * Hospitalization/Major Diagno stic Procedure:?[facility]- flu 03/2022 * Family History:?Mother: dece ased, [...] Uncomplicated (3)??? Plan: * Treatment: 2.?Ingrown nail?Procedure: 14811-Rqnnimzx Plate 3.?Other hammer toe(s) (acqu ired), right foot? Start Extra Depth Orthopedic Shoes (1 Pair) with Customized Heat Molded Multidensity Innersoles (3 Pair), as directed, Dx: NIDDM/Polyneuropathy (E11.42), Hammertoe Foot Deformity (M20.41,M20.42), Preulcerative Skin Lesion(s) (L85.1, 1, Refills 0.?? Notes: Patient Educated with: DIABETIC FOOT CARE INSTRUCTIONS.pdf (DIABETIC FOOT CARE INSTRUCTIONS.pdf)?? 4.?Subungual hematoma of rig ht foot, initial encounter?Procedure: 86114-Jiss. Subungual Hematoma * Procedures:?Debride Nail 6-10:?Nail debridement?Due [...] of a nail nipper and/or dremel-type grinder set up operator external, to a more viable healthy nail plate [...] to maintain effectiveness in symptomatic relief - 79728.?I&D subungual hematoma::?Location?T5, As per exam.?Anesthesia?was deferred - [...] advised of the possibilty for nail auto-avulsion (72383), DIABETES: Pt was advised as to the [...] instrumentation by the physician of record - 85465.?Nail Avulsion:?Location?Lateral nail border,?TA.?Anesthesia?was deferred - NEUROPATHY: patient [...] Motrin was recommended for pain or discomfort (62115), DIABETES: Pt was advised as to the risk of delayed or nonhealing due to diabetes. Pt is to call the office with any questions, concerns, or complications.? * Procedure Codes:?92647 DEBRI DE NAIL, 6 OR MORE, Modifiers: XS 17980 Avulsion Plate, Modifiers: XS , [id number] DRAIN BLOOD FROM UNDER NAIL, Modifiers: XS , [id number] TRIM SKIN LESIONS, OVER 4, Modifiers: XS [...] Mcclelland DPM Date:?2024 Generated for Mari ventura/Zaire/Liaitting on:?11/17/2024 12:14 PM [...]
--- OUTSIDE RECORDS SUMMARY | 2024-11-17 12:14 | XMS_ITS ---
Author Organization [facility] Address [address] [place] [address] Care Team Providers Care Driver Medic Name Role Phone Aracely Thompson Primary Care Provider Michelet Jackson Unavailable [phone] REASON FOR VISIT black toe/ingrown Encounters Encounter Location Date Provider Diagnosis [address] [place] [address] 08/12/2024 Michelet Mcclelland Plan Of Treatment Next Appt Details Provider Name:Michelet Mcclelland , 02/15/2025 10:00:00 AM, [address] [facility] [place] [address], [place], [address], Progress Notes * RAYMUNDO MilanaDOB: [birth year] (74 yo F)Acc No.[id number]:08/12/2024 Patient:?Milana ALVES :1950???Age:74 Y???Sex:Female Address:[address] [place] [address] * true * Date:? Generated for Printi ng/Faxing/eTransmitting on:?11/17/2024 12:14 PM EDT
--- OUTSIDE RECORDS SUMMARY | 2024-11-17 12:14 | XMS_ITS ---
Author Organization [facility] Address [address] [place] [address] Care Team Providers Care Wastewater Engineer Name Role Phone Aracely Thompson Primary Care Provider Michelet Jackson Unavailable [phone] Allergies No Known Allergies REASON FOR VISIT At Risk Footcare, Skin problem(s) Medications Medication SIG (Take, Route, Frequency, Duration) Notes Start Date End Date Status Xarelto Active Zetia Active Extra Depth Orthopedic Shoes (1 Pair) with Customized Heat Molded Multidensity Innersoles (3 Pair) as directed Dx: NIDDM/Polyneuropathy (E11.42), Hammertoe Foot Deformity (M20.41,M20.42), Preulcerative Skin Lesion(s) (L85.1 08/15/2024 Active Aspirin 81 MG Orally Not-Ta gerri Metoprolol Tartrate 75 MG Orally Not-Taking Nexletol Active Trulicity Active metFORMIN HCl 500 MG 1 tablet with a lissette l Orally Once a day for 30 day(s) Active Metoprolol Tartrate 50 MG 1 tablet with food Orally Twice a day for 30 day(s) Active Multaq 4mg Active Otezla Active Amiodarone HCl Activ e Crestor Active Ammonium Lactate 12 % 1 application Exte rnally to affected areas of dry skin to feet except for between the toes Twice a day for 30 days Active Social History Tobacco Use: Social History Observation Description Date Details (start date - stop date) Never Smoker NA - NA Tobacco use other than smoking: Question Answer Notes Are you an other tobacco user? No Tobacco Control (Standard) Question Answer Notes Tobacco use: Nonsmoker Additional Findings: Tobacco non-user Current no nsmoker AUDIT-C (Standard) Question Answer Notes Did you have a drink containing alcohol in the p ast year? No Points 0 Interpretation Negative Vital Signs Height 5ft 2in in 11/14/2024 Weight 179 lbs 11/14/2024 BMI 32.74 kg/m2 11/14/2024 Blood pressure systolic 124 mm Hg 11/15/19 25 Blood pressure diastolic 59 mm Hg 025 Procedures Procedure Date Ordered Date Performed Result Body Sit e 11356-JNANPUN NAIL, 6 OR MORE 11/14/2024 N/A 58978-HEWF SKIN LESIONS, OVER 4 11/14/2024 N/A Encounters Encounter Location Date Provider Diagnosis [facility] [place] [address] [place] [address] 11/14/2024 Micheletwillis IsbellKrystin Type 2 diabetes mellitus with diabetic polyneuropathy E11.42 ; Tinea unguium B35.1 and Xerosis of skin L85.3 Assessments Encounter Date Diagnosis (ICD Code) Assessment Notes Treatment Notes Treatment Clinical Notes Section Notes 11/14/2024 Type 2 diabetes mellitus with diabetic polyneuropathy (ICD-10 - E11.42) 11/14/2024 Tinea unguium (ICD-10 - B35.1) 11/14/2024 Xerosis of skin (ICD-10 - L85.3) 11/14/2024 Other Plan Of Treatment Medication Medication Name Sig Start Date Stop Date Notes Ammonium Lactate 12 % 1 application Exte rnally to affected areas of dry skin to feet except for between the toes Twice a day for 30 days Pending Test Test Name Order Date 97125-BOIQOMZ NAIL, 6 OR MORE 11/14/2024 79679-JWWZ SKIN LESIONS, OVER 4 11/15/19 25 Next Appt Details Follow Up: prn, Reason: Provider Name:Michelet Elena IsbellKrystin , 02/15/2025 10:00:00 AM, [address], [address], [place], [address], Procedure Notes * Category Sub-Category Detail Notes Debride Nail 6-10 Nail debridement Due to the cl inical pathology outlined in the exam findings, performance of this nail treatment is medically necessary as its management by an unskilled/untrained nonprofessional would put this patients foot and overall health at risk. Therefore, debridement to affected nail(s), as described in exam ( TA, T1, T3, T4, T5, T6, T7, T8, T9 ), was performed exclusively by the physician of record to reduce/remove overall nail length, girth, thickness, subungual debris, and necrotic tissue, by manual and/or electrical means through the use of a nail nipper and/or dremel-type universal grinder tool, to a more viable healthy nail plate [...] to maintain effectiveness in symptomatic relief - 10632 Keratoma Treatment Parring or Cutting o f [...] (s), 2, B/L , Plantar, Heel(s), B/L ), were pared, and/or cut utilizing a sterile 15 blade, tissue nippers, and/or power dremel instrumentation by the physician of record - 11492 Progress Notes * Milana FONSECADOB: [birth year] (74 yo F)Acc No.[id number]:11/14/2024 Progress Note Patient:?RAYMUNDO Milana Provider:?Michelet Mcclelland DPM :1950???Age:74 Y???Sex:Female D ate:11/14/2024 Address:[address] [facility], [facility], [facility] Pcp:Aracely Thompson Subjective: * Chief Complaints: * ???At Risk FootcareSkin prob urmila(s) * HPI: ???At Risk footcare:?Pt States Last PCP Visit:?Date?11/11/2024 ???Toe pain:?Treatments:?Rx shoes, states delivery pending.?Skin problems:?Nature:?dryness , scaling.?Location:?B/L .?Duration:?several days.?Course:?worse.?Treatments:?medication ( Lubriderm), is not effective, medication ( AM Lactin ), has been successful in the past.? * ROS:?General/Constitutional:?Nausea?denies.?Vomiting?denies.?Hunger Thirst?denies.?Loss appetite?denies.?Chills?denies.?Fatigue?denies.?Fever?denies.?Night Sweats?denies.?Unexplained weight loss?denies.?Unexplained [...] 1999Hammer toe Left 3rd toe cardiac catheterization 4/6/22eye surgery 06/15/23 * Hospitalization/Major Diagno stic Procedure:?[facility] [place]- flu 03/2022 * Family History:?Mother: dece ased, kidney/liver disease, diagnosed with Unspecified cerebral artery occlusion with cerebral infarction, Family history of arthritis, Unspecified heart disease, Diabetic - NIDDM, Unspecified essential hypertension.?Father: .?Spouse: .?Siblings: diagnosed with Other malignant neoplasm of unspecified site.? * Social History:?Tobacco Use:?Tobacco use other than smoking?Are you an other tobacco user??No ?Tobacco Control (Standard)?Tobacco use:?Nonsmoker ?Additional Findings: Tobacco non-user?Current nonsmoker ???Drugs/Alcohol:?Drugs?Have you used drugs other than those for medical reasons in the past 12 months??No ???Miscellaneous:?Caffeine: yes, 2-3 cups per day. ?Children: yes, 3. ?Exercise: yes, gym 2-3 times a week. ?Marital status: . ?Occupation: Retired. ???Drug/Alcohol:?AUDIT-C (Standard)?Did you have a drink containing alcohol in the past year??No ?Points?0 ?Interpretation?Negative * Medications:?TakingOtezla Am iodarone HCl Crestor metFORMIN HCl 500 MG Tablet 1 tablet with a meal Orally Once a day Metoprolol Tartrate 50 MG Tablet 1 tablet with food Orally Twice a day Dorita , Notes to Pharmacist: 4mgNexletol Trulicity Xarelto Zetia Extra Depth Orthopedic Shoes (1 Pair) with Customized Heat Molded Multidensity Innersoles (3 Pair) as directed Dx: NIDDM/Polyneuropathy (E11.42), Hammertoe Foot Deformity (M20.41,M20.42), Preulcerative Skin Lesion(s) (L85.1 Taking Otezla Taking Amiodarone HCl Taking Crestor Taking metFORMIN HCl 500 MG Tablet 1 tablet with a meal Orally Once a day Taking Metoprolol Tartrate 50 MG Tablet 1 tablet with food Orally Twice a day Taking Multaq , Notes to Pharmacist: 4mgTaking Nexletol Taking Trulicity Taking Xarelto Taking Zetia Taking Extra Depth Orthopedic Shoes (1 Pair) with Customized Heat Molded Multidensity Innersoles (3 Pair) as directed Dx: NIDDM/Polyneuropathy (E11.42), Hammertoe Foot Deformity (M20.41,M20.42), Preulcerative Skin Lesion(s) (L85.1 Not-Taking/PRNAspirin 81 MG Tablet Delayed Release Orally Metoprolol Tartrate 75 MG Tablet Orally Medication List reviewed and reconciled with the patientNot-Taking/PRN Aspirin 81 MG Tablet Delayed Release Orally Not-Taking/PRN Metoprolol Tartrate 75 MG Tablet Orally Medication List reviewed and reconciled with the patient * Allergies:?N.K.D.A.yes[Aller gies Verified] Objective: * Vitals:?Ht: 5ft 2in, Wt:179, BMI:32.74, Shoe size: 9.5, BP:124/59mm Hg, BS: did not test, Ht-cm: 157.48 cm, Wt-k.19 kg. * ???Past Orders: ???Lab:HEMOGLOBIN A1C (GLYCO HEMOGLOBIN) (Order Date - 11/11/2024) (Collection Date & Time - 11/12/2024 02:49 PM) ? Value Reference Range ?HEMOGLOBIN A1C % (HH) 6.3 * Examination: ???Ophthalmology Referral: ?DIABETES EYE EXAM?Procedure Performed:?Yes ?Date of Exam Performed?03/31/2024 ?Diabetic Retinopathy Screening:?Yes ?Retinal Screening Performed:?Yes ?Findings of Diabetic Eye Exam:?no retinopathy?Neurological: ?SENSORY:? Neurological exam demonstrates, reduced light touch sensation, reduced sharp/dull pin prick discrimination , B/L, 5.07 monofilament test performed at plantar aspects of 5 varied sites per foot shows sensation, reduced , B/L.?Nails: ?NAILS are:?Elongated, overgrown, dystrophic, lytic, greater than 3mm thick, discolored and friable with crumbly malodorous subungual debris, with pain on palpation, TA,?T1, T3, T4, T5, T6, T7, T8, T9, all other nails not described with characteristics as possessing mycosis are elongated, overgrown, and dystrophic?.?Dermatologic: ?SKIN FINDINGS:?Skin exam reveals Keratotic lesion(s) located at, Medial plantar, IPJ, TA, Medial plantar, IPJ, T5, SUB MTH (s), 1, B/L, SUB MTH (s), 2, B/L , Plantar, Heel(s), B/L , Skin shows sign(s) of, dryness, scaling, in a stocking fashion, no fissure(s) present, B/L.? Assessment: * Assessment: 1.?Type 2 diabetes mellitus with diabetic polyneuropathy - E11.42 (Primary)???2.?Tinea unguium - B35.1???3.?Xerosis of skin - L85.3???Specify :Acute problem, Uncomplicated (3),Rx Management (4)??? Plan: * Treatment: 2.?Xerosis of skin? Start Ammonium Lactate Cream, 12 %, 1 application, Externally to affected areas of dry skin to feet except for between the toes, Twice a day, 30 days, 280, Refills 3.?? * Procedures:?Debride Nail 6-10:?Nail debridement?Due to the clinical pathology outlined in the exam findings, performance of this nail treatment is medically necessary as its management by an unskilled/untrained nonprofessional would put this patients foot and overall health at risk. Therefore, debridement to affected nail(s), as described in exam ( TA, T1,?T3,?T4,?T5, T6, T7, T8, T9?), was performed exclusively by the physician of record to reduce/remove overall nail length, girth, thickness, subungual debris, and necrotic tissue, by manual and/or electrical means through the use of a nail nipper and/or dremel-type universal grinder tool, to a more viable healthy nail plate [...] to maintain effectiveness in symptomatic relief - 91075.?Keratoma Treatment:?Parring or Cutting of Benign Hyperkeratotic Lesion(s)?(-57) [...] exam (?Medial plantar,?IPJ,?TA,?Medial plantar,?IPJ,?T5,?SUB MTH (s),?1,?B/L,?SUB MTH (s),?2,?B/L?,?Plantar,?Heel(s),?B/L?), were pared, and/or cut utilizing a sterile 15 blade, tissue nippers, and/or power dremel instrumentation by the physician of record - 42800.? * Procedure Codes:?43893 DEBRI DE NAIL, 6 OR MORE, Modifiers: XS 29939 TRIM SKIN LESIONS, OVER 4, Modifiers: XS * Preventive Medicine:? ??Counseling:?Discussion:?-13: Office or other [...] have encouraged the patient to call the office.?Xerosis:?The patient was counseled on the diagnosis, potential etiologies, and treatment options for their skin condition. We discussed the risks and benefits of each option from performing no treatment, to utilizing OTC topical skin creams/ointments, to utilizing prescription topical creams/ointments, to utilizing customized compounded topical medications and use of nocturnal occlusion with any/all previously detailed therapies. We discussed the advantages and disadvantages of each possible treatment and importance for adherence to all the recommended therapies for optimum success and avoid potential complications such as open sore/infection/possible hospitalization. We discussed the potential effectiveness of each topical preparation as well as each ones possible side effects and/or patient medication interactions. Patient questions re: use, dosage, successful outcomes, and application consistency were reviewed and the patient verbalized that all answers were clearly understood. The patient has decided to apply Rx skin creams to their feet save the interspaces while paying special attention to the heels. Such was sent to their pharmacy at the time of visit.? ??Screening/Special Tests:?Fall Risk?Screening:?No falls in the past year ?FALLS: Screening for Future Fall Risk?Have you had any falls with injury in the past year??No * Follow Up:?prn * Images: * Sign off status: Completed true * Provider:?Michelet Mcclelland DPM Date:?2024 Generated for Mari ventura/Zaire/Juana on:?11/17/2024 12:13 PM EDT History and Physical Notes * HPI (History of Present Illness) Category Sub-Category Detail Notes Category Not es Toe pain Treatments: Rx shoes, states delivery pe nding Skin problems Nature: dryness , scaling Location: B/L Duration: several days Course: worse Treatments: medication ( Lubride rm), is not effective, medication ( AM Lactin ), has been successful in the past At Risk footcare Pt States Last PCP Visit: Date: 5 Examination Category Sub-Category Detail Notes Category Not es Neurological SENSORY: Neurological exa m demonstrates, reduced [...] (s), 2, B/L , Plantar, Heel(s), B/L , Skin shows sign(s) of, dryness, scaling, in a stocking fashion, no fissure(s) present, B/L Ophthalmology Referral DIABETES EYE EXAM Procedu re Performed:: Yes ?Date of Exam Performed: 03/31/2024 Diabetic Retinopathy Screening:: Yes Retinal Screening Performed:: Yes Findings of Diabetic Eye Exam:: no retin opathy Nails NAILS are: Elongated, overg rown, dystrophic, lytic, greater than 3mm thick, discolored and friable with crumbly malodorous subungual debris, with pain on palpation, TA, T1, T3, T4, T5, T6, T7, T8, T9, all other nails not described with characteristics as possessing mycosis are elongated, overgrown, and dystrophic
--- OUTSIDE RECORDS SUMMARY | 2024-11-17 12:15 | XMS_ITS | Patient Health Record ---
Author Organization [facility] Address [address] [place] [address] Care Team Providers Care Pie Icer Machine Name Role Phone Aracely Thompson MD Primary Care Provider Marquise Chapin [phone] Allergies No Known Allergies Reason For Referral [...] Problem History of adenomatous polyp of colon (639176989) History of adenomatous polyp of colon (Z86.010) Active confirmed Problem Dysphagia (20814801) Dysphagia (R13.10) Active confirmed Problem Duodenitis (26351552) Duodenitis (K29.80) Active confirmed Problem Hiatal hernia (41462084) Hiatal hernia (K44.9) Active confirmed Problem Bleeding from anus (1610363) Rectal bleed (K62.5) Active confirmed Problem Gastritis (1844233) Gastritis (K29.70) Active c onfirmed Problem Duodenal ulcer (59803632) Duodenal ulcer (K26.9) Active confirmed Problem Helicobacter pylori infection (456863362) Helicobacter pylori infection (A04.8) Active confirmed Problem Diverticulosis of colon (820102253) Diverticulosis of colon (K57.30) Active confirmed Problem Gastroesophageal reflux disease (487126230) Gastroesophageal reflux disease, unspecified whether esophagitis present (K21.9) Active confirmed Problem Difficulty swallowing (288019564) Esophageal dysphagia (R13.19) Active confirmed Plan Of Treatment Future Test Test Name Order Date COLONOSCOPY 05/30/2014 UPPER GI ENDOSCOPY BALLOOON DILATION OF ESOPH 07/09/2021 COLONOSCOPY 07/09/2021 Insurance Providers Payer Name Payer Address Payer Phone Subscriber Number Group Number Insured Name Patient Relationship to Insured Coverage Start Date Coverage End Date MEDICARE OF [place] [address] [place] [address] [phone] [id number] CALVIN ALVES Self - patient is the insured [facility] [address] [place] [address] [id number] CALVIN ALVES Self - patient is the insured Medical (General) History Medical History History ICD Code Colonoscopy 05-31-2004--only a hyperplas tic polyp, sigmoid diverticulosis Hyperlipidemia Hypertension Denies renal disease NIDDM CAD--ID and 2 stents > 5 yrs ago-Dr. Diamante delacruz Fatty liver--neg. Hepatitis serologies, neg. Iron studies, neg. liver U/S--normal LFT's in 09/2013 Atrial fib - Dr. 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
--- OUTSIDE RECORDS SUMMARY | 2024-11-17 12:15 | XMS_ITS | Patient Health Record ---
Author Organization [facility] Address [address] [place] [address] Care Team Providers Care Manager Wealth Management Name Role Phone Aracely Thompson Primary Care Provider Michelet Jackson Unavailable [phone] Allergies No Known Allergies Results Component Value Reference Range Notes HEMOGLOBIN A1C (GLYCOHEMOGLO BIN) Reviewed date:02/15/2024 10:42:30 AM Interpretation: Performing Lab: Notes/Report: HEMOGLOBIN A1C % (HH) 5.9 HEMOGLOBIN A1C (GLYCOHEMOGLO BIN) Reviewed date:11/14/2024 02:49:48 PM Interpretation: Performing Lab: Notes/Report: HEMOGLOBIN A1C % (HH) 6.3 Reason For Referral No Information Medications Medication SIG (Take, Route, Frequency, Duration) Notes Start Date End Date Status Nexletol Active Trulicity Active Xarelto Active Zetia Active Extra Depth Orthopedic Shoes (1 Pair) with Customized Heat Molded Multidensity Innersoles (3 Pair) as directed Dx: NIDDM/Polyneuropathy (E11.42), Hammertoe Foot Deformity (M20.41,M20.42), Preulcerative Skin Lesion(s) (L85.1 08/15/2024 Active Otezla Active Aspirin 81 MG Orally Not-Ta gerri Amiodarone HCl Activ e Metoprolol Tartrate 75 MG Orally Not-Taking Crestor Active Ammonium Lactate 12 % 1 application Exte rnally to affected areas of dry skin to feet except for between the toes Twice a day for 30 days Active metFORMIN HCl 500 MG 1 tablet with a lissette l Orally Once a day for 30 day(s) Active Metoprolol Tartrate 50 MG 1 tablet with food Orally Twice a day for 30 day(s) Active Multaq 4mg Active Immunizations Vaccine Route Administration Date Status [...] Problem Acquired hammer toe of right foot (0935084214628340 ) Other hammer toe(s) (acquired), right foot (M20.41) Active confirmed Problem Acquired hammer toe of left foot (0737153888662485 ) Other hammer toe(s) (acquired), left foot (M20.42) Active confirmed Problem Polyneuropathy due to type 2 diabetes mellitus (858629914) Type 2 diabetes mellitus with diabetic polyneuropathy (E11.42) Active confirmed Vital Signs Blood pressure diastolic 59 mm Hg 11/14/2024 Height 5ft 2in in 11/14/2024 Blood pressure systolic 124 mm Hg 11/14/2024 Weight 179 lbs 11/14/2024 BMI 32.74 kg/m2 11/14/2024 Procedures Procedure Date Ordered Date Performed Result Body Sit e 39324-VYLKGLJ NAIL, 6 OR MORE 02/15/2024 N/A 56649-JRZF SKIN LESIONS, OVER 4 02/15/2024 N/A 65943-LGTYIQU NAIL, 6 OR MORE 08/15/2024 N/A 95583-Ungkohox Plate 08/15/2024 N/A 12462-QAFQ SKIN LESIONS, OVER 4 08/15/2024 N/A 42084-Baut. Subungual Hematoma 08/15/2024 N/A 27086-APROOQM NAIL, 6 OR MORE 11/14/2024 N/A 96818-LSCQ SKIN LESIONS, OVER 4 11/14/2024 N/A Encounters Encounter Location Date Provider Diagnosis [address] [address] 02/15/2024 Michelet Mcclelland Type 2 diabetes mellitus with diabetic peripheral angiopathy without gangrene E11.51 ; Tinea unguium B35.1 ; Pain in right toe(s) M79.674 and Pain in left toe(s) [facility]79.[address] [facility] [address] 08/15/2024 Micheletwillis IsbellKrystin Type 2 diabetes mellitus with diabetic polyneuropathy E11.42 ; Tinea unguium B35.1 ; Ingrown nail L60.0 ; Other hammer toe(s) (acquired), right foot M20.41 ; Other hammer toe(s) (acquired), left foot M20.42 and Subungual hematoma of right foot, initial encounter S90.221A [address] [address] 11/14/2024 Micheletwillis Mcclelland Type 2 diabetes mellitus with diabetic polyneuropathy E11.42 ; Tinea unguium B35.1 and Xerosis of skin L85.[address] [address] 08/12/2024 Michelet Mcclelland Assessments Encounter Date Diagnosis (ICD Code) Assessment Notes Treatment Notes Treatment Clinical Notes Section Notes 02/15/2024 Type 2 diabetes mellitus with diabetic peripheral angiopathy without gangrene (ICD-10 - E11.51) 02/15/2024 Tinea unguium (ICD-10 - B35.1) 08/15/2024 Type 2 diabetes mellitus with diabetic polyneuropathy (ICD-10 - E11.42) 08/15/2024 Tinea unguium (ICD-10 - B35.1) 11/14/2024 Type 2 diabetes mellitus with diabetic polyneuropathy (ICD-10 - E11.42) 11/14/2024 Tinea unguium (ICD-10 - B35.1) 08/15/2024 Ingrown nail (ICD-10 - L60.0) 02/15/2024 Pain in right toe(s) (ICD-10 - M79.674) 08/15/2024 Other hammer toe(s) (acquired), right foot (ICD-10 - M20.41) Patient Educated with: DIABETIC FOOT CARE INSTRUCTIONS. pdf (DIABETIC FOOT CARE INSTRUCTIONS. pdf) 02/15/2024 Pain in left toe(s) (ICD-10 - M79.675) 11/14/2024 Xerosis of skin (ICD-10 - L85.3) 08/15/2024 Other hammer toe(s) (acquired), left foot (ICD-10 - M20.42) 08/15/2024 Subungual hematoma of right foot, initial encounter (ICD-10 - S90.221A) 11/14/2024 Other Plan Of Treatment Pending Test Test Name Order Date X ray : Foot, left 3V 04/02/2023 40632-XXXBKON NAIL, 6 OR MORE 06/29/2023 84101-JTPSGUM NAIL, 6 OR MORE 04/02/2023 25438-IVGSEYD NAIL, 6 OR MORE 10/05/2023 55977-TZCSEVB NAIL, 6 OR MORE 02/15/2024 32227-VDRGLXG NAIL, 6 OR MORE 08/15/2024 67242-WZDPJMD NAIL, 6 OR MORE 11/14/2024 65492-DAGNBMA NAIL, 6 OR MORE 08/30/2020 95219-QHKFUPE NAIL, 6 OR MORE 11/29/2020 31498-OLZAOHS NAIL, 6 OR MORE 02/28/2021 54560-EDIKJJS NAIL, 6 OR MORE 05/30/2021 25798-KLKESLS NAIL, 6 OR MORE 09/05/2021 77909-GBTJILV NAIL, 6 OR MORE 12/05/2021 36668-ROODDRO NAIL, 6 OR MORE 03/10/2022 62760-CPJPEFC NAIL, 6 OR MORE 06/09/2022 55990-IBKHKEX NAIL, 6 OR MORE 09/08/2022 64211-XJVKKTI NAIL, 6 OR MORE 12/15/2022 11265-ZZOIJUI NAIL, 1-5 08/15/2019 92493-ONBPMZN NAIL, 1-5 04/11/2020 78516-DXVLTPE NAIL, 1-5 01/24/2019 52039-LWNVREF NAIL, 1-5 05/09/2019 34260-Zkniauvk Plate 01/24/2019 69877-Kmdpbrlc Plate 03/10/2022 86513-Hyugzqgz Plate 12/05/2021 61937-Chzstvcr Plate 09/05/2021 37554-Mdvfvxxc Plate 08/15/2024 15723-Ghkijovb Plate 04/02/2023 22689-Jcjkjahp Plate 09/08/2022 17165-Obvnziuk Plate 12/15/2022 65289-Rmskyjlm Plate 06/29/2023 51846-TGJT SKIN LESIONS, OVER 4 06/29/20 65931-HSXH SKIN LESIONS, OVER 4 04/02/20 32351-BIMR SKIN LESIONS, OVER 4 08/15/19 29060-JMNW SKIN LESIONS, OVER 4 02/15/20 67976-NYBC SKIN LESIONS, OVER 4 10/05/19 24 27755-VICY SKIN LESIONS, OVER 4 11/15/19 59665-EEUK SKIN LESIONS, OVER 4 09/05/19 01858-XQPA SKIN LESIONS, OVER 4 12/06/19 22 88191-BZXS SKIN LESIONS, OVER 4 03/10/20 22 56928-CDSU SKIN LESIONS, OVER 4 06/09/20 22 03614-OBDG SKIN LESIONS, OVER 4 12/16/19 23 61817-ABDA SKIN LESIONS, OVER 4 09/08/19 23 29233-ZKQB SKIN LESIONS, 2 TO 4 05/30/20 21 22882-DRUX SKIN LESIONS, 2 TO 4 02/29/20 21 38833-HWBR SKIN LESIONS, 2 TO 4 05/09/20 19 67179-FGZT SKIN LESIONS, 2 TO 4 08/15/19 20 46067-SFKY SKIN LESIONS, 2 TO 4 01/25/20 19 64929-UHZZ SKIN LESIONS, 2 TO 4 11/30/19 94406-ULUT SKIN LESIONS, 2 TO 4 04/11/20 99080-HZSM SKIN LESIONS, 2 TO 4 08/30/19 92348-Nrcd. Subungual Hematoma 5 N1978-NTIVHUFB DYSTROPHIC NAILS ANY # G3770-ZDJWJSGJ DYSTROPHIC NAILS ANY # L6867-HBWQKPVU DYSTROPHIC NAILS ANY # U0864-LEPIAWBP DYSTROPHIC NAILS ANY # Next Appt Details Provider Name:Michelet Mcclelland , 02/15/2025 10:00:00 AM, [address], [place], [address], Insurance Providers Payer Name Payer Address Payer Phone Subscriber Number Group Number Insured Name Patient Relationship to Insured Coverage Start Date Coverage End Date [employer] [address] [place] [address] [id number] Milana Fonseca Self - patient is the insured [address] [place] [address] [address] [place] [address] [phone] [id number] Milana Fonseca Self - patient is the insured Medical (General) History Medical History History ICD Code Arthritis Chicken pox Cholesterol Diabetic type ll Heart disease High blood pressure Surgical History Surgery Date(Month/Year) R ovarian removed 1995 gall bladder removed 1999 Hammer toe Left 3rd toe cardiac catheterization 11/13/21 eye surgery 06/15/23 Hospitalization History Reason Date(Month/Year) [facility]gent [facility] [place]- flu 03/2022
[2024-11-17 12:19] LABS: Folate 12.7 ng/mL (> or = 4.0); Free T4 (Free Thyroxine) 0.88 ng/dL (0.71-1.85); Thyroid Stimulating Hormone 0.54 uIU/mL (0.32-4.0); Vitamin B12 1214 pg/mL (200-900)
== END 2024-11-17 10:22 | disposition home or self-care (01) ==
LOC: HO.LAB 10:21
PROVIDERS: PCP Internal Medicine; Visit Provider Internal Medicine
DX: I48.0 Paroxysmal atrial fibrillation (principal); E78.00 Pure hypercholesterolemia, unspecified
CPT/HCPCS: 36415; 80053; 80061; 82607; 82746; 84439; 84443; 85025

== ENCOUNTER → 2024-12-29 10:01 | Outpatient (BNVA) | payer MEDICARE, OTHER, SELFPAY | PROVIDERS: PCP Internal Medicine; Visit Provider Internal Medicine Cardiovascular Disease | DX: Z13.89 Encounter for screening for other disorder (principal) ==

== ENCOUNTER 2025-02-21 14:29 | Outpatient (AMB) | payer MEDICARE, OTHER, SELFPAY ==
--- NOTE | 2025-02-21 14:33 | A.OFFPC_ITS ---
Vital Signs 02/21/25 14:39 Height 5 ft 2 in Weight 170 lb BMI 31.1 BP 120/76 Blood Pressure Location Lt brachial Position Sitting Intake Visit Reasons: 3M follow up DM Intake Note: Patient here for a 3 month follow up Manager Supply Chain Required: No Accompanied by: Grand Child Allergies atorvastatin (From LIPITOR) Allergy (Unknown, Verified 02/21/25 14:45) AFFECTED LIVER ENZYMES liraglutide (Victoza) Allergy (Unknown, Verified 02/21/25 14:45) nausea lisinopril Allergy (Unknown, Verified 02/21/25 14:45) cough losartan (LOSARTAN) Allergy (Unknown, Verified 02/21/25 14:45) HIVES PEANUT BUTTER Allergy (Unknown, Uncoded 11/11/24 11:41) LIPS SWELLING MOST FRUITS Adverse Reaction (Unknown, Uncoded 11/11/24 11:41) HIVES,ITCHING Tobacco use date assessed: 11/11/24 Fall risk assessment: No Falls in past year Last assessed Fall Risk: 02/21/25 Dental Screening Dental Screen Date: 11/11/24 [facility] Medical History Asthma On anticoagulant therapy On beta ever at home Post-menopausal Persistent atrial fibrillation Numbness of lip Urge incontinence Diabetic nephropathy Thrombocytopenia Vitamin D deficiency Type 2 diabetes mellitus with hyperglycemia Hypercholesterolemia Psoriasis Obesity (BMI 30-39.9) Osteoarthritis Hypertension CAD (coronary artery disease) Surgical History H/O cardiac radiofrequency ablation History of colonoscopy Stented coronary artery History of oophorectomy H/O breast biopsy Hx of tonsillectomy Hx of total knee replacement Hx of cholecystectomy Hx of tubal ligation Family History Brother Liver cancer Social History Household Members Other:: grand-daughter Housing: House Are you a primary care rep to a significant other at home: No Do you presently have visiting nurse or other home services: No Alcohol intake: never Comment: aware of trip hazard Patient Tobacco Use Status: Former Tobacco user Tobacco use type: Cigarette e-Cigarette/Vaping Use: Never Used Second Hand Smoke Exposure: No service: No Current occupational status: retired Cognitive needs: No Hearing needs: Yes Vision needs: Yes Questionnaire PHQ-9 Over the last 2 weeks, how often have you been bothered by any of the following problems? 1. Little interest or pleasure in doing things: not at all 2. Feeling down, depressed, or hopeless: not at all 3. Trouble falling or staying asleep, or sleeping too much: not at all 4. Feeling tired or having little energy: not at all 5. Poor appetite or overeating: not at all 6. Feeling bad about yourself - or that you are a failure or have let yourself or your family down: not at all 7. Trouble concentrating on things, such as reading the newspaper or watching television: not at all 8. Moving or speaking so slowly that other people could have noticed. Or the opposite - being so fidgety or restless that you have been moving around a lot more than usual: not at all 9. Thoughts that you would be better off or of hurting yourself in some way: not at all Total score: 0 Depression Screening Interpretation: Negative Depression Screening Done: Yes Source: Developed by Drs. Marquise Hines, Jolene Quinn, Issac Prince and colleagues, with an educational caden from [employer]. Thrive Questionnaire Date Thrive assessed: 02/21/25 I am a: Patient What is your living situation today?: I have a steady place to live Within the past 12 months, did the food you bought not last and you didn't have the money to get more?: I choose not to answer this question Within the past 12 months, did you worry whether your food would run out before you got money to buy more?: I choose not to answer this question Do you have trouble paying for medicines?: I choose not to answer this question Do you have trouble getting transportation to medical appointments?: No Do you have trouble paying your heating and electricity bill?: Yes Do you have trouble taking care of your child, family member or friend?: No Do you have trouble with day-to-day activities such as bathing, preparing meals, shopping, managing finances, etc.?: No Are you currently unemployed and looking for a job?: No Are you interested in more education?: No Please select the resources that you would like help with: None Currently or been in a relationship where the following occur: No concerns reported THRIVE Score: 1 AUDIT C Alcohol Use Questionnaire (AUDIT-C) 1. How often do you have a drink containing alcohol?: Never Total Score: 0 SERGIO-7 AMB Questionnaire SERGIO-7 Date SERGIO - 7 assessed: 02/21/25 Feeling nervous, anxious, or on edge: 0 = Not at all Not being able to stop or control worryin = Not at all Worrying too much about different things: 0 = Not at all Trouble relaxin = Not at all Being so restless that it is hard to sit still: 0 = Not at all Becoming easily annoyed or irritable: 0 = Not at all Feeling afraid as if something awful might happen: 0 = Not at all Total SERGIO-7 score (0-4 normal; 5-9 mild; 10-14 moderate; 15-21 severe): 0 Source: Developed by Drs. Marquise Hines, Jolene Quinn, Issac Prince and colleagues, with an educational caden from [employer]. Physical exam (Primary Care) Vital Signs: Last Vital Signs BP 120/76 02/21/25 14:39 BMI result Body Mass Index 31.1 Tobacco/Smoking Status: Tobacco use Status Tobacco use date assessed 11/11/24 02/21/25 14:34 Patient Tobacco Use Status Former Tobacco user 02/21/25 14:34 Tobacco use type Cigarette 02/21/25 14:34 e-Cigarette/Vaping Use Never Used 02/21/25 14:34 PHQ-9: PHQ-9 Score PHQ-9: Total score 0 02/21/25 14:48 Depression Screening Interpretation: Negative Thrive Assessment: Date of Thrive Assessment Date Thrive assessed 02/21/25 02/21/25 14:34 Currently or been in a relationship where the following occur: No concerns re ported Const General: alert; No acute distress Eyes Conjunctivae: conjunctivae normal Resp Auscultation: clear to auscultation bilaterally Cardio Rate: regular rate Rhythm: regular rhythm GI Inspection: Yes normal to inspection Extrem General: Yes normal to inspection and No edema Results AMB Hemoglobin A1c AMB Hemoglobin A1c 5.7 % Last Edit by JOEL Gray on 02/21/25 14:4 8 Results Reviewed Results Reviewed: Laboratory Last Values Hgb A1c (Clinic) 5.7 % (4.0-6.0) 02/21/25 14:34 Coding Level of Care Code Est Pt Level 4 (65966) Complex EM visit Add On G2211 Diagnoses Coronary artery disease involving [place] coronary artery of [place] heart without angina pectoris I25.10 Associated angina: without angina Coronary Disease-Associated Artery/Lesion type: [place] artery [place] vs. transplanted heart: [place] heart Paroxysmal atrial fibrillation I48.0 Type 2 diabetes mellitus with hyperglycemia, with long-term current use of insulin E11.65; Z79.4 Diabetes mellitus jail insulin use: with jail use Hypercholesterolemia E78.00 Obesity (BMI 30-39.9) E66.9 Essential hypertension I10 Hypertension type: essential hypertension Major depression F32.9 Assessment & Plan Assessment & Plan (1) CAD (coronary artery disease): Comment: Angioplasty October 2009 with ERROL Code(s): I25.10 - Atherosclerotic heart disease of [place] coronary artery without angina pectoris Category: Medical Qualifiers: Associated angina: without angina Coronary Disease-Associated Artery/Lesion type: [place] artery [place] vs. transplanted heart: [place] heart Qualified Code(s): I25.10 - Atherosclerotic heart disease of [place] coronary artery without angina pectoris Plan: Control the cholesterol, weight, blood pressure, diabetes patient is on Xarelto anticoagulation (2) Paroxysmal atrial fibrillation: Comment: September 2020, ablation December 2021 Code(s): I48.0 - Paroxysmal atrial fibrillation Category: Medical Plan: Continue with anticoagulation with Xarelto and Multaq continue to monitor renal function (3) Type 2 diabetes mellitus with hyperglycemia: Comment: Dr. Lombardo Code(s): E11.65 - Type 2 diabetes mellitus with hyperglycemia Category: Medical Qualifiers: Diabetes mellitus jail insulin use: with jail use Qualified Code(s): E11.65 - Type 2 diabetes mellitus with hyperglycemia; Z79.4 - salvage determiner (current) use of insulin Plan: Decrease the amount of carbohydrate intake, pasta, bread, rice and potatoes are all sugar and that is aside from all the sweet stuff, remember that fruits are good but they are Sweet also. Hemoglobin A1c goal of less than 7.0 patient on Trulicity (4) Hypercholesterolemia: Code(s): E78.00 - Pure hypercholesterolemia, unspecified Category: Medical Plan: Avoid fried foods, chicken skin, eggs, butter margarine, pastries and meat. Be it pork or beef they have a lot of cholesterol LDL goal of less than 70 and triglyceride of less than 150 on rosuvastatin 40 mg once a day Zetia 10 mg once a day and Nexletol (5) Obesity (BMI 30-39.9): Code(s): E66.9 - Obesity, unspecified Category: Medical Plan: Diet and exercise (6) Hypertension: Code(s): I10 - Essential (primary) hypertension Category: Medical Qualifiers: Hypertension type: essential hypertension Qualified Code(s): I10 - Essential (primary) hypertension Plan: Continue with blood pressure medication. Decrease salt intake and exercise on metoprolol 50 mg once a day (7) Major depression: Comment: of grandson Code(s): F32.9 - Major depressive disorder, single episode, unspecified Category: Medical Plan: Continue with therapy Plan History of Present Illness The patient is a 74-year-old female presenting for a follow-up visit. She has a history of coronary artery disease, diabetes mellitus, hypercholesterolemia, hypertension, atrial fibrillation, osteoarthritis, and major depression. Her last visit was on November 11, 2024. The patient's colonoscopy was last performed in 2021, revealing a tubular adenoma. Bone density was normal in November 2023, and her last mammogram was in May 2024. Recent blood work on November 17 showed normal blood count, electrolytes, and renal function. Hemoglobin A1c was 6.3, liver function was good, and LDL cholesterol was 89 mg/dL, which is above the target of less than 70 mg/dL. Folic acid and thyroid levels were within normal limits, but there was proteinuria noted. The patient is on Xarelto for anticoagulation and Trulicity for diabetes management. She is also taking rosuvastatin for cholesterol management, with a goal LDL of less than 70 mg/dL. Her blood pressure is managed with metoprolol 50 mg once a day. Health Maintenance - Colonoscopy last performed in 2021, revealed tubular adenoma - Bone density screening normal in November 2023 - Mammogram last done in May 2024 - Blood work scheduled in three months - Shingles vaccination: Patient received one dose, advised to complete the series Social History - Hearing loss: Patient reports loss of hearing aid and plans to purchase a new one - Weight management: Patient reports weight loss and feels better Review of Systems - Cardiovascular: Denies chest pain, reports atrial fibrillation - Endocrine: Reports diabetes mellitus, denies new symptoms - Musculoskeletal: Reports osteoarthritis, denies new joint pain - Dermatological: Reports psoriasis, current treatment with Otexla and clobetasol - Neurological: Denies headaches, reports occasional burning sensation in cheek - Psychiatric: Reports history of major depression, denies current depressive symptoms Physical Exam - Oral cavity: No abnormalities noted - Ears: Minimal ear wax, no significant findings Results - Labs: Normal blood count, electrolytes, renal function, liver function; Hemoglobin A1c 6.3; LDL cholesterol 89 mg/dL - Screening Tests: Colonoscopy in 2021 showed tubular adenoma; Bone density normal in November 2023; Mammogram in May 2024 Plan The patient will continue anticoagulation therapy with Xarelto and monitoring of renal function is advised due to the presence of proteinuria. For diabetes management, the patient is on Trulicity with a goal to maintain hemoglobin A1c below 7.0. Cholesterol management includes rosuvastatin 40 mg daily with a target LDL of less than 70 mg/dL, and the patient is also on Nexletol and Zeria. Blood pressure management will continue with metoprolol 50 mg once daily. The patient is advised to complete the shingles vaccination series and to have blood work done in three months to reassess cholesterol levels. Patient was informed and verbally consented to the use of an ambient scribe for clinic note documentation during this visit. Discussion Notes I discussed with the patient the importance of maintaining her current medication regimen, including Xarelto for anticoagulation and Trulicity for diabetes management. We reviewed her cholesterol management plan, emphasizing the need to achieve an LDL level below 70 mg/dL. I advised her to complete the shingles vaccination series and scheduled follow-up blood work in three months to monitor her cholesterol levels. Patient Instructions - Continue taking Xarelto as prescribed. - Maintain diabetes management with Trulicity. - Follow cholesterol management plan with rosuvastatin, Nexletol, and Zeria. - Continue metoprolol for blood pressure control. - Schedule and complete the second shingles vaccination. - Have blood work done in three months to check cholesterol levels. Orders: Orders AMB Hemoglobin A1c Today E11.65 - Type 2 diabetes mellitus with hyperglycemia, Z79.4 - shelter (current) use of insulin Complete Blood Count Auto Diff 3 Months E11.65 - Type 2 diabetes mellitus with hyperglycemia, Z79.4 - salvage determiner (current) use of insulin Free T4 (Free Thyroxine) 3 Months E11.65 - Type 2 diabetes mellitus with hyperglycemia, Z79.4 - shelter (current) use of insulin Thyroid Stimulating Hormone 3 Months E11.65 - Type 2 diabetes mellitus with hyperglycemia, Z79.4 - shelter (current) use of insulin Vitamin D 25-OH Total 3 Months E11.65 - Type 2 diabetes mellitus with hyperglycemia, Z79.4 - salvage determiner (current) use of insulin Comprehensive Met. Panel 3 Months E11.65 - Type 2 diabetes mellitus with hyperglycemia, Z79.4 - shelter (current) use of insulin Lipid Panel 3 Months E11.65 - Type 2 diabetes mellitus with hyperglycemia, E78.00 - Pure hypercholesterolemia, unspecified, Z79.4 - shelter (current) use of insulin Vitamin B12 and Folate 3 Months E11.65 - Type 2 diabetes mellitus with hyperglycemia, Z79.4 - salvage determiner (current) use of insulin Medications: Changed From dulaglutide 3 mg (0.5 mL) subcut QWEEK 30 days 2.5 mL 3RF E11.65 - Type 2 diabetes mellitus with hyperglycemia, Z79.4 - salvage determiner (current) use of insulin To dulaglutide 3 mg (0.5 mL) subcut QWEEK 6.5 mL 2RF 90 days E11.65 - Type 2 diabetes mellitus with hyperglycemia, Z79.4 - salvage determiner (current) use of insulin
[2025-02-21 14:39] VITALS: BP 120/76; BMI 31.1
--- OUTSIDE RECORDS SUMMARY | 2025-02-21 15:49 | XMS_ITS | Patient Health Record ---
Author Organization [facility] Address [address] [place] [address] Care Team Providers Care Obgyn Specialist Name Role Phone Lucrecia Munoz Unavailable [phone] Allergies No Known Allergies Reason For Referral No Information Medications Medication SIG (Take, Route, Frequency, Duration) Notes Start Date End Date Status Nystatin 109804 UNIT/GM APPLY 1 APPLICAT ION TOPICALLY 2 TIMES A DAY NEEDED FOR RASH External; Duration: 30 Days Active Trulicity 0.75 MG/0.5ML Subcutaneous; Du ration: 28 Days Active traZODone HCl 50 MG TAKE 1 TABLET BY ANTHONY TH EVERY DAY AT BEDTIME NEEDED FOR SLEEP Oral; Duration: 90 Days Active Omeprazole 20 MG Oral; Duration: 90 Days Active Fexofenadine HCl 180 MG 180 MG ORALLY DA BRONWYN Oral; Duration: 30 Days Active Rosuvastatin Calcium 40 MG Oral; Duration: 90 Days Active Ezetimibe 10 MG Oral; Duration: 90 Days Active Social History Tobacco Use: [...] Status Risk Notes Problem Postmenopausal atrophic vaginitis (65856784) Postmenopausal atrophic vaginitis (N95.2) Active confirmed Problem Osteoarthritis (453603899) Unspecified osteoarthritis, unspecified site (M19.90) Active confirmed Plan Of Treatment Pending Test Test Name Order Date MAMMOGRAM, SCREENING 11/18/2023 BONE DENSITY 11/18/2023 MM Digital Mammo Screening 11/18/2023 Insurance Providers Payer Name Payer Address Payer Phone Subscriber Number Group Number Insured Name Patient Relationship to Insured Coverage Start Date Coverage End Date MEDICARE [address] [id number] CALVIN ALVES Self - patient is the insured [address] [place] [address] [address] [place] [address] [id number] CALVIN ALVES Self - patient is [...]
--- OUTSIDE RECORDS SUMMARY | 2025-02-21 15:49 | XMS_ITS | Patient Health Record ---
Author Organization [facility] Address [address] [place] [id number] Care Team Providers Care Ruling Machine Set Up Operator Name Role Phone Aracely Thompson MD Primary Care Provider Marquise Chapin [phone] Allergies No Known Allergies Reason For Referral [...] Problem History of adenomatous polyp of colon (404956162) History of adenomatous polyp of colon (Z86.010) Active confirmed Problem Dysphagia (66733876) Dysphagia (R13.10) Active confirmed Problem Duodenitis (07179825) Duodenitis (K29.80) Active confirmed Problem Hiatal hernia (03743876) Hiatal hernia (K44.9) Active confirmed Problem Bleeding from anus (9450281) Rectal bleed (K62.5) Active confirmed Problem Gastritis (0407938) Gastritis (K29.70) Active c onfirmed Problem Duodenal ulcer (39956538) Duodenal ulcer (K26.9) Active confirmed Problem Helicobacter pylori infection (677042540) Helicobacter pylori infection (A04.8) Active confirmed Problem Diverticulosis of colon (798627112) Diverticulosis of colon (K57.30) Active confirmed Problem Gastroesophageal reflux disease (475858821) Gastroesophageal reflux disease, unspecified whether esophagitis present (K21.9) Active confirmed Problem Difficulty swallowing (062046640) Esophageal dysphagia (R13.19) Active confirmed Plan Of Treatment Future Test Test Name Order Date COLONOSCOPY 05/30/2014 UPPER GI ENDOSCOPY BALLOOON DILATION OF ESOPH 07/09/2021 COLONOSCOPY 07/09/2021 Next Appt Details Provider Name:Marquise Jackson Osman , 04/04/2025 10:50:00 AM, [address], [address], [place], [address], Insurance Providers Payer Name Payer Address Payer Phone Subscriber Number Group Number Insured Name Patient Relationship to Insured Coverage Start Date Coverage End Date MEDICARE OF [place] [address] [place] [address] [id number] CALVIN ALVES Self - patient is the insured [facility] [address] [place] [phone] [id number] CALVIN ALVES Self - patient is the insured Medical (General) History Medical History History ICD Code Colonoscopy 05-31-2004--only a hyperplas tic polyp, sigmoid diverticulosis Hyperlipidemia Hypertension Denies renal disease NIDDM CAD--[place] and 2 stents > 5 yrs ago-Dr. Diamante delacruz Fatty liver--neg. Hepatitis serologies, neg. Iron studies, neg. liver U/S--normal LFT's in 09/2013 Atrial fib - Dr. Che and a [facility] in [place]--may be having EP studies as of the [...] Removal of right ovary Tubal ligation Breast [id number]
--- OUTSIDE RECORDS SUMMARY | 2025-02-21 15:49 | XMS_ITS | Patient Health Record ---
Author Organization [facility] Address [address] [place] [address] [place] [address] Care Team Providers Care Assistant Grocery Name Role Phone Aracely Thompson Primary Care Provider Michelet Jackson Unavailable [phone] Allergies No Known Allergies Results Component Value Reference Range Notes HEMOGLOBIN A1C (GLYCOHEMOGLO BIN) Reviewed date:11/14/2024 02:49:48 PM Interpretation: Performing Lab: Notes/Report: HEMOGLOBIN A1C % (HH) 6.3 HEMOGLOBIN A1C (GLYCOHEMOGLO BIN) Reviewed date:02/15/2025 10:22:39 AM Interpretation: Performing Lab: Notes/Report: HEMOGLOBIN A1C % (HH) 6.3 Reason For Referral No Information Medications Medication SIG (Take, Route, Frequency, Duration) Notes Start Date End Date Status Otezla Active Ammonium Lactate 12 % 1 application Exte rnally to affected areas of dry skin to feet except for between the toes Twice a day; Duration: 30 days Active Amiodarone HCl Activ e Zetia Active Extra Depth Orthopedic Shoes (1 Pair) with Customized Heat Molded Multidensity Innersoles (3 Pair) as directed Dx: NIDDM/Polyneuropathy (E11.42), Hammertoe Foot Deformity (M20.41,M20.42), Preulcerative Skin Lesion(s) (L85.1 08/15/2024 Active metFORMIN HCl 500 MG 1 tablet with a lissette l Orally Once a day; Duration: 30 day(s) Not-Taking Metoprolol Tartrate 50 MG 1 tablet with food Orally Twice a day; Duration: 30 day(s) Active Aspirin 81 MG Orally Not-Ta gerri Crestor Active Metoprolol Tartrate 75 MG Orally Not-Taking Trulicity Active Xarelto Active Multaq 4mg Active Nexletol Active Immunizations Vaccine Route Administration Date Status [...] Problem Acquired hammer toe of right foot (2716882095032107 ) Other hammer toe(s) (acquired), right foot (M20.41) Active confirmed Problem Acquired hammer toe of left foot (9635286710753002 ) Other hammer toe(s) (acquired), left foot (M20.42) Active confirmed Problem Polyneuropathy due to type 2 diabetes mellitus (728729833) Type 2 diabetes mellitus with diabetic polyneuropathy (E11.42) Active confirmed Vital Signs Blood pressure diastolic 70 mm Hg 02/15/2025 Height 5ft 2in in 02/15/2025 Blood pressure systolic 125 mm Hg 02/15/2025 Weight 179 lbs 02/15/2025 BMI 32.74 kg/m2 02/15/2025 Procedures Procedure Date Ordered Date Performed Result Body Sit e 81830-YYAYGRC NAIL, 6 OR MORE 08/15/2024 N/A 84101-Vutvmfff Plate 08/15/2024 N/A 61740-PCEC SKIN LESIONS, OVER 4 08/15/2024 N/A 02641-Ztpq. Subungual Hematoma 08/15/2024 N/A 50945-JZZIEWF NAIL, 6 OR MORE 11/14/2024 N/A 89615-OYFQ SKIN LESIONS, OVER 4 11/14/2024 N/A 10846-MOAJGFL NAIL, 6 OR MORE 02/15/2025 N/A 10427-OLZU SKIN LESIONS, OVER 4 02/15/2025 N/A Encounters Encounter Location Date Provider Diagnosis [facility] [address] [place] [address] 08/15/2024 Michelet Mcclelland Type 2 diabetes mellitus with diabetic polyneuropathy E11.42 ; Tinea unguium B35.1 ; Ingrown nail L60.0 ; Other hammer toe(s) (acquired), right foot M20.41 ; Other hammer toe(s) (acquired), left foot M20.42 and Subungual hematoma of right foot, initial encounter S90.221A [address] [address] 11/14/2024 Micheletwillis IsbellKrystin Type 2 diabetes mellitus with diabetic polyneuropathy E11.42 ; Tinea unguium B35.1 and Xerosis of skin L85.[address] [address] 02/15/2025 Micheletwillis IsbellKrystin Type 2 diabetes mellitus with diabetic polyneuropathy E11.42 ; Tinea unguium B35.1 and Xerosis of skin L85.[address] [address] 08/12/2024 Michelet Singletaryier Assessments Encounter Date Diagnosis (ICD Code) Assessment Notes Treatment Notes Treatment Clinical Notes Section Notes 08/15/2024 Type 2 diabetes mellitus with diabetic polyneuropathy (ICD-10 - E11.42) 08/15/2024 Tinea unguium (ICD-10 - B35.1) 11/14/2024 Type 2 diabetes mellitus with diabetic polyneuropathy (ICD-10 - E11.42) 11/14/2024 Tinea unguium (ICD-10 - B35.1) 02/15/2025 Type 2 diabetes mellitus with diabetic polyneuropathy (ICD-10 - E11.42) 02/15/2025 Tinea unguium (ICD-10 - B35.1) 02/15/2025 Xerosis of skin (ICD-10 - L85.3) 08/15/2024 Ingrown nail (ICD-10 - L60.0) 08/15/2024 Other hammer toe(s) (acquired), right foot (ICD-10 - M20.41) Patient Educated with: DIABETIC FOOT CARE INSTRUCTIONS. pdf (DIABETIC FOOT CARE INSTRUCTIONS. pdf) 11/14/2024 Xerosis of skin (ICD-10 - L85.3) 08/15/2024 Other hammer toe(s) (acquired), left foot (ICD-10 - M20.42) 08/15/2024 Subungual hematoma of right foot, initial encounter (ICD-10 - S90.221A) 11/14/2024 Other 02/15/2025 Other Plan Of Treatment Pending Test Test Name Order Date X ray : Foot, left 3V 04/02/2023 58374-YKLIPPA NAIL, 6 OR MORE 06/29/2023 89328-CRTKVBY NAIL, 6 OR MORE 04/02/2023 06904-JYXNYXD NAIL, 6 OR MORE 10/05/2023 39867-VVRMCRH NAIL, 6 OR MORE 02/15/2024 72200-QJKSAZL NAIL, 6 OR MORE 08/15/2024 39550-HMKCXUQ NAIL, 6 OR MORE 11/14/2024 60896-WYRDBDW NAIL, 6 OR MORE 02/15/2025 67908-CWWUOEW NAIL, 6 OR MORE 08/30/2020 21264-HQXAYJB NAIL, 6 OR MORE 11/29/2020 27099-DZGJPOI NAIL, 6 OR MORE 02/28/2021 16354-QMKTNPQ NAIL, 6 OR MORE 05/30/2021 23104-BYUIAER NAIL, 6 OR MORE 09/05/2021 20217-BUPYKUH NAIL, 6 OR MORE 12/05/2021 63109-NJFMCEU NAIL, 6 OR MORE 03/10/2022 53692-RSZTFHX NAIL, 6 OR MORE 06/09/2022 90655-BQYEPDK NAIL, 6 OR MORE 09/08/2022 84924-HZSJZIE NAIL, 6 OR MORE 12/15/2022 90723-FQCLLAR NAIL, 1-5 08/15/2019 73277-KZPXQJW NAIL, -5 04/11/2020 14588-LCZURZO NAIL, 1-5 01/24/2019 06806-PPQETEA NAIL, 1-5 05/09/2019 12006-Dtfxuknf Plate 01/24/2019 24983-Kpvmqzrt Plate 03/10/2022 06568-Korjyker Plate 12/05/2021 07538-Zabbdvsz Plate 09/05/2021 44475-Rruskzhs Plate 08/15/2024 50761-Vvwbrafm Plate 04/02/2023 42938-Dzycktof Plate 09/08/2022 09044-Sctuprxw Plate 12/15/2022 48924-Wsziimkx Plate 06/29/2023 87669-RYNW SKIN LESIONS, OVER 4 06/29/20 38655-HOOH SKIN LESIONS, OVER 4 04/02/20 32196-LEWY SKIN LESIONS, OVER 4 08/15/19 50190-WGUQ SKIN LESIONS, OVER 4 02/15/20 89719-CBZN SKIN LESIONS, OVER 4 10/05/19 99268-HFGU SKIN LESIONS, OVER 4 02/16/20 98137-WIHP SKIN LESIONS, OVER 4 11/15/19 77031-ISAA SKIN LESIONS, OVER 4 09/05/19 56440-RFMH SKIN LESIONS, OVER 4 12/06/19 94849-UGHW SKIN LESIONS, OVER 4 03/10/20 31796-DYER SKIN LESIONS, OVER 4 06/09/20 44091-YASV SKIN LESIONS, OVER 4 12/16/19 28398-MVNQ SKIN LESIONS, OVER 4 09/08/19 28795-NXYO SKIN LESIONS, 2 TO 4 05/30/20 86751-NUGS SKIN LESIONS, 2 TO 4 02/29/20 11818-QXGT SKIN LESIONS, 2 TO 4 05/09/20 19 29771-JZEK SKIN LESIONS, 2 TO 4 08/15/19 47424-IMIY SKIN LESIONS, 2 TO 4 01/25/20 19 04549-UWXI SKIN LESIONS, 2 TO 4 11/30/19 74866-WLJS SKIN LESIONS, 2 TO 4 04/11/20 33973-CWPM SKIN LESIONS, 2 TO 4 08/30/19 30448-Inor. Subungual Hematoma 5 B2411-HAANNQRS DYSTROPHIC NAILS ANY # Z6415-YRNLINWK DYSTROPHIC NAILS ANY # E0005-PAMMZJOV DYSTROPHIC NAILS ANY # Z9024-DATQGBCT DYSTROPHIC NAILS ANY # Next Appt Details Provider Name:Michelet Mcclelland , 05/18/2025 10:00:00 AM, [address] [facility], [address], [place], [address], Insurance Providers Payer Name Payer Address Payer Phone Subscriber Number Group Number Insured Name Patient Relationship to Insured Coverage Start Date Coverage End Date Medicare National [employer] [address] [place] [address] [id number] Milana Fonseca Self - patient is the insured [address] [place] [address] [address] [place] [address] [phone] [id number] Milana Fonseca Self - patient is the insured Medical (General) History Medical History History ICD Code Arthritis Chicken pox Cholesterol Diabetic type ll Heart disease High blood pressure Surgical History Surgery Date(Month/Year) R ovarian removed 1995 gall bladder removed 1999 Hammer toe Left 3rd toe cardiac catheterization 11/13/21 eye surgery 06/15/23 Hospitalization History Reason Date(Month/Year) Urgent [facility] [place]- flu 03/2022
== END 2025-02-21 14:56 | disposition home or self-care (01) ==
LOC: HO.HMCH 14:29
PROVIDERS: PCP Internal Medicine; Visit Provider Internal Medicine
DX: E11.65 Type 2 diabetes mellitus with hyperglycemia (principal); I48.0 Paroxysmal atrial fibrillation; Z79.4 Long term (current) use of insulin; E66.9 Obesity, unspecified; Z68.31 Body mass index [BMI] 31.0-31.9, adult; I25.10 Atherosclerotic heart disease of native coronary artery without angina pectoris; E78.00 Pure hypercholesterolemia, unspecified; I10 Essential (primary) hypertension; F32.9 Major depressive disorder, single episode, unspecified

== ENCOUNTER → 2025-02-21 14:29 | Outpatient (BNVA) | payer MEDICARE, OTHER, SELFPAY | PROVIDERS: PCP Internal Medicine; Visit Provider Internal Medicine | DX: I25.10 Atherosclerotic heart disease of native coronary artery without angina pectoris (principal); I48.0 Paroxysmal atrial fibrillation; E11.65 Type 2 diabetes mellitus with hyperglycemia; Z79.4 Long term (current) use of insulin; E78.00 Pure hypercholesterolemia, unspecified; I10 Essential (primary) hypertension; F32.9 Major depressive disorder, single episode, unspecified; E66.9 Obesity, unspecified; Z68.31 Body mass index [BMI] 31.0-31.9, adult; Z71.3 Dietary counseling and surveillance | CPT/HCPCS: 83036; 99212 ==

== ENCOUNTER 2025-04-25 09:03 | Outpatient (AMB) | payer MEDICARE, OTHER, SELFPAY ==
[2025-04-25 09:05] VITALS: BP 138/80; PULSE 73; RESP 16; TEMP 36.5; O2SAT 99; BMI 32.0
--- NOTE | 2025-04-25 09:05 | MHC.OFFWIV ---
Intake Vital Signs 04/25/25 09:05 Height 5 ft 2 in Weight 175 lb BMI 32.0 BP 138/80 Blood Pressure Location Lt brachial Position Sitting Respiration 16 Pulse 73 Pulse Source Pulse Oximeter Temp 97.7 F Temp Source Oral Pulse Oximetry (%) 99 Oxygen Delivery Method Room Air Intake Visit Reasons: ep clogged ears Patient Tobacco Use Status: Former Tobacco user Allergies atorvastatin (From LIPITOR) Allergy (Unknown, Verified 04/25/25 09:08) AFFECTED LIVER ENZYMES liraglutide (Victoza) Allergy (Unknown, Verified 04/25/25 09:08) nausea lisinopril Allergy (Unknown, Verified 04/25/25 09:08) cough losartan (LOSARTAN) Allergy (Unknown, Verified 04/25/25 09:08) HIVES PEANUT BUTTER Allergy (Unknown, Uncoded 11/11/24 11:41) LIPS SWELLING MOST FRUITS Adverse Reaction (Unknown, Uncoded 11/11/24 11:41) HIVES,ITCHING HPI HPI Comments History of Present Illness Details History - The patient is a 75-year-old female presenting with difficulty in hearing due to impacted cerumen and the loss of hearing aids. - She lost her hearing aids two months ago, with one broken and the other broken after stepping on it. - Attempts to replace the hearing aids were hindered by earwax, which could be pushed further in during the impression process. - The patient reports a sensation of clogged ears, especially on the right side, where more cerumen is present. - She occasionally experiences slight pain in the right ear, though no constant pain is reported. Physical Exam General: Cooperative, healthy appearing, comfortable, no acute distress and well developed Orientation: Patient oriented x3 Limitations: No limitations Head: Normal to inspection Ears: External ears normal bilaterally, TM's with impacted cerumen more on the right than the left Face and sinus: Normal facial exam Neck: Normal visual inspection and Yes full ROM Respiratory: Normal respiratory effort and able to speak in complete sentences. Skin: No rashes or lesions noted Neuro: Patient oriented x3 Extremities: normal to inspection [facility] Medical History Asthma On anticoagulant therapy On beta ever at home Post-menopausal Persistent atrial fibrillation Numbness of lip Urge incontinence Diabetic nephropathy Thrombocytopenia Vitamin D deficiency Type 2 diabetes mellitus with hyperglycemia Hypercholesterolemia Psoriasis Obesity (BMI 30-39.9) Osteoarthritis Hypertension CAD (coronary artery disease) Surgical History H/O cardiac radiofrequency ablation History of colonoscopy Stented coronary artery History of oophorectomy H/O breast biopsy Hx of tonsillectomy Hx of total knee replacement Hx of cholecystectomy Hx of tubal ligation Family History Brother Liver cancer Social History Household Members Other:: grand-daughter Housing: House Are you a primary healthcare corporate account director to a significant other at home: No Do you presently have visiting nurse or other home services: No Alcohol intake: never Comment: aware of trip hazard Patient Tobacco Use Status: Former Tobacco user Tobacco use type: Cigarette e-Cigarette/Vaping Use: Never Used Second Hand Smoke Exposure: No service: No Current occupational status: retired Cognitive needs: No Hearing needs: Yes Vision needs: Yes Review of Systems Const All systems reviewed & are unremarkable except as noted in HPI and below Physical Exam Vital Signs: Last Vital Signs Temp 97.7 F 04/25/25 09:05 Pulse 73 04/25/25 09:05 Resp 16 04/25/25 09:05 BP 138/80 04/25/25 09:05 Pulse Ox 99 04/25/25 09:05 Oxygen Delivery Method Room Air 04/25/25 09:05 BMI result Body Mass Index 32.0 Office Procedures Cerumen Removal From which ear canal was the cerumen removed: bilateral Removal: irrigation Notes: patient tolerated procedure well, no complications and ear canal clear 68985-Sml Irrigation/Lavage Assessment & Plan Assessment & Plan (1) Bilateral impacted cerumen: Code(s): H61.23 - Impacted cerumen, bilateral Plan: Plan Patient was informed and verbally consented to the use of an ambient scribe for clinic note documentation during this visit. Impacted Cerumen - Plan to irrigate both ears, starting with the right side where more cerumen is present. - Re-evaluated the ears post-irrigation, no infection is present however there is fluid on the right side. - Replace hearing aids (2) Acute effusion of right ear: Code(s): H65.191 - Other acute nonsuppurative otitis media, right ear Plan: - Advised the use of Flonase once daily for 3-4 weeks. Orders: Orders AMB Cerumen Removal Today H61.23 - Impacted cerumen, bilateral Coding Level of Care Code Est Pt Level 4 (95265) Diagnoses Bilateral impacted cerumen H61.23 Acute effusion of right ear H65.191 CPT Codes Office Procedure - CPT: 29635-Eus Irrigation/Lavage ([id number])
--- OUTSIDE RECORDS SUMMARY | 2025-04-25 11:14 | XMS_ITS | Patient Health Record ---
Author Organization [facility] Address [address] [place] [address] Care Team Providers Care Cafeteria Operator Name Role Phone Lucrecia Munoz Unavailable [phone] Allergies No Known Allergies Reason For Referral No Information Medications Medication SIG (Take, Route, Frequency, Duration) Notes Start Date End Date Status Nystatin 123679 UNIT/GM APPLY 1 APPLICAT ION TOPICALLY 2 [...] Status Risk Notes Problem Postmenopausal atrophic vaginitis (40283357) Postmenopausal atrophic vaginitis (N95.2) Active confirmed Problem Osteoarthritis (900710041) Unspecified osteoarthritis, unspecified site (M19.90) Active confirmed Plan Of Treatment Pending Test Test Name Order Date MAMMOGRAM, SCREENING 11/18/2023 BONE DENSITY 11/18/2023 MM Digital Mammo Screening 11/18/2023 Insurance Providers Payer Name Payer Address Payer Phone Subscriber Number Group Number Insured Name Patient Relationship to Insured Coverage Start Date Coverage End Date MEDICARE [address] [id number] CALVIN ALVES Self - patient is the insured [address] [place] [address] [address] [place] [id number] CALVIN ALVES Self - patient is [...]
--- OUTSIDE RECORDS SUMMARY | 2025-04-25 11:14 | XMS_ITS | Patient Health Record ---
Author Organization [facility] Address [address] [place] [address] Care Team Providers Care Cap Blocker Name Role Phone Aracely Thompson MD Primary Care Provider Marquise Chapin [phone] Allergies Allergen (clinical drug ingredient) Drug/Non Drug Allergy documented on EMR Reaction Allergy Type Onset Date Status Fruit & Vegetable Daily Unknown Drug Allergy Active Reason For Referral No Information Medications Medication SIG (Take, Route, Frequency, Duration) Notes Start Date End Date Status Trulicity 3 MG/0.5ML INJECT 3 MG (0.5 ML ) SUBCUTANEOUSLY EVERY WEEK FOR 30 DAYS Subcutaneous for 28 Days Active Sertraline HCl 25 MG TAKE 1 TABLET BY MO UTH EVERY DAY Oral for 90 Days Active Otezla 30 MG Oral for 30 Days Active Nexletol 180 MG TAKE 1 TABLET BY ANTHONY TH EVERY DAY Oral for 90 Days Active Cozaar 100 MG 1 tablet Orally Once a day Active traZODone HCl 50 MG TAKE 1 TABLET ORALLY BEDTIME NEEDED FOR SLEEP Oral for 90 Days Active Rosuvastatin Calcium 40 MG Oral for 90 Active Victoza 18 MG/3ML 0.2 ml Subcutaneous Once a day Not-Taking Metoprolol Succinate ER 25 MG 1 tablet Orally Once a day Active Ezetimibe 10 MG Oral for 90 Days Active Zetia 20 mg 1 tablet Orally Once a day Active Rosuvastatin Calcium 40 MG Oral for 90 Days Active Clobetasol Propionate 0.05 % APPLY IN THE MORNING AND IN THE EVENING ON SCALP 5-10 DROPS AND MASSAGE IN NEEDED External for 30 Days Active Xarelto 20 MG Oral for 90 Acti ve Omeprazole 20 MG TAKE 1 TABLET BY ANTHONY TH EVERY MORNING for 90 Active Omeprazole 40 MG 1 capsule 1/2 to 1 h our before morning meal Orally Once a day for 30 days 04/04/2025 Active Immunizations Vaccine Route Administration Date Status Comme nts Influenza Unknown 04/10/2021 Administered Influenza Unknown 04/04/2025 Refused Problems Problem Type SNOMED Code ICD Code Onset Dates Problem Status W/U Status Risk Notes Problem History of adenomatous polyp of colon (024284220) History of adenomatous polyp of colon (Z86.010) Active confirmed Problem Dysphagia (34816783) Dysphagia (R13.10) Active confirmed Problem Duodenitis (49642685) Duodenitis (K29.80) Active confirmed Problem Hiatal hernia (65892006) Hiatal hernia (K44.9) Active confirmed Problem Bleeding from anus (7594130) Rectal bleed (K62.5) Active confirmed Problem Gastritis (6705117) Gastritis (K29.70) Active c onfirmed Problem Duodenal ulcer (73599924) Duodenal ulcer (K26.9) Active confirmed Problem Helicobacter pylori infection (567086708) Helicobacter pylori infection (A04.8) Active confirmed Problem Diverticulosis of colon (038473393) Diverticulosis of colon (K57.30) Active confirmed Problem Gastroesophageal reflux disease (245483647) Gastroesophageal reflux disease, unspecified whether esophagitis present (K21.9) Active confirmed Problem Difficulty swallowing (122484471) Esophageal dysphagia (R13.19) Active confirmed Vital Signs Temperature 99.3 degrees Fahrenheit 04/04/2025 Blood pressure diastolic 01 mm Hg 04/04/2025 Height 61 in 04/04/2025 Blood pressure systolic 001 mm Hg 04/04/2025 Weight 174.2 lbs 04/04/2025 BMI 32.91 kg/m2 04/04/2025 Procedures Procedure Date Ordered Date Performed Result Body Sit e UPPER GI ENDOSCOPY BALLOOON DILATION OF ESOPH 04/04/2025 N/A Encounters Encounter Location Date Provider Diagnosis [facility] [address] [place] [address] 04/04/2025 Marquise Osman Gastroesophageal ref lux disease, unspecified whether esophagitis present K21.9 ; Esophageal dysphagia R13.19 and Helicobacter pylori infection A04.8 Assessments Encounter Date Diagnosis (ICD Code) Assessment Notes Treatment Notes Treatment Clinical Notes Section Notes 04/04/2025 Gastroesophageal reflux disease, unspecified whether esophagitis present (ICD-10 - K21.9) I will send a prescription for you to start the 40mg omeprazole instead of the 20mg Overall, Milana appears well. We did review her previous upper endoscopy results from 2021 and I did advise her that I suspect her current symptoms are in relation to the known hiatal hernia, some ongoing reflux, and esophageal spasm. However I did advise her that would be important to exclude the development of an esophageal stricture in relation to her chronic reflux. I did recommend an upper endoscopy with possible balloon dilation for further evaluation and treatment. I will plan to obtain repeat gastric biopsies to reinspect for H. pylori as well. Full consent has been taken for this, including risks of bleeding and perforation. The procedure will be done with monitored anesthesia care. She was given the below instructions regarding adjustment of her medication for the procedure. In the meantime, I shall increase her omeprazole to 40 mg daily to see if that can help decrease any ongoing reflux and esophageal spasm on that basis. We did review the importance of trying to eat healthy, lose some weight, have small meals, and eat slowly. We did review that she would theoretically be due for a follow-up colonoscopy for further screening in 2026. Milana was comfortable with this plan. Thank you again for allowing me to participate in Milana's care. I shall continue to keep you advised of her progress. 04/04/2025 Esophageal dysphagia (ICD-10 - R13.19) Overall, Milana appears well. We did review her previous upper endoscopy results from 2021 and I did advise her that I suspect her current symptoms are in relation to the known hiatal hernia, some ongoing reflux, and esophageal spasm. However I did advise her that would be important to exclude the development of an esophageal stricture in relation to her chronic reflux. I did recommend an upper endoscopy with possible balloon dilation for further evaluation and treatment. I will plan to obtain repeat gastric biopsies to reinspect for H. pylori as well. Full consent has been taken for this, including risks of bleeding and perforation. The procedure will be done with monitored anesthesia care. She was given the below instructions regarding adjustment of her medication for the procedure. In the meantime, I shall increase her omeprazole to 40 mg daily to see if that can help decrease any ongoing reflux and esophageal spasm on that basis. We did review the importance of trying to eat healthy, lose some weight, have small meals, and eat slowly. We did review that she would theoretically be due for a follow-up colonoscopy for further screening in 2026. Milana was comfortable with this plan. Thank you again for allowing me to participate in Milana's care. I shall continue to keep you advised of her progress. 04/04/2025 Helicobacter pylori infection (ICD-10 - A04.8) Overall, Milana appears well. We did review her previous upper endoscopy results from 2021 and I did advise her that I suspect her current symptoms are in relation to the known hiatal hernia, some ongoing reflux, and esophageal spasm. However I did advise her that would be important to exclude the development of an esophageal stricture in relation to her chronic reflux. I did recommend an upper endoscopy with possible balloon dilation for further evaluation and treatment. I will plan to obtain repeat gastric biopsies to reinspect for H. pylori as well. Full consent has been taken for this, including risks of bleeding and perforation. The procedure will be done with monitored anesthesia care. She was given the below instructions regarding adjustment of her medication for the procedure. In the meantime, I shall increase her omeprazole to 40 mg daily to see if that can help decrease any ongoing reflux and esophageal spasm on that basis. We did review the importance of trying to eat healthy, lose some weight, have small meals, and eat slowly. We did review that she would theoretically be due for a follow-up colonoscopy for further screening in 2026. Milana was comfortable with this plan. Thank you again for allowing me to participate in Milana's care. I shall continue to keep you advised of her progress. Plan Of Treatment Pending Test Test Name Order Date UPPER GI ENDOSCOPY BALLOOON DILATION OF ESOPH 04/04/2025 Future Test Test Name Order Date COLONOSCOPY 05/30/2014 UPPER GI ENDOSCOPY BALLOOON DILATION OF ESOPH 07/09/2021 COLONOSCOPY 07/09/2021 Next Appt Details Provider Name:Marquise Osman , 06/26/2025 11:30:00 AM, [address] [place] [address] , [place], [place], [phone], Insurance Providers Payer Name Payer Address Payer Phone Subscriber Number Group Number Insured Name Patient Relationship to Insured Coverage Start Date Coverage End Date MEDICARE OF [facility] [address] [place] [address] [place] [id number] MILANA ALVES Self - patient is the insured [address] [place] [address] [address] [place] [address] [phone] [id number] MILANA ALVES Self - patient is the insured Medical (General) History Medical History History ICD Code Colonoscopy 05-31-2004- only a hyperplas tic polyp, sigmoid diverticulosis Hyperlipidemia Hypertension Denies renal disease NIDDM CAD- SD and 2 stents > 5 yrs ago-Dr. Diamante delacruz Fatty liver- neg. Hepatitis serologies, neg. Iron studies, neg. liver U/S- normal LFT's in 09/2013 Atrial fib - Dr. Che and a [facility]ler tier in [place]- may be having EP studies as of the [...] complaints of dysphagia, Surgical History Surgery Date(Month/Year) Breast [id number] Tubal ligation Removal of right ovary Cholecystectomy
--- OUTSIDE RECORDS SUMMARY | 2025-04-25 11:14 | XMS_ITS | Patient Health Record ---
Author Organization [facility] Address [address] [place] [address] [place] [address] Care Team Providers Care Mitten Sewer Name Role Phone Aracely Thompson Primary Care Provider Michelet Jackson Unavailable [phone] Allergies No Known Allergies Results Component Value [...] Administration Date Status Comme nts Influenza Unknown 09/21/2018 Administered Influenza Unknown 08/15/2019 Administered COVID-19 Pfizer BioNTech Vaccine Unknown 11/01/2020 Adm inistered COVID-19 Pfizer BioNTech Vaccine Unknown 11/22/2020 Adm inistered Social History Tobacco Use: Social History Observation [...] Problem Acquired hammer toe of right foot (5720330601384209 ) Other hammer toe(s) (acquired), right foot (M20.41) Active confirmed Problem Acquired hammer toe of left foot (5163792476195380 ) Other hammer toe(s) (acquired), left foot (M20.42) Active confirmed Problem Polyneuropathy due to type 2 diabetes mellitus (718398937) Type 2 diabetes mellitus with diabetic polyneuropathy (E11.42) Active confirmed Vital Signs Blood pressure diastolic 70 mm Hg 02/15/2025 Height 5ft 2in in 02/15/2025 Blood pressure systolic 125 mm Hg 02/15/2025 Weight 179 lbs 02/15/2025 BMI 32.74 kg/m2 02/15/2025 Procedures Procedure Date Ordered Date Performed Result Body Sit e 69888-UJTDOFE NAIL, 6 OR MORE 08/15/2024 N/A 00774-Nofbtnzn Plate 08/15/2024 N/A 66775-WAMV SKIN LESIONS, OVER 4 08/15/2024 N/A 80191-Gswl. Subungual Hematoma 08/15/2024 N/A 71563-RKXODVO NAIL, 6 OR MORE 11/14/2024 N/A 08634-KMXZ SKIN LESIONS, OVER 4 11/14/2024 N/A 15929-DFNSVBD NAIL, 6 OR MORE 02/15/2025 N/A 42200-QFPQ SKIN LESIONS, OVER 4 02/15/2025 N/A Encounters Encounter Location Date Provider Diagnosis [facility] [address] [place] [address] 08/15/2024 Michelet Mcclelland Type 2 diabetes mellitus with diabetic polyneuropathy E11.42 ; Tinea unguium B35.1 ; Ingrown nail L60.0 ; Other hammer toe(s) (acquired), right foot M20.41 ; Other hammer toe(s) (acquired), left foot M20.42 and Subungual hematoma of right foot, initial encounter S90.221A [address] [address] 11/14/2024 Micheletwillis IsbellKrystin Type 2 diabetes mellitus with diabetic polyneuropathy E11.42 ; Tinea unguium B35.1 and Xerosis of skin L85.[address] [address] 02/15/2025 Micheletwillis IsbellKrystin Type 2 diabetes mellitus with diabetic polyneuropathy E11.42 ; Tinea unguium B35.1 and Xerosis of skin L85.[address] [address] 08/12/2024 Michelet Singletaryier Assessments Encounter Date Diagnosis [...] X ray : Foot, left 3V 04/02/2023 92908-PGJIDGT NAIL, 6 OR MORE 06/29/2023 02324-IMJRPWP NAIL, 6 OR MORE 04/02/2023 52350-GOAGJBU NAIL, 6 OR MORE 10/05/2023 34301-POPIHUH NAIL, 6 OR MORE 02/15/2024 60751-LOBJYQR NAIL, 6 OR MORE 08/15/2024 58374-UUHBELV NAIL, 6 OR MORE 11/14/2024 88606-LFXAMUN NAIL, 6 OR MORE 02/15/2025 68282-NCVIZCZ NAIL, 6 OR MORE 08/30/2020 50839-XEHEYSX NAIL, 6 OR MORE 11/29/2020 09182-TYXIUOH NAIL, 6 OR MORE 02/28/2021 72811-BSAHNLQ NAIL, 6 OR MORE 05/30/2021 72378-DQTEEJI NAIL, 6 OR MORE 09/05/2021 52135-EAUPZVX NAIL, 6 OR MORE 12/05/2021 96862-AXLFGDY NAIL, 6 OR MORE 03/10/2022 66985-FNKDORW NAIL, 6 OR MORE 06/09/2022 27167-RGTBWAV NAIL, 6 OR MORE 09/08/2022 64016-JCPNDCC NAIL, 6 OR MORE 12/15/2022 47825-XUYEUGP NAIL, 1-5 08/15/2019 77408-MSWOQOA NAIL, -5 04/11/2020 52939-EUEBFYI NAIL, 1-5 01/24/2019 76494-EHDJVNO NAIL, 1-5 05/09/2019 62375-Cdpiakqw Plate 01/24/2019 65170-Eowbdgse Plate 03/10/2022 35333-Otywadhy Plate 12/05/2021 90237-Ztmhjddy Plate 09/05/2021 67830-Ajrcluve Plate 08/15/2024 68227-Tnhpgivs Plate 04/02/2023 72452-Yrbvqdac Plate 09/08/2022 06914-Izrzsczu Plate 12/15/2022 85785-Ihbhllfz Plate 06/29/2023 71383-AFEE SKIN LESIONS, OVER 4 06/29/20 21924-ELWF SKIN LESIONS, OVER 4 04/02/20 82700-LMAH SKIN LESIONS, OVER 4 08/15/19 91399-VBJS SKIN LESIONS, OVER 4 02/15/20 89855-CWGG SKIN LESIONS, OVER 4 10/05/19 94103-BWPA SKIN LESIONS, OVER 4 02/16/20 78482-OBXO SKIN LESIONS, OVER 4 11/15/19 09353-KAGM SKIN LESIONS, OVER 4 09/05/19 68000-ULIL SKIN LESIONS, OVER 4 12/06/19 16589-NUIK SKIN LESIONS, OVER 4 03/10/20 38374-KUBZ SKIN LESIONS, OVER 4 06/09/20 90219-QTHV SKIN LESIONS, OVER 4 12/16/19 80127-TXAD SKIN LESIONS, OVER 4 09/08/19 36293-DBLH SKIN LESIONS, 2 TO 4 05/30/20 28231-XQOW SKIN LESIONS, 2 TO 4 02/29/20 12122-HFPJ SKIN LESIONS, 2 TO 4 05/09/20 19 23276-GCUN SKIN LESIONS, 2 TO 4 08/15/19 05898-IXZH SKIN LESIONS, 2 TO 4 01/25/20 19 17964-FMLE SKIN LESIONS, 2 TO 4 11/30/19 78714-GFNR SKIN LESIONS, 2 TO 4 04/11/20 47135-ERBG SKIN LESIONS, 2 TO 4 08/30/19 20947-Hgxh. Subungual Hematoma 5 P7695-RDLRVBIS DYSTROPHIC NAILS ANY # O7306-APMAMIQX DYSTROPHIC NAILS ANY # T5476-ORGWSXDO DYSTROPHIC NAILS ANY # W8362-WVGPEIDP DYSTROPHIC NAILS ANY # Next Appt Details Provider Name:Michelet Mcclelland , 05/18/2025 10:00:00 AM, [address] [facility], [address], [place], [address], Insurance Providers Payer Name Payer Address Payer Phone Subscriber Number Group Number Insured Name Patient Relationship to Insured Coverage Start Date Coverage End Date Medicare National [employer] [address] [place] [address] [id number] Milana Fonseca Self - patient is the insured [address] [place] [address] [address] [place] [address] [id number] Milana Fonseca Self - patient is the insured Medical (General) History Medical History History ICD Code Arthritis Chicken pox Cholesterol Diabetic type ll Heart disease High blood pressure Surgical History Surgery Date(Month/Year) R ovarian removed 1995 gall bladder removed 1999 Hammer toe Left 3rd toe cardiac catheterization 11/13/21 eye surgery 06/15/23 Hospitalization History Reason Date(Month/Year) Urgent [facility] [place]- flu 03/2022
== END 2025-04-25 09:48 | disposition home or self-care (01) ==
PROVIDERS: PCP Internal Medicine; Visit Provider Physician Assistant
DX: H65.191 Other acute nonsuppurative otitis media, right ear (principal); H61.23 Impacted cerumen, bilateral

== ENCOUNTER → 2025-04-25 09:03 | Outpatient (BNVA) | payer MEDICARE, OTHER, SELFPAY | PROVIDERS: PCP Internal Medicine; Visit Provider Physician Assistant | DX: H61.23 Impacted cerumen, bilateral (principal); H65.191 Other acute nonsuppurative otitis media, right ear | CPT/HCPCS: 69209; 99212 ==

== ENCOUNTER 2025-05-23 09:37 | Outpatient (REF) | payer MEDICARE, OTHER, SELFPAY ==
--- OUTSIDE RECORDS SUMMARY | 2025-05-18 06:00 | XMS_ITS ---
Author Organization [facility] Address [address] [facility] [place] [address] Care Team Providers Care Inventory Clerk Name Role Phone Aracely Thompson Primary Care Provider Michelet Jackson Unavailable [phone] Allergies No Known Allergies REASON FOR VISIT At Risk Footcare Medications Medication SIG (Take, Route, Frequency, Duration) Notes Start Date End Date Status Ammonium Lactate 12 % 1 application Exte rnally to affected areas of dry skin to feet except for between the toes Twice a day; Duration: 30 days Active Extra Depth Orthopedic Shoes (1 Pair) with Customized Heat Molded Multidensity Innersoles (3 Pair) as directed Dx: NIDDM/Polyneuropathy (E11.42), Hammertoe Foot Deformity (M20.41,M20.42), Preulcerative Skin Lesion(s) (L85.1 08/15/2024 Active Metoprolol Tartrate 75 MG Orally Not-Taking Aspirin 81 MG Orally Not-Ta gerri metFORMIN HCl 500 MG 1 tablet with a lissette l Orally Once a day; Duration: 30 day(s) Not-Taking Xarelto Active Trulicity Active Nexletol Active Multaq 4mg Active Zetia Active Metoprolol Tartrate 50 MG 1 tablet with food Orally Twice a day; Duration: 30 day(s) Active Crestor Active Amiodarone HCl Activ e Otezla Active Social History Tobacco Use: Social History [...] Negative Vital Signs Height 5ft 2in in 05/18/2025 Weight 179 lbs 05/18/2025 BMI 32.74 kg/m2 05/18/2025 Blood pressure systolic 126 mm Hg 05/18/20 Blood pressure diastolic 65 mm Hg 025 Procedures Procedure Date Ordered Date Performed Result Body Sit e 19636-ZDAEFIK NAIL, 6 OR MORE 05/18/2025 N/A 75692-PMUX SKIN LESIONS, OVER 4 05/18/2025 N/A Encounters Encounter Location Date Provider Diagnosis [facility] [place] [address] [address] 05/18/2025 Michelet Mcclelland Type 2 diabetes mellitus with diabetic polyneuropathy E11.42 and Tinea unguium B35.1 Assessments Encounter Date Diagnosis (ICD Code) Assessment Notes Treatment Notes Treatment Clinical Notes Section Notes 05/18/2025 Type 2 diabetes mellitus with diabetic polyneuropathy (ICD-10 - E11.42) 05/18/2025 Tinea unguium (ICD-10 - B35.1) 05/18/2025 Other Plan Of Treatment Pending Test Test Name Order Date 24301-YRGFTRM NAIL, 6 OR MORE 05/18/2025 53360-AHAR SKIN LESIONS, OVER 4 05/18/20 25 Next Appt Details Follow Up: prn, Reason: Provider Name:Michelet Mcclelland , 09/06/2025 10:15:00 AM, [address] [facility] [place] [address], [place], [address], Procedure Notes * Category Sub-Category Detail Notes [...] use of a nail nipper and/or dremel-type internal grinder set up operator, to a more viable healthy nail [...] to maintain effectiveness in symptomatic relief - 08569 Keratoma Treatment Parring or Cutting o f [...] instrumentation by the physician of record - 74683 Progress Notes * Milana FONSECADOB: [birth year] (75 yo F)Acc No.[id number]:05/18/2025 Progress Note Patient: Milana PEACE Provider: Vanna Mcclelland DPM :1950 A ge:75 Y S ex:Female Date:05/18/2025 Address:[address], [facility] Pcp:Aracely Thompson Subjective: * Chief Complaints: * A t Risk Footcare * HPI: A t Risk footcare: Pt States Last PCP Visit: D ate 0 02/14/2025 States has an appt with PCP soon - May * ROS: G eneral/Constitutional: Nausea d enies. V omiting d enies. H jefry Thirst d enies. L oss appetite d enies. C hills d enies. F atigue d enies.?Fever d enies. N ight Sweats d enies. U nexplained weight loss d enies. U nexplained weight gain d enies. H EENTM: Dentures d enies. D izziness d enies. G lasses/contacts a dmits. R etinopathy d enies. B lurred/double vision d enies. T MJ?denies. D ischarge/drainage d enies. I mplants d enies. S ore throat d enies. D ental implants d enies. H chelsea of hearing a dmits. D ifficulty chewing/swallowing/speaking d enies. N ose bleeds d enies. S ore mouth d enies. ? R espiratory: On Oxygen d enies. P neumonia/pleurisy d enies.?Bronchitis d enies. E mphysema d enies. C oughing d enies. C ough blood?denies. S hortness of breath d enies. W heezing d enies. C ardiovascular: Pacemaker d enies. M TABLE CUT OFF SAW OPERATOR d enies. W PW d enies. C HF d enies. H eart attack d enies. S eptal defect d enies. R apid beat d enies. C hest pain d enies. A trial Fib. d enies. M urmur/Palpitations d enies. G astrointestinal: Hemorrhoids d enies. S tomach/Abdominal pain d enies. D ark blood stool d enies. I rritable bowel d enies. C onstipation d enies. D iarrhea d enies. H ematology: Swelling a dmits. C lots d enies. V aricose Veins d enies. B ruising a dmits, on anticoagulants. B leeding problem a dmits, on anticoagulants. G enitourinary: Blood urine d enies. F requent/Painfu/urination/bladder control d enies. K idney stones d enies. I nfection (UTI) d enies. N ephropathy d enies. s ex trans dis (STD) d enies. P rostate d enies. M usculoskeletal: Hammertoes a dmits. B unions d enies. B ack Pain d enies. M uscle Cramps/ Resting d enies. M uscle cramps / walking d enies.?Generalized aches and pains d enies. W eakness d enies. I nteg.: Baker d enies. S cars d enies. C orns/calluses?admits. I ngrown nails a dmits. P ainful nails d enies. O pen Sores d enies. R ashes d enies. N eurologic: Difficulty sleeping d enies. B rain disorder d enies. N umbness d enies. B alance trouble d enies. C onfusion d enies. F ainting/blackouts d enies. T ingling a dmits. T remors d enies. * Medical History: * Surgical History: R ovarian removed 1995gall bladder removed 1999Hammer toe Left 3rd toe cardiac catheterization 11/13/21eye surgery 06/15/23 * Hospitalization/Major Diagno stic Procedure: [facility]- flu 03/2022 * Family History: M other: , kidney/liver disease, diagnosed with Diabetic - NIDDM, Unspecified essential hypertension, Unspecified heart disease, Unspecified cerebral artery occlusion with cerebral infarction, Family history of arthritis. F ather: . S pouse: . S iblings: diagnosed with Other malignant neoplasm of unspecified site. * Social History: T obacco Use: T obacco use other than smoking A re you an other tobacco user? N o Tobacco Control (Standard) T obacco use: N onsmoker A dditional Findings: Tobacco non-user C urrent nonsmoker D rugs/Alcohol: D rugs H ave you used drugs other than those for medical reasons in the past 12 months? N o M iscellaneous: C affeine: yes, 2-3 cups per day. Children: yes, 3. Exercise: yes, gym 2-3 times a week. Marital status: . Occupation: Retired. D rug/Alcohol: A MOR-C (Standard) D id you have a drink containing alcohol in the past year? N o P oints 0 I nterpretation N egative * Medications: T akingOtezla Amiodarone HCl Crestor Metoprolol Tartrate 50 MG Tablet 1 tablet with food Orally Twice a day Multaq , Notes to Pharmacist: 4mgNexletol Trulicity Xarelto Zetia Extra Depth Orthopedic Shoes (1 Pair) with Customized Heat Molded Multidensity Innersoles (3 Pair) as directed Dx: NIDDM/Polyneuropathy (E11.42), Hammertoe Foot Deformity (M20.41,M20.42), Preulcerative Skin Lesion(s) (L85.1 Ammonium Lactate 12 % Cream 1 application Externally to affected areas of dry skin to feet except for between the toes Twice a day Taking Otezla Taking Amiodarone HCl Taking Crestor Taking Metoprolol Tartrate 50 MG Tablet 1 tablet with food Orally Twice a day Taking Multaq , Notes to Pharmacist: 4mgTaking Nexletol Taking Trulicity Taking Xarelto Taking Zetia Taking Extra Depth Orthopedic Shoes (1 Pair) with Customized Heat Molded Multidensity Innersoles (3 Pair) as directed Dx: NIDDM/Polyneuropathy (E11.42), Hammertoe Foot Deformity (M20.41,M20.42), Preulcerative Skin Lesion(s) (L85.1 Taking Ammonium Lactate 12 % Cream 1 application Externally to affected areas of dry skin to feet except for between the toes Twice a day Not-Taking/PRNmetFORMIN HCl 500 MG Tablet 1 tablet with a meal Orally Once a day Aspirin 81 MG Tablet Delayed Release Orally Metoprolol Tartrate 75 MG Tablet Orally Medication List reviewed and reconciled with the patientNot-Taking/PRN metFORMIN HCl 500 MG Tablet 1 tablet with a meal Orally Once a day Not-Taking/PRN Aspirin 81 MG Tablet Delayed Release Orally Not-Taking/PRN Metoprolol Tartrate 75 MG Tablet Orally Medication List reviewed and reconciled with the patient * Allergies: N .K.D.A.yes[Allergies Verified] Objective: * Vitals: H t: 5ft 2in, Wt:179, BMI: 32.74, Shoe size:9.5, BP:126/65mm Hg, BS:did not test, Ht-cm: 157.48 cm, Wt-k.19 kg. * P ast Orders: L ab:HEMOGLOBIN A1C (GLYCOHEMOGLOBIN) (Order Date - 11/14/2024) (Collection Date & Time - 11/15/2024 10:22 AM) Value Reference Range HEMOGLOBIN A1C % (HH) 6.3 * Examination: O phthalmology Referral: DIABETES EYE EXAM P rocedure Performed: Anabel Harvey ate of Exam Performed 0 04/26/2025 D iabetic Retinopathy Screening: Y es R etinal Screening Performed: Y es F indings of Diabetic Eye Exam: n o retinopathy N eurological: SENSORY: N eurological exam demonstrates a loss of protective sensation by an absence of tested sensitivity to 5.07 Echo-Mabel monofilament at 2 or more sites out of 5 total locations, each foot. N ails: NAILS are: E longated, overgrown, dystrophic, lytic, greater than 3mm thick, discolored and friable with crumbly malodorous subungual debris, with pain on palpation, TA, T 1, T3, T4, T5, T6, T7, T8, T9, all other nails not described with characteristics as possessing mycosis are elongated, overgrown, and dystrophic . D ermatologic: SKIN FINDINGS: S kin exam reveals Keratotic lesion(s) located at, Medial plantar, IPJ, TA, Medial plantar, IPJ, T5, SUB MTH (s), 1, B/L, SUB MTH (s), 2, B/L , Plantar, Heel(s), B/L . Assessment: * Assessment: 1. T ype 2 diabetes mellitus with diabetic polyneuropathy - E11.42 (Primary) 2 . T inea unguium - B35.1 Plan: * Treatment: * Procedures: D ebride Nail 6-10: Nail debridement D ue to the clinical pathology outlined in the exam findings, performance of this nail treatment is medically necessary as its management by an unskilled/untrained nonprofessional would put this patients foot and overall health at risk. Therefore, debridement to affected nail(s), as described in exam ( TA, T1, T 3, T 4, T 5, T6, T7, T8, T9 ) , was performed exclusively by the physician of record to reduce/remove overall nail length, girth, thickness, subungual debris, and necrotic tissue, by manual and/or electrical means through the use of a nail nipper and/or dremel-type internal grinder set up operator, to a more viable healthy nail [...] to maintain effectiveness in symptomatic relief - 26018. K eratoma Treatment: Parring or Cutting of Benign Hyperkeratotic Lesion(s) ( -57) More than 4 Lesions - Due to [...] stated and described in the exam ( M edial plantar, I PJ, T A, M edial plantar, I PJ, T 5, S UB MTH (s), 1 , B /L, S UB MTH (s), 2 , B /L , P lantar, H eel(s), B /L ) , were pared, and/or cut utilizing a sterile 15 blade, tissue nippers, and/or power dremel instrumentation by the physician of record - 58500. * Procedure Codes: 1 1721 DEBRIDE NAIL, 6 OR MORE, Modifiers: XS 78437 TRIM SKIN LESIONS, OVER 4, Modifiers: XS * Follow Up: p rn * Images: * Sign off status: Completed true * Provider: Vanna Mcclelland DPM Date: Generated for Mari ventura/Zaire/Juana on: 10:44 AM EDT History and Physical Notes * HPI (History of Present Illness) Category Sub-Category Detail Notes Category Not es At Risk footcare Pt States Last PCP Visit: Date: 02/14/2025 States has an appt with PCP soon - Oct Examination Category Sub-Category Detail Notes Category Not es Neurological SENSORY: Neurological exa m demonstrates a loss of protective sensation by an absence of tested sensitivity to 5.07 Echo-Mabel monofilament at 2 or more sites out of 5 total locations, each foot Dermatologic SKIN FINDINGS: Skin exam reveal s Keratotic lesion(s) located at, Medial plantar, IPJ, TA, Medial plantar, IPJ, T5, SUB MTH (s), 1, B/L, SUB MTH (s), 2, B/L , Plantar, Heel(s), B/L Ophthalmology Referral DIABETES EYE EXAM Procedu re Performed:: Yes Date of Exam Performed: 04/26/2025 Diabetic Retinopathy Screening:: Yes Retinal Screening Performed:: [...]
--- NOTE | ~2025-05-23 | MM_ITS ---
EXAMINATION: MM SCREENING DIGITAL BREAST TOMOSYNTHESIS, BILATERAL CLINICAL INFORMATION: Screening. Asymptomatic. COMPARISON: Comparison made to multiple prior, most recent May 17, 2024, and most remote December 10, 2016. TECHNIQUE: Digital breast tomosynthesis is performed in mediolateral oblique and craniocaudal views along with computer-aided detection (CAD). Synthesized 2D images are generated from the tomosynthesis. FINDINGS: BREAST COMPOSITION: The breasts are heterogeneously dense, which may obscure small masses. BILATERAL BREASTS: No significant masses, suspicious calcifications or other abnormalities are seen in either breast. MM/MM tomosynthesis screening BI IMPRESSION: BILATERAL BREASTS: Negative, no mammographic evidence of malignancy. Normal interval follow-up is recommended in 12 months. ASSESSMENT: BI-RADS: Category 1: Negative RECOMMENDATION: Routine annual mammography screening. FOLLOW-UP: 1 year F/U This examination should not preclude the clinical evaluation of a suspicious palpable abnormality. This patient's information was entered into a reminder system with a target due date for their next mammogram. Electronically signed by: Joaquin Mixon MD 05/27/2025 05:12 PM EDT
[2025-05-23 09:54] LABS: MANUAL DIFF FLAG NO
[2025-05-23 10:32] LABS: Hematocrit 41.1 % (37.0-47.0); Hemoglobin 13.4 g/dl (12.0-16.0); Imm Gran Abs Auto 0.02 X10*3/uL (0.00-0.03); Imm Gran Pct Auto 0.3 % (0.0-0.4); Lymphocytes Absolute Auto 1.5 X10*3/uL (1.2-4.9); Mean Corpuscular HGB Conc 32.6 g/dl (31.0-35.0); Mean Corpuscular Hemoglobin 27.9 pg (27.0-33.0); Mean Corpuscular Volume 85.6 fL (80.0-98.0); NRBC Abs Auto 0.000 X10*3/uL (0.0-0.012); NRBC Pct Auto 0.0 /100WBC (0.0-0.2); Platelet Count 243 X10*3/uL (160-400); Red Blood Count 4.80 X10*6/uL (4.20-5.50); White Blood Count 7.2 X10*3/uL (4.8-10.8)
--- OUTSIDE RECORDS SUMMARY | 2025-05-23 10:45 | XMS_ITS | Patient Health Record ---
Author Organization [facility] Address [address] [facility] [facility] [address] [place] [address] Care Team Providers Care Impregnating Tank Operator Name Role Phone Lucrecia Munoz Unavailable [phone] Allergies No Known Allergies Reason For Referral No Information Medications Medication SIG (Take, Route, Frequency, Duration) Notes Start Date End Date Status Nystatin 269424 UNIT/GM APPLY 1 APPLICAT ION TOPICALLY 2 [...] Status Risk Notes Problem Postmenopausal atrophic vaginitis (32416200) Postmenopausal atrophic vaginitis (N95.2) Active confirmed Problem Osteoarthritis (869961491) Unspecified osteoarthritis, unspecified site (M19.90) Active confirmed Plan Of Treatment Pending Test Test Name Order Date MAMMOGRAM, SCREENING 11/18/2023 BONE DENSITY 11/18/2023 MM Digital Mammo Screening 11/18/2023 Insurance Providers Payer Name Payer Address Payer Phone Subscriber Number Group Number Insured Name Patient Relationship to Insured Coverage Start Date Coverage End Date MEDICARE [address] [id number] CALVIN ALVES Self - patient is the insured [address] [place] [address] [address] [place] [address] [id number] CALVIN ALVES Self - patient is [...]
--- OUTSIDE RECORDS SUMMARY | 2025-05-23 10:45 | XMS_ITS | Patient Health Record ---
Author Organization [facility] Address [address] [place] [address] Care Team Providers Care Manager Aviation Name Role Phone Aracely Thompson MD Primary Care Provider Marquise Chapin [phone] Allergies Allergen (clinical drug ingredient) Drug/Non Drug Allergy documented on EMR Reaction Allergy Type Onset Date Status Fruit & Vegetable Daily Unknown Drug Allergy Active Reason For Referral No Information Medications Medication SIG (Take, Route, Frequency, Duration) Notes Start Date End Date Status Trulicity 3 MG/0.5ML INJECT 3 MG (0.5 ML ) SUBCUTANEOUSLY EVERY WEEK FOR 30 DAYS Subcutaneous; Duration: 28 Days Active Sertraline HCl 25 MG TAKE 1 TABLET BY MO UTH EVERY DAY Oral; Duration: 90 Days Active Otezla 30 MG Oral; Duration: 30 Days Active Nexletol 180 MG TAKE 1 TABLET BY ANTHONY TH EVERY DAY Oral; Duration: 90 Days Active Cozaar 100 MG 1 tablet Orally Once a day Active traZODone HCl 50 MG TAKE 1 TABLET ORALLY BEDTIME NEEDED FOR SLEEP Oral; Duration: 90 Days Active Rosuvastatin Calcium 40 MG Oral; Duration: 90 Active Victoza 18 MG/3ML 0.2 ml Subcutaneous Once a day Not-Taking Metoprolol Succinate ER 25 MG 1 tablet Orally Once a day Active Ezetimibe 10 MG Oral; Duration: 90 Days Active Zetia 20 mg 1 tablet Orally Once a day Active Rosuvastatin Calcium 40 MG Oral; Duration: 90 Days Acti ve Clobetasol Propionate 0.05 % APPLY IN THE MORNING AND IN THE EVENING ON SCALP 5-10 DROPS AND MASSAGE IN NEEDED External; Duration: 30 Days Active Xarelto 20 MG Oral; Duration: 90 Active Omeprazole 20 MG TAKE 1 TABLET BY ANTHONY TH EVERY MORNING; Duration: 90 Active Omeprazole 40 MG 1 capsule 1/2 to 1 h our before morning meal Orally Once a day; Duration: 30 days 04/04/2025 Active Immunizations Vaccine Route Administration Date Status Comme nts Influenza Unknown 04/10/2021 Administered Influenza Unknown 04/04/2025 Refused Problems Problem Type SNOMED Code ICD Code Onset Dates Problem Status W/U Status Risk Notes Problem History of adenomatous polyp of colon (829741414) History of adenomatous polyp of colon (Z86.010) Active confirmed Problem Dysphagia (66637747) Dysphagia (R13.10) Active confirmed Problem Duodenitis (64258633) Duodenitis (K29.80) Active confirmed Problem Hiatal hernia (63590018) Hiatal hernia (K44.9) Active confirmed Problem Hemorrhage of rectum and anus (687448914) Rectal bleed (K62.5) Active confirmed Problem Gastritis (5081162) Gastritis (K29.70) Active c onfirmed Problem Duodenal ulcer (49285427) Duodenal ulcer (K26.9) Active confirmed Problem Helicobacter pylori infection (382957042) Helicobacter pylori infection (A04.8) Active confirmed Problem Diverticulosis of colon (230443514) Diverticulosis of colon (K57.30) Active confirmed Problem Gastroesophageal reflux disease (054954104) Gastroesophageal reflux disease, unspecified whether esophagitis present (K21.9) Active confirmed Problem Esophageal dysphagia (52396762) Esophageal dysphagia (R13.19) Active confirmed Vital Signs Temperature 99.3 degrees Fahrenheit 04/04/2025 Blood pressure diastolic 01 mm Hg 04/04/2025 Height 61 in 04/04/2025 Blood pressure systolic 001 mm Hg 04/04/2025 Weight 174.2 lbs 04/04/2025 BMI 32.91 kg/m2 04/04/2025 Procedures Procedure Date Ordered Date Performed Result Body Sit e UPPER GI ENDOSCOPY BALLOOON DILATION OF ESOPH 04/04/2025 N/A Encounters Encounter Location Date Provider Diagnosis [facility] [address] [place] [address] 04/04/2025 Marquise Osman Gastroesophageal ref lux disease, [...] 07/09/2021 Next Appt Details Provider Name:Marquise Jackson Dawson , 06/26/2025 11:30:00 AM, [address] [place] [address] , [place], [place], [phone], Insurance Providers Payer Name Payer Address Payer Phone Subscriber Number Group Number Insured Name Patient Relationship to Insured Coverage Start Date Coverage End Date MEDICARE OF [place] [address] [place] [address] [id number] MILANA ALVES Self - patient is the insured [address] [place] [address] [address] [facility] [place] [phone] [id number] CLEMENTINA ALVESHER Self - patient is the insured Medical (General) History Medical History History ICD Code Colonoscopy 05-31-2004- only a hyperplas tic polyp, sigmoid diverticulosis Hyperlipidemia Hypertension Denies renal disease NIDDM CAD- ID and 2 stents > 5 yrs ago-Dr. Diamante delacruz Fatty liver- neg. Hepatitis serologies, neg. Iron studies, neg. liver U/S- normal LFT's in 09/2013 Atrial fib - Dr. 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
--- OUTSIDE RECORDS SUMMARY | 2025-05-23 10:45 | XMS_ITS | Patient Health Record ---
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 Name Role Phone Aracely Thompson Primary Care Provider Michelet Jackson Unavailable [phone] Allergies No Known Allergies Results Component Value [...] Start Date End Date Status Xarelto Active Trulicity Active Nexletol Active Multaq 4mg Active Zetia Active Ammonium Lactate 12 % 1 application Exte rnally to affected areas of dry skin to feet except for between the toes Twice a day; Duration: 30 days Active Extra Depth Orthopedic Shoes (1 Pair) with Customized Heat Molded Multidensity Innersoles (3 Pair) as directed Dx: NIDDM/Polyneuropathy (E11.42), Hammertoe Foot Deformity (M20.41,M20.42), Preulcerative Skin Lesion(s) (L85.1 08/15/2024 Active Metoprolol Tartrate 50 MG 1 tablet with food Orally Twice a day; Duration: 30 day(s) Active Crestor Active Metoprolol Tartrate 75 MG Orally Not-Taking Amiodarone HCl Activ e Aspirin 81 MG Orally Not-Ta gerri Otezla Active metFORMIN HCl 500 MG 1 tablet with a lissette l Orally Once a day; Duration: 30 day(s) Not-Taking Immunizations Vaccine Route Administration Date Status Comme nts Influenza Unknown 09/21/2018 Administered Influenza Unknown 08/15/2019 Administered Influenza Unknown 05/12/2024 Administered COVID-19 Pfizer BioNTech Vaccine Unknown 11/01/2020 [...] Problem Acquired hammer toe of right foot (3681393348413723 ) Other hammer toe(s) (acquired), right foot (M20.41) Active confirmed Problem Acquired hammer toe of left foot (0453452362130271 ) Other hammer toe(s) (acquired), left foot (M20.42) Active confirmed Problem Polyneuropathy due to type 2 diabetes mellitus (740265131) Type 2 diabetes mellitus with diabetic polyneuropathy (E11.42) Active confirmed Vital Signs Blood pressure diastolic 65 mm Hg 05/18/2025 Height 5ft 2in in 05/18/2025 Blood pressure systolic 126 mm Hg 05/18/2025 Weight 179 lbs 05/18/2025 BMI 32.74 kg/m2 05/18/2025 Procedures Procedure Date Ordered Date Performed Result Body Sit e 78760-VKZOHLF NAIL, 6 OR MORE 08/15/2024 N/A 46970-Swabtdgs Plate 08/15/2024 N/A 59210-DIDH SKIN LESIONS, OVER 4 08/15/2024 N/A 99711-Ilsr. Subungual Hematoma 08/15/2024 N/A 12627-TCEUPWI NAIL, 6 OR MORE 11/14/2024 N/A 17740-CKYZ SKIN LESIONS, OVER 4 11/14/2024 N/A 12576-HEJHLDI NAIL, 6 OR MORE 02/15/2025 N/A 71774-ARDR SKIN LESIONS, OVER 4 02/15/2025 N/A 73641-LQSZOVK NAIL, 6 OR MORE 05/18/2025 N/A 64048-CJMC SKIN LESIONS, OVER 4 05/18/2025 N/A Encounters Encounter Location Date Provider Diagnosis [address] [address] 08/15/2024 Micheletwillis Mcclelland Type 2 diabetes mellitus with diabetic polyneuropathy E11.42 ; Tinea unguium B35.1 ; Ingrown nail L60.0 ; Other hammer toe(s) (acquired), right foot M20.41 ; Other hammer toe(s) (acquired), left foot M20.42 and Subungual hematoma of right foot, initial encounter S90.221A [address] [address] 11/14/2024 Michelet Mcclelland Type 2 diabetes mellitus with diabetic polyneuropathy E11.42 ; Tinea unguium B35.1 and Xerosis of skin L85.[address] [address] 02/15/2025 Michelet Mcclelland Type 2 diabetes mellitus with diabetic polyneuropathy E11.42 ; Tinea unguium B35.1 and Xerosis of skin L85.[address] [address] 05/18/2025 Michelet Mcclelland Type 2 diabetes mellitus with diabetic polyneuropathy E11.42 and Tinea unguium B35.[address] [address] 08/12/2024 Michelet Mcclelland Assessments Encounter Date Diagnosis [...] E11.42) 02/15/2025 Tinea unguium (ICD-10 - B35.1) 05/18/2025 Type 2 diabetes mellitus with diabetic polyneuropathy (ICD-10 - E11.42) 05/18/2025 Tinea unguium (ICD-10 - B35.1) 02/15/2025 Xerosis [...] (ICD-10 - S90.221A) 11/14/2024 Other 02/15/2025 Other 05/18/2025 Other Plan Of Treatment Pending Test Test Name Order Date X ray : Foot, left 3V 04/02/2023 73634-GYTHPHV NAIL, 6 OR MORE 06/29/2023 03332-NLPHBVR NAIL, 6 OR MORE 08/15/2024 95585-AVDJSBU NAIL, 6 OR MORE 02/15/2024 32147-KNNRQZJ NAIL, 6 OR MORE 11/14/2024 85337-VUZXCXH NAIL, 6 OR MORE 05/18/2025 46700-BTFWXNR NAIL, 6 OR MORE 02/15/2025 35214-PBRYBLM NAIL, 6 OR MORE 10/05/2023 03628-YBNDEVE NAIL, 6 OR MORE 08/30/2020 87606-OYELVVH NAIL, 6 OR MORE 11/29/2020 75387-GUVNYOB NAIL, 6 OR MORE 02/28/2021 13304-XDICGDI NAIL, 6 OR MORE 05/30/2021 38047-GAMPDGI NAIL, 6 OR MORE 09/05/2021 62510-BYKTKUK NAIL, 6 OR MORE 12/05/2021 86428-BQKVIPV NAIL, 6 OR MORE 03/10/2022 12060-CWCFCXU NAIL, 6 OR MORE 06/09/2022 80575-MRHKQXT NAIL, 6 OR MORE 09/08/2022 91625-BJYVOHM NAIL, 6 OR MORE 12/15/2022 97441-UYGHCUO NAIL, 6 OR MORE 04/02/2023 65434-DLXIOEG NAIL, 1-5 05/09/2019 87293-AKSRRCC NAIL, 1-5 08/15/2019 13162-PLUOTLC NAIL, 1-5 04/11/2020 15466-OHLGAZY NAIL, 1-5 01/24/2019 21065-Xrcezhxd Plate 01/24/2019 85080-Faezucbi Plate 08/15/2024 04908-Nwraygfr Plate 06/29/2023 88672-Hzdufzfa Plate 04/02/2023 07718-Mboibeef Plate 09/08/2022 24219-Hhjxeaph Plate 12/15/2022 35439-Vmkwwdnd Plate 03/10/2022 95346-Nqwtfuti Plate 12/05/2021 69534-Zhfoelpo Plate 09/05/2021 56824-RIHI SKIN LESIONS, OVER 4 09/05/19 22 29813-RFJI SKIN LESIONS, OVER 4 12/06/19 22 24611-KAZO SKIN LESIONS, OVER 4 03/10/20 87313-FOKU SKIN LESIONS, OVER 4 06/09/20 22 94944-ORPD SKIN LESIONS, OVER 4 12/16/19 23 33920-LVZM SKIN LESIONS, OVER 4 09/08/19 23 23297-YRBX SKIN LESIONS, OVER 4 06/29/20 23 84240-WIKJ SKIN LESIONS, OVER 4 04/02/20 23 28538-IYNN SKIN LESIONS, OVER 4 08/15/19 25 05287-EMJM SKIN LESIONS, OVER 4 05/18/20 76087-HDTH SKIN LESIONS, OVER 4 11/15/19 99738-AIEW SKIN LESIONS, OVER 4 02/15/20 24 32001-LOHW SKIN LESIONS, OVER 4 02/16/20 50844-TYRQ SKIN LESIONS, OVER 4 10/05/19 24 45918-BQXM SKIN LESIONS, 2 TO 4 01/25/20 19 84138-WKPM SKIN LESIONS, 2 TO 4 08/15/19 20 46251-ZMUT SKIN LESIONS, 2 TO 4 05/09/20 19 55454-YIXM SKIN LESIONS, 2 TO 4 05/30/20 21 70029-MNPV SKIN LESIONS, 2 TO 4 02/29/20 21 79900-CFGD SKIN LESIONS, 2 TO 4 11/30/19 21 34894-TIUF SKIN LESIONS, 2 TO 4 04/11/20 20 75075-EEJQ SKIN LESIONS, 2 TO 4 08/30/19 21 21948-Jjoj. Subungual Hematoma 5 W3295-KFSOUPCT DYSTROPHIC NAILS ANY # C8592-HYKLJPJN DYSTROPHIC NAILS ANY # I6041-OVSHRILF DYSTROPHIC NAILS ANY # M4931-IPBBKMZC DYSTROPHIC NAILS ANY # Next Appt Details Provider Name:Michelet Mcclelland , 09/06/2025 10:15:00 AM, [address] [facility], [address], [place], [address], Insurance Providers Payer Name Payer Address Payer Phone Subscriber Number Group Number Insured Name Patient Relationship to Insured Coverage Start Date Coverage End Date Medicare National Govt Sv[employer] [address] [place] [address] [id number] Milana Fonseca Self - patient is the insured [address] [place] [address] [address] [place] [address] [phone] [id number] Milana Fonseca Self - patient is the insured Medical (General) History Medical History History ICD Code Arthritis Chicken pox Cholesterol Diabetic type ll Heart disease High blood pressure Surgical History Surgery Date(Month/Year) R ovarian removed 1995 gall bladder removed 1999 Hammer toe Left 3rd toe cardiac catheterization 11/13/21 eye surgery 06/15/23 Hospitalization History Reason Date(Month/Year) Urgent Care [place]- flu 03/2022
[2025-05-23 11:36] LABS: Folate 7.0 ng/mL (> or = 4.0); Vitamin B12 720 pg/mL (200-900)
[2025-05-23 11:41] LABS: Alanine Aminotransferase 22 U/L (0-31); Albumin Level 4.6 g/dL (3.5-5.0); Alkaline Phosphatase 83 U/L (39-117); Anion Gap 12 (12-20); Aspartate Amino Transferase 31 U/L (5-31); Blood Urea Nitrogen 27 mg/dL (9-16); Calcium 9.6 mg/dL (8.4-10.2); Carbon Dioxide 28 mmol/L (22-29); Chloride 110 mmol/L (96-108); Cholesterol 211 mg/dL (<200); Estimated Glomerular Filt Rate 59; HDL Cholesterol 52 mg/dL (>40); Potassium 4.3 mmol/L (3.3-5.1); Sodium 146 mmol/L (135-145); Total Protein 7.7 g/dL (6.5-8.0); Triglycerides 77 mg/dL (<150)
[2025-05-23 11:44] LABS: Free T4 (Free Thyroxine) 0.86 ng/dL (0.71-1.85); Thyroid Stimulating Hormone 0.56 uIU/mL (0.32-4.0)
== END 2025-05-23 09:38 | disposition home or self-care (01) ==
LOC: HO.MAMMO 09:37
PROVIDERS: PCP Internal Medicine; Visit Provider Internal Medicine
DX: Z12.31 Encounter for screening mammogram for malignant neoplasm of breast (principal); E11.65 Type 2 diabetes mellitus with hyperglycemia; E78.00 Pure hypercholesterolemia, unspecified; Z79.4 Long term (current) use of insulin
CPT/HCPCS: 36415; 77063; 77067; 80053; 80061; 82306; 82607; 82746; 84439; 84443; 85025

== ENCOUNTER → 2025-05-23 10:30 | Outpatient (BNV) | payer MEDICARE, OTHER, SELFPAY | PROVIDERS: PCP Internal Medicine; Visit Provider Radiology Body Imaging | DX: Z12.31 Encounter for screening mammogram for malignant neoplasm of breast (principal) | CPT/HCPCS: 77063; 77067 ==

== ENCOUNTER 2025-06-02 11:40 | Outpatient (AMB) | payer MEDICARE, OTHER, SELFPAY ==
--- NOTE | 2025-06-02 11:43 | MHC.OFFVIS ---
Vital Signs 06/02/25 11:44 Height 5 ft 2 in Weight 174 lb 2.643 oz BMI 31.9 BP 130/80 Blood Pressure Location Lt brachial Position Sitting Pulse 74 Intake Visit Reasons: 6m follow up r/s 03-21-25 Intake Note: 6 month follow-up with ekg feeling good Freelance Patternmaker Required: No Allergies atorvastatin (From LIPITOR) Allergy (Unknown, Verified 04/25/25 09:08) AFFECTED LIVER ENZYMES liraglutide (Victoza) Allergy (Unknown, Verified 04/25/25 09:08) nausea lisinopril Allergy (Unknown, Verified 04/25/25 09:08) cough losartan (LOSARTAN) Allergy (Unknown, Verified 04/25/25 09:08) HIVES PEANUT BUTTER Allergy (Unknown, Uncoded 11/11/24 11:41) LIPS SWELLING MOST FRUITS Adverse Reaction (Unknown, Uncoded 11/11/24 11:41) HIVES,ITCHING Medication List - Last Reconciled 06/02/25 by Daniel Che MD albuterol sulfate 90 mcg/actuation (Ventolin HFA) 2 puffs inhalation Q4-6H PRN apremilast (Otezla) 30 mg PO BID bempedoic acid (Nexletol) 180 mg PO DAILY blood sugar diagnostic As directed check the BS QD blood-glucose meter (OneTouch Ultra2 Meter) As directed check BS QD clobetasol 0.05% 1 appl topical BID dronedarone (Multaq) 400 mg PO Q12H dulaglutide 3 mg (0.5 mL) subcut QWEEK 90 days ezetimibe 10 mg PO DAILY fexofenadine (Michelle Allergy) 180 mg PO DAILY ketoconazole 2% topical lancets As directed check the blood sugar q.day metoprolol succinate ER 50 mg PO DAILY nystatin 1 appl topical BID PRN omeprazole 20 mg PO DAILY 14 days rivaroxaban (Xarelto) 20 mg PO QPM rosuvastatin 40 mg PO DAILY 90 days sertraline 25 mg PO DAILY trazodone 50 mg PO BEDTIME PRN HPI Comments Details: Milana comes for follow-up for her cardiac issues. She has no active cardiac symptoms. She remains active on day-to-day life but without any cardiac symptoms. Denies exertional chest pain or shortness of breath. She says she feels palpitation when she forgets to take her Multaq and then she takes it. She has had no prolonged irregular heartbeat. No bleeding issues or neurologic events. Takes all her medications regularly. No bleeding issues or neurologic events. [facility] Medical History Asthma On anticoagulant therapy On beta ever at home Post-menopausal Persistent atrial fibrillation Numbness of lip Urge incontinence Diabetic nephropathy Thrombocytopenia Vitamin D deficiency Type 2 diabetes mellitus with hyperglycemia Hypercholesterolemia Psoriasis Obesity (BMI 30-39.9) Osteoarthritis Hypertension CAD (coronary artery disease) Surgical History H/O cardiac radiofrequency ablation History of colonoscopy Stented coronary artery History of oophorectomy H/O breast biopsy Hx of tonsillectomy Hx of total knee replacement Hx of cholecystectomy Hx of tubal ligation Family History Brother Liver cancer Social History Household Members Other:: grand-daughter Housing: House Are you a primary personal care service provider to a significant other at home: No Do you presently have visiting nurse or other home services: No Alcohol intake: never Comment: aware of trip hazard Patient Tobacco Use Status: Former Tobacco user Tobacco use type: Cigarette e-Cigarette/Vaping Use: Never Used Second Hand Smoke Exposure: No service: No Current occupational status: retired Cognitive needs: No Hearing needs: Yes Vision needs: Yes Review of Systems Const Denies chills, Denies fatigue, Denies fever(s), Denies frequent falls, Denies weakness, Denies weight gain and Denies weight loss ENT Denies dizziness Card Denies chest pain, Denies leg edema, Denies lightheadedness, Denies palpitations, Denies dyspnea, Denies dyspnea on exertion, Denies orthopnea and Denies other (loss of consciousness) Resp Denies cough, Denies dyspnea and Denies dyspnea on exertion GI Denies hematochezia and Denies change in stool character Musc Denies abnormal gait, Denies muscle weakness, Denies numbness, Denies radiating pain into limb and Denies tingling Neuro Denies abnormal gait, Denies dizziness, Denies frequent falls, Denies numbness, Denies tingling and Denies weakness Endo Denies fatigue and Denies palpitations Physical Exam Vital Signs: Last Vital Signs Pulse 74 06/02/25 11:44 BP 130/80 06/02/25 11:44 BMI result Body Mass Index 31.9 Const General: cooperative, comfortable, no acute distress, alert and awake Nutritional Appearance: obese Orientation/consciousness: patient oriented x3 Limitations: no limitations Neck Neck: Yes trachea midline, Yes supple and Yes no JVD Resp Effort & Inspection: normal respiratory effort Auscultation: clear to auscultation bilaterally Cardio Jugular venous distension: no JVD Palpation: normal PMI Rate: regular rate Rhythm: regular rhythm and abnormal rhythm Heart sounds: S1 normal heart sound present, S2 normal heart sound present, no click, no gallops, no murmurs and no rubs GI Auscultation: normal bowel sounds Skin General skin exam: no rashes or lesions noted Neuro General: patient oriented x3 and no focal motor deficits Extrem General: Yes no clubbing, cyanosis or edema Psych Appearance: grossly normal Office Procedures EKG Details: EKGs shows normal sinus rhythm normal EKGs 74 beats per minute 27795-Ybrkupcfmtczrdlur, Complete Assessment & Plan Assessment & Plan (1) CAD (coronary artery disease): Comment: Angioplasty October 2009 with ERROL Code(s): I25.10 - Atherosclerotic heart disease of [place] coronary artery without angina pectoris Category: Medical Qualifiers: Coronary Disease-Associated Artery/Lesion type: [place] artery [place] vs. transplanted heart: [place] heart Associated angina: without angina Qualified Code(s): I25.10 - Atherosclerotic heart disease of [place] coronary artery without angina pectoris Plan: Coronary artery disease with remote PCI with no recurrent symptoms at good functional status at current time. Continue to manage conservatively and medically. No need for further workup at this point time. Advised to call me with any new symptoms. Currently on full oral anticoagulation with Xarelto and will continue the same and avoid aspirin therapy to reduce bleeding risk. Continue current lipid modification with target goal LDL less than 60 mg/dL. Blood pressure is currently well optimized. Advised to continue current therapy. Advised to monitor blood pressure intermittently at home and maintain a log. Goal blood pressure less than 130/84. Advised to participate in aggressive lifestyle modification with weight loss. (2) Paroxysmal atrial fibrillation: Comment: September 2020, ablation December 2021 Code(s): I48.0 - Paroxysmal atrial fibrillation Category: Medical Plan: Paroxysmal atrial fibrillation has done very well with rhythm control approach and current therapy with Multaq which she is tolerating well. Continue the same. Will need quarterly EKGs. Continue full oral anticoagulation, currently on Xarelto 20 mg daily. Semi annual renal function test should be pursued. Will follow up in the clinic in 3 months for EKG in 6 months with me. Thank you for allowing me to partake in her care Coding Level of Care Code Est Pt Level 4 (24533) Complex EM visit Add On G2211 Diagnoses Coronary artery disease involving [place] coronary artery of [place] heart without angina pectoris I25.10 Coronary Disease-Associated Artery/Lesion type: [place] artery [place] vs. transplanted heart: [place] heart Associated angina: without angina Paroxysmal atrial fibrillation I48.0 CPT Codes EKG - CPT: 36705-Tqgpxmkrifolzseol, Complete ([id number])
[2025-06-02 11:44] VITALS: BP 130/80; PULSE 74; BMI 31.9
--- OUTSIDE RECORDS SUMMARY | 2025-06-02 14:05 | XMS_ITS | Patient Health Record ---
Author Organization [facility] Address [address] [place] [address] Care Team Providers Care Contract Design Agent Name Role Phone Aracely Thompson MD Primary Care Provider Marquise Chapin [phone] Allergies Allergen (clinical drug ingredient) Drug/Non Drug [...] Problem History of adenomatous polyp of colon (437413222) History of adenomatous polyp of colon (Z86.010) Active confirmed Problem Dysphagia (99126714) Dysphagia (R13.10) Active confirmed Problem Duodenitis (79272899) Duodenitis (K29.80) Active confirmed Problem Hiatal hernia (64188296) Hiatal hernia (K44.9) Active confirmed Problem Hemorrhage of rectum and anus (791636770) Rectal bleed (K62.5) Active confirmed Problem Gastritis (4542718) Gastritis (K29.70) Active c onfirmed Problem Duodenal ulcer (75675363) Duodenal ulcer (K26.9) Active confirmed Problem Helicobacter pylori infection (238846428) Helicobacter pylori infection (A04.8) Active confirmed Problem Diverticulosis of colon (270689507) Diverticulosis of colon (K57.30) Active confirmed Problem Gastroesophageal reflux disease (120201732) Gastroesophageal reflux disease, unspecified whether esophagitis present (K21.9) Active confirmed Problem Esophageal dysphagia (36423742) Esophageal dysphagia (R13.19) Active confirmed Vital Signs Temperature 99.3 degrees Fahrenheit 04/04/2025 Blood pressure diastolic 01 mm Hg 04/04/2025 Height 61 in 04/04/2025 Blood pressure systolic 001 mm Hg 04/04/2025 Weight 174.2 lbs 04/04/2025 BMI 32.91 kg/m2 04/04/2025 Procedures Procedure Date Ordered Date Performed Result Body Sit e UPPER GI ENDOSCOPY BALLOOON DILATION OF ESOPH 04/04/2025 N/A Encounters Encounter Location Date Provider Diagnosis [facility] [address] [place] [address] 04/04/2025 Marquise Osman Gastroesophageal ref lux disease, [...] Name:Marquise Jackson Dawson , 06/26/2025 11:30:00 AM, [address] [place] [address] , [place], [place], [id number], Insurance Providers Payer Name Payer Address Payer Phone Subscriber Number Group Number Insured Name Patient Relationship to Insured Coverage Start Date Coverage End Date MEDICARE OF [place] [address] [place] [address] [id number] MILANA ALVES Self - patient is the insured [address] [place] [address] [address] [facility] [place] [phone] [id number] CLEMENTINA ALVESHER Self - patient is the insured Medical (General) History Medical History History ICD Code Colonoscopy 05-31-2004- only a hyperplas tic polyp, sigmoid diverticulosis Hyperlipidemia Hypertension Denies renal disease NIDDM CAD- OK and 2 stents > 5 yrs ago-Dr. Diamante delacruz Fatty liver- neg. Hepatitis serologies, neg. Iron studies, neg. liver U/S- normal LFT's in 09/2013 Atrial fib - Dr. 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
--- OUTSIDE RECORDS SUMMARY | 2025-06-02 14:05 | XMS_ITS | Patient Health Record ---
Author Organization [facility] Address [address] [place] [address] Care Team Providers Care Tool Keeper Name Role Phone Aracely Thompson Primary Care Provider Michelet Jackson Unavailable [phone] Allergies No Known Allergies Results Component Value [...] Problem Acquired hammer toe of right foot (1387574947395566 ) Other hammer toe(s) (acquired), right foot (M20.41) Active confirmed Problem Acquired hammer toe of left foot (7257055592165940 ) Other hammer toe(s) (acquired), left foot (M20.42) Active confirmed Problem Polyneuropathy due to type 2 diabetes mellitus (954233394) Type 2 diabetes mellitus with diabetic polyneuropathy (E11.42) Active confirmed Vital Signs Blood pressure diastolic 65 mm Hg 05/18/2025 Height 5ft 2in in 05/18/2025 Blood pressure systolic 126 mm Hg 05/18/2025 Weight 179 lbs 05/18/2025 BMI 32.74 kg/m2 05/18/2025 Procedures Procedure Date Ordered Date Performed Result Body Sit e 04525-ZUQXUPT NAIL, 6 OR MORE 08/15/2024 N/A 99483-Mclzbdxe Plate 08/15/2024 N/A 64526-MTVI SKIN LESIONS, OVER 4 08/15/2024 N/A 21131-Ruff. Subungual Hematoma 08/15/2024 N/A 70143-WRPMWAP NAIL, 6 OR MORE 11/14/2024 N/A 73570-CFQZ SKIN LESIONS, OVER 4 11/14/2024 N/A 22029-MGBQAJQ NAIL, 6 OR MORE 02/15/2025 N/A 17277-CPZK SKIN LESIONS, OVER 4 02/15/2025 N/A 92087-JISIOFI NAIL, 6 OR MORE 05/18/2025 N/A 89723-CPEP SKIN LESIONS, OVER 4 05/18/2025 N/A Encounters Encounter Location Date Provider Diagnosis [address] [address] 08/15/2024 Micheletwillis Mcclelland Type 2 diabetes mellitus with diabetic polyneuropathy E11.42 ; Tinea unguium B35.1 ; Ingrown nail L60.0 ; Other hammer toe(s) (acquired), right foot M20.41 ; Other hammer toe(s) (acquired), left foot M20.42 and Subungual hematoma of right foot, initial encounter S90.221A [address] [address] 11/14/2024 Michelet Mcclelland Type 2 diabetes mellitus with diabetic polyneuropathy E11.42 ; Tinea unguium B35.1 and Xerosis of skin L85.[address] [address] 02/15/2025 Michelet Mcclelland Type 2 diabetes mellitus with diabetic polyneuropathy E11.42 ; Tinea unguium B35.1 and Xerosis of skin L85.[address] [address] 05/18/2025 Michelet Mcclelland Type 2 diabetes mellitus with diabetic polyneuropathy E11.42 and Tinea unguium B35.[address] [address] 08/12/2024 Michelet Mcclelland Assessments Encounter Date Diagnosis [...] X ray : Foot, left 3V 04/02/2023 06460-VHCNIXT NAIL, 6 OR MORE 06/29/2023 43845-KMQZUVN NAIL, 6 OR MORE 04/02/2023 33565-PHIMMQY NAIL, 6 OR MORE 10/05/2023 41447-ZPNCGSW NAIL, 6 OR MORE 02/15/2024 63333-NJPUIFK NAIL, 6 OR MORE 08/15/2024 78723-SBIVRPN NAIL, 6 OR MORE 11/14/2024 77032-TYKMHQR NAIL, 6 OR MORE 02/15/2025 73944-JYFFSDE NAIL, 6 OR MORE 05/18/2025 87980-PNQXGUJ NAIL, 6 OR MORE 08/30/2020 14822-MMDGNLT NAIL, 6 OR MORE 11/29/2020 71091-HIJAAPZ NAIL, 6 OR MORE 02/28/2021 47851-OUZZHQD NAIL, 6 OR MORE 05/30/2021 31268-KMXFLFV NAIL, 6 OR MORE 09/05/2021 07509-JURVDPJ NAIL, 6 OR MORE 12/05/2021 14420-VVJGKOG NAIL, 6 OR MORE 03/10/2022 87181-BQDYGFN NAIL, 6 OR MORE 06/09/2022 21765-RZSAZRX NAIL, 6 OR MORE 09/08/2022 52380-DNJRABV NAIL, 6 OR MORE 12/15/2022 86922-ZYAKWLP NAIL, 1-5 08/15/2019 49159-EDPERPS NAIL, 1-5 04/11/2020 84357-IXSWLFG NAIL, 1-5 01/24/2019 08235-RWYIEKJ NAIL, 1-5 05/09/2019 25985-Mrhvvnyt Plate 01/24/2019 58483-Uniqezxi Plate 03/10/2022 68787-Knqgrkqi Plate 12/05/2021 15688-Nbskgrrl Plate 09/05/2021 17248-Mslxsigx Plate 08/15/2024 79257-Hojxnbkc Plate 04/02/2023 80541-Kqvqtysu Plate 09/08/2022 47909-Kmrirqek Plate 12/15/2022 20557-Yukjloep Plate 06/29/2023 43691-UCYP SKIN LESIONS, OVER 4 06/29/20 20218-GPZR SKIN LESIONS, OVER 4 04/02/20 23 07840-IXOI SKIN LESIONS, OVER 4 08/15/19 59219-OTKS SKIN LESIONS, OVER 4 02/15/20 24 47669-GKEE SKIN LESIONS, OVER 4 10/05/19 24 27014-LKZZ SKIN LESIONS, OVER 4 05/18/20 49227-KKGD SKIN LESIONS, OVER 4 02/16/20 13302-BENR SKIN LESIONS, OVER 4 11/15/19 25 96280-NBUX SKIN LESIONS, OVER 4 09/05/19 22 60379-KYCK SKIN LESIONS, OVER 4 12/06/19 22 64945-KIEH SKIN LESIONS, OVER 4 03/10/20 79702-LKNK SKIN LESIONS, OVER 4 06/09/20 22 42323-ARXQ SKIN LESIONS, OVER 4 12/16/19 23 03772-OIKU SKIN LESIONS, OVER 4 09/08/19 23 53169-SVER SKIN LESIONS, 2 TO 4 05/30/20 30623-RZAN SKIN LESIONS, 2 TO 4 02/29/20 41281-MBSK SKIN LESIONS, 2 TO 4 05/09/20 19 18103-APWP SKIN LESIONS, 2 TO 4 08/15/19 20 53654-SQME SKIN LESIONS, 2 TO 4 01/25/20 19 35590-OHSO SKIN LESIONS, 2 TO 4 11/30/19 21 06503-ZKJQ SKIN LESIONS, 2 TO 4 04/11/20 20 86899-BAKT SKIN LESIONS, 2 TO 4 08/30/19 21 12566-Vuth. Subungual Hematoma 5 C4705-JYYTAURV DYSTROPHIC NAILS ANY # V5329-MHFSUVOC DYSTROPHIC NAILS ANY # R2120-OXTJGFQZ DYSTROPHIC NAILS ANY # N6400-SWFAAGKF DYSTROPHIC NAILS ANY # Next Appt Details Provider Name:Michelet Parker Krystin , 09/06/2025 10:15:00 AM, [address], [address], [place], [address], Insurance Providers Payer Name Payer Address Payer Phone Subscriber Number Group Number Insured Name Patient Relationship to Insured Coverage Start Date Coverage End Date Medicare National [employer] [address] [place] [address] [id number] Milana Fonseca Self - patient is the insured [address] [place] [address] [address] [place] [id number] Milana Fonseca Self - patient is the insured Medical (General) History Medical History History ICD Code Arthritis Chicken pox Cholesterol Diabetic type ll Heart disease High blood pressure Surgical History Surgery Date(Month/Year) R ovarian removed 1995 gall bladder removed 1999 Hammer toe Left 3rd toe cardiac catheterization 11/13/21 eye surgery 06/15/23 Hospitalization History Reason Date(Month/Year) Urgent [facility] [place]- flu 03/2022
--- OUTSIDE RECORDS SUMMARY | 2025-06-02 14:05 | XMS_ITS | Patient Health Record ---
Author Organization [facility] Address [address] [place] [address] Care Team Providers Care Vp Integrity Name Role Phone Lucrecia Munoz Unavailable [phone] Allergies No Known Allergies Reason For Referral No Information Medications Medication SIG (Take, Route, Frequency, Duration) Notes Start Date End Date Status Nystatin 032020 UNIT/GM APPLY 1 APPLICAT ION TOPICALLY 2 [...] Status Risk Notes Problem Postmenopausal atrophic vaginitis (77353364) Postmenopausal atrophic vaginitis (N95.2) Active confirmed Problem Osteoarthritis (725779197) Unspecified osteoarthritis, unspecified site (M19.90) Active confirmed Plan Of Treatment Pending Test Test Name Order Date MAMMOGRAM, SCREENING 11/18/2023 BONE DENSITY 11/18/2023 MM Digital Mammo Screening 11/18/2023 Insurance Providers Payer Name Payer Address Payer Phone Subscriber Number Group Number Insured Name Patient Relationship to Insured Coverage Start Date Coverage End Date MEDICARE [address] [id number] CALVIN ALVES Self - patient is the insured [address] [place] [address] [address] [place] [address] [id number] CALVIN ALVES Self - patient is [...]
== END 2025-06-02 12:06 | disposition home or self-care (01) ==
LOC: HO.HCS 11:41
PROVIDERS: PCP Internal Medicine; Visit Provider Internal Medicine Cardiovascular Disease
DX: I25.10 Atherosclerotic heart disease of native coronary artery without angina pectoris (principal); I48.0 Paroxysmal atrial fibrillation
CPT/HCPCS: 93010; 99214; G2211

== ENCOUNTER → 2025-06-02 11:40 | Outpatient (BNVA) | payer MEDICARE, OTHER, SELFPAY | PROVIDERS: PCP Internal Medicine; Visit Provider Internal Medicine Cardiovascular Disease | DX: I25.10 Atherosclerotic heart disease of native coronary artery without angina pectoris (principal); Z79.01 Long term (current) use of anticoagulants; Z87.891 Personal history of nicotine dependence; I25.83 Coronary atherosclerosis due to lipid rich plaque; I10 Essential (primary) hypertension; I48.0 Paroxysmal atrial fibrillation; Z95.5 Presence of coronary angioplasty implant and graft | CPT/HCPCS: 93005; 99212 ==

== ENCOUNTER 2025-06-06 13:35 | Outpatient (AMB) | payer MEDICARE, OTHER, SELFPAY ==
[2025-06-06 13:50] VITALS: BP 132/88; PULSE 72; TEMP 36.3; O2SAT 100; BMI 32.3
--- NOTE | 2025-06-06 13:50 | A.OFFPC_ITS ---
Vital Signs 06/06/25 13:50 Height 5 ft 2 in Weight 176 lb 8 oz BMI 32.3 BP 132/88 Blood Pressure Location Lt brachial Position Sitting Pulse 72 Pulse Source Pulse Oximeter Temp 97.3 F Temp Source Temporal Artery Scan Pulse Oximetry (%) 100 Oxygen Delivery Method Room Air Intake Visit Reasons: FOLLOW UP DM Allergies atorvastatin (From LIPITOR) Allergy (Unknown, Verified 06/06/25 13:55) AFFECTED LIVER ENZYMES liraglutide (Victoza) Allergy (Unknown, Verified 06/06/25 13:55) nausea lisinopril Allergy (Unknown, Verified 06/06/25 13:55) cough losartan (LOSARTAN) Allergy (Unknown, Verified 06/06/25 13:55) HIVES PEANUT BUTTER Allergy (Unknown, Uncoded 06/06/25 13:55) LIPS SWELLING MOST FRUITS Adverse Reaction (Unknown, Uncoded 06/06/25 13:55) HIVES,ITCHING Medication List - Last Reconciled 06/06/25 by Aracely Thompson MD albuterol sulfate 90 mcg/actuation (Ventolin HFA) 2 puffs inhalation Q4-6H PRN apremilast (Otezla) 30 mg PO BID bempedoic acid (Nexletol) 180 mg PO DAILY blood sugar diagnostic As directed check the BS QD blood-glucose meter (OneTouch Ultra2 Meter) As directed check BS QD clobetasol 0.05% 1 appl topical BID dronedarone (Multaq) 400 mg PO Q12H dulaglutide 3 mg (0.5 mL) subcut QWEEK 90 days ezetimibe 10 mg PO DAILY fexofenadine (Michelle Allergy) 180 mg PO DAILY ketoconazole 2% topical lancets As directed check the blood sugar q.day metoprolol succinate ER 50 mg PO DAILY nystatin 1 appl topical BID PRN omeprazole 20 mg PO DAILY 14 days rivaroxaban (Xarelto) 20 mg PO QPM rosuvastatin 40 mg PO DAILY 90 days sertraline 25 mg PO DAILY trazodone 50 mg PO BEDTIME PRN Tobacco use date assessed: 06/06/25 Fall risk assessment: No Falls in past year Last assessed Fall Risk: 06/06/25 Dental Screening Dental Screen Date: 06/06/25 Did you have a dental visit in the last 12 months?: Yes Did you have a dental problem in the last 6 months where you did not have access to dental care?: No Was dental information given to patient?: Patient has dentist [facility] Medical History Asthma On anticoagulant therapy On beta ever at home Post-menopausal Persistent atrial fibrillation Numbness of lip Urge incontinence Diabetic nephropathy Thrombocytopenia Vitamin D deficiency Type 2 diabetes mellitus with hyperglycemia Hypercholesterolemia Psoriasis Obesity (BMI 30-39.9) Osteoarthritis Hypertension CAD (coronary artery disease) Surgical History H/O cardiac radiofrequency ablation History of colonoscopy Stented coronary artery History of oophorectomy H/O breast biopsy Hx of tonsillectomy Hx of total knee replacement Hx of cholecystectomy Hx of tubal ligation Family History Brother Liver cancer Social History Household Members Other:: grand-daughter Housing: House Are you a primary rehab care assistant to a significant other at home: No Do you presently have visiting nurse or other home services: No Alcohol intake: never Comment: aware of trip hazard Patient Tobacco Use Status: Former Tobacco user Tobacco use type: Cigarette e-Cigarette/Vaping Use: Never Used Second Hand Smoke Exposure: No service: No Current occupational status: retired Cognitive needs: No Hearing needs: Yes Vision needs: Yes Questionnaire PHQ-9 Over the last 2 weeks, how often have you been bothered by any of the following problems? 1. Little interest or pleasure in doing things: not at all 2. Feeling down, depressed, or hopeless: not at all 3. Trouble falling or staying asleep, or sleeping too much: not at all 4. Feeling tired or having little energy: not at all 5. Poor appetite or overeating: not at all 6. Feeling bad about yourself - or that you are a failure or have let yourself or your family down: not at all 7. Trouble concentrating on things, such as reading the newspaper or watching television: not at all 8. Moving or speaking so slowly that other people could have noticed. Or the opposite - being so fidgety or restless that you have been moving around a lot more than usual: not at all 9. Thoughts that you would be better off or of hurting yourself in some way: not at all Total score: 0 Depression Screening Interpretation: Negative Depression Screening Done: Yes Source: Developed by Drs. Marquise Hines, Jolene Quinn, Issac Prince and colleagues, with an educational caden from [employer]. Thrive Questionnaire Date Thrive assessed: 02/21/25 I am a: Patient What is your living situation today?: I have a steady place to live Within the past 12 months, did the food you bought not last and you didn't have the money to get more?: I choose not to answer this question Within the past 12 months, did you worry whether your food would run out before you got money to buy more?: I choose not to answer this question Do you have trouble paying for medicines?: I choose not to answer this question Do you have trouble getting transportation to medical appointments?: No Do you have trouble paying your heating and electricity bill?: Yes Do you have trouble taking care of your child, family member or friend?: No Do you have trouble with day-to-day activities such as bathing, preparing meals, shopping, managing finances, etc.?: No Are you currently unemployed and looking for a job?: No Are you interested in more education?: No Please select the resources that you would like help with: None Currently or been in a relationship where the following occur: No concerns reported THRIVE Score: 1 AUDIT C Alcohol Use Questionnaire (AUDIT-C) 1. How often do you have a drink containing alcohol?: Never 3. How often do you have six or more drinks on one occasion?: Never Total Score: 0 SERGIO-7 AMB Questionnaire SERGIO-7 Date SERGIO - 7 assessed: 02/21/25 Feeling nervous, anxious, or on edge: 0 = Not at all Not being able to stop or control worryin = Not at all Worrying too much about different things: 0 = Not at all Trouble relaxin = Not at all Being so restless that it is hard to sit still: 0 = Not at all Becoming easily annoyed or irritable: 0 = Not at all Feeling afraid as if something awful might happen: 0 = Not at all Total SERGIO-7 score (0-4 normal; 5-9 mild; 10-14 moderate; 15-21 severe): 0 Source: Developed by Drs. Marquise Hines, Jolene Quinn, Issac Prince and colleagues, with an educational caden from [employer]. Physical exam (Primary Care) Vital Signs: Last Vital Signs Temp 97.3 F 06/06/25 13:50 Pulse 72 06/06/25 13:50 BP 132/88 06/06/25 13:50 Pulse Ox 100 06/06/25 13:50 Oxygen Delivery Method Room Air 06/06/25 13:50 BMI result Body Mass Index 32.3 Tobacco/Smoking Status: Tobacco use Status Tobacco use date assessed 06/06/25 06/06/25 13:57 Patient Tobacco Use Status Former Tobacco user 06/06/25 13:51 Tobacco use type Cigarette 06/06/25 13:51 e-Cigarette/Vaping Use Never Used 06/06/25 13:51 PHQ-9: PHQ-9 Score PHQ-9: Total score 0 06/06/25 14:33 Depression Screening Interpretation: Negative Thrive Assessment: Date of Thrive Assessment Date Thrive assessed 02/21/25 06/06/25 13:51 Currently or been in a relationship where the following occur: No concerns reported Const General: alert; No acute distress Eyes Conjunctivae: conjunctivae normal Resp Auscultation: clear to auscultation bilaterally Cardio Rate: regular rate Rhythm: regular rhythm GI Inspection: Yes normal to inspection Extrem General: Yes normal to inspection and No edema Results AMB Hemoglobin A1c AMB Hemoglobin A1c 6.0 % Last Edit by Wanda Caldwell CMA on 06/06/25 13:58 Results Reviewed Results Reviewed: Laboratory Last Values Hgb A1c (Clinic) 6.0 % (4.0-6.0) 06/06/25 13:52 Coding Level of Care Code Est Pt Level 4 (44267) Complex EM visit Add On G2211 Diagnoses Coronary artery disease involving algaaciq coronary artery of algaaciq heart without angina pectoris I25.10 Associated angina: without angina Coronary Disease-Associated Artery/Lesion type: algaaciq artery [place] vs. 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 transplanted heart: algaaciq heart Qualified Code(s): I25.10 - Atherosclerotic heart disease of algaaciq coronary artery without angina pectoris Plan: Control the cholesterol, weight, blood pressure, diabetes patient's anticoagulation (2) Hypertension: Code(s): I10 - Essential (primary) hypertension Category: Medical Qualifiers: Hypertension type: essential hypertension Qualified Code(s): I10 - Essential (primary) hypertension Plan: Continue with blood pressure medication. Decrease salt intake and exercise patient takes metoprolol 50 mg once a day (3) Paroxysmal atrial fibrillation: Comment: September 2020, ablation December 2021 Code(s): I48.0 - Paroxysmal atrial fibrillation Category: Medical Plan: On Multaq quarterly EKGs as well as semiannual renal function test on anticoagulation (4) Hypercholesterolemia: Code(s): E78.00 - Pure hypercholesterolemia, unspecified Category: Medical Plan: Avoid fried foods, chicken skin, eggs, butter margarine, pastries and meat. Be it pork or beef they have a lot of cholesterol LDL goal of less than 70 and triglyceride of less than 150 patient on rosuvastatin 40 mg once a day Zetia 10 mg once a day and Nexletol (5) Type 2 diabetes mellitus with hyperglycemia: Comment: Dr. 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 Hemoglobin A1c goal of less than 7.0. Patient is on Trulicity at 3 mg once a week (6) Obesity (BMI 30-39.9): Code(s): E66.9 - Obesity, unspecified Category: Medical Plan: Diet and exercise (7) Osteoarthritis, knee: Code(s): M17.9 - Osteoarthritis of knee, unspecified Category: Medical Plan History of Present Illness The patient is a 75-year-old obese female presenting for a follow-up visit for management of multiple chronic conditions, including diabetes mellitus, hypertension, hypercholesterolemia, coronary artery disease, atrial fibrillation post-ablation, and depression. Her last visit was in February 2025. Regarding her hypercholesterolemia, the patient is prescribed rosuvastatin 40 mg daily, Zetia (ezetimibe) 10 mg daily, and Nexletol (bempedoic acid). She has been non-adherent with her cholesterol medications, admitting to forgetting to take them due to the number of medications she is on. Her diabetes is managed with Trulicity 3 mg weekly. Her blood pressure is managed with metoprolol 50 mg daily, and she is on omeprazole for her stomach. For atrial fibrillation, she is on Multaq and the anticoagulant Xarelto. She takes sertraline and trazodone for depression and anxiety, and denies seeing a counselor and declined a referral. She uses an albuterol inhaler infrequently and takes Otezla for a skin condition. For health maintenance, her last colonoscopy in August 2021 revealed a tubular adenoma, and she is scheduled for a follow-up with gastroenterology in June 2025. A bone density scan in November 2023 was normal, and her mammogram is due. She was seen in the urgent care center on April 25 for ear pain, where she had impacted cerumen removed and was advised to use Flonase. Health Maintenance The patient is scheduled for a follow-up colonoscopy in June 2025 due to a history of a tubular adenoma. She is due for a mammogram. The patient declined any vaccinations at this time. Social History - Nutritional Intake: Patient reports eating an egg daily, which is a source of dietary cholesterol. - Hydration: Patient acknowledges inadequate water intake, citing dislike for the taste of water. - Activity Level: Advised to keep active to manage arthritis pain. - Mental Health Support: The patient is not seeing a counselor for depression and declined a referral. Review of Systems - Constitutional: Reports feeling good and pretty healthy. - Skin: Reports very dry skin. - ENT: History of ear pain and impacted cerumen. - Respiratory: Reports infrequent use of albuterol inhaler. - Musculoskeletal: Reports arthritis pain. - Psychiatric: Acknowledges history of anxiety and depression but states, I'm doing okay. Physical Exam - General: Patient is an obese female. - Lungs: Clear to auscultation bilaterally. Results - Lab results from May 2025: - CBC: Normal, no anemia. - Hemoglobin A1c: 6.0%. - Liver Function: Normal. - Lipid Panel: LDL 144. - Vitamin Levels: B12, vitamin D and folic acid are normal. - Thyroid: Within normal limits. - Comprehensive Metabolic Panel: Sodium 146 (high), BUN 27 (high), renal function is stable. Plan Patient was informed and verbally consented to the use of an ambient scribe for clinic note documentation during this visit. 1. Hypercholesterolemia The patient's LDL cholesterol is 144 mg/dL, which is significantly above the goal of less than 70 mg/dL for her cardiac history. This is despite a three-drug regimen of rosuvastatin 40 mg, Zetia 10 mg, and Nexletol. The elevated level is attributed to medication non-adherence, as the patient admitted to frequently forgetting her medications. Plan is to continue current medications and re-emphasize the importance of adherence to prevent cardiovascular events like heart attack and stroke. Dietary counseling was provided to limit intake of egg yolks, fried foods, and other high-cholesterol items. Will repeat cholesterol labs in three months to assess adherence and response. 2. Diabetes Mellitus, Type 2 The patient's diabetes is well-controlled, with a recent hemoglobin A1c of 6.0%, which is below the goal of less than 7.0%. Plan is to continue Trulicity 3 mg weekly and encourage ongoing diet and exercise. 3. Dehydration Recent labs show an elevated sodium of 146 and BUN of 27, indicating dehydration. The patient admits to not drinking enough water due to a dislike of its taste. She was counseled to drink about six glasses of water daily and was advised to add lemon or drink coconut water to make it more palatable. 4. Coronary Artery Disease And Atrial Fibrillation The patient is stable with a history of CAD and atrial fibrillation, status post ablation. She will continue anticoagulation with Xarelto and her cardiac medica tions including metoprolol and Multaq. She will continue with quarterly EKGs and semiannual renal function tests for monitoring while on Multaq. 5. Arthritis The patient reports issues with arthritis. She was counseled that weight loss and physical activity are the most effective management strategies. A trial of glucosamine supplement and the use of topical Voltaren gel were suggested for symptomatic relief. The patient declined a referral to rheumatology, as she does not want injections or surgery. Discussion Notes I reviewed the patient's recent lab results with her, highlighting the elevated sodium and BUN, which indicate dehydration. I strongly counseled her to increase her daily water intake to about six glasses, suggesting she add lemon or drink coconut water to improve the taste. We extensively discussed her uncontrolled hypercholesterolemia, with an LDL of 144. I explained that the goal for her is an LDL below 70 due to her cardiac history and that her current level poses a significant risk for heart attack and stroke. I stressed the importance of taking her three cholesterol medications (rosuvastatin, Zetia, and Nexletol) consistently, as she admitted to forgetting them. We also discussed dietary changes, including limiting egg yolk consumption. We will recheck her lipids in three months. We addressed her arthritis pain, and I explained that it is a 'jmio-tju-npuw' condition. I recommended that keeping active is the best approach and suggested a trial of glucosamine supplement or topical Voltaren gel for pain. She declined a referral to an arthritis specialist, stating she does not want injections or surgery. I confirmed she is aware of her upcoming colonoscopy in June. She declined vaccines during this visit. Patient Instructions - Drink at least 6 glasses of water every day to stay hydrated. - Be sure to take all of your cholesterol medications (Nexletol, rosuvastatin, and Zetia) every day. - We will check your cholesterol again with a blood test in 3 months. - For your diet, do not eat egg yolks more than twice a week. - For your arthritis pain, keep yourself active. - You can try taking a glucosamine supplement or using Voltaren gel on your joints for arthritis pain. - Continue your current medications as prescribed, including Trulicity for diabetes and your heart and blood pressure medications. - Remember your scheduled colonoscopy in June. Orders: Orders Complete Blood Count Auto Diff 3 Months E11.65 - Type 2 diabetes mellitus with hyperglycemia, Z79.4 - care home (current) use of insulin Lipid Panel 3 Months E11.65 - Type 2 diabetes mellitus with hyperglycemia, E78.00 - Pure hypercholesterolemia, unspecified, Z79.4 - technician terminal and repeater (current) use of insulin AMB Hemoglobin A1c Today Z13.9 - Encounter for screening, unspecified Comprehensive Met. Panel 3 Months E11.65 - Type 2 diabetes mellitus with hyperglycemia, Z79.4 - technician terminal and repeater (current) use of insulin Hemoglobin A1c 3 Months E11.65 - Type 2 diabetes mellitus with hyperglycemia, Z79.4 - care home (current) use of insulin
--- OUTSIDE RECORDS SUMMARY | 2025-06-06 17:38 | XMS_ITS | Patient Health Record ---
Author Organization [employer] [facility] Address [address] [place] [address] Care Team Providers Care Electrician Ship Name Role Phone Lucrecia Munoz Unavailable [phone] Allergies No Known Allergies Reason For Referral No Information Medications Medication SIG (Take, Route, Frequency, Duration) Notes Start Date End Date Status Nystatin 193074 UNIT/GM APPLY 1 APPLICAT ION TOPICALLY 2 [...] Status Risk Notes Problem Postmenopausal atrophic vaginitis (09071865) Postmenopausal atrophic vaginitis (N95.2) Active confirmed Problem Osteoarthritis (107797783) Unspecified osteoarthritis, unspecified site (M19.90) Active confirmed Plan Of Treatment Pending Test Test Name Order Date MAMMOGRAM, SCREENING 11/18/2023 BONE DENSITY 11/18/2023 MM Digital Mammo Screening 11/18/2023 Insurance Providers Payer Name Payer Address Payer Phone Subscriber Number Group Number Insured Name Patient Relationship to Insured Coverage Start Date Coverage End Date MEDICARE [address] [id number] CALVIN ALVES Self - patient is the insured [address] [place] [address] [address] [place] [address] [id number] CALVIN ALVES Self - patient is [...]
--- OUTSIDE RECORDS SUMMARY | 2025-06-06 17:38 | XMS_ITS | Patient Health Record ---
Author Organization [facility] Address [address] [facility] [place] [address] Care Team Providers Care Concrete Engineering Technician Name Role Phone Aracely Thompson Primary Care Provider Michelet Jackson Unavailable [phone] Allergies No Known Allergies Results Component Value [...] Unknown 08/15/2019 Administered Influenza Unknown 05/12/2024 Administered Social History Tobacco Use: Social History [...] Problem Acquired hammer toe of right foot (7137509210154602 ) Other hammer toe(s) (acquired), right foot (M20.41) Active confirmed Problem Acquired hammer toe of left foot (7575265484287704 ) Other hammer toe(s) (acquired), left foot (M20.42) Active confirmed Problem Polyneuropathy due to type 2 diabetes mellitus (747476707) Type 2 diabetes mellitus with diabetic polyneuropathy (E11.42) Active confirmed Vital Signs Blood pressure diastolic 65 mm Hg 05/18/2025 Height 5ft 2in in 05/18/2025 Blood pressure systolic 126 mm Hg 05/18/2025 Weight 179 lbs 05/18/2025 BMI 32.74 kg/m2 05/18/2025 Procedures Procedure Date Ordered Date Performed Result Body Sit e 04923-WZCLJSC NAIL, 6 OR MORE 08/15/2024 N/A 34582-Lwczpicg Plate 08/15/2024 N/A 64234-PNDT SKIN LESIONS, OVER 4 08/15/2024 N/A 45122-Cexq. Subungual Hematoma 08/15/2024 N/A 91813-RISQKWH NAIL, 6 OR MORE 11/14/2024 N/A 03598-FCOX SKIN LESIONS, OVER 4 11/14/2024 N/A 92991-KVCQSNQ NAIL, 6 OR MORE 02/15/2025 N/A 22646-PCXK SKIN LESIONS, OVER 4 02/15/2025 N/A 15089-COBBASH NAIL, 6 OR MORE 05/18/2025 N/A 91369-YXFS SKIN LESIONS, OVER 4 05/18/2025 N/A Encounters Encounter Location Date Provider Diagnosis [address] [address] 08/15/2024 Micheletwillis Mcclelland Type 2 diabetes mellitus with diabetic polyneuropathy E11.42 ; Tinea unguium B35.1 ; Ingrown nail L60.0 ; Other hammer toe(s) (acquired), right foot M20.41 ; Other hammer toe(s) (acquired), left foot M20.42 and Subungual hematoma of right foot, initial encounter S90.221A [address] [address] 11/14/2024 Michelet Mcclelland Type 2 diabetes mellitus with diabetic polyneuropathy E11.42 ; Tinea unguium B35.1 and Xerosis of skin L85.[address] [address] 02/15/2025 Michelet Mcclelland Type 2 diabetes mellitus with diabetic polyneuropathy E11.42 ; Tinea unguium B35.1 and Xerosis of skin L85.[address] [address] 05/18/2025 Michelet Mcclelland Type 2 diabetes mellitus with diabetic polyneuropathy E11.42 and Tinea unguium B35.[address] [address] 08/12/2024 Michelet Mcclelland Assessments Encounter Date Diagnosis [...] X ray : Foot, left 3V 04/02/2023 52353-URWSXLC NAIL, 6 OR MORE 06/29/2023 51235-CNNUKJL NAIL, 6 OR MORE 04/02/2023 97328-NUEUAYU NAIL, 6 OR MORE 10/05/2023 64435-XWBGYBY NAIL, 6 OR MORE 02/15/2024 82492-YYVVWNR NAIL, 6 OR MORE 08/15/2024 78995-VBGHVLP NAIL, 6 OR MORE 11/14/2024 56246-DBXJILL NAIL, 6 OR MORE 02/15/2025 56466-LTELIOW NAIL, 6 OR MORE 05/18/2025 14295-BDMHDAS NAIL, 6 OR MORE 08/30/2020 86692-DOLQTCD NAIL, 6 OR MORE 11/29/2020 58592-QSTRDZR NAIL, 6 OR MORE 02/28/2021 30594-AKTSXVO NAIL, 6 OR MORE 05/30/2021 71859-GARIHOT NAIL, 6 OR MORE 09/05/2021 84625-VBUROGV NAIL, 6 OR MORE 12/05/2021 05555-OCBKVCU NAIL, 6 OR MORE 03/10/2022 12878-PEOJIAZ NAIL, 6 OR MORE 06/09/2022 28068-ODSFZWT NAIL, 6 OR MORE 09/08/2022 40963-DWHDEYC NAIL, 6 OR MORE 12/15/2022 92219-CEZNETL NAIL, 1-5 08/15/2019 34049-ABVTBFD NAIL, 1-5 04/11/2020 39125-OOYWTXN NAIL, 1-5 01/24/2019 73138-VQRODSD NAIL, 1-5 05/09/2019 79389-Omkahrzo Plate 01/24/2019 33448-Vyevijxo Plate 03/10/2022 29927-Utdvecli Plate 12/05/2021 25642-Utsyyxam Plate 09/05/2021 52555-Mtlxbotb Plate 08/15/2024 28912-Cintznjo Plate 04/02/2023 16655-Vtsphxir Plate 09/08/2022 32907-Ccfdxgzj Plate 12/15/2022 53241-Wefrlhhv Plate 06/29/2023 51251-XFCO SKIN LESIONS, OVER 4 06/29/20 11677-GPYK SKIN LESIONS, OVER 4 04/02/20 23 33732-EBAL SKIN LESIONS, OVER 4 08/15/19 99824-JGJO SKIN LESIONS, OVER 4 02/15/20 24 14090-JSMB SKIN LESIONS, OVER 4 10/05/19 24 70814-TMUE SKIN LESIONS, OVER 4 05/18/20 99846-KFTO SKIN LESIONS, OVER 4 02/16/20 52994-HACT SKIN LESIONS, OVER 4 11/15/19 25 74829-CGMO SKIN LESIONS, OVER 4 09/05/19 22 89340-UPSA SKIN LESIONS, OVER 4 12/06/19 22 00884-NMFU SKIN LESIONS, OVER 4 03/10/20 37025-ASFV SKIN LESIONS, OVER 4 06/09/20 22 84596-RNWG SKIN LESIONS, OVER 4 12/16/19 23 13870-CQPN SKIN LESIONS, OVER 4 09/08/19 23 98171-PHBG SKIN LESIONS, 2 TO 4 05/30/20 71581-GNGM SKIN LESIONS, 2 TO 4 02/29/20 13696-GKRG SKIN LESIONS, 2 TO 4 05/09/20 19 49142-RAOH SKIN LESIONS, 2 TO 4 08/15/19 20 02996-VUVC SKIN LESIONS, 2 TO 4 01/25/20 19 73562-DUEP SKIN LESIONS, 2 TO 4 11/30/19 21 36162-EZXQ SKIN LESIONS, 2 TO 4 04/11/20 20 56672-IMTJ SKIN LESIONS, 2 TO 4 08/30/19 21 13491-Ebnj. Subungual Hematoma 5 X5829-YPTICYIS DYSTROPHIC NAILS ANY # D3500-NDAMZTJV DYSTROPHIC NAILS ANY # C1002-DLEJEXSH DYSTROPHIC NAILS ANY # O3471-LYMQPSFE DYSTROPHIC NAILS ANY # Next Appt Details Provider Name:Michelet Parker Krystin , 09/06/2025 10:15:00 AM, [address] [facility], [address], [place], [address], Insurance Providers Payer Name Payer Address Payer Phone Subscriber Number Group Number Insured Name Patient Relationship to Insured Coverage Start Date Coverage End Date Medicare National Govt Sv[employer] [address] [facility] [address] [id number] Milana Fonseca Self - patient is the insured [address] [place] [address] [address] [place] [address] [id number] Milana Fonseca Self - patient is the insured Medical (General) History Medical History History ICD Code Arthritis Chicken pox Cholesterol Diabetic type ll Heart disease High blood pressure Surgical History Surgery Date(Month/Year) R ovarian removed 1995 gall bladder removed 1999 Hammer toe Left 3rd toe cardiac catheterization 11/13/21 eye surgery 06/15/23 Hospitalization History Reason Date(Month/Year) Urgent Care [place]- flu 03/2022
--- OUTSIDE RECORDS SUMMARY | 2025-06-06 17:38 | XMS_ITS | Patient Health Record ---
Author Organization [facility] Address [address] [place] [address] Care Team Providers Care Claim Analyst Name Role Phone Aracely Thompson MD Primary Care Provider Marquise Chapin [phone] Allergies Allergen (clinical drug ingredient) Drug/Non Drug [...] Problem History of adenomatous polyp of colon (554859863) History of adenomatous polyp of colon (Z86.010) Active confirmed Problem Dysphagia (39604286) Dysphagia (R13.10) Active confirmed Problem Duodenitis (32129370) Duodenitis (K29.80) Active confirmed Problem Hiatal hernia (46329252) Hiatal hernia (K44.9) Active confirmed Problem Hemorrhage of rectum and anus (846929103) Rectal bleed (K62.5) Active confirmed Problem Gastritis (5881912) Gastritis (K29.70) Active c onfirmed Problem Duodenal ulcer (72101891) Duodenal ulcer (K26.9) Active confirmed Problem Helicobacter pylori infection (964279517) Helicobacter pylori infection (A04.8) Active confirmed Problem Diverticulosis of colon (026082708) Diverticulosis of colon (K57.30) Active confirmed Problem Gastroesophageal reflux disease (433104057) Gastroesophageal reflux disease, unspecified whether esophagitis present (K21.9) Active confirmed Problem Esophageal dysphagia (89143270) Esophageal dysphagia (R13.19) Active confirmed Vital Signs Temperature 99.3 degrees Fahrenheit 04/04/2025 Blood pressure diastolic 01 mm Hg 04/04/2025 Height 61 in 04/04/2025 Blood pressure systolic 001 mm Hg 04/04/2025 Weight 174.2 lbs 04/04/2025 BMI 32.91 kg/m2 04/04/2025 Procedures Procedure Date Ordered Date Performed Result Body Sit e UPPER GI ENDOSCOPY BALLOOON DILATION OF ESOPH 04/04/2025 N/A Encounters Encounter Location Date Provider Diagnosis [facility] [address] [place] [address] 04/04/2025 Marquise Osman Gastroesophageal ref lux disease, [...] Name:Marquise Jackson Dawson , 06/26/2025 11:30:00 AM, [address] [place] [address] , [place], [place], [phone], Insurance Providers Payer Name Payer Address Payer Phone Subscriber Number Group Number Insured Name Patient Relationship to Insured Coverage Start Date Coverage End Date [place] [address] [place] [address] [id number] MILANA ALVES Self - patient is the insured [address] [place] [address] [address] [facility] [place] [phone] [id number] CLEMENTINA ALVESHER Self - patient is the insured Medical (General) History Medical History History ICD Code Colonoscopy 05-31-2004- only a hyperplas tic polyp, sigmoid diverticulosis Hyperlipidemia Hypertension Denies renal disease NIDDM CAD- [place] and 2 stents > 5 yrs ago-Dr. Diamante delacruz Fatty liver- neg. Hepatitis serologies, neg. Iron studies, neg. liver U/S- normal LFT's in 09/2013 Atrial fib - Dr. 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
== END 2025-06-06 14:37 | disposition home or self-care (01) ==
LOC: HO.HMCH 13:36
PROVIDERS: PCP Internal Medicine; Visit Provider Internal Medicine
DX: I48.0 Paroxysmal atrial fibrillation (principal); E11.65 Type 2 diabetes mellitus with hyperglycemia; Z79.4 Long term (current) use of insulin; E66.9 Obesity, unspecified; Z68.32 Body mass index [BMI] 32.0-32.9, adult; I25.10 Atherosclerotic heart disease of native coronary artery without angina pectoris; I10 Essential (primary) hypertension; E78.00 Pure hypercholesterolemia, unspecified; M17.9 Osteoarthritis of knee, unspecified

== ENCOUNTER → 2025-06-06 13:35 | Outpatient (BNVA) | payer MEDICARE, OTHER, SELFPAY | PROVIDERS: PCP Internal Medicine; Visit Provider Internal Medicine | DX: I25.10 Atherosclerotic heart disease of native coronary artery without angina pectoris (principal); I10 Essential (primary) hypertension; I48.0 Paroxysmal atrial fibrillation; E78.00 Pure hypercholesterolemia, unspecified; M17.9 Osteoarthritis of knee, unspecified; E11.65 Type 2 diabetes mellitus with hyperglycemia; E66.9 Obesity, unspecified; Z68.32 Body mass index [BMI] 32.0-32.9, adult; Z71.3 Dietary counseling and surveillance; Z79.4 Long term (current) use of insulin | CPT/HCPCS: 83036; 99212 ==

== ENCOUNTER 2025-06-26 08:37 | Day surgery (SDC) | payer MEDICARE, OTHER, SELFPAY ==
--- OUTSIDE RECORDS SUMMARY | 2025-05-25 12:13 | XMS_ITS | Patient Health Record ---
Author Organization [facility] Address [address] 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 Street Contractor Name Role Phone Aracely Thompson Primary Care Provider Michelet Jackson Unavailable [phone] Allergies No Known Allergies Results Component Value [...] Problem Acquired hammer toe of right foot (8775458583294255 ) Other hammer toe(s) (acquired), right foot (M20.41) Active confirmed Problem Acquired hammer toe of left foot (3905027229369583 ) Other hammer toe(s) (acquired), left foot (M20.42) Active confirmed Problem Polyneuropathy due to type 2 diabetes mellitus (228796699) Type 2 diabetes mellitus with diabetic polyneuropathy (E11.42) Active confirmed Vital Signs Blood pressure diastolic 65 mm Hg 05/18/2025 Height 5ft 2in in 05/18/2025 Blood pressure systolic 126 mm Hg 05/18/2025 Weight 179 lbs 05/18/2025 BMI 32.74 kg/m2 05/18/2025 Procedures Procedure Date Ordered Date Performed Result Body Sit e 46018-LUSWHAD NAIL, 6 OR MORE 08/15/2024 N/A 04641-Gjyxtkrt Plate 08/15/2024 N/A 87193-RCBZ SKIN LESIONS, OVER 4 08/15/2024 N/A 82579-Btoo. Subungual Hematoma 08/15/2024 N/A 47640-OZSYRIG NAIL, 6 OR MORE 11/14/2024 N/A 28522-RKPO SKIN LESIONS, OVER 4 11/14/2024 N/A 54367-FKCSAUL NAIL, 6 OR MORE 02/15/2025 N/A 98872-LZXU SKIN LESIONS, OVER 4 02/15/2025 N/A 46515-DXPXNLO NAIL, 6 OR MORE 05/18/2025 N/A 75683-YXUS SKIN LESIONS, OVER 4 05/18/2025 N/A Encounters Encounter Location Date Provider Diagnosis [address] [address] 08/15/2024 Micheletwillis Mcclelland Type 2 diabetes mellitus with diabetic polyneuropathy E11.42 ; Tinea unguium B35.1 ; Ingrown nail L60.0 ; Other hammer toe(s) (acquired), right foot M20.41 ; Other hammer toe(s) (acquired), left foot M20.42 and Subungual hematoma of right foot, initial encounter S90.221A [address] [address] 11/14/2024 Michelet Mcclelland Type 2 diabetes mellitus with diabetic polyneuropathy E11.42 ; Tinea unguium B35.1 and Xerosis of skin L85.[address] [address] 02/15/2025 Michelet Mcclelland Type 2 diabetes mellitus with diabetic polyneuropathy E11.42 ; Tinea unguium B35.1 and Xerosis of skin L85.[address] [address] 05/18/2025 Michelet Mcclelland Type 2 diabetes mellitus with diabetic polyneuropathy E11.42 and Tinea unguium B35.[address] [address] 08/12/2024 Michelet Mcclelland Assessments Encounter Date Diagnosis [...] X ray : Foot, left 3V 04/02/2023 26921-JUHNKZR NAIL, 6 OR MORE 06/29/2023 49425-BWFTLDX NAIL, 6 OR MORE 04/02/2023 84859-MHLDITC NAIL, 6 OR MORE 10/05/2023 93845-OXCSHPN NAIL, 6 OR MORE 02/15/2024 46629-VMNXJEQ NAIL, 6 OR MORE 08/15/2024 40893-OSEBJIV NAIL, 6 OR MORE 11/14/2024 08222-SHGFYUP NAIL, 6 OR MORE 02/15/2025 76732-OORVZSJ NAIL, 6 OR MORE 05/18/2025 71778-TYOENXT NAIL, 6 OR MORE 08/30/2020 34296-HRBNSCK NAIL, 6 OR MORE 11/29/2020 53401-NGEJQCC NAIL, 6 OR MORE 02/28/2021 90629-FCYFDTU NAIL, 6 OR MORE 05/30/2021 78184-VGPKAXM NAIL, 6 OR MORE 09/05/2021 42802-TJSYNTY NAIL, 6 OR MORE 12/05/2021 57767-RSPJOQH NAIL, 6 OR MORE 03/10/2022 16963-AWGFCYQ NAIL, 6 OR MORE 06/09/2022 18627-VODJATW NAIL, 6 OR MORE 09/08/2022 45998-BWZOKZA NAIL, 6 OR MORE 12/15/2022 12347-AULYNRJ NAIL, 1-5 08/15/2019 53051-RDVRYXQ NAIL, 1-5 04/11/2020 62095-XVZEHCK NAIL, 1-5 01/24/2019 93165-YGNREOF NAIL, 1-5 05/09/2019 51200-Xldncouy Plate 01/24/2019 66025-Hitdvhns Plate 03/10/2022 11060-Lvjiaokl Plate 12/05/2021 30909-Qdzbeqox Plate 09/05/2021 84456-Qvtblvav Plate 08/15/2024 83621-Yvtxegvm Plate 04/02/2023 58703-Izhoiodz Plate 09/08/2022 79579-Kdfkjral Plate 12/15/2022 96977-Yxqbwoql Plate 06/29/2023 55574-CQRR SKIN LESIONS, OVER 4 06/29/20 76624-YNTK SKIN LESIONS, OVER 4 04/02/20 23 59429-OOOQ SKIN LESIONS, OVER 4 08/15/19 17553-LUNG SKIN LESIONS, OVER 4 02/15/20 24 30356-XRAV SKIN LESIONS, OVER 4 10/05/19 24 68764-HETB SKIN LESIONS, OVER 4 05/18/20 67779-ENAK SKIN LESIONS, OVER 4 02/16/20 96403-UCIC SKIN LESIONS, OVER 4 11/15/19 25 25651-ROUH SKIN LESIONS, OVER 4 09/05/19 22 31885-QFKX SKIN LESIONS, OVER 4 12/06/19 22 30538-RXRP SKIN LESIONS, OVER 4 03/10/20 42565-XYPL SKIN LESIONS, OVER 4 06/09/20 22 11263-DGHK SKIN LESIONS, OVER 4 12/16/19 23 12178-SYDB SKIN LESIONS, OVER 4 09/08/19 23 67067-KZUP SKIN LESIONS, 2 TO 4 05/30/20 97303-XLEV SKIN LESIONS, 2 TO 4 02/29/20 56970-XKIM SKIN LESIONS, 2 TO 4 05/09/20 19 92117-ZFTT SKIN LESIONS, 2 TO 4 08/15/19 20 52001-GHFO SKIN LESIONS, 2 TO 4 01/25/20 19 58236-NCIG SKIN LESIONS, 2 TO 4 11/30/19 21 71461-LWTT SKIN LESIONS, 2 TO 4 04/11/20 20 32396-WPAP SKIN LESIONS, 2 TO 4 08/30/19 21 58099-Vggk. Subungual Hematoma 5 F4657-GGBHQMLN DYSTROPHIC NAILS ANY # R3798-TFOFCWGB DYSTROPHIC NAILS ANY # C7347-OHCBHQNM DYSTROPHIC NAILS ANY # O8417-RTSXRKPG DYSTROPHIC NAILS ANY # Next Appt Details Provider Name:Michelet Parker Krystin , 09/06/2025 10:15:00 AM, [address] [facility], [address], [place], [address], Insurance Providers Payer Name Payer Address Payer Phone Subscriber Number Group Number Insured Name Patient Relationship to Insured Coverage Start Date Coverage End Date Medicare National Govt Svcs Inc [address] [place] [address] [id number] Milana Fonseca Self - patient is the insured [address] [place] [address] [address] [place] [address] [id number] Milana Fonseca Self - patient is the insured Medical (General) History Medical History History ICD Code Arthritis Chicken pox Cholesterol Diabetic type ll Heart disease High blood pressure Surgical History Surgery Date(Month/Year) R ovarian removed 1995 gall bladder removed 1999 Hammer toe Left 3rd toe cardiac catheterization 11/13/21 eye surgery 06/15/23 Hospitalization History Reason Date(Month/Year) Ur[facility] [place]- flu 03/2022
--- OUTSIDE RECORDS SUMMARY | 2025-05-25 12:13 | XMS_ITS | Patient Health Record ---
Author Organization [facility] Address [address] [place] [address] Care Team Providers Care Entry Level Recruiter Name Role Phone Aracely Thompson MD Primary Care Provider Marquise Chapin [phone] Allergies Allergen (clinical drug ingredient) Drug/Non Drug [...] Problem History of adenomatous polyp of colon (042329883) History of adenomatous polyp of colon (Z86.010) Active confirmed Problem Dysphagia (80524205) Dysphagia (R13.10) Active confirmed Problem Duodenitis (46182929) Duodenitis (K29.80) Active confirmed Problem Hiatal hernia (18589118) Hiatal hernia (K44.9) Active confirmed Problem Hemorrhage of rectum and anus (903197006) Rectal bleed (K62.5) Active confirmed Problem Gastritis (2574658) Gastritis (K29.70) Active c onfirmed Problem Duodenal ulcer (23356947) Duodenal ulcer (K26.9) Active confirmed Problem Helicobacter pylori infection (266539814) Helicobacter pylori infection (A04.8) Active confirmed Problem Diverticulosis of colon (428111287) Diverticulosis of colon (K57.30) Active confirmed Problem Gastroesophageal reflux disease (359601604) Gastroesophageal reflux disease, unspecified whether esophagitis present (K21.9) Active confirmed Problem Esophageal dysphagia (64584971) Esophageal dysphagia (R13.19) Active confirmed Vital Signs Temperature 99.3 degrees Fahrenheit 04/04/2025 Blood pressure diastolic 01 mm Hg 04/04/2025 Height 61 in 04/04/2025 Blood pressure systolic 001 mm Hg 04/04/2025 Weight 174.2 lbs 04/04/2025 BMI 32.91 kg/m2 04/04/2025 Procedures Procedure Date Ordered Date Performed Result Body Sit e UPPER GI ENDOSCOPY BALLOOON DILATION OF ESOPH 04/04/2025 N/A Encounters Encounter Location Date Provider Diagnosis [facility] [address] [place] [address] 04/04/2025 Marquise Osman Gastroesophageal ref lux disease, [...] Name:Marquise Jackson Dawson , 06/26/2025 11:30:00 AM, [address] [place] [address] , [place], [place], [id number], Insurance Providers Payer Name Payer Address Payer Phone Subscriber Number Group Number Insured Name Patient Relationship to Insured Coverage Start Date Coverage End Date MEDICARE OF [place] [address] [place] [address] [phone] [id number] MILANA ALVES Self - patient is the insured [address] [place] [address] [address] [facility] [place] [phone] [id number] CLEMENTINA ALVESHER Self - patient is the insured Medical (General) History Medical History History ICD Code Colonoscopy 05-31-2004- only a hyperplas tic polyp, sigmoid diverticulosis Hyperlipidemia Hypertension Denies renal disease NIDDM CAD- DC and 2 stents > 5 yrs ago-Dr. Diamante delacruz Fatty liver- neg. Hepatitis serologies, neg. Iron studies, neg. liver U/S- normal LFT's in 09/2013 Atrial fib - Dr. Che and a yolanda hop picker in [place]- may be having EP studies as of [...] of dysphagia, Surgical History Surgery Date(Month/Year) Breast yuypsi-idqmy-fmrdjn Tubal ligation Removal of right ovary Cholecystectomy
--- OUTSIDE RECORDS SUMMARY | 2025-05-25 12:13 | XMS_ITS | Patient Health Record ---
Author Organization [facility] Address [address] [place] [address] Care Team Providers Care Mess Cook Name Role Phone Lucrecia Munoz Unavailable [phone] Allergies No Known Allergies Reason For Referral No Information Medications Medication SIG (Take, Route, Frequency, Duration) Notes Start Date End Date Status Nystatin 981791 UNIT/GM APPLY 1 APPLICAT ION TOPICALLY 2 [...] Status Risk Notes Problem Postmenopausal atrophic vaginitis (86800690) Postmenopausal atrophic vaginitis (N95.2) Active confirmed Problem Osteoarthritis (195270077) Unspecified osteoarthritis, unspecified site (M19.90) Active confirmed Plan Of Treatment Pending Test Test Name Order Date MAMMOGRAM, SCREENING 11/18/2023 BONE DENSITY 11/18/2023 MM Digital Mammo Screening 11/18/2023 Insurance Providers Payer Name Payer Address Payer Phone Subscriber Number Group Number Insured Name Patient Relationship to Insured Coverage Start Date Coverage End Date MEDICARE [address] [id number] CALVIN ALVES Self - patient is the insured [address] [place] [address] [address] [place] [address] [id number] CALVIN ALVES Self - patient is [...]
--- NOTE | 2025-06-22 14:53 | P.CONAN_ITS ---
Documented by User: Negin Schwarz NP 06/22/25 14:55 HPI - Anesthesia Eval Consult details Narrative: 75yo F for Upper Endoscopy with Balloon Dilitation Follows [facility] [place] for PAF (xarelto), CAD (remote stenting). Stable at 05/2025 office visit Anesthesia Pre-Procedure Meds Is the patient on any of the following meds?: GLP1/DPP4 PMFSH Active Problems Active Problems: All Active Problems Osteoarthritis, knee (Acute) Acute effusion of right ear (Acute) Bilateral impacted cerumen (Acute) Major depression (Acute) Medicare annual wellness visit, subsequent (Acute) Hand pain, left (Acute) COVID-19 virus infection (Acute) Nasal congestion (Acute) Sore in nose (Acute) Psoriasis (Acute) Medicare annual wellness visit, initial (Acute) Cervical strain, acute (Acute) Varicose veins of left lower extremity with inflammation (Acute) Psoriasis (Acute) Acute bronchitis (Acute) Insomnia (Acute) H. pylori infection (Acute) Upper respiratory tract infection (Acute) Adult general medical exam (Acute) Hordeolum (Acute) Paroxysmal atrial fibrillation (Acute) Post-menopausal (Acute) Numbness of lip (Acute) CAD (coronary artery disease) (Acute) Hypertension (Acute) Type 2 diabetes mellitus with hyperglycemia (Acute) Hypercholesterolemia (Acute) Obesity (BMI 30-39.9) (Acute) Past Medical History Medical History Asthma On anticoagulant therapy On beta ever at home Post-menopausal Persistent atrial fibrillation Numbness of lip Urge incontinence Diabetic nephropathy Thrombocytopenia Vitamin D deficiency Type 2 diabetes mellitus with hyperglycemia Hypercholesterolemia Psoriasis Obesity (BMI 30-39.9) Osteoarthritis Hypertension CAD (coronary artery disease) Family History Family History Brother Liver cancer Family history of problems with anesthesia: No Surgical History Surgical History H/O cardiac radiofrequency ablation History of colonoscopy Stented coronary artery History of oophorectomy H/O breast biopsy Hx of tonsillectomy Hx of total knee replacement Hx of cholecystectomy Hx of tubal ligation History of Problems with Anesthesia: No Social History Social History Household Members Other:: grand-daughter Housing: House Are you a primary student career development specialist to a significant other at home: No Do you presently have visiting nurse or other home services: No Alcohol intake: never Comment: aware of trip hazard Patient Tobacco Use Status: Former Tobacco user Tobacco use type: Cigarette e-Cigarette/Vaping Use: Never Used Second Hand Smoke Exposure: No Have you been hit, kicked, punched, or otherwise hurt by someone within the past year? If so, by whom?: No Are you DNR?: No Advance Directives: No Advance Directives Information Provided: Yes service: No Current occupational status: retired Cognitive needs: No Hearing needs: Yes Vision needs: Yes Meds Allergies Allergy/AdvReac Type Severity Reaction Status Date / Time atorvastatin (From LIPITOR) Allergy Unknown AFFECTED Verified 06/06/25 13:55 LIVER ENZYMES liraglutide (Victoza) Allergy Unknown nausea Verified 06/06/25 13:55 lisinopril Allergy Unknown cough Verified 06/06/25 13:55 losartan (LOSARTAN) Allergy Unknown HIVES Verified 06/06/25 13:55 PEANUT BUTTER Allergy Unknown LIPS Uncoded 06/06/25 13:55 SWELLING MOST FRUITS AdvReac Unknown HIVES,ITCHI Uncoded 06/06/25 13:55 NG Home Medications ?Medication ?Instructions ?Recorded ?Confirmed ?Last Taken ?Type apremilast 30 mg tablet (Otezla) 30 mg PO BID 08/12/24 06/26/25 Unknown History Exam Pertinent Lab Results Pertinent Lab Results: Laboratory Tests 05/23/25 09:53 WBC 7.2 Hgb 13.4 Hct 41.1 Plt Count 243 Sodium 146 H Potassium 4.3 Chloride 110 H Carbon Dioxide 28 BUN 27 H Creatinine 0.93 Narrative Narrative: EKG 05/2025 normal sinus rhythm normal EKGs 74 beats per minute ECHO 10/2024 Conclusions: - 1. Normal LV ejection fraction 55-60% with pseudonormal filling pattern 2. Calcific aortic and mitral valve changes with normal cardiac valvular Dopplers 3. No gross pericardial effusion Assessment and Plan Assessment Anesthesia Assessment: Chart Reviewed Final Anesthetic Review Family History of Problems with Anesthesia: No History of Problems with Anesthesia: No Documented by User: Nathanael Capellan MD 06/26/25 10:25 [facility] Past Medical History Medical History Asthma On anticoagulant therapy On beta ever at home Post-menopausal Persistent atrial fibrillation Numbness of lip Urge incontinence Diabetic nephropathy Thrombocytopenia Vitamin D deficiency Type 2 diabetes mellitus with hyperglycemia Hypercholesterolemia Psoriasis Obesity (BMI 30-39.9) Osteoarthritis Hypertension CAD (coronary artery disease) Functional capacity: independent ambulation Family History Family History Brother Liver cancer Surgical History Surgical History H/O cardiac radiofrequency ablation History of colonoscopy Stented coronary artery History of oophorectomy H/O breast biopsy Hx of tonsillectomy Hx of total knee replacement Hx of cholecystectomy Hx of tubal ligation Social History Social History Household Members Other:: grand-daughter Housing: House Are you a primary student career development specialist to a significant other at home: No Do you presently have visiting nurse or other home services: No Alcohol intake: never Comment: aware of trip hazard Patient Tobacco Use Status: Former Tobacco user Tobacco use type: Cigarette e-Cigarette/Vaping Use: Never Used Second Hand Smoke Exposure: No Have you been hit, kicked, punched, or otherwise hurt by someone within the past year? If so, by whom?: No Are you DNR?: No Advance Directives: No Advance Directives Information Provided: Yes service: No Current occupational status: retired Cognitive needs: No Hearing needs: Yes Vision needs: Yes Meds Allergies Allergy/AdvReac Type Severity Reaction Status Date / Time atorvastatin (From LIPITOR) Allergy Unknown AFFECTED Verified 06/06/25 13:55 LIVER ENZYMES liraglutide (Victoza) Allergy Unknown nausea Verified 06/06/25 13:55 lisinopril Allergy Unknown cough Verified 06/06/25 13:55 losartan (LOSARTAN) Allergy Unknown HIVES Verified 06/06/25 13:55 PEANUT BUTTER Allergy Unknown LIPS Uncoded 06/06/25 13:55 SWELLING MOST FRUITS AdvReac Unknown HIVES,ITCHI Uncoded 06/06/25 13:55 NG Home Medications ?Medication ?Instructions ?Recorded ?Confirmed ?Last Taken ?Type apremilast 30 mg tablet (Otezla) 30 mg PO BID 08/12/24 06/26/25 Unknown History Exam Exam Date and Time: 06/26/25 Airway Mallampati Class: II TM Dist: >3cm Neck ROM: Full Denture: Upper Loose/Missing/Broken Teeth: Yes (many missing tooth) Heart: normal Lungs: normal Other: normal Assessment and Plan Assessment Anesthesia Assessment: Anesthesia Plan Discussed Final Anesthetic Review NPO: Yes ASA Class: III Final Preanesthetic Review: No Changes in Pt Med Stat, Meds/Allgs Chart Reviewed, Consent Obtained/Reviewed and Anes Risks/Benef Reviewed Patient Risk: Intermediate Procedure Risk: Low Anesthetic Plan Anesthetic Plan: MAC: Disposition: Standard PACU
[2025-06-26 07:24] VITALS: BMI 32.2
[2025-06-26 09:05] VITALS: BP 153/76; PULSE 67; RESP 17; TEMP 36.9; O2SAT 97; BMI 32.3
--- NOTE | 2025-06-26 09:20 | PC.NURSE ---
no meds kaila today ls clear pwd aware careplan
[2025-06-26 09:27] LABS: Glucose, Whole Blood 135 mg/dL (60-115)
[2025-06-26] MEDS: Lactated Ringers 1,000 ML 100 ML IVCONT (09:31)
[2025-06-26 11:01] VITALS: BP 131/68; PULSE 85; RESP 21; TEMP 36.8; O2SAT 97
--- NOTE | 2025-06-26 11:03 | P.BOP_ITS ---
Brief Operative Note Date of Service: 06/26/25 Pre-op diagnosis: Dysphagia, GERD Post-op diagnosis: other (Same, Hiatal hernia) Procedure: EGD with biopsies and Balloon dilation of EG Junction from 18mm to 19mm to 20mm Surgeon: Marquise Osman MD Anesthesia: MAC Was an Financial Processing Clerk used for this Procedure?: No Estimated blood loss (mL): 2.0 Pathology: other (A. Gastric antrum B. EG Junction at 34cm) Condition: stable Disposition: PACU
[2025-06-26 11:16] VITALS: BP 142/72; PULSE 75; RESP 16; O2SAT 97
[2025-06-26 11:31] VITALS: BP 144/79; PULSE 60; RESP 14; TEMP 37.2; O2SAT 98
--- NOTE | 2025-06-26 21:09 | OP_ITS ---
DATE OF SERVICE: 06/26/2025 SURGEON: Marquise Osman MD INDICATIONS: The patient presents for evaluation of chronic gastroesophageal reflux and dysphagia. Full consent has been obtained from her for this, including risks of bleeding and perforation. PREOPERATIVE DIAGNOSIS: Dysphagia. POSTOPERATIVE DIAGNOSIS: PROCEDURE PERFORMED: Esophagogastroduodenoscopy with balloon dilation of gastroesophageal junction and biopsies. ESTIMATED BLOOD LOSS: COMPLICATIONS: ANESTHESIA: Medication use, monitored anesthesia care. ASSISTANTS: SPECIMENS: POSTOPERATIVE DIAGNOSES: Dysphagia, gastroesophageal reflux, hiatal hernia. DESCRIPTION OF PROCEDURE: The patient was placed in the left lateral decubitus position. The Olympus video gastroscope was passed in the posterior oropharynx and upper esophagus under direct vision. The scope was passed slowly to the distal esophagus. The gastroesophageal junction appeared at 34 cm. There was some slight irregularity as well as some whitish areas that may have represented Laura. There was no definitive stricture noted. The scope easily entered the stomach. There was a small to moderate-sized hiatal hernia. The scope was advanced to pylorus and the duodenum was cannulated to the descending portion. The duodenum including the bulb appeared normal without mass or ulceration. The scope was withdrawn back to the stomach. The gastric antrum and body had some changes of a chronic appearing gastritis with some edema and erythema, but no erosions or ulceration. There was good peristalsis. Biopsies were obtained from the antrum. The scope was retroflexed visualizing the proximal stomach carefully, which appeared normal, without any sign of mass or ulceration. The scope was straightened and withdrawn back to the esophagus. Given her symptomatology, I did use a [employer] incremental balloon to dilate the gastroesophageal junction from 18 mm to 19 mm to 20 mm at the recommended pressure for 30 seconds each. Post dilation, there was no appreciable change noted and no heme noted. I then obtained multiple biopsies at the EG junction at 34 cm. Proximal to this, the esophageal mucosa appeared normal. Scope was withdrawn from the patient. She tolerated the procedure well and was returned to the recovery area in stable condition. IMPRESSION: 1. Gastroesophageal reflux. 2. Rule out esophageal candidiasis. PLAN: The results of biopsies will be checked. She has been advised to continue her current dosage of omeprazole 40 mg daily. She was advised to resume her Xarelto tomorrow. She will go back on her usual regimen of Trulicity as well. She will see me as needed. MD LINDA Brooke/JELANI / [phone] ADIS
== END 2025-06-26 12:37 | disposition home or self-care (01) ==
PROVIDERS: PCP Internal Medicine; Visit Provider Internal Medicine
PROC: (CPT 43249; principal; 2025-06-26 08:30)
DX: R13.19 Other dysphagia (principal); K21.9 Gastro-esophageal reflux disease without esophagitis; K44.9 Diaphragmatic hernia without obstruction or gangrene; Z80.0 Family history of malignant neoplasm of digestive organs; I10 Essential (primary) hypertension; I25.10 Atherosclerotic heart disease of native coronary artery without angina pectoris; Z95.5 Presence of coronary angioplasty implant and graft; I48.91 Unspecified atrial fibrillation; E11.9 Type 2 diabetes mellitus without complications; K76.0 Fatty (change of) liver, not elsewhere classified; J45.909 Unspecified asthma, uncomplicated; Z79.899 Other long term (current) drug therapy; Z90.49 Acquired absence of other specified parts of digestive tract; Z98.890 Other specified postprocedural states; Z79.01 Long term (current) use of anticoagulants; Z79.85 Long-term (current) use of injectable non-insulin antidiabetic drugs; E78.5 Hyperlipidemia, unspecified
CPT/HCPCS: 43249; 43239; 82947; 88305; 88313; 88342; C1726; J2003; J2704; J3010

== ENCOUNTER 2025-08-08 08:00 | Outpatient (REF) | payer MEDICARE, OTHER, SELFPAY ==
--- OUTSIDE RECORDS SUMMARY | 2025-06-26 03:30 | XMS_ITS ---
Author Organization [facility] Address [address] [place] [address] Care Team Providers Care Hospital Corpsman Name Role Phone Aracely Thompson MD Primary Care Provider Marquise Chapin [phone] REASON FOR VISIT gerd, esophageal dysphagia,h pylori infection Encounters Encounter Location Date Provider Diagnosis [facility] [place] [facility] [address] [place], [place] [id number] 06/26/2025 Marquise Osman Plan Of Treatment No Information Progress Notes * CALVIN ALVESDOB: [birth year] (75 yo F)Acc No.[id number]:06/26/2025 EGD/MAC Patient: CALVIN PEACE Provider: Mich Osman MD :1950 A ge:75 Y S ex:Female Date:06/26/2025 [address] [facility] Pcp:Aracely Thompson MD Subjective: * Chief Complaints: * G erd, esophageal dysphagia,h pylori infection Billing Information: * Procedure Codes: * The named appointment provid er may or may not be the originator of this progress note, and it is not deemed complete until electronically signed by the appointment provider. Sign off status: Pending * Provider: Mich Osman MD Date: 08/26/2024 Generated for Mari ventura/Zaire/eTransmitting on: 09:25 AM EST
--- OUTSIDE RECORDS SUMMARY | 2025-07-02 13:24 | XMS_ITS ---
Author Organization [facility] Address [address] [place] [address] Care Team Providers Care Armament Mechanic Name Role Phone Aracely Thompson MD Primary Care Provider Marquise Chapin [phone] REASON FOR VISIT ? treat Laura Problems Problem Type SNOMED Code ICD Code Onset Dates Problem Status W/U Status Risk Notes Problem Diverticular disease of colon (648052175) Diverticulosis (K57.90) Active confirmed Encounters Encounter Location Date Provider Diagnosis [facility] [address] [place] [address] 07/02/2025 Marquise Osman Diverticulosis K57.9 0 Assessments Encounter Date Diagnosis (ICD Code) Assessment Notes Treatment Notes Treatment Clinical Notes Section Notes 07/02/2025 Diverticulosis (ICD-10 - K57.90) Plan Of Treatment No Information Progress Notes * CALVIN ALVESDOB: [birth year] (75 yo F)Acc No.[id number]:07/02/2025 Patient: CALVIN PEACE :1950 A ge:75 Y S ex:Female Address[address] [facility] [place] [address] Subjective: * Chief Complaints: * ? treat Laura Assessment: * Assessment: 1. D iverticulosis - K57.90 (Primary) * * Date:
[2025-08-08 08:19] LABS: MANUAL DIFF FLAG NO
[2025-08-08 08:51] LABS: Hematocrit 40.2 % (37.0-47.0); Hemoglobin 13.0 g/dl (12.0-16.0); Imm Gran Abs Auto 0.02 X10*3/uL (0.00-0.03); Imm Gran Pct Auto 0.2 % (0.0-0.4); Lymphocytes Absolute Auto 1.3 X10*3/uL (1.2-4.9); Mean Corpuscular HGB Conc 32.3 g/dl (31.0-35.0); Mean Corpuscular Hemoglobin 27.2 pg (27.0-33.0); Mean Corpuscular Volume 84.1 fL (80.0-98.0); NRBC Abs Auto 0.000 X10*3/uL (0.0-0.012); NRBC Pct Auto 0.0 /100WBC (0.0-0.2); Platelet Count 265 X10*3/uL (160-400); Red Blood Count 4.78 X10*6/uL (4.20-5.50); White Blood Count 8.3 X10*3/uL (4.8-10.8)
--- OUTSIDE RECORDS SUMMARY | 2025-08-08 09:26 | XMS_ITS | Patient Health Record ---
Author Organization [facility] Address [address] [place] [address] Care Team Providers Care Rv Servicer Name Role Phone Aracely Thompson Primary Care Provider Michelet Jackson Unavailable [phone] Allergies No Known Allergies Results Component Value [...] Problem Acquired hammer toe of right foot (1743180675651588 ) Other hammer toe(s) (acquired), right foot (M20.41) Active confirmed Problem Acquired hammer toe of left foot (7476084852505654 ) Other hammer toe(s) (acquired), left foot (M20.42) Active confirmed Problem Polyneuropathy due to type 2 diabetes mellitus (479469032) Type 2 diabetes mellitus with diabetic polyneuropathy (E11.42) Active confirmed Vital Signs Blood pressure diastolic 65 mm Hg 05/18/2025 Height 5ft 2in in 05/18/2025 Blood pressure systolic 126 mm Hg 05/18/2025 Weight 179 lbs 05/18/2025 BMI 32.74 kg/m2 05/18/2025 Procedures Procedure Date Ordered Date Performed Result Body Sit e 44034-MNGLGTF NAIL, 6 OR MORE 08/15/2024 N/A 51238-Wcxgyjhc Plate 08/15/2024 N/A 97542-WXVO SKIN LESIONS, OVER 4 08/15/2024 N/A 31429-Ztag. Subungual Hematoma 08/15/2024 N/A 32218-WJHCEJS NAIL, 6 OR MORE 11/14/2024 N/A 93348-MNQN SKIN LESIONS, OVER 4 11/14/2024 N/A 60020-CKNPAPV NAIL, 6 OR MORE 02/15/2025 N/A 07441-LOXB SKIN LESIONS, OVER 4 02/15/2025 N/A 80196-HBXHHNT NAIL, 6 OR MORE 05/18/2025 N/A 38987-YARN SKIN LESIONS, OVER 4 05/18/2025 N/A Encounters Encounter Location Date Provider Diagnosis [address] [address] 08/15/2024 Micheletwillis Mcclelland Type 2 diabetes mellitus with diabetic polyneuropathy E11.42 ; Tinea unguium B35.1 ; Ingrown nail L60.0 ; Other hammer toe(s) (acquired), right foot M20.41 ; Other hammer toe(s) (acquired), left foot M20.42 and Subungual hematoma of right foot, initial encounter S90.221A [address] [address] 11/14/2024 Michelet Mcclelland Type 2 diabetes mellitus with diabetic polyneuropathy E11.42 ; Tinea unguium B35.1 and Xerosis of skin L85.[address] [address] 02/15/2025 Michelet Mcclelland Type 2 diabetes mellitus with diabetic polyneuropathy E11.42 ; Tinea unguium B35.1 and Xerosis of skin L85.[address] [address] 05/18/2025 Michelet Mcclelland Type 2 diabetes mellitus with diabetic polyneuropathy E11.42 and Tinea unguium B35.[address] [address] 08/12/2024 Michelet Mcclelland Assessments Encounter Date Diagnosis [...] X ray : Foot, left 3V 04/02/2023 87752-QEUTWUH NAIL, 6 OR MORE 06/29/2023 12654-DIMTPFS NAIL, 6 OR MORE 04/02/2023 48430-DBPATHY NAIL, 6 OR MORE 10/05/2023 97247-LDPVPPQ NAIL, 6 OR MORE 02/15/2024 32343-CILDYYF NAIL, 6 OR MORE 08/15/2024 69605-ZZCHPAJ NAIL, 6 OR MORE 11/14/2024 90614-JFKDQJN NAIL, 6 OR MORE 02/15/2025 10697-FFBJJMZ NAIL, 6 OR MORE 05/18/2025 13658-EPYDNHS NAIL, 6 OR MORE 08/30/2020 02652-IIYVFQL NAIL, 6 OR MORE 11/29/2020 14168-MESQWLB NAIL, 6 OR MORE 02/28/2021 05497-XGDKREF NAIL, 6 OR MORE 05/30/2021 69846-XYCHUYL NAIL, 6 OR MORE 09/05/2021 31686-EGBQTPO NAIL, 6 OR MORE 12/05/2021 71082-QJMWBOX NAIL, 6 OR MORE 03/10/2022 19405-FTBWCGX NAIL, 6 OR MORE 06/09/2022 13773-VYEGDLC NAIL, 6 OR MORE 09/08/2022 36912-LRRHZEL NAIL, 6 OR MORE 12/15/2022 31639-DAFAIOS NAIL, 1-5 08/15/2019 49983-SBHJQOQ NAIL, 1-5 04/11/2020 25307-TZNWSCT NAIL, 1-5 01/24/2019 19905-CDUJZSV NAIL, 1-5 05/09/2019 53162-Dijhqedu Plate 01/24/2019 67533-Kulaqugy Plate 03/10/2022 50493-Pshurdki Plate 12/05/2021 41762-Blruwtyx Plate 09/05/2021 50049-Cdroubah Plate 08/15/2024 78778-Ubmwlbad Plate 04/02/2023 52041-Qcyrwpwn Plate 09/08/2022 72508-Ptaqyptv Plate 12/15/2022 11899-Gxbyiwss Plate 06/29/2023 01585-HGRQ SKIN LESIONS, OVER 4 06/29/20 15458-HUOQ SKIN LESIONS, OVER 4 04/02/20 23 33573-NBIA SKIN LESIONS, OVER 4 08/15/19 93893-KKQS SKIN LESIONS, OVER 4 02/15/20 24 91439-BKHF SKIN LESIONS, OVER 4 10/05/19 24 08375-KZZB SKIN LESIONS, OVER 4 05/18/20 02784-LVKT SKIN LESIONS, OVER 4 02/16/20 32298-NVHW SKIN LESIONS, OVER 4 11/15/19 25 65546-MUCL SKIN LESIONS, OVER 4 09/05/19 22 89154-CHFS SKIN LESIONS, OVER 4 12/06/19 22 64168-HMOO SKIN LESIONS, OVER 4 03/10/20 77991-GMML SKIN LESIONS, OVER 4 06/09/20 22 66472-WKWA SKIN LESIONS, OVER 4 12/16/19 23 59613-TWVK SKIN LESIONS, OVER 4 09/08/19 23 78340-IZLF SKIN LESIONS, 2 TO 4 05/30/20 89201-OQXR SKIN LESIONS, 2 TO 4 02/29/20 11680-UDKY SKIN LESIONS, 2 TO 4 05/09/20 19 27426-MMUY SKIN LESIONS, 2 TO 4 08/15/19 20 21266-HQUS SKIN LESIONS, 2 TO 4 01/25/20 19 89442-BYSO SKIN LESIONS, 2 TO 4 11/30/19 21 78925-KYRN SKIN LESIONS, 2 TO 4 04/11/20 20 83244-ZTOA SKIN LESIONS, 2 TO 4 08/30/19 21 70450-Wpiw. Subungual Hematoma 5 V1600-ZYDPWGFL DYSTROPHIC NAILS ANY # F7264-HGJZOHLA DYSTROPHIC NAILS ANY # B4230-PWPTXCCR DYSTROPHIC NAILS ANY # E2218-DOIGNYIV DYSTROPHIC NAILS ANY # Next Appt Details Provider Name:Michelet Parker Krystin , 09/06/2025 10:15:00 AM, [address] [facility], [address], [place], [address], Insurance Providers Payer Name Payer Address Payer Phone Subscriber Number Group Number Insured Name Patient Relationship to Insured Coverage Start Date Coverage End Date Medicare [employer] [address] [place] [address] [id number] Milana Fonseca Self - patient is the insured [address] [place] [address] [address] [place] [address] [phone] [id number] Milana Fonseca Self - patient is the insured Medical (General) History Medical History History ICD Code Arthritis Chicken pox Cholesterol Diabetic type ll Heart disease High blood pressure Surgical History Surgery Date(Month/Year) R ovarian removed 1995 gall bladder removed 1999 Hammer toe Left 3rd toe cardiac catheterization 11/13/21 eye surgery 06/15/23 Hospitalization History Reason Date(Month/Year) Urgent Care [place]- flu 03/2022
--- OUTSIDE RECORDS SUMMARY | 2025-08-08 09:26 | XMS_ITS | Patient Health Record ---
Author Organization [facility] Address [address] [place] [address] Care Team Providers Care Encapsulator Name Role Phone Aracely Thompson MD Primary Care Provider Marquise Chapin [phone] Allergies Allergen (clinical drug ingredient) Drug/Non Drug Allergy documented on EMR Reaction Allergy Type Onset Date Status Fruit & Vegetable Daily Unknown Drug Allergy Active Results Component Value Reference Range Flag Notes Pathology (Not yet reviewed by provider) Interpretation: Performing Lab:[facility], [address] [place] [id number] Notes/Report: Glucose, Whole Blood Reviewed date:06/27/2025 10:16:58 PM Interpretation: Performing Lab:[facility], [address] [place] [phone] Notes/Report: Glucose, Whole Blood 135 60-115 mg/dL H TN TER #: [id number] Reason For Referral No Information Medications Medication SIG (Take, Route, Frequency, Duration) Notes Start Date End Date Status Trulicity 3 MG/0.5ML Solution Auto-injector INJECT 3 MG (0.5 ML) SUBCUTANEOUSLY EVERY WEEK FOR 30 DAYS Subcutaneous; Duration: 28 Days Active Sertraline HCl 25 MG Tablet TAKE 1 TABLET BY MOUTH EVERY DAY Oral; Duration: 90 Days Active Otezla 30 MG Tablet Oral; Duration: 30 Days Active Nexletol 180 MG Tablet TAKE 1 TABLET BY MOUTH EVERY DAY Oral; Duration: 90 Days Active Cozaar 100 MG Tablet 1 tablet Orally Onc e a day Active traZODone HCl 50 MG Tablet TAKE 1 TABLET ORALLY BEDTIME NEEDED FOR SLEEP Oral; Duration: 90 Days Active Rosuvastatin Calcium 40 MG Tablet Oral; Duration: 90 Active Victoza 18 MG/3ML Solution Pen-injector 0.2 ml Subcutaneous Once a day Not-Taking/PRN Metoprolol Succinate ER 25 MG Tablet Extended Release 24 Hour 1 tablet Orally Once a day Active Ezetimibe 10 MG Tablet Oral; Duration: 90 Days Acti ve Zetia 20 mg Tablet 1 tablet Orally Once a day Active Rosuvastatin Calcium 40 MG Tablet Oral; Duration: 90 Days Acti ve Clobetasol Propionate 0.05 % Solution APPLY IN THE MORNING AND IN THE EVENING ON SCALP 5-10 DROPS AND MASSAGE IN NEEDED External; Duration: 30 Days Active Xarelto 20 MG Tablet Oral; Duration: 90 Active Omeprazole 20 MG Capsule Delayed Release TAKE 1 TABLET BY MOUTH EVERY MORNING; Duration: 90 Active Omeprazole 40 MG Capsule Delayed Release 1 capsule 1/2 to 1 hour before morning meal Orally Once a day; Duration: 30 days 04/04/2025 Active Immunizations Vaccine Route Administration Date Status Comme nts Influenza Unknown 04/10/2021 Administered Influenza Unknown 04/04/2025 Refused Social History Social History Additional Details Category Social Info Options Details Miscellaneous: Marital status: 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 Section Notes: Nonsmoker; no sig alcohol Nonsmoker; no sig alcohol Nonsmoker; no sig alcohol Nonsmoker; no sig alcohol Problems Problem Type SNOMED Code ICD Code Onset Dates Problem Status W/U Status Risk Notes Problem History of adenomatous polyp of colon (135322824) History of adenomatous polyp of colon (Z86.010) Active confirmed Problem Dysphagia (88935876) Dysphagia (R13.10) Active confirmed Problem Duodenitis (26018058) Duodenitis (K29.80) Active confirmed Problem Diverticular disease of colon (996172797) Diverticulosis (K57.90) Active confirmed Problem Hiatal hernia (08882770) Hiatal hernia (K44.9) Active confirmed Problem Hemorrhage of rectum and anus (000533505) Rectal bleed (K62.5) Active confirmed Problem Gastritis (4228327) Gastritis (K29.70) Active c onfirmed Problem Duodenal ulcer (76159517) Duodenal ulcer (K26.9) Active confirmed Problem Helicobacter pylori infection (637370210) Helicobacter pylori infection (A04.8) Active confirmed Problem Diverticulosis of colon (833304302) Diverticulosis of colon (K57.30) Active confirmed Problem Gastroesophageal reflux disease (506560530) Gastroesophageal reflux disease, unspecified whether esophagitis present (K21.9) Active confirmed Problem Esophageal dysphagia (52154016) Esophageal dysphagia (R13.19) Active confirmed Vital Signs Temperature 99.3 degrees Fahrenheit 04/04/2025 Blood pressure diastolic 01 mm Hg 04/04/2025 Height 61 in 04/04/2025 Blood pressure systolic 001 mm Hg 04/04/2025 Weight 174.2 lbs 04/04/2025 BMI 32.91 kg/m2 04/04/2025 Procedures Procedure Date Ordered Date Performed Result Body Sit e UPPER GI ENDOSCOPY BALLOOON DILATION OF ESOPH 04/04/2025 N/A Encounters Encounter Location Date Provider Diagnosis [facility] Outpatient [address] [place] [id number] 06/26/2025 Marquise Osman [facility] [address] [place] [address] 04/04/2025 Marquise Osman Gastroesophageal ref lux disease, unspecified whether esophagitis present K21.9 ; Esophageal dysphagia R13.19 and Helicobacter pylori infection A04.8 [facility] [address] [place] [address] 07/02/2025 Marquise Osman Diverticulosis K57.9 0 Assessments [...] to keep you advised of her progress. 07/02/2025 Diverticulosis (ICD-10 - K57.90) 04/04/2025 Helicobacter pylori infection (ICD-10 - A04.8) [...] GI ENDOSCOPY BALLOOON DILATION OF ESOPH 04/04/2025 Pathology 06/26/2025 Future Test Test Name Order Date COLONOSCOPY 05/30/2014 UPPER GI ENDOSCOPY BALLOOON DILATION OF ESOPH 07/09/2021 COLONOSCOPY 07/09/2021 Insurance Providers Payer Name Payer Address Payer Phone Subscriber Number Group Number Insured Name Patient Relationship to Insured Coverage Start Date Coverage End Date MEDICARE OF [place] [address] [place] [address] [id number] MILANA ALVES Self - patient is the insured [address] [place] [address] [address] [place] [phone] [id number] LONG MILANA Self - patient is the insured Medical (General) History Medical History History ICD Code Colonoscopy 05-31-2004- only a hyperplas tic polyp, sigmoid diverticulosis Hyperlipidemia Hypertension Denies renal disease NIDDM CAD- [place] and 2 stents > 5 yrs ago-Dr. Diamante delacruz Fatty liver- neg. Hepatitis serologies, neg. Iron studies, neg. liver U/S- normal LFT's in 09/2013 Atrial fib - Dr. 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
--- OUTSIDE RECORDS SUMMARY | 2025-08-08 09:26 | XMS_ITS | Patient Health Record ---
Author Organization [facility] Address [address] [facility] [address] [place] [address] Care Team Providers Care Wide Area Network Engineer Name Role Phone Lucrecia Munoz Unavailable [phone] Allergies No Known Allergies Reason For Referral No Information Medications Medication SIG (Take, Route, Frequency, Duration) Notes Start Date End Date Status Nystatin 082290 UNIT/GM APPLY 1 APPLICAT ION TOPICALLY 2 [...] Status Risk Notes Problem Postmenopausal atrophic vaginitis (38329689) Postmenopausal atrophic vaginitis (N95.2) Active confirmed Problem Osteoarthritis (965091145) Unspecified osteoarthritis, unspecified site (M19.90) Active confirmed Plan Of Treatment Pending Test Test Name Order Date MAMMOGRAM, SCREENING 11/18/2023 BONE DENSITY 11/18/2023 MM Digital Mammo Screening 11/18/2023 Insurance Providers Payer Name Payer Address Payer Phone Subscriber Number Group Number Insured Name Patient Relationship to Insured Coverage Start Date Coverage End Date MEDICARE [address] [id number] CALVIN ALVES Self - patient is the insured [address] [place] [address] [address] [place] [address] [id number] CALVIN ALVES Self - patient is [...]
[2025-08-08 09:43] LABS: Alanine Aminotransferase 15 U/L (0-31); Albumin Level 4.3 g/dL (3.5-5.0); Alkaline Phosphatase 64 U/L (39-117); Anion Gap 11 (12-20); Aspartate Amino Transferase 28 U/L (5-31); Blood Urea Nitrogen 15 mg/dL (9-16); Calcium 9.3 mg/dL (8.4-10.2); Carbon Dioxide 29 mmol/L (22-29); Chloride 104 mmol/L (96-108); Cholesterol 153 mg/dL (<200); Estimated Glomerular Filt Rate > 60; HDL Cholesterol 51 mg/dL (>40); Potassium 4.1 mmol/L (3.3-5.1); Sodium 140 mmol/L (135-145); Total Protein 7.6 g/dL (6.5-8.0); Triglycerides 74 mg/dL (<150)
== END 2025-08-08 08:01 | disposition home or self-care (01) ==
LOC: HO.LAB 08:00
PROVIDERS: PCP Internal Medicine; Visit Provider Internal Medicine
DX: E11.65 Type 2 diabetes mellitus with hyperglycemia (principal); E78.00 Pure hypercholesterolemia, unspecified; Z79.4 Long term (current) use of insulin
CPT/HCPCS: 36415; 80053; 80061; 83036; 85025